=== PATIENT | female | born 1940 | race Caucasian/White ===

== ENCOUNTER 2017-10-25 13:00 | Emergency (ER) | payer MEDICARE, SELFPAY ==
[2017-10-25 13:02] VITALS: BP 160/80; PULSE 119; RESP 16; TEMP 36.8; O2SAT 97; BMI 20.8
[2017-10-25 13:26] VITALS: BP 140/66; PULSE 105; RESP 19; O2SAT 99
[2017-10-25 14:19] LABS: Mucous, Urine 0 SEEN /hpf (<or=2+); Red Blood Cells-Urine 0 SEEN /hpf (0-5)
[2017-10-25 14:21] LABS: Absolute Lymphocyte Count 0.72 X10^3/ul (0.83-4.51); Absolute Neutrophil Count 1.1 X10^3/uL (2.0-7.7); Basophil# 0.05 X10^3/uL; Basophil% 1.7 % (0-1); Eosinophil# 0.27 X10^3/uL; Eosinophils% 9.1 % (0-5); Hematocrit 39.9 % (37-47); Hemoglobin 12.8 g/dl (12.0-15.0); Lymphocyte # 0.72 X10^3/ul (4.0); Lymphocyte % 24.2 % (19-41); Mean Corp Hgb Conc 32.1 g/gl (32-36); Mean Corpuscular Hgb 30.8 pg (27.0-32.0); Mean Corpuscular Volume 96.1 fL (81-99); Mean Platelet Vol. 10.1 fl (6.2-12.0); Monocyte# 0.84 X10^3/uL; Monocyte% 28.3 % (0-10); Neutrophil # 1.06 X10^3/uL (2.7-7.7); Neutrophil % 35.7 % (47-70); Platelet Count 172 K/mm3 (150-450); RBC Distribution Width CV 12.9 % (11.6-14.6); Red Blood Count 4.15 M/mm3 (4.2-5.4)
[2017-10-25 14:22] LABS: Color, Urine Yellow (Yellow); Glucose, Dipstick Normal (Normal); Ketone-Dipstick Negative (Negative); Leukocyte Esterase-Dipstick 25 /ul (Negative); Nitrite-Dipstick Negative (Negative); Occult Blood-Urine Negative /ul (Negative); Protein-Dipstick 30 mg/dl (Negative); Specific Gravity, Urine 1.015 (1.002-1.030); Urine Bilirubin Dipstick Negative (Negative); Urine Clarity Sl. Cloudy (Clear); Urine Urobilinogen Normal (Normal)
[2017-10-25 14:22] LABS: POSITIVE COUNT NO; POSITIVE DIFFERENTIAL NO; POSITIVE MORPHOLOGY YES
[2017-10-25 14:23] LABS: Differential Indicated SCAN CRITERIA MET
--- NOTE | 2017-10-25 14:25 | RAD_ITS ---
STUDY: X-RAY CHEST REASON FOR EXAM: Female, 76 years old. Weakness TECHNIQUE: PA and lateral views of the chest. COMPARISON: 06/09/2017 FINDINGS: An implanted central catheter projects over the left chest with the tip in the SVC. The lungs are hyperinflated. There is no focal consolidation. Cardiac monitoring leads overlie the chest. There is no demonstrated pleural abnormality. Normal size heart. Normal mediastinum and odalys. Normal visualized pulmonary arteries. There is atherosclerotic calcification of the aortic arch with tortuosity. There are diffuse degenerative changes of the visualized thoracic spine. The bones are demineralized. There is no demonstrated abnormality of the visualized soft tissue structures of the upper abdomen. RAD/Chest PA and Lateral IMPRESSION: COPD. No focal consolidation. Electronically Signed: Jarred Rogel DO at 15:02 EST Tel , Service support ,
[2017-10-25 14:27] LABS: Bacteria 1+ /hpf (None Seen); Squamous Epithelial Cells - UA 0-5 SEEN /hpf (5-10); White Blood Cells 0-5 SEEN /hpf (0-5)
[2017-10-25 14:34] LABS: Anion Gap 6 (5-15); BUN 12 mg/dL (7-18); BUN/Creat Ratio 27.1 RATIO (10-20); Calcium,Total 9.2 mg/dL (8.5-10.1); Chloride 105 mmol/L (98-107); Creatinine, Serum 0.44 mg/dL (0.55-1.02); EST Glomerular Filtration Rate 147 mL/min (>60); Est Glom Filt Rate - Afr Amer 178 mL/min (>60); Glucose 87 mg/dL (74-106); Potassium 3.8 mmol/L (3.5-5.1); Sodium Level 140 mmol/L (136-145)
[2017-10-25 14:49] LABS: Toxic Granulation RARE
[2017-10-25 15:46] VITALS: PULSE 88; RESP 18; O2SAT 98
--- NOTE | 2017-10-25 16:30 | ED.VISSUMM ---
- ER Visit Summary Date of Service: 10/25/17 Chief Complaint: To ER by Dr. Herron because of chills and not feeling well History of Present Illness: The patient is a 76 F with history of Hodgkin's lymphoma who received chemotherapy Tuesday and of last week presents because of not feeling well, slight cough and frequency. She denies fever or sweats. She denies headache. She denies any ocular, visual or auditory symptoms. She denies rhinorrhea, congestion, earache or sore throat. She denies shortness of breath or chest pain of any type. She denies nausea, vomiting or diarrhea. She denies any rash or lesions. She does complain of frequency without dysuria or hematuria. Physical Examination: Signs are remarkable only blood pressure 146/66. Head is atraumatic normocephalic. Pupils are equal round reactive. Extraocular muscles are intact. TMs are pearly white with landmarks noted. Nares patent with no drainage. Posterior pharynx without erythema or exudate. Uvula is midline. There is no dysphonia or dysphasia. Trachea is midline. There is no stridor with auscultation of the neck. Heart is regular without murmur, gallop or rub. Lungs reveal rales and inspiration right base posteriorly. There is no egophony or increased vocal fremitus. Abdomen is soft nontender with no palpable subtle mass. There is no abdominal bruit. She has no CVA tenderness. Lower extremity exam is unremarkable. Neuro exam is nonfocal. Please read written note for complete detail Test Results: Count is 3000 with 36% segs and an absolute neutrophil count of approximately 1000. Electrode panel is normal. Urine reveals 0-5 WBCs and 1+ bacteria and is a good specimen. Culture was sent. Two-view chest x-ray reveals chronic changes with normal cardiac silhouette and mediastinum. Emergency Department Course and Treatment: Chest x-ray because of complaint of cough with rales right base. UA because of complaint of frequency. Blood work was obtained since she is immune suppressed to determine if she has absolute for count less than 500. Treatment Plan: Culture was sent and she received 2 g of Rocephin IV piggyback. Case was discussed with Dr. Akhtar who is on-call for Dr. Herron Disposition: Discharged home with prescription for ciprofloxacin and outpatient follow-up Impression: 1. UTI 2. Immune suppressed patient secondary to chemotherapy 3. History of non-Hodgkin's lymphoma 4. History of hypothyroidism This note was generated with Revuze dictation software. It may contain incorrect words, spelling, and punctuation that were not noted in review of the chart prior to signing ED Disposition - Plan for ED Patient: Disposition: Home or Assisted Living Chief Complaint: Weakness Instructions: ED UTI Cystitis Female Prescriptions: Ciprofloxacin [Cipro] 500 mg PO BID #14 tab Referrals: Yuridia Amanda MD [Primary Care Provider] - Pop Herron MD [STAFF PHYSICIAN] - 3-5 Days if not improving Additional Instructions: Your prescription was electronically sent to [facility] your preferred pharmacy
[2017-10-25 17:00] VITALS: PULSE 95; RESP 18; O2SAT 99
== END 2017-10-25 17:25 | disposition home or self-care (01) ==
PROVIDERS: Emergency Provider Emergency Medicine; Family Provider Family Medicine; PCP Family Medicine
DX: N39.0 Urinary tract infection, site not specified (principal); C85.90 Non-Hodgkin lymphoma, unspecified, unspecified site; E03.9 Hypothyroidism, unspecified; Z79.899 Other long term (current) drug therapy
CPT/HCPCS: 71046; 80048; 81001; 85025; 87086; 87088; 96365; 99283; J7030

== ENCOUNTER → 2019-01-15 | Outpatient (CLI) | payer MEDICARE, SELFPAY ==
[2018-12-13 14:43] VITALS: BMI 24.4
--- NOTE | 2019-01-15 10:30 | PET_ITS ---
EXAMINATION: FDG PET CT INDICATIONS: A 78-year-old female with history of lymphoma presenting for restaging examination. COMPARISON EXAMINATION: CT of the neck report dated 12/19/18. INDEX LESION SIZE LUGANO SCORE SUV INTERPRETATION Left supraclavicular region, left lateral neck, right anterior neck 8.2 mm x 12.0 mm largest (frame 222) 5 4.7 (max) Fulfills quantitative criteria for viable neoplasm Carinal level mediastinum (n = 1) 14.1 mm x 12.4 mm largest (frame 193) 5 4.6 (max) Fulfills quantitative criteria for viable neoplasm NON-INDEX LESION SIZE LUGANO SCORE SUV INTERPRETATION Right inguinal region 3 2.0 Quantitative criteria for viable neoplasm are not fulfilled TECHNIQUE: Following the intravenous administration of 15.8 mCi of F-18 deoxyglucose via the left wrist, multiplanar image acquisitions of the neck, chest, abdomen and pelvis to level of mid thigh, obtained at one hour post radiopharmaceutical administration contemporaneously interpreted with the current CT of the neck, chest, abdomen and pelvis to level of mid thigh, dated 01/15/[address] of the neck report dated 12/19/18 reveal: SERUM GLUCOSE LEVEL: 104 mg/dl. HEIGHT: 64 inches. WEIGHT: 136 lbs. FINDINGS: 1. Increased glucose metabolism is identified in the left supraclavicular region, right anterior neck involving level IV and left lateral neck involving level II A, V A. The calculated maximum standard uptake value is 4.7. The Lugano-Deauville score is 5. The maximal axial diameter of the largest individual metabolic, morphologic abnormality on review of CT of the neck-chest dated 01/15/19 is 8.2 mm (transverse) x 12.0 mm (AP). 2. Facilitated FDG concentration appears evident in the carinal level mediastinum to the left of the midline, paratracheal in location generating a calculated maximum standard uptake value of 4.6. The Lugano-Deauville score is 5. The maximal axial diameter of the corresponding hypermetabolic soft tissue density on review of CT of the chest dated 01/15/19 is 14.1 mm (transverse) x 12.4 mm (AP). 3. Normal physiologic distribution of the radiopharmaceutical is apparent in the hepatic (3.4) and splenic parenchyma, both renal units, bladder and visualized intestinal tract. There is uniform distribution of the radiopharmaceutical concentration defined in the visualized cerebellar hemispheres and cerebral cortical structures.? Diffuse intestinal tract activity is noted throughout all four quadrants of the abdominal-pelvic retroperitoneum, mesentery consistent with normal physiologic distribution of the radiopharmaceutical. Prominent tracer distribution is defined in the right hemipelvis, which appears contiguous to the proximal-distal ureter. A single focus of increased FDG concentration is apparent in the right inguinal region generating a calculated maximum standard uptake value of 2.0. The Lugano-Deauville score is 3. The corresponding soft tissue density demonstrates fatty hilus formation on review of CT of the pelvis dated 01/15/19. Both kidneys demonstrate apparent prominent collecting system activity involving the superior-inferior pole calices. Pertinent CT findings are as follows. CHEST: Tnyh-M-Frux-MediPort placement is noted. Atherosclerotic calcification is defined in the thoracic aorta without evidence of dilatation, aneurysm formation. Coronary arterial calcification is observed. Bilateral axillary soft tissue densities with fatty hilus formation are ametabolic. There are no parenchymal densities-nodules defined in the right and left hemithorax demonstrating discernible increased glucose metabolism. ABDOMEN AND PELVIS: Atherosclerotic calcification is defined in the abdominal aorta without evidence of dilatation, aneurysm formation. Pelvic arterial calcification is observed. Right-left inguinal soft tissue densities with expressed fatty hilus formation are non-glucose avid. Calcifications are defined in the bilateral lower hemipelvis without evidence of quantitatively significant increased glucose metabolism. SKELETAL: Degenerative changes defined in the cervical, thoracic and lumbar spine demonstrate no evidence for glucose hypermetabolism. PET/PET/CT Tumor Base -Thigh Init IMPRESSION: 1. ABNORMAL EXAMINATION INDICATIVE OF MALIGNANT-VIABLE NEOPLASM. 2. Increased FDG concentration noted in the left supraclavicular and left lateral neck lymph node distributions, the right anterior neck fulfills quantitative criteria for viable neoplasm. 3. The carinal level mediastinal hypermetabolic focus fulfills quantitative criteria for malignant transformation. (Jacquie et al, Journal of Clinical Oncology 32:3059, 2014). 4. Subtle increased FDG concentration visualized in the right inguinal region does not fulfill quantitative criteria for viable neoplasm. Electronic Signature Kris Loya D.O. Electronically Signed: Kris Loya DO at 23:45 EDT Tel , Service support ,
== END | disposition home or self-care (01) ==
PROVIDERS: Family Provider Family Medicine; PCP Family Medicine; Referring Provider Internal Medicine Hematology & Oncology; Visit Provider Internal Medicine Hematology & Oncology
DX: C83.31 Diffuse large B-cell lymphoma, lymph nodes of head, face, and neck (principal)
CPT/HCPCS: 78815; A9552

== ENCOUNTER → 2019-01-19 | Outpatient (CLI) | payer MEDICARE, SELFPAY ==
[2018-12-04 11:49] VITALS: BMI 20.8
--- NOTE | 2018-12-08 13:11 | PCM.HP.BLA ---
History and Physical DATE OF SURGERY: 12/27/2018 SCHEDULED PROCEDURE: Left total hip arthroplasty with femoral head bone biopsy HISTORY OF PRESENT ILLNESS: This is a 77-year-old female who has been having ongoing pain in her left hip since March 2018. Patient has been referred from her primary care physician. Patient did undergo x-rays of the left hip and her lumbar spine on August 28, 2018 which was ordered by her primary care physician. Patient states she has difficult time sleeping due to the hip pain. She is unable to fully extend her left hip. Patient states the pain has become worse over the past 1 month. Her pain can reach as high as a 7-8/10. Patient has also had chronic ongoing low back pain for years. She does get pain down her left leg primarily in the thigh to her knee. She does get some occasional buttock pain. She denies any loss of bowel or bladder control. She is using a cane for ambulatory assistance. She denies previous surgery on the left hip. Patient did undergo percutaneous pinning of the right hip by Dr. Tinsley in 1998. Patient states the left hip pain prevents her from doing activities throughout the day. She denies any recent trauma or injury. Patient has tried Osteo Bi-Flex with minimal relief. Patient has a medical history pertinent for lymphoma in which she underwent chemotherapy which ended in December 2017. She is currently being followed by oncologist Dr. Herron. Patient currently denies any chest pain, shortness of breath, fevers chills, or recent infections. After discussion with Dr. Ramirez Sierra, the patient does wish to proceed with a left total hip arthroplasty with femoral head bone biopsy. REVIEW OF SYSTEMS: ROS: Const: Denies anorexia, change in appetite, fever, difficulty sleeping, weight change. CV: Reports irregular heartbeat, but denies chest pain, heart murmur and peripheral vascular disease. Resp: Denies asthma, cough, pneumonia, sleep apnea, shortness of breath, tuberculosis and wheezing. GI: Denies constipation, diarrhea, heartburn, nausea, rectal itching, bloody stools and vomiting. : Denies incontinence. Musculo: Reports trouble walking, but denies leg swelling, pain and weakness. Skin: Denies Raynaud's, history of shingles and tattoo. Neuro: Denies ambulatory dysfunction, dizziness, numbness/tingling and tremor. Psych: Denies anxiety, depression, insomnia, mental illness and stress. Fracisco/Lymph: Reports bleeding/bruising tendency, but denies anemia and past transfusion. Reviewed and updated. PAST MEDICAL HISTORY: Advance Care Plan: PMH: Medical Problems: Cancer - B-CELL LYMPHOMA Gout, Hypercholesterolemia, Mitrovalve Prolapse Accidents: Fracture - RT HIP LT SHOULDER Surgical Hx: ORIF - RT HIP/DR. TINSLEY[facility] LT SHOULDER/DR. TINSLEY[facility] Tubal Ligation, Appendectomy, Tonsillectomy Bowel Tuck - (03/2009) DR. PALMER[facility] Anesthesia Complications: None Assistive Devices: Glasses, Dentures Reviewed and updated. 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 Personal Habits: Smoking: Patient has never smoked.Cigarette Use: Never.Smokeless Tobacco: Never Used Smokeless Tobacco.E-Cigarette Use: Never used.Alcohol: Denies use.Drug Use: Denies Use.Enjoy Exercising: Exercises 1-3 X/Week. Reviewed and updated. VITALS: Ht: 63.5 Wt: 142lb 2oz Wt k.468 BMI: 24.8 BP: 154/86 Pulse: 106 Resp: 18 T: 98.9 T: 37.2C ALLERGIES: Amoxicillin Dye In CT scan Prednisone Zithromax Levaquin - Muscle Aches Lipitor - Rash Metronidazole Ketorolac MEDICATIONS: Artificial Tears 0.2-0.2-1 % one drop in each eye every hour prn, Docusate Sodium 100 mg 1po bid prn, Famotidine 20 mg 1 by mouth BID, Levothyroxine Sodium 88 mcg 1po qday, Tylenol Extra Strength 500 mg 2 by mouth every 8 hours, Alive Energy 50+ 1po bid, Trubiotics 1po qday with meal PRE-OP EXAM: General appearance:NORMAL Other: Eyes: Conjunctivae and lids: NORMAL Pupils: ERR Ears, Nose, Mouth, and Throat: NORMAL Other: Inspection of lips, teeth and gums: NORMAL Other: Neck: Examination of neck: no masses noted. Respiratory: Assessment of respiratory effort: NORMAL Other: Auscultation of lungs: clear to auscultation no wheezes, rhonchi or rales. Cardiovascular: Auscultation of heart: regular rate and rhythm, no murmurs, gallops or rubs. Gastrointestinal: Exam of abdomen: soft, nontender, nondistended bowel sounds present. PHYSICAL EXAMINATION: Exam: Const: Alert and oriented x 3. Skin: Skin is warm, dry and intact. Neuro: Sensation grossly intact to light touch. Neurological and vascular function intact. On exam this is a pleasant 77-year-old female who is sitting in the chair in no apparent distress. Patient does have increased pain going from a seated to a standing position. Upon laying on the table she is unable to fully extend the left hip. Patient has tenderness to palpation over the lateral left hip. Minimal pain in the left buttock region. No significant pain in the lumbar paraspinal. Range of motion left hip: Internal rotation 5, external rotation 15, patient lacks approximately 20 full extension left hip. Left hip crepitus and pain upon range of motion. Right hip: Internal rotation 15, external rotation 25. Negative seated bilateral straight leg raise, negative supine bilateral straight leg raise. Sensation intact to saphenous, sural, superficial/deep peroneal, tibial distribution. IMAGING STUDIES: 1. X-rays of the lumbar spine were reviewed from August 28, 2018 from outside institution which did reveal degenerative changes of the lumbar spine including mild narrowing of L4-L5 and L5-S1 disc spaces. There does appear to be grade 1 anterior listhesis of L4 on L5. There does appear to be abdominal aortic calcifications. No acute finding for fracture or dislocation. No lytic or blastic lesions appreciated. 2. X-rays of the left hip were reviewed from outside institution on August 28, 2018 which does reveal severe osteoarthritis of the left hip with bone on bone osteoarthritis with subchondral sclerosis, subchondral cyst formation, and large osteophytes off of the acetabulum and femoral head. No acute findings or fracture was appreciated. There is also moderate to severe osteoarthritis of the right hip with previous percutaneous pinning from a femoral neck fracture. 3. X-rays were obtained at [facility] [place] at today's visit including 2 views AP pelvis, AP left hip reveals severe osteoarthritic changes with [id number] osteoarthritis, subchondral sclerosis, subchondral cyst formation, large osteophyte formation. No acute finding for fracture or dislocation. There is moderate to severe osteoarthritis of the right hip with previous percutaneous pinning with moderate to severe joint space narrowing, subchondral sclerosis, osteophyte formation. IMPRESSION: 1. Severe left hip osteoarthritis 2. Severe right hip osteoarthritis with previous percutaneous pinning 3. Lumbar degenerative disc disease 4. History of Hodgkin's lymphoma 2018 5. Gout 6. Hypercholesterolemia 7. Mitral valve prolapse 8. Hypothyroidism PLAN: Dr. Ramirez Sierra did discuss and review with the patient all treatment options including surgical versus nonsurgical options. Patient does wish to proceed with the above-stated procedure. Potential risks, benefits, and complications of the procedure were discussed in detail including but not limited to , infection, nerve and blood vessel damage, persistent pain, numbness, tingling, paresthesias, blood clot, pulmonary embolism, and requirement for possible further surgery. The patient expressed full understanding and has no further questions for the doctor. Patient does agree to proceed with the above-stated procedure and has signed the surgery consent form. This dictation was created using voice recognition software. Phonetic and/or grammatical errors may exist.. ___ I have re-examined the patient. There are no clinical changes since date of exam. ___ See progress notes for changes. ___ Dictated on admission Date: Time: Signature:
[2018-12-13 14:43] VITALS: BP 136/78; PULSE 97; RESP 16; TEMP 37.1; O2SAT 98; BMI 24.4
--- NOTE | 2018-12-13 14:51 | SDCEKG_ITS ---
Test Reason : Blood Pressure : / mmHG Vent. Rate : 089 BPM Atrial Rate : 089 BPM P-R Int : 106 ms QRS Dur : 084 ms QT Int : 364 ms P-R-T Axes : 076 -42 074 degrees QTc Int : 442 ms Sinus rhythm with short [place] Left atrial enlargement Left axis deviation Abnormal ECG Confirmed by ANA PAULA TIJERINA, IRIS ([id number]), index editor CHESTER MAO ([id number]) on 12/14/2018 1:18:02 PM Referred By: Ramirez Sierra Confirmed By:IRIS GOSS MD
--- NOTE | 2018-12-13 15:21 | NURSING ---
PORT ACCESSED FOR BLOOD DRAW- FLUSHED WITH NS- DISCARDED TUBE- TONY 2 TUBES OF BLOOD- PORT FLUSHED WITH NS AND 5 CC HEPARIN PT TOLERATED WELL
[2018-12-13 15:39] LABS: Absolute Lymphocyte Count 0.76 X10^3/ul (0.83-4.51); Absolute Neutrophil Count 3.7 X10^3/uL (2.0-7.7); Basophil# 0.05 X10^3/uL; Eosinophil# 0.07 X10^3/uL; Eosinophils% 1.4 % (0-5); Hematocrit 40.9 % (37-47); Hemoglobin 12.9 g/dl (12.0-15.0); Lymphocyte # 0.76 X10^3/ul (4.0); Lymphocyte % 14.8 % (19-41); Mean Corp Hgb Conc 31.5 g/gl (32-36); Mean Corpuscular Hgb 31.2 pg (27.0-32.0); Mean Platelet Vol. 10.5 fl (6.2-12.0); Monocyte# 0.57 X10^3/uL; Monocyte% 11.1 % (0-10); Neutrophil # 3.67 X10^3/uL (2.7-7.7); Neutrophil % 71.5 % (47-70); Platelet Count 224 K/mm3 (150-450); RBC Distribution Width CV 12.2 % (11.6-14.6); Red Blood Count 4.13 M/mm3 (4.2-5.4); White Blood Count 5.1 K/mm3 (4.4-11.0)
[2018-12-13 15:49] LABS: POSITIVE COUNT NO; POSITIVE DIFFERENTIAL NO; POSITIVE MORPHOLOGY NO
[2018-12-13 16:23] LABS: Anion Gap 4 (5-15); BUN 12 mg/dL (7-18); BUN/Creat Ratio 20.2 RATIO (10-20); Calcium,Total 8.6 mg/dL (8.5-10.1); Chloride 105 mmol/L (98-107); EST Glomerular Filtration Rate 104 mL/min (>60); Est Glom Filt Rate - Afr Amer 126 mL/min (>60); Estimated Creatinine Clearance 39.59 ml/min; Glucose 125 mg/dL (74-106); Potassium 3.7 mmol/L (3.5-5.1); Sodium Level 139 mmol/L (136-145); Thyroid Stim Hormone (TSH) 0.13 uIU/mL (0.358-3.74)
== END | disposition home or self-care (01) ==
PROVIDERS: Anesthesiology; Family Provider Family Medicine; PCP Family Medicine; Referring Provider Specialist; Visit Provider Specialist
DX: Z01.818 Encounter for other preprocedural examination (principal); M16.12 Unilateral primary osteoarthritis, left hip; M16.11 Unilateral primary osteoarthritis, right hip; M51.36 Other intervertebral disc degeneration, lumbar region; M10.9 Gout, unspecified; E78.00 Pure hypercholesterolemia, unspecified; E03.9 Hypothyroidism, unspecified; I34.1 Nonrheumatic mitral (valve) prolapse; Z85.71 Personal history of Hodgkin lymphoma; Z79.899 Other long term (current) drug therapy
CPT/HCPCS: 80048; 84443; 85025; 87081; 93005

== ENCOUNTER 2019-02-16 07:04 | Inpatient (IN) | payer MEDICARE, SELFPAY ==
[2018-12-13 14:43] VITALS: BMI 24.4
[2019-02-16] VITALS (7 sets, daily range): BP systolic 103–121; BP diastolic 45–94; PULSE 84–116; RESP 18–27; TEMP 37.4–39.4; O2SAT 98–100; BMI 24.2; BMI 22.6
[2019-02-16] MEDS: 0.9% Normal Saline 1,000 ML 1000 ML IV (07:19)
--- NOTE | 2019-02-16 07:19 | EKG12_ITS ---
Test Reason : WEAKNESS Blood Pressure : / mmHG Vent. Rate : 098 BPM Atrial Rate : 098 BPM P-R Int : 110 ms QRS Dur : 076 ms QT Int : 374 ms P-R-T Axes : 000 -37 066 degrees QTc Int : 477 ms Ectopic atrial rhythm with short HI with Premature atrial complexes with Aberrant conduction Left axis deviation Abnormal ECG Confirmed by MICHAEL TIJERINA, DONY ([id number]), assistant film editor JUDY JENNINGS ([id number]) on 02/19/2019 1:42:25 PM Referred By: SANDRA Confirmed By:DONY RODRIGUEZ MD
[2019-02-16 07:57] LABS: Mucous, Urine 0 SEEN /hpf (<or=2+); Squamous Epithelial Cells - UA 0 SEEN /hpf (5-10); White Blood Cells 0 SEEN /hpf (0-5)
--- NOTE | 2019-02-16 07:57 | ED.DCSUM_ITS ---
History of Present Illness Chief Complaint: Weakness Informant: Patient, Family Onset: Yesterday Context: Gradual Onset Timing: Continuous Current Severity: Severe Maximum Severity: Moderate Worsened by: diarrhea Relieved by: pepto Associated Symptoms: general weakness,diarrhea,fatigue Narrative: 78-year-old female with a history of malignancy, last chemotherapy 1 week ago, presents with generalized fatigue and diarrhea. She was constipated for the past week or so and has been taking stool softeners. She doubled her dose because it was not working and has now had diarrhea for the past 48 hours. She is concerned that she is becoming dehydrated. She feels quite weak and this morning she could even get out of bed due to weakness. She denies cough or shortness of breath. Denies pain anywhere. She has not urinated much over the past 12 hours. Capacity - Capacity Assessment Tool Can the patient make a choice & communicate that choice?: Yes Past Medical History - Allergies and Home Meds Allergies/Adverse Reactions: Allergies amoxicillin Allergy (Verified 02/16/19 07:07) Unknown atorvastatin Allergy (Verified 02/16/19 07:07) Unknown azithromycin Allergy (Verified 02/16/19 07:07) Unknown Iodinated Contrast- Oral and IV Dye [DYEE] Allergy (Verified 02/16/19 07:07) Unknown ketorolac Allergy (Verified 02/16/19 07:07) Unknown levofloxacin [From Levaquin] Allergy (Verified 02/16/19 07:07) Unknown metronidazole Allergy (Verified 02/16/19 07:07) Unknown prednisone Allergy (Verified 02/16/19 07:07) Unknown Primary Care Physician: Francisco J Garces III, MD [Primary Care Provider] - Prior records reviewed: Yes Past Medical History: - - Reviewed. Smoking Status: Never smoker - Family History Maternal Family History: Reports: - - Non-contributory. Physical Exam Vital Signs/Narrative: Vital Signs Temp Pulse Resp BP Pulse Ox 02/16/19 07:13 99.9 F H 116 H 02/16/19 07:08 99.9 F H 116 H 20 H 121/94 H 99 General: Well developed, No Acute Distress Head: Normocephalic, Atraumatic Eyes: Perrl, EOMI ENT: No rhinorrhea, Dry mucous membranes Neck: Supple, Nontender Cardiovascular: Regular rate, Regular rhythm, No murmurs Respiratory: No distress, CTA bilaterally, Chest nontender Abdomen: Soft, Nontender, Nondistended, Normal bowel sounds Back: Nontender, Normal Inspection Extremities: Nontender, No edema Skin: Normal color, No rash Neurological: Alert, Oriented x3, Cranial nerves II-XII grossly intact, Normal Strength, Normal Sensation Psychological: Normal affect, Normal Mood Diagnostic/Tx/Re-eval Chest X-Ray - ED: 2 View, Normal, Heart, Lungs, No Acute Disease - Rhythm Strip Rhythm Strip: Sinus Rhythm Rate: 98 Ectopy: None - Medical Decision Making Her white count is less than 0.1. Chemistries fairly unremarkable. She has a temperature of 99.9 here and feels quite fatigued. Chest x-ray is negative for infiltrate. Urine does not appear infected however she was unable to produce a specimen and when a straight cath was inserted, over 800 cc of urine was obtained. A Harrington was left in place and several 100 more cc of urine drained. She is very weak on reexamination despite IV fluids and is unable to ambulate. Her daughter is not comfortable taking her home because of her weakness. I discussed the case with her oncologist, Dr. Herron, who recommended hospitalization for IV fluids, leaving the Harrington catheter in place, treating with Levaquin, and consulting neurology. I have paged the hospitalist to arrange this. ED Disposition - Plan for ED Patient: Disposition: Acute Care [facility] Diagnosis: Neutropenic fever, Dehydration, Urinary retention Referrals: Francisco J Garces III, MD [Primary Care Provider] -
[2019-02-16 08:02] LABS: Color, Urine Yellow (Yellow); Glucose, Dipstick Normal (Normal); Ketone-Dipstick Negative (Negative); Leukocyte Esterase-Dipstick Negative /ul (Negative); Nitrite-Dipstick Negative (Negative); Occult Blood-Urine Negative /ul (Negative); Protein-Dipstick Negative (Negative); Specific Gravity, Urine 1.015 (1.002-1.030); Urine Bilirubin Dipstick Negative (Negative); Urine Clarity Clear (Clear); Urine Urobilinogen Normal (Normal)
[2019-02-16 08:09] LABS: Basophil# 0.01 X10^3/uL; Hematocrit 29.1 % (37-47); Hemoglobin 9.6 g/dl (12.0-15.0); International Normalized Ratio 1.1; Lymphocyte # 0.08 X10^3/ul (4.0); Mean Corpuscular Hgb 28.1 pg (27.0-32.0); Mean Corpuscular Volume 85.1 fL (81-99); Mean Platelet Vol. 12.3 fl (6.2-12.0); Monocyte# 0.03 X10^3/uL; Platelet Count 58 K/mm3 (150-450); RBC Distribution Width CV 14.1 % (11.6-14.6); Red Blood Count 3.42 M/mm3 (4.2-5.4)
--- NOTE | 2019-02-16 08:10 | RAD_ITS ---
STUDY: X-RAY CHEST REASON FOR EXAM: Female, 78 years old. Weakness. Cough. TECHNIQUE: AP and lateral views of the chest. COMPARISON: Comparison is made with prior study dated October 25, 2017. FINDINGS: EKG electrodes are seen. A left-sided portacatheter is visible with the tip at the junction of superior vena cava and right atrium. Hyperinflation. There is no demonstrated pleural abnormality. Normal size heart. Normal mediastinum and odalys. Normal visualized pulmonary arteries. There is atherosclerotic calcification of the aortic arch with tortuosity. There is demineralization of the osseous structures. There is degenerative osteoarthritis of the bilateral shoulders. Screw fixation in the left humeral head. There is no demonstrated abnormality of the visualized soft tissue structures of the upper abdomen. RAD/Chest PA and Lateral IMPRESSION: Hyperinflation. No acute adenopathy is seen. Electronically Signed: Dakotah Garcia, at 8:39 EDT , Service support ,
[2019-02-16 08:11] LABS: Red Blood Cells-Urine 0-5 SEEN /hpf (0-5)
[2019-02-16 08:13] LABS: Bacteria 1+ /hpf (None Seen); Differential Indicated SCAN CRITERIA MET; POSITIVE COUNT YES; POSITIVE DIFFERENTIAL YES; POSITIVE MORPHOLOGY YES; White Blood Count 0.1 K/mm3 (4.4-11.0)
[2019-02-16 08:17] LABS: ALB/GLOB Ratio 0.8 RATIO (0.9-2.4); AST(SGOT) 15 U/L (15-37); Alanine Aminotransfer ALT/SGPT 32 U/L (13-56); Albumin, Serum 2.5 g/dL (3.2-5.0); Alkaline Phosphatase 107 U/L (45-117); Anion Gap 8 (5-15); BUN 8 mg/dL (7-18); BUN/Creat Ratio 16.7 RATIO (10-20); Calcium,Total 7.9 mg/dL (8.5-10.1); Chloride 103 mmol/L (98-107); Creatinine, Serum 0.48 mg/dL (0.55-1.02); EST Glomerular Filtration Rate 134 mL/min (>60); Est Glom Filt Rate - Afr Amer 162 mL/min (>60); Estimated Creatinine Clearance 38.97 ml/min; Globulin 3.2 g/dL (2.2-4.2); Glucose 125 mg/dL (74-106); Potassium 3.4 mmol/L (3.5-5.1); Protein, Total 5.7 g/dL (6.4-8.2); Sodium Level 136 mmol/L (136-145)
[2019-02-16 08:28] LABS: Scan Smear per Review Criteria MANUAL DIFF
[2019-02-16 08:33] LABS: Lymphocyte 75 % (19-41); Monocyte 15 % (0-10); Neutrophil-Segmented 10 % (47-70); Total Cells Counted 20 (MANUAL DIFF)
[2019-02-16 08:34] LABS: Atypical Lymphocyte 1+ %; Hypochromasia 1+; Platelet Estimate MKD DEC (ADEQ)
[2019-02-16 08:49] LABS: Lactic Acid 1.8 mmol/L (0.4-2.0)
[2019-02-16] MEDS: Ceftriaxone 1 GM/50 ML BAG IV (10:41)
[2019-02-16] MEDS: 0.9% Normal Saline 1,000 ML 100 ML IV ×2 (12:17→22:34)
[2019-02-16] MEDS: Acetaminophen 325 MG Tablet 650 MG PO ×2 (12:22→22:30)
--- NOTE | 2019-02-16 12:48 | PCM.CONS.GEN ---
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 Stage I diffuse large B-cell lymphoma. Immunocompromised; status post R-CHOP History of Present Illness: The patient is a 78 year old F with history of follicular lymphoma and marginal zone lymphoma who presented with a swollen neck mass a month ago. Her subsequent evaluation biopsy was consistent with diffuse large B-cell lymphoma of follicular origin. (cmyc & [id number]). Patient had previous treatment with CHOP & Rituxan bendamustine for non-Hodgkin lymphoma. She had her first cycle of R-CHOP last followed by Neulasta on Tuesday. Patient has not been eating well with constipation starting with this week. She took milk of magnesia and starting having diarrhea yesterday. She has not been able to void or urinate for the last 24-hour. Presented to emergency room with generalized weakness and dehydration. She also had a distended bladder a Harrington catheter was placed. She has over a liter retention of urine. Shortly afterwards, she spiked a temperature 102. CBC remarkable for ANC of 0.1 and a platelet count 59,000. She was subsequently admitted for neutropenic fever and urinary retention. Patient is allergic to penicillin and Levaquin. She was given Rocephin in the emergency room after blood and urine culture. 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) Lymphoma (Chronic) Allergies amoxicillin Allergy (Verified 02/16/19 07:07) Unknown atorvastatin Allergy (Verified 02/16/19 07:07) Unknown azithromycin Allergy (Verified 02/16/19 07:07) Unknown Iodinated Contrast- Oral and IV Dye [DYEE] Allergy (Verified 02/16/19 07:07) Unknown ketorolac Allergy (Verified 02/16/19 07:07) Unknown levofloxacin [From Levaquin] Allergy (Verified 02/16/19 07:07) Unknown metronidazole Allergy (Verified 02/16/19 07:07) Unknown prednisone Allergy (Verified 02/16/19 07:07) Unknown Home Medications: Ambulatory Orders Medication Instructions Recorded Levothyroxine [Synthroid] 88 mcg PO DAILY 05/20/17 Docusate Sodium [Colace] 100 mg PO TID PRN 10/25/17 L.acidoph,Paracasei, B.lactis 1 each PO DAILY 10/25/17 [Probiotic] Acetaminophen [Tylenol Extra 500 - 1,000 mg PO Q8H 12/13/18 Strength] Famotidine 20 mg PO DAILY 12/13/18 Mv-Mn/Folic Acid/Vit [id number] 1 each PO DAILY 12/13/18 [Alive Once Daily Women 50 Plus] Dexamethasone [Decadron] 1 tab PO BID PRN 02/16/19 Glucosam/Saroj-Msm1/C/Kannan/Bosw 2 each PO DAILY 02/16/19 [Osteo Bi-Flex Caplet] Magnesium Oxide [Magnesium] 300 mg PO DAILY 02/16/19 Ondansetron HCl 8 mg PO Q8H PRN 02/16/19 Potassium Chloride PO DAILY 02/16/19 Psychiatric History: No pertinent psych hx 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 Review of Systems Constitutional: Reports: Anorexia, Malaise, Weakness Gastrointestinal: Reports: Nausea Genitourinary: Reports: Retention Patient Problems: Active and Suspected Problems Neutropenic fever (Acute) Dehydration (Acute) Urinary retention (Acute) - Physical Exam General: Alert, Oriented x3, No apparent distress HEENT: Atraumatic, PERRLA, EOMI, Normocephalic Oral: No Gingival or Mucosal Lesions/ Ulcerations, Dry Mucosa Neck: Supple, No JVD Lungs: Clear to auscultation, Normal air movement, No rhonchi, No wheeze, No rales Cardiovascular: Regular rate, Regular Rhythm, Normal S1, Normal S2, No murmurs Abdomen: Bowel Sounds Present, Soft, Non Tender, No Hepato-splenomegaly Extremities: No clubbing, No cyanosis, No edema Skin: No rashes Lymphatic: No Cervical, Supraclavicular, or Inguinal Adenopathy Neurological: Cranial nerves II-XII grossly intact, Neuro grossly intact Psych/Mental Status: Normal Affect Comment: CXR: Hyperinflation. No acute adenopathy is seen. Vital Signs Temp Pulse Resp BP Pulse Ox 102.9 F H 98 20 H 115/50 L 100 02/16/19 11:19 02/16/19 11:19 02/16/19 11:19 02/16/19 11:19 02/16/19 11:19 Oxygen Delivery Method Room Air Weight: 127 lb 9.6 oz Body Mass Index (BMI) 22.6 Laboratory Tests Past 24 Hrs 02/16/19 02/16/19 02/16/19 07:45 07:45 07:45 WBC 0.1 L* RBC 3.42 L Hgb 9.6 L Hct 29.1 L MCV 85.1 MCH 28.1 MCHC 33.0 RDW 14.1 RDW Differential 44.0 H Plt Count 58 L MPV 12.3 H Neut % (Auto) Not Reportable Lymph % (Auto) METAL MOULDER [place] % (Auto) METAL MOULDER Baso % (Auto) METAL MOULDER Absolute Neuts (auto) 0.0 L Absolute Lymphs (auto) 0.10 L Total Counted 20 Neutrophils % (Manual) 10 L Lymphocytes % (Manual) 75 H* Monocytes % (Manual) 15 H Diff Path Review May foll Atypical Lymphocytes 1+ Platelet Estimate MKD DEC Hypochromasia 1+ PT 14.0 INR 1.1 Sodium 136 Potassium 3.4 L Chloride 103 Carbon Dioxide 25.0 Anion Gap 8 BUN 8 Creatinine 0.48 L Estim Creat Clear Calc 38.97 Est GFR (MDRD) Af Amer 162 Est GFR (MDRD) Non-Af 134 BUN/Creatinine Ratio 16.7 Glucose 125 H Lactic Acid Calcium 7.9 L Total Bilirubin 2.20 H AST 15 ALT 32 Alkaline Phosphatase 107 Total Protein 5.7 L Albumin 2.5 L Globulin 3.2 Albumin/Globulin Ratio 0.8 L Urine Color Urine Clarity Urine pH Ur Specific [place] Urine Protein Urine Glucose (UA) Urine Ketones Urine Occult Blood Urine Nitrite Urine Bilirubin Urine Urobilinogen Ur Leukocyte Esterase Urine RBC Urine WBC Ur Squamous Epith Cells Urine Bacteria Urine Mucus 02/16/19 02/16/19 07:45 07:45 WBC RBC Hgb Hct MCV MCH MCHC RDW RDW Differential Plt Count MPV Neut % (Auto) Lymph % (Auto) [place] % (Auto) Baso % (Auto) Absolute Neuts (auto) Absolute Lymphs (auto) Total Counted Neutrophils % (Manual) Lymphocytes % (Manual) Monocytes % (Manual) Diff Path Review Atypical Lymphocytes Platelet Estimate Hypochromasia PT INR Sodium Potassium Chloride Carbon Dioxide Anion Gap BUN Creatinine Estim Creat Clear Calc Est GFR (MDRD) Af Amer Est GFR (MDRD) Non-Af BUN/Creatinine Ratio Glucose Lactic Acid 1.8 Calcium Total Bilirubin AST ALT Alkaline Phosphatase Total Protein Albumin Globulin Albumin/Globulin Ratio Urine Color Yellow Urine Clarity Clear Urine pH 8.0 Ur Specific [place] 1.015 Urine Protein Negative Urine Glucose (UA) Normal Urine Ketones Negative Urine Occult Blood Negative Urine Nitrite Negative Urine Bilirubin Negative Urine Urobilinogen Normal Ur Leukocyte Esterase Negative Urine RBC 0-5 SEEN Urine WBC 0 SEEN Ur Squamous Epith Cells 0 SEEN Urine Bacteria 1+ Urine Mucus 0 SEEN Assessment/Plan All Active Problems Neutropenic fever (Acute) Dehydration (Acute) Urinary retention (Acute) Hypotension (Acute) HCAP (healthcare-associated pneumonia) (Acute) Malignant pleural effusion (Acute) 78-year-old female with diffuse large B-cell lymphoma; status post R-CHOP /Neulasta day 8 She presents with Neutropenic fever; possible sepsis & urinary retention. Recommendations: -IV hydration resuscitation; mouth care for stomatitis. -Starts broad-spectrum antibiotic (cefepime 1gm IV) every 8 hours pending blood cultures; -Discontinue antibiotic if cultures remain negative after 48 hours as her neutrophil count recovers -Monitor CBC daily -Hold heparin/LMWH because of thrombocytopenia -Consult urology for urinary retention -Since she has already yesika & had G-CSF; her white blood count should recover over this weekend with supportive care. -Nutrition therapy and physical therapy consult. cc: Dr. Pop Herron; Dr. Gabriel Wells; Dr. Cale Mcnulty
--- NOTE | 2019-02-16 12:54 | CON.PCM_ITS ---
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 Stage I diffuse large B-cell lymphoma. Immunocompromised; status post R-CHOP History of Present Illness: The patient is a 78 year old F with history of follicular lymphoma and marginal zone lymphoma who presented with a swollen neck mass a month ago. Her subsequent evaluation biopsy was consistent with diffuse large B-cell lymphoma of follicular origin. (cmyc & [id number]). Patient had previous treatment with CHOP & Rituxan bendamustine for non-Hodgkin lymphoma. She had her first cycle of R-CHOP last followed by Neulasta on Tuesday. Patient has not been eating well with constipation starting with this week. She took milk of magnesia and starting having diarrhea yesterday. She has not been able to void or urinate for the last 24-hour. Presented to emergency room with generalized weakness and dehydration. She also had a distended bladder a Harrington catheter was placed. She has over a liter retention of urine. Shortly afterwards, she spiked a temperature 102. CBC remarkable for ANC of 0.1 and a platelet count 59,000. She was subsequently admitted for neutropenic fever and urinary retention. Patient is allergic to penicillin and Levaquin. She was given Rocephin in the emergency room after blood and urine culture. 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) Lymphoma (Chronic) Allergies amoxicillin Allergy (Verified 02/16/19 07:07) Unknown atorvastatin Allergy (Verified 02/16/19 07:07) Unknown azithromycin Allergy (Verified 02/16/19 07:07) Unknown Iodinated Contrast- Oral and IV Dye [DYEE] Allergy (Verified 02/16/19 07:07) Unknown ketorolac Allergy (Verified 02/16/19 07:07) Unknown levofloxacin [From Levaquin] Allergy (Verified 02/16/19 07:07) Unknown metronidazole Allergy (Verified 02/16/19 07:07) Unknown prednisone Allergy (Verified 02/16/19 07:07) Unknown Home Medications: Ambulatory Orders Medication Instructions Recorded Levothyroxine [Synthroid] 88 mcg PO DAILY 05/20/17 Docusate Sodium [Colace] 100 mg PO TID PRN 10/25/17 L.acidoph,Paracasei, B.lactis 1 each PO DAILY 10/25/17 [Probiotic] Acetaminophen [Tylenol Extra 500 - 1,000 mg PO Q8H 12/13/18 Strength] Famotidine 20 mg PO DAILY 12/13/18 Mv-Mn/Folic Acid/Vit [id number] 1 each PO DAILY 12/13/18 [Alive Once Daily Women 50 Plus] Dexamethasone [Decadron] 1 tab PO BID PRN 02/16/19 Glucosam/Saroj-Msm1/C/Kannan/Bosw 2 each PO DAILY 02/16/19 [Osteo Bi-Flex Caplet] Magnesium Oxide [Magnesium] 300 mg PO DAILY 02/16/19 Ondansetron HCl 8 mg PO Q8H PRN 02/16/19 Potassium Chloride PO DAILY 02/16/19 Psychiatric History: No pertinent psych hx 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 Review of Systems Constitutional: Reports: Anorexia, Malaise, Weakness Gastrointestinal: Reports: Nausea Genitourinary: Reports: Retention Patient Problems: Active and Suspected Problems Neutropenic fever (Acute) Dehydration (Acute) Urinary retention (Acute) - Physical Exam General: Alert, Oriented x3, No apparent distress HEENT: Atraumatic, PERRLA, EOMI, Normocephalic Oral: No Gingival or Mucosal Lesions/ Ulcerations, Dry Mucosa Neck: Supple, No JVD Lungs: Clear to auscultation, Normal air movement, No rhonchi, No wheeze, No rales Cardiovascular: Regular rate, Regular Rhythm, Normal S1, Normal S2, No murmurs Abdomen: Bowel Sounds Present, Soft, Non Tender, No Hepato-splenomegaly Extremities: No clubbing, No cyanosis, No edema Skin: No rashes Lymphatic: No Cervical, Supraclavicular, or Inguinal Adenopathy Neurological: Cranial nerves II-XII grossly intact, Neuro grossly intact Psych/Mental Status: Normal Affect Comment: CXR: Hyperinflation. No acute adenopathy is seen. Vital Signs Temp Pulse Resp BP Pulse Ox 102.9 F H 98 20 H 115/50 L 100 02/16/19 11:19 02/16/19 11:19 02/16/19 11:19 02/16/19 11:19 02/16/19 11:19 Oxygen Delivery Method Room Air Weight: 127 lb 9.6 oz Body Mass Index (BMI) 22.6 Laboratory Tests Past 24 Hrs 02/16/19 02/16/19 02/16/19 07:45 07:45 07:45 WBC 0.1 L* RBC 3.42 L Hgb 9.6 L Hct 29.1 L MCV 85.1 MCH 28.1 MCHC 33.0 RDW 14.1 RDW Differential 44.0 H Plt Count 58 L MPV 12.3 H Neut % (Auto) Not Reportable Lymph % (Auto) ROD DRAWER [place] % (Auto) ROD DRAWER Baso % (Auto) ROD DRAWER Absolute Neuts (auto) 0.0 L Absolute Lymphs (auto) 0.10 L Total Counted 20 Neutrophils % (Manual) 10 L Lymphocytes % (Manual) 75 H* Monocytes % (Manual) 15 H Diff Path Review May foll Atypical Lymphocytes 1+ Platelet Estimate MKD DEC Hypochromasia 1+ PT 14.0 INR 1.1 Sodium 136 Potassium 3.4 L Chloride 103 Carbon Dioxide 25.0 Anion Gap 8 BUN 8 Creatinine 0.48 L Estim Creat Clear Calc 38.97 Est GFR (MDRD) Af Amer 162 Est GFR (MDRD) Non-Af 134 BUN/Creatinine Ratio 16.7 Glucose 125 H Lactic Acid Calcium 7.9 L Total Bilirubin 2.20 H AST 15 ALT 32 Alkaline Phosphatase 107 Total Protein 5.7 L Albumin 2.5 L Globulin 3.2 Albumin/Globulin Ratio 0.8 L Urine Color Urine Clarity Urine pH Ur Specific [place] Urine Protein Urine Glucose (UA) Urine Ketones Urine Occult Blood Urine Nitrite Urine Bilirubin Urine Urobilinogen Ur Leukocyte Esterase Urine RBC Urine WBC Ur Squamous Epith Cells Urine Bacteria Urine Mucus 02/16/19 02/16/19 07:45 07:45 WBC RBC Hgb Hct MCV MCH MCHC RDW RDW Differential Plt Count MPV Neut % (Auto) Lymph % (Auto) [place] % (Auto) Baso % (Auto) Absolute Neuts (auto) Absolute Lymphs (auto) Total Counted Neutrophils % (Manual) Lymphocytes % (Manual) Monocytes % (Manual) Diff Path Review Atypical Lymphocytes Platelet Estimate Hypochromasia PT INR Sodium Potassium Chloride Carbon Dioxide Anion Gap BUN Creatinine Estim Creat Clear Calc Est GFR (MDRD) Af Amer Est GFR (MDRD) Non-Af BUN/Creatinine Ratio Glucose Lactic Acid 1.8 Calcium Total Bilirubin AST ALT Alkaline Phosphatase Total Protein Albumin Globulin Albumin/Globulin Ratio Urine Color Yellow Urine Clarity Clear Urine pH 8.0 Ur Specific [place] 1.015 Urine Protein Negative Urine Glucose (UA) Normal Urine Ketones Negative Urine Occult Blood Negative Urine Nitrite Negative Urine Bilirubin Negative Urine Urobilinogen Normal Ur Leukocyte Esterase Negative Urine RBC 0-5 SEEN Urine WBC 0 SEEN Ur Squamous Epith Cells 0 SEEN Urine Bacteria 1+ Urine Mucus 0 SEEN Assessment/Plan All Active Problems Neutropenic fever (Acute) Dehydration (Acute) Urinary retention (Acute) Hypotension (Acute) HCAP (healthcare-associated pneumonia) (Acute) Malignant pleural effusion (Acute) 78-year-old female with diffuse large B-cell lymphoma; status post R-CHOP /Neulasta day 8 She presents with Neutropenic fever; possible sepsis & urinary retention. Recommendations: -IV hydration resuscitation; mouth care for stomatitis. -Starts broad-spectrum antibiotic (cefepime 1gm IV) every 8 hours pending blood cultures; -Discontinue antibiotic if cultures remain negative after 48 hours as her neutrophil count recovers -Monitor CBC daily -Hold heparin/LMWH because of thrombocytopenia -Consult urology for urinary retention -Since she has already yesika & had G-CSF; her white blood count should recover over this weekend with supportive care. -Nutrition therapy and physical therapy consult. cc: Dr. Pop Herron; Dr. Gabriel Wells; Dr. Cale Mcnulty
--- NOTE | 2019-02-16 14:52 | CHAPLAIN ---
Type of Pastoral Visit _x__ Initial Visit ___ Follow-up Visit ___ On-call Visit ___ General Patient Visit ___ Spiritual Assessment ___ Family Conference ___ Bereavement ___ Rapid Response ___ Code Blue ___ Other (describe below) Pastoral Care Referral From _x__ Patient ___ Family ___ Nurse ___ Physician ___ Game Room Attendant ___ Methane Gas Collection System Operator ___ Other (describe below) Sacrament/Intervention _x__ Active listening ___ Anointing ___ Confucianism ___ Bereavement ___ Communion _x__ Tran exploration ___ _x__ Life review _x__ Prayer ___ Reconciliation ___ Sacrament of Sick _x__ Supportive presence ___ Wedding ___ Other (describe below) Pastoral Comments
--- NOTE | 2019-02-16 16:04 | PCM.CONS.U ---
Problem List (1) Urinary retention Status: Acute Reason for Consult Date of Consultation: 02/16/19 Reason for Consultation: retention of urine History of Present Illness: The patient is a 78 year old female admitted with weakness, constipation, and found to have high pvr 800cc in the urine. u/a clear. WBC now, does not look ill but states she is weak. 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) Lymphoma (Chronic) Allergies amoxicillin Allergy (Verified 02/16/19 07:07) Unknown atorvastatin Allergy (Verified 02/16/19 07:07) Unknown azithromycin Allergy (Verified 02/16/19 07:07) Unknown Iodinated Contrast- Oral and IV Dye [DYEE] Allergy (Verified 02/16/19 07:07) Unknown ketorolac Allergy (Verified 02/16/19 07:07) Unknown levofloxacin [From Levaquin] Allergy (Verified 02/16/19 07:07) Unknown metronidazole Allergy (Verified 02/16/19 07:07) Unknown prednisone Allergy (Verified 02/16/19 07:07) Unknown Home Medications: Ambulatory Orders Medication Instructions Recorded Levothyroxine [Synthroid] 88 mcg PO DAILY 05/20/17 Docusate Sodium [Colace] 100 mg PO TID PRN 10/25/17 L.acidoph,Paracasei, B.lactis 1 each PO DAILY 10/25/17 [Probiotic] Acetaminophen [Tylenol Extra 500 - 1,000 mg PO Q8H 12/13/18 Strength] Famotidine 20 mg PO DAILY 12/13/18 Mv-Mn/Folic Acid/Vit [id number] 1 each PO DAILY 12/13/18 [Alive Once Daily Women 50 Plus] Dexamethasone [Decadron] 1 tab PO BID PRN 02/16/19 Glucosam/Saroj-Msm1/C/Kannan/Bosw 2 each PO DAILY 02/16/19 [Osteo Bi-Flex Caplet] Magnesium Oxide [Magnesium] 300 mg PO DAILY 02/16/19 Ondansetron HCl 8 mg PO Q8H PRN 02/16/19 Potassium Chloride PO DAILY 02/16/19 Surgical History: no surgical history Psychiatric History: No pertinent psych hx 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 Review of Systems Constitutional: Denies: Chills, Fever, Weight Change HEENT: Denies: Head Aches, Sinus Congestion, Sinus Drainage Cardiovascular: Denies: Chest Pain, Palpitations Respiratory: Denies: Cough, Shortness of breath at rest, Sputum production Gastrointestinal: Denies: Abdominal Pain, Nausea, Vomiting Genitourinary: Reports: Retention. Denies: Dysuria Musculoskeletal: Denies: Joint Pain, Joint Tenderness Skin: Denies: Rash, Wounds Neurological: Denies: Numbness, Tingling, Focal weakness Psychiatric: Denies: Anxiety, Depression, Homicidal Ideations, Suicidal Ideations Hematologic/ Lymphatic: Denies: Easy Bruising, Easy Bleeding Physical Exam - Physical Exam Vital Signs Temp 99.3 F H 02/16/19 15:12 Pulse 84 02/16/19 15:12 Resp 18 02/16/19 15:12 BP 109/52 L 02/16/19 15:12 Pulse Ox 100 02/16/19 15:12 Intake & Output 02/14/19 02/15/19 02/16/19 23:59 23:59 23:59 Intake Total 381 / 381 Output Total 850 / 850 Balance -469 / -469 Weight: 57.878 kg Intake: IV fluid/meds 381 / 381 Output: Urine 850 / 850 General: Alert, Oriented x3 HEENT: Atraumatic Oral: Moist Mucosa Neck: Supple Lungs: Normal air movement Cardiovascular: Regular rate Abdomen: Soft Laboratory Tests Past 24 Hrs 02/16/19 02/16/19 02/16/19 07:45 07:45 07:45 WBC 0.1 L* RBC 3.42 L Hgb 9.6 L Hct 29.1 L MCV 85.1 MCH 28.1 MCHC 33.0 RDW 14.1 RDW Differential 44.0 H Plt Count 58 L MPV 12.3 H Neut % (Auto) Not Reportable Lymph % (Auto) BRICK OFFBEARER [place] % (Auto) BRICK OFFBEARER Baso % (Auto) BRICK OFFBEARER Absolute Neuts (auto) 0.0 L Absolute Lymphs (auto) 0.10 L Total Counted 20 Neutrophils % (Manual) 10 L Lymphocytes % (Manual) 75 H* Monocytes % (Manual) 15 H Diff Path Review May foll Atypical Lymphocytes 1+ Platelet Estimate MKD DEC Hypochromasia 1+ PT 14.0 INR 1.1 Sodium 136 Potassium 3.4 L Chloride 103 Carbon Dioxide 25.0 Anion Gap 8 BUN 8 Creatinine 0.48 L Estim Creat Clear Calc 38.97 Est GFR (MDRD) Af Amer 162 Est GFR (MDRD) Non-Af 134 BUN/Creatinine Ratio 16.7 Glucose 125 H Lactic Acid Calcium 7.9 L Total Bilirubin 2.20 H AST 15 ALT 32 Alkaline Phosphatase 107 Total Protein 5.7 L Albumin 2.5 L Globulin 3.2 Albumin/Globulin Ratio 0.8 L Urine Color Urine Clarity Urine pH Ur Specific [place] Urine Protein Urine Glucose (UA) Urine Ketones Urine Occult Blood Urine Nitrite Urine Bilirubin Urine Urobilinogen Ur Leukocyte Esterase Urine RBC Urine WBC Ur Squamous Epith Cells Urine Bacteria Urine Mucus 02/16/19 02/16/19 07:45 07:45 WBC RBC Hgb Hct MCV MCH MCHC RDW RDW Differential Plt Count MPV Neut % (Auto) Lymph % (Auto) [place] % (Auto) Baso % (Auto) Absolute Neuts (auto) Absolute Lymphs (auto) Total Counted Neutrophils % (Manual) Lymphocytes % (Manual) Monocytes % (Manual) Diff Path Review Atypical Lymphocytes Platelet Estimate Hypochromasia PT INR Sodium Potassium Chloride Carbon Dioxide Anion Gap BUN Creatinine Estim Creat Clear Calc Est GFR (MDRD) Af Amer Est GFR (MDRD) Non-Af BUN/Creatinine Ratio Glucose Lactic Acid 1.8 Calcium Total Bilirubin AST ALT Alkaline Phosphatase Total Protein Albumin Globulin Albumin/Globulin Ratio Urine Color Yellow Urine Clarity Clear Urine pH 8.0 Ur Specific [place] 1.015 Urine Protein Negative Urine Glucose (UA) Normal Urine Ketones Negative Urine Occult Blood Negative Urine Nitrite Negative Urine Bilirubin Negative Urine Urobilinogen Normal Ur Leukocyte Esterase Negative Urine RBC 0-5 SEEN Urine WBC 0 SEEN Ur Squamous Epith Cells 0 SEEN Urine Bacteria 1+ Urine Mucus 0 SEEN Assessment/Plan All Active Problems Neutropenic fever (Acute) Dehydration (Acute) Urinary retention (Acute) Hypotension (Acute) HCAP (healthcare-associated pneumonia) (Acute) Malignant pleural effusion (Acute) start on flomax 0.4mg qhs then d/c durbin tuesday am for voiding trial check pvr if higher then 500cc then place durbin
--- NOTE | 2019-02-16 16:07 | CON.PCM_ITS ---
Problem List (1) Urinary retention Status: Acute Reason for Consult Date of Consultation: 02/16/19 Reason for Consultation: retention of urine History of Present Illness: The patient is a 78 year old female admitted with weakness, constipation, and found to have high pvr 800cc in the urine. u/a clear. WBC now, does not look ill but states she is weak. 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) Lymphoma (Chronic) Allergies amoxicillin Allergy (Verified 02/16/19 07:07) Unknown atorvastatin Allergy (Verified 02/16/19 07:07) Unknown azithromycin Allergy (Verified 02/16/19 07:07) Unknown Iodinated Contrast- Oral and IV Dye [DYEE] Allergy (Verified 02/16/19 07:07) Unknown ketorolac Allergy (Verified 02/16/19 07:07) Unknown levofloxacin [From Levaquin] Allergy (Verified 02/16/19 07:07) Unknown metronidazole Allergy (Verified 02/16/19 07:07) Unknown prednisone Allergy (Verified 02/16/19 07:07) Unknown Home Medications: Ambulatory Orders Medication Instructions Recorded Levothyroxine [Synthroid] 88 mcg PO DAILY 05/20/17 Docusate Sodium [Colace] 100 mg PO TID PRN 10/25/17 L.acidoph,Paracasei, B.lactis 1 each PO DAILY 10/25/17 [Probiotic] Acetaminophen [Tylenol Extra 500 - 1,000 mg PO Q8H 12/13/18 Strength] Famotidine 20 mg PO DAILY 12/13/18 Mv-Mn/Folic Acid/Vit K/Trol756 1 each PO DAILY 12/13/18 [Alive Once Daily Women 50 Plus] Dexamethasone [Decadron] 1 tab PO BID PRN 02/16/19 Glucosam/Saroj-Msm1/C/Kannan/Bosw 2 each PO DAILY 02/16/19 [Osteo Bi-Flex Caplet] Magnesium Oxide [Magnesium] 300 mg PO DAILY 02/16/19 Ondansetron HCl 8 mg PO Q8H PRN 02/16/19 Potassium Chloride PO DAILY 02/16/19 Surgical History: no surgical history Psychiatric History: No pertinent psych hx 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 Review of Systems Constitutional: Denies: Chills, Fever, Weight Change HEENT: Denies: Head Aches, Sinus Congestion, Sinus Drainage Cardiovascular: Denies: Chest Pain, Palpitations Respiratory: Denies: Cough, Shortness of breath at rest, Sputum production Gastrointestinal: Denies: Abdominal Pain, Nausea, Vomiting Genitourinary: Reports: Retention. Denies: Dysuria Musculoskeletal: Denies: Joint Pain, Joint Tenderness Skin: Denies: Rash, Wounds Neurological: Denies: Numbness, Tingling, Focal weakness Psychiatric: Denies: Anxiety, Depression, Homicidal Ideations, Suicidal Ideations Hematologic/ Lymphatic: Denies: Easy Bruising, Easy Bleeding Physical Exam - Physical Exam Vital Signs Temp 99.3 F H 02/16/19 15:12 Pulse 84 02/16/19 15:12 Resp 18 02/16/19 15:12 BP 109/52 L 02/16/19 15:12 Pulse Ox 100 02/16/19 15:12 Intake & Output 02/14/19 02/15/19 02/16/19 23:59 23:59 23:59 Intake Total 381 / 381 Output Total 850 / 850 Balance -469 / -469 Weight: 57.878 kg Intake: IV fluid/meds 381 / 381 Output: Urine 850 / 850 General: Alert, Oriented x3 HEENT: Atraumatic Oral: Moist Mucosa Neck: Supple Lungs: Normal air movement Cardiovascular: Regular rate Abdomen: Soft Laboratory Tests Past 24 Hrs 02/16/19 02/16/19 02/16/19 07:45 07:45 07:45 WBC 0.1 L* RBC 3.42 L Hgb 9.6 L Hct 29.1 L MCV 85.1 MCH 28.1 MCHC 33.0 RDW 14.1 RDW Differential 44.0 H Plt Count 58 L MPV 12.3 H Neut % (Auto) Not Reportable Lymph % (Auto) MANAGER OF SALES [place] % (Auto) MANAGER OF SALES Baso % (Auto) MANAGER OF SALES Absolute Neuts (auto) 0.0 L Absolute Lymphs (auto) 0.10 L Total Counted 20 Neutrophils % (Manual) 10 L Lymphocytes % (Manual) 75 H* Monocytes % (Manual) 15 H Diff Path Review May foll Atypical Lymphocytes 1+ Platelet Estimate MKD DEC Hypochromasia 1+ PT 14.0 INR 1.1 Sodium 136 Potassium 3.4 L Chloride 103 Carbon Dioxide 25.0 Anion Gap 8 BUN 8 Creatinine 0.48 L Estim Creat Clear Calc 38.97 Est GFR (MDRD) Af Amer 162 Est GFR (MDRD) Non-Af 134 BUN/Creatinine Ratio 16.7 Glucose 125 H Lactic Acid Calcium 7.9 L Total Bilirubin 2.20 H AST 15 ALT 32 Alkaline Phosphatase 107 Total Protein 5.7 L Albumin 2.5 L Globulin 3.2 Albumin/Globulin Ratio 0.8 L Urine Color Urine Clarity Urine pH Ur Specific [place] Urine Protein Urine Glucose (UA) Urine Ketones Urine Occult Blood Urine Nitrite Urine Bilirubin Urine Urobilinogen Ur Leukocyte Esterase Urine RBC Urine WBC Ur Squamous Epith Cells Urine Bacteria Urine Mucus 02/16/19 02/16/19 07:45 07:45 WBC RBC Hgb Hct MCV MCH MCHC RDW RDW Differential Plt Count MPV Neut % (Auto) Lymph % (Auto) [place] % (Auto) Baso % (Auto) Absolute Neuts (auto) Absolute Lymphs (auto) Total Counted Neutrophils % (Manual) Lymphocytes % (Manual) Monocytes % (Manual) Diff Path Review Atypical Lymphocytes Platelet Estimate Hypochromasia PT INR Sodium Potassium Chloride Carbon Dioxide Anion Gap BUN Creatinine Estim Creat Clear Calc Est GFR (MDRD) Af Amer Est GFR (MDRD) Non-Af BUN/Creatinine Ratio Glucose Lactic Acid 1.8 Calcium Total Bilirubin AST ALT Alkaline Phosphatase Total Protein Albumin Globulin Albumin/Globulin Ratio Urine Color Yellow Urine Clarity Clear Urine pH 8.0 Ur Specific [place] 1.015 Urine Protein Negative Urine Glucose (UA) Normal Urine Ketones Negative Urine Occult Blood Negative Urine Nitrite Negative Urine Bilirubin Negative Urine Urobilinogen Normal Ur Leukocyte Esterase Negative Urine RBC 0-5 SEEN Urine WBC 0 SEEN Ur Squamous Epith Cells 0 SEEN Urine Bacteria 1+ Urine Mucus 0 SEEN Assessment/Plan All Active Problems Neutropenic fever (Acute) Dehydration (Acute) Urinary retention (Acute) Hypotension (Acute) HCAP (healthcare-associated pneumonia) (Acute) Malignant pleural effusion (Acute) start on flomax 0.4mg qhs then d/c durbin tuesday am for voiding trial check pvr if higher then 500cc then place durbin
--- NOTE | 2019-02-16 17:17 | PCM.HP.STD ---
Problem List (1) Neutropenic fever Status: Acute (2) Dehydration Status: Acute (3) Urinary retention Status: Acute (4) Diffuse large B-cell lymphoma of lymph nodes of head Status: Chronic History of Present Illness Date of Admission: 02/16/19 Chief Complaint: Weakness and diarrhea The patient is a 78 year old F with PMH as below who presents with weakness, dehydration, diarrhea. She states that she was diagnosed with B-cell lymphoma in December and had her first dose of R-CHOP on . On Tuesday she went back to the office to have a shot of Neulasta. She then developed constipation and took a dose of milk of mag however it did not resolve her constipation and therefore she doubled the dose and started taking it every day which resulted in her having significant diarrhea. She was trying to drink Gatorade and water but does not think she was able to keep up with it. And also prior to coming to the hospital she had not urinated for 12 hours and when she came to the ER she had 800 cc of urine out when they placed a Harrington. On admission in the ER she was found to have a white blood cell count of 0.1 with an absolute neutrophil count of 0 and a temperature of 99.9. She was given a dose of Rocephin in the ER and then on admission to the floor was changed to cefepime. Chest x-ray in the ER did not show pneumonia, blood cultures and urine cultures were obtained. She denies any abdominal pain currently. 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) Lymphoma (Chronic) Allergies amoxicillin Allergy (Verified 02/16/19 07:07) Unknown atorvastatin Allergy (Verified 02/16/19 07:07) Unknown azithromycin Allergy (Verified 02/16/19 07:07) Unknown Iodinated Contrast- Oral and IV Dye [DYEE] Allergy (Verified 02/16/19 07:07) Unknown ketorolac Allergy (Verified 02/16/19 07:07) Unknown levofloxacin [From Levaquin] Allergy (Verified 02/16/19 07:07) Unknown metronidazole Allergy (Verified 02/16/19 07:07) Unknown prednisone Allergy (Verified 02/16/19 07:07) Unknown Home Medications: Ambulatory Orders Medication Instructions Recorded Levothyroxine [Synthroid] 88 mcg PO DAILY 05/20/17 Docusate Sodium [Colace] 100 mg PO TID PRN 10/25/17 L.acidoph,Paracasei, B.lactis 1 each PO DAILY 10/25/17 [Probiotic] Acetaminophen [Tylenol Extra 500 - 1,000 mg PO Q8H 12/13/18 Strength] Famotidine 20 mg PO DAILY 12/13/18 Mv-Mn/Folic Acid/Vit K/Cfic331 1 each PO DAILY 12/13/18 [Alive Once Daily Women 50 Plus] Dexamethasone [Decadron] 1 tab PO BID PRN 02/16/19 Glucosam/Saroj-Msm1/C/Kannan/Bosw 2 each PO DAILY 02/16/19 [Osteo Bi-Flex Caplet] Magnesium Oxide [Magnesium] 300 mg PO DAILY 02/16/19 Ondansetron HCl 8 mg PO Q8H PRN 02/16/19 Potassium Chloride PO DAILY 02/16/19 Surgical History: appendectomy, - - Tubal ligation, lymph node biopsy Psychiatric History: No pertinent psych hx 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 Review of Systems Constitutional: Reports: Weakness. Denies: Chills, Fever, Weight Change HEENT: Denies: Head Aches, Sinus Congestion, Sinus Drainage Cardiovascular: Denies: Chest Pain, Palpitations Respiratory: Denies: Cough, Shortness of breath at rest, Sputum production Gastrointestinal: Reports: Diarrhea. Denies: Abdominal Pain, Nausea, Vomiting Genitourinary: Denies: Dysuria Musculoskeletal: Denies: Joint Pain, Joint Tenderness Skin: Denies: Rash, Wounds Neurological: Denies: Numbness, Tingling, Focal weakness Psychiatric: Denies: Anxiety, Depression Hematologic/ Lymphatic: Denies: Easy Bruising, Easy Bleeding VTE Information - Inpt Only VTE Present on Admission: No Patient Problems: Active and Suspected Problems Neutropenic fever (Acute) Dehydration (Acute) Urinary retention (Acute) - Physical Exam General: Alert, Oriented x3, Cooperative, No apparent distress, - - Diaphoretic HEENT: Atraumatic, PERRLA, EOMI, Normocephalic Oral: Dry Mucosa Neck: Supple, No JVD Lungs: Clear to auscultation, Normal air movement, No rhonchi, No wheeze, No rales Cardiovascular: Regular rate, Regular Rhythm, Normal S1, Normal S2, No murmurs Abdomen: Soft, Non Tender, Non-Distended, No Hepato-splenomegaly Extremities: No edema, Capillary Refill Less than 3 Seconds Skin: No rashes, No breakdown Neurological: Neuro grossly intact, Sensory exam intact to light touch and pain Psych/Mental Status: Normal Affect, Appropriate Vital Signs Temp Pulse Resp BP Pulse Ox 99.3 F H 84 18 109/52 L 100 02/16/19 15:12 02/16/19 15:12 02/16/19 15:12 02/16/19 15:12 02/16/19 15:12 Oxygen Delivery Method Room Air Weight: 127 lb 9.6 oz Body Mass Index (BMI) 22.6 Intake and Output for Last 24 Hours 02/14/19 02/15/19 02/16/19 23:59 23:59 23:59 Intake Total 381 / 381 Output Total 850 / 850 Balance -469 / -469 Laboratory Tests Past 24 Hrs 02/16/19 02/16/19 02/16/19 07:45 07:45 07:45 WBC 0.1 L* RBC 3.42 L Hgb 9.6 L Hct 29.1 L MCV 85.1 MCH 28.1 MCHC 33.0 RDW 14.1 RDW Differential 44.0 H Plt Count 58 L MPV 12.3 H Neut % (Auto) Not Reportable Lymph % (Auto) BOOK SEWING MACHINE OPERATOR [place] % (Auto) BOOK SEWING MACHINE OPERATOR Baso % (Auto) BOOK SEWING MACHINE OPERATOR Absolute Neuts (auto) 0.0 L Absolute Lymphs (auto) 0.10 L Total Counted 20 Neutrophils % (Manual) 10 L Lymphocytes % (Manual) 75 H* Monocytes % (Manual) 15 H Diff Path Review May foll Atypical Lymphocytes 1+ Platelet Estimate MKD DEC Hypochromasia 1+ PT 14.0 INR 1.1 Sodium 136 Potassium 3.4 L Chloride 103 Carbon Dioxide 25.0 Anion Gap 8 BUN 8 Creatinine 0.48 L Estim Creat Clear Calc 38.97 Est GFR (MDRD) Af Amer 162 Est GFR (MDRD) Non-Af 134 BUN/Creatinine Ratio 16.7 Glucose 125 H Lactic Acid Calcium 7.9 L Total Bilirubin 2.20 H AST 15 ALT 32 Alkaline Phosphatase 107 Total Protein 5.7 L Albumin 2.5 L Globulin 3.2 Albumin/Globulin Ratio 0.8 L Urine Color Urine Clarity Urine pH Ur Specific [place] Urine Protein Urine Glucose (UA) Urine Ketones Urine Occult Blood Urine Nitrite Urine Bilirubin Urine Urobilinogen Ur Leukocyte Esterase Urine RBC Urine WBC Ur Squamous Epith Cells Urine Bacteria Urine Mucus 02/16/19 02/16/19 07:45 07:45 WBC RBC Hgb Hct MCV MCH MCHC RDW RDW Differential Plt Count MPV Neut % (Auto) Lymph % (Auto) [place] % (Auto) Baso % (Auto) Absolute Neuts (auto) Absolute Lymphs (auto) Total Counted Neutrophils % (Manual) Lymphocytes % (Manual) Monocytes % (Manual) Diff Path Review Atypical Lymphocytes Platelet Estimate Hypochromasia PT INR Sodium Potassium Chloride Carbon Dioxide Anion Gap BUN Creatinine Estim Creat Clear Calc Est GFR (MDRD) Af Amer Est GFR (MDRD) Non-Af BUN/Creatinine Ratio Glucose Lactic Acid 1.8 Calcium Total Bilirubin AST ALT Alkaline Phosphatase Total Protein Albumin Globulin Albumin/Globulin Ratio Urine Color Yellow Urine Clarity Clear Urine pH 8.0 Ur Specific [place] 1.015 Urine Protein Negative Urine Glucose (UA) Normal Urine Ketones Negative Urine Occult Blood Negative Urine Nitrite Negative Urine Bilirubin Negative Urine Urobilinogen Normal Ur Leukocyte Esterase Negative Urine RBC 0-5 SEEN Urine WBC 0 SEEN Ur Squamous Epith Cells 0 SEEN Urine Bacteria 1+ Urine Mucus 0 SEEN Assessment/Plan All Active Problems Neutropenic fever (Acute) Dehydration (Acute) Urinary retention (Acute) Hypotension (Acute) HCAP (healthcare-associated pneumonia) (Acute) Malignant pleural effusion (Acute) 1. Neutropenic fever in the setting of B-cell lymphoma status post 1 dose of R-CHOP/diarrhea/dehydration/weakness/urinary retention/thrombocytopenia -We will consult oncology for assistance -He had been given Neulasta a week ago, and will monitor the thrombocytopenia no chemical DVT prophylaxis -Continue with cefepime and await final cultures, chest x-ray is negative -Appreciate urology input, will plan to remove Harrington on Tuesday and continue with Flomax -We will hold all antidiarrheals -Continue with her home Decadron, and she can have a regular diet -Continue with IV fluids at 100 cc/h -PT/OT 2. Hypothyroidism -Stable last TSH was 0.13 in November -Continue with home Synthroid DVT: SCDs Code Visit Inpatient E&M: 07850 Init Hosp L3
--- NOTE | 2019-02-16 17:24 | HP.PCM_ITS ---
Problem List (1) Neutropenic fever Status: Acute (2) Dehydration Status: Acute (3) Urinary retention Status: Acute (4) Diffuse large B-cell lymphoma of lymph nodes of head Status: Chronic History of Present Illness Date of Admission: 02/16/19 Chief Complaint: Weakness and diarrhea The patient is a 78 year old F with PMH as below who presents with weakness, dehydration, diarrhea. She states that she was diagnosed with B-cell lymphoma in December and had her first dose of R-CHOP on . On Tuesday she went back to the office to have a shot of Neulasta. She then developed constipation and took a dose of milk of mag however it did not resolve her constipation and therefore she doubled the dose and started taking it every day which resulted in her having significant diarrhea. She was trying to drink Gatorade and water but does not think she was able to keep up with it. And also prior to coming to the hospital she had not urinated for 12 hours and when she came to the ER she had 800 cc of urine out when they placed a [place]. On admission in the ER she was found to have a white blood cell count of 0.1 with an absolute neutrophil count of 0 and a temperature of 99.9. She was given a dose of Rocephin in the ER and then on admission to the floor was changed to cefepime. Chest x-ray in the ER did not show pneumonia, blood cultures and urine cultures were obtained. She denies any abdominal pain currently. 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) Lymphoma (Chronic) Allergies amoxicillin Allergy (Verified 02/16/19 07:07) Unknown atorvastatin Allergy (Verified 02/16/19 07:07) Unknown azithromycin Allergy (Verified 02/16/19 07:07) Unknown Iodinated Contrast- Oral and IV Dye [DYEE] Allergy (Verified 02/16/19 07:07) Unknown ketorolac Allergy (Verified 02/16/19 07:07) Unknown levofloxacin [From Levaquin] Allergy (Verified 02/16/19 07:07) Unknown metronidazole Allergy (Verified 02/16/19 07:07) Unknown prednisone Allergy (Verified 02/16/19 07:07) Unknown Home Medications: Ambulatory Orders Medication Instructions Recorded Levothyroxine [Synthroid] 88 mcg PO DAILY 05/20/17 Docusate Sodium [Colace] 100 mg PO TID PRN 10/25/17 L.acidoph,Paracasei, B.lactis 1 each PO DAILY 10/25/17 [Probiotic] Acetaminophen [Tylenol Extra 500 - 1,000 mg PO Q8H 12/13/18 Strength] Famotidine 20 mg PO DAILY 12/13/18 Mv-Mn/Folic Acid/Vit K/Rsqo264 1 each PO DAILY 12/13/18 [Alive Once Daily Women 50 Plus] Dexamethasone [Decadron] 1 tab PO BID PRN 02/16/19 Glucosam/Saroj-Msm1/C/Kannan/Bosw 2 each PO DAILY 02/16/19 [Osteo Bi-Flex Caplet] Magnesium Oxide [Magnesium] 300 mg PO DAILY 02/16/19 Ondansetron HCl 8 mg PO Q8H PRN 02/16/19 Potassium Chloride PO DAILY 02/16/19 Surgical History: appendectomy, - - Tubal ligation, lymph node biopsy Psychiatric History: No pertinent psych hx 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 Review of Systems Constitutional: Reports: Weakness. Denies: Chills, Fever, Weight Change HEENT: Denies: Head Aches, Sinus Congestion, Sinus Drainage Cardiovascular: Denies: Chest Pain, Palpitations Respiratory: Denies: Cough, Shortness of breath at rest, Sputum production Gastrointestinal: Reports: Diarrhea. Denies: Abdominal Pain, Nausea, Vomiting Genitourinary: Denies: Dysuria Musculoskeletal: Denies: Joint Pain, Joint Tenderness Skin: Denies: Rash, Wounds Neurological: Denies: Numbness, Tingling, Focal weakness Psychiatric: Denies: Anxiety, Depression Hematologic/ Lymphatic: Denies: Easy Bruising, Easy Bleeding VTE Information - Inpt Only VTE Present on Admission: No Patient Problems: Active and Suspected Problems Neutropenic fever (Acute) Dehydration (Acute) Urinary retention (Acute) - Physical Exam General: Alert, Oriented x3, Cooperative, No apparent distress, - - Diaphoretic HEENT: Atraumatic, PERRLA, EOMI, Normocephalic Oral: Dry Mucosa Neck: Supple, No JVD Lungs: Clear to auscultation, Normal air movement, No rhonchi, No wheeze, No rales Cardiovascular: Regular rate, Regular Rhythm, Normal S1, Normal S2, No murmurs Abdomen: Soft, Non Tender, Non-Distended, No Hepato-splenomegaly Extremities: No edema, Capillary Refill Less than 3 Seconds Skin: No rashes, No breakdown Neurological: Neuro grossly intact, Sensory exam intact to light touch and pain Psych/Mental Status: Normal Affect, Appropriate Vital Signs Temp Pulse Resp BP Pulse Ox 99.3 F H 84 18 109/52 L 100 02/16/19 15:12 02/16/19 15:12 02/16/19 15:12 02/16/19 15:12 02/16/19 15:12 Oxygen Delivery Method Room Air Weight: 127 lb 9.6 oz Body Mass Index (BMI) 22.6 Intake and Output for Last 24 Hours 02/14/19 02/15/19 02/16/19 23:59 23:59 23:59 Intake Total 381 / 381 Output Total 850 / 850 Balance -469 / -469 Laboratory Tests Past 24 Hrs 02/16/19 02/16/19 02/16/19 07:45 07:45 07:45 WBC 0.1 L* RBC 3.42 L Hgb 9.6 L Hct 29.1 L MCV 85.1 MCH 28.1 MCHC 33.0 RDW 14.1 RDW Differential 44.0 H Plt Count 58 L MPV 12.3 H Neut % (Auto) Not Reportable Lymph % (Auto) SCREEN PRINTING INSPECTOR [place] % (Auto) SCREEN PRINTING INSPECTOR Baso % (Auto) SCREEN PRINTING INSPECTOR Absolute Neuts (auto) 0.0 L Absolute Lymphs (auto) 0.10 L Total Counted 20 Neutrophils % (Manual) 10 L Lymphocytes % (Manual) 75 H* Monocytes % (Manual) 15 H Diff Path Review May foll Atypical Lymphocytes 1+ Platelet Estimate MKD DEC Hypochromasia 1+ PT 14.0 INR 1.1 Sodium 136 Potassium 3.4 L Chloride 103 Carbon Dioxide 25.0 Anion Gap 8 BUN 8 Creatinine 0.48 L Estim Creat Clear Calc 38.97 Est GFR (MDRD) Af Amer 162 Est GFR (MDRD) Non-Af 134 BUN/Creatinine Ratio 16.7 Glucose 125 H Lactic Acid Calcium 7.9 L Total Bilirubin 2.20 H AST 15 ALT 32 Alkaline Phosphatase 107 Total Protein 5.7 L Albumin 2.5 L Globulin 3.2 Albumin/Globulin Ratio 0.8 L Urine Color Urine Clarity Urine pH Ur Specific [place] Urine Protein Urine Glucose (UA) Urine Ketones Urine Occult Blood Urine Nitrite Urine Bilirubin Urine Urobilinogen Ur Leukocyte Esterase Urine RBC Urine WBC Ur Squamous Epith Cells Urine Bacteria Urine Mucus 02/16/19 02/16/19 07:45 07:45 WBC RBC Hgb Hct MCV MCH MCHC RDW RDW Differential Plt Count MPV Neut % (Auto) Lymph % (Auto) [place] % (Auto) Baso % (Auto) Absolute Neuts (auto) Absolute Lymphs (auto) Total Counted Neutrophils % (Manual) Lymphocytes % (Manual) Monocytes % (Manual) Diff Path Review Atypical Lymphocytes Platelet Estimate Hypochromasia PT INR Sodium Potassium Chloride Carbon Dioxide Anion Gap BUN Creatinine Estim Creat Clear Calc Est GFR (MDRD) Af Amer Est GFR (MDRD) Non-Af BUN/Creatinine Ratio Glucose Lactic Acid 1.8 Calcium Total Bilirubin AST ALT Alkaline Phosphatase Total Protein Albumin Globulin Albumin/Globulin Ratio Urine Color Yellow Urine Clarity Clear Urine pH 8.0 Ur Specific [place] 1.015 Urine Protein Negative Urine Glucose (UA) Normal Urine Ketones Negative Urine Occult Blood Negative Urine Nitrite Negative Urine Bilirubin Negative Urine Urobilinogen Normal Ur Leukocyte Esterase Negative Urine RBC 0-5 SEEN Urine WBC 0 SEEN Ur Squamous Epith Cells 0 SEEN Urine Bacteria 1+ Urine Mucus 0 SEEN Assessment/Plan All Active Problems Neutropenic fever (Acute) Dehydration (Acute) Urinary retention (Acute) Hypotension (Acute) HCAP (healthcare-associated pneumonia) (Acute) Malignant pleural effusion (Acute) 1. Neutropenic fever in the setting of B-cell lymphoma status post 1 dose of R- CHOP/diarrhea/dehydration/weakness/urinary retention/thrombocytopenia -We will consult oncology for assistance -He had been given Neulasta a week ago, and will monitor the thrombocytopenia no chemical DVT prophylaxis -Continue with cefepime and await final cultures, chest x-ray is negative -Appreciate urology input, will plan to remove Har[place] on Tuesday and continue with Flomax -We will hold all antidiarrheals -Continue with her home Decadron, and she can have a regular diet -Continue with IV fluids at 100 cc/h -PT/OT 2. Hypothyroidism -Stable last TSH was 0.13 in November -Continue with home Synthroid DVT: SCDs Code Visit Inpatient E&M: 91784 Init Hosp L3
[2019-02-16] MEDS: Tamsulosin HCl 0.4 MG Capsule PO (17:47)
[2019-02-17 05:00] VITALS: BP 100/50; PULSE 91; RESP 18; TEMP 36.9; O2SAT 100
[2019-02-17] MEDS: Levothyroxine 88 MCG Tablet PO (06:05)
[2019-02-17 07:17] LABS: Absolute Lymphocyte Count 0.15 X10^3/ul (0.83-4.51); Absolute Neutrophil Count 0.1 X10^3/uL (2.0-7.7); Basophil# 0.01 X10^3/uL; Eosinophil# 0.01 X10^3/uL; Hematocrit 26.4 % (37-47); Hemoglobin 8.7 g/dl (12.0-15.0); Lymphocyte # 0.15 X10^3/ul (4.0); Lymphocyte % 29.4 % (19-41); Mean Corpuscular Hgb 28.2 pg (27.0-32.0); Mean Corpuscular Volume 85.4 fL (81-99); Monocyte# 0.16 X10^3/uL; Monocyte% 31.4 % (0-10); Neutrophil # 0.14 X10^3/uL (2.7-7.7); Neutrophil % 27.4 % (47-70); RBC Distribution Width CV 14.1 % (11.6-14.6); RBC Distribution Width SD 44.4 fl (35.1-43.9); Red Blood Count 3.09 M/mm3 (4.2-5.4)
[2019-02-17 07:20] LABS: White Blood Count 0.5 K/mm3 (4.4-11.0)
[2019-02-17 07:21] LABS: Differential Indicated SCAN CRITERIA MET; POSITIVE COUNT YES; POSITIVE DIFFERENTIAL YES; POSITIVE MORPHOLOGY YES; Platelet Count 33 K/mm3 (150-450)
[2019-02-17] MEDS: Acetaminophen 325 MG Tablet 650 MG PO ×2 (07:24→17:47)
[2019-02-17 07:44] LABS: Atypical Lymphocyte RARE %; Hypochromasia 2+; Ovalocyte RARE; Platelet Estimate MKD DEC (ADEQ)
[2019-02-17 07:57] LABS: Anion Gap 6 (5-15); BUN 6 mg/dL (7-18); BUN/Creat Ratio 14.7 RATIO (10-20); Calcium,Total 7.7 mg/dL (8.5-10.1); Chloride 107 mmol/L (98-107); Creatinine, Serum 0.41 mg/dL (0.55-1.02); EST Glomerular Filtration Rate 160 mL/min (>60); Est Glom Filt Rate - Afr Amer 194 mL/min (>60); Estimated Creatinine Clearance 38.97 ml/min; Glucose 104 mg/dL (74-106); Potassium 2.8 mmol/L (3.5-5.1); Sodium Level 139 mmol/L (136-145)
--- NOTE | 2019-02-17 08:25 | PN_ITS ---
Patient Problems: Active and Suspected Problems Neutropenic fever (Acute) Dehydration (Acute) Urinary retention (Acute) Subjective: Patient complained of abdominal distention and bloating. No nausea or diarrhea. She was seen by urology yesterday. Hopefully to remove Harrington catheter tomorrow and check for residual. No clinical bleeding, cough or shortness of breath. Stomatitis improving. - Physical Exam General: Alert, Oriented x3, Cooperative, No apparent distress Oral: Moist Mucosa, No Gingival or Mucosal Lesions/ Ulcerations Neck: Supple, No JVD Lungs: Clear to auscultation, Normal air movement, No rhonchi, No wheeze, No rales Cardiovascular: Regular rate, Regular Rhythm, Normal S1, Normal S2, No murmurs Abdomen: Non Tender, No Hepato-splenomegaly, Hypoactive Bowel Sounds, Distended Extremities: No clubbing, No cyanosis, No edema Skin: No rashes, No breakdown Musculoskeletal: No Tenderness to Palpation of Joints or Extremities, No Muscle Wasting, Cachexia Lymphatic: No Cervical, Supraclavicular, or Inguinal Adenopathy Neurological: Cranial nerves II-XII grossly intact, Neuro grossly intact Psych/Mental Status: Normal Affect Vital Signs Temp Pulse Resp BP Pulse Ox 98.4 F 91 18 100/50 L 100 02/17/19 05:00 02/17/19 05:00 02/17/19 05:00 02/17/19 05:00 02/17/19 05:00 Oxygen Delivery Method Room Air Weight: 127 lb 9.6 oz Body Mass Index (BMI) 22.6 Intake and Output for Last 24 Hours 02/15/19 02/16/19 02/17/19 23:59 23:59 23:59 Intake Total 381 / 381 1493 / 1493 Output Total 850 / 850 1400 / 1400 Balance -469 / -469 93 / 93 Laboratory Tests Past 24 Hrs 02/16/19 02/16/19 02/17/19 07:45 07:45 06:20 WBC 0.1 L* 0.5 L* RBC 3.09 L Hgb 8.7 L Hct 26.4 L MCV 85.4 MCH 28.2 MCHC 33.0 RDW 14.1 RDW Differential 44.4 H Plt Count 33 L* MPV 11.0 Immature Gran % (Auto) 7.800 H Neut % (Auto) 27.4 L Lymph % (Auto) REGISTERED NURSE CARDIAC 29.4 Gem % (Auto) REGISTERED NURSE CARDIAC 31.4 H Eos % (Auto) 2.0 Baso % (Auto) REGISTERED NURSE CARDIAC 2.0 H Absolute Neuts (auto) 0.0 L 0.1 L Absolute Lymphs (auto) 0.10 L 0.15 L Total Counted 20 Not Reportable Neutrophils % (Manual) 10 L Lymphocytes % (Manual) 75 H* Monocytes % (Manual) 15 H Diff Path Review May foll May foll Atypical Lymphocytes 1+ RARE Platelet Estimate MKD DEC MKD DEC Hypochromasia 1+ 2+ Ovalocytes RARE Sodium Potassium Chloride Carbon Dioxide Anion Gap BUN Creatinine Estim Creat Clear Calc Est GFR (MDRD) Af Amer Est GFR (MDRD) Non-Af BUN/Creatinine Ratio Glucose Lactic Acid 1.8 Calcium 02/17/19 06:20 WBC RBC Hgb Hct MCV MCH MCHC RDW RDW Differential Plt Count MPV Immature Gran % (Auto) Neut % (Auto) Lymph % (Auto) Gem % (Auto) Eos % (Auto) Baso % (Auto) Absolute Neuts (auto) Absolute Lymphs (auto) Total Counted Neutrophils % (Manual) Lymphocytes % (Manual) Monocytes % (Manual) Diff Path Review Atypical Lymphocytes Platelet Estimate Hypochromasia Ovalocytes Sodium 139 Potassium 2.8 L Chloride 107 Carbon Dioxide 26.0 Anion Gap 6 BUN 6 L Creatinine 0.41 L Estim Creat Clear Calc 38.97 Est GFR (MDRD) Af Amer 194 Est GFR (MDRD) Non-Af 160 BUN/Creatinine Ratio 14.7 Glucose 104 Lactic Acid Calcium 7.7 L Medical Necessity - Tobacco Use Smoking Status: Never smoker Assessment/Plan All Active Problems Neutropenic fever (Acute) Dehydration (Acute) Urinary retention (Acute) Hypotension (Acute) HCAP (healthcare-associated pneumonia) (Acute) Malignant pleural effusion (Acute) 78-year-old female with diffuse large B-cell lymphoma; status post R-CHOP /Neulasta day 8 She presents with Neutropenic fever; possible sepsis & urinary retention. -Her counts improving, afebrile, cultures pending. -Pancytopenia secondary to chemotherapy -Ileus; -Hypokalemia Recommendations: -IV hydration -Check magnesium and phosphorus & replace potassium -Continue mouth care for stomatitis. -Continue broad-spectrum antibiotic (cefepime 1gm IV) every 8 hours pending blood cultures; -Discontinue antibiotic if cultures remain negative after 48 hours as her neutrophil count recovers ( ANC > 500 ) -Monitor CBC daily -Hold heparin/LMWH because of thrombocytopenia -Urology input appreciated. Hopefully, she be able to remove Harrington catheter tomorrow. -Consider adding Reglan 5mg IV every 6 hour. -Nutrition therapy and physical therapy consult & ambulate today. cc: Dr. Pop Herron; Dr. Gabriel Wells; Dr. Cale Mcnulty
--- NOTE | 2019-02-17 08:46 | PCM.PN.HOSP ---
Patient Problems: Active and Suspected Problems Neutropenic fever (Acute) Dehydration (Acute) Urinary retention (Acute) Subjective: Feel little bit better today. She does have some abdominal distention but has not had any diarrhea after taking the excessive doses of milk of mag Vitals/I&O's: Vital Signs Temp Pulse Resp BP Pulse Ox 98.4 F 91 18 100/50 L 100 02/17/19 05:00 02/17/19 05:00 02/17/19 05:00 02/17/19 05:00 02/17/19 05:00 Oxygen Delivery Method Room Air Weight: 127 lb 9.6 oz Body Mass Index (BMI) 22.6 Intake and Output for Last 24 Hours 02/15/19 02/16/19 02/17/19 23:59 23:59 23:59 Intake Total 381 / 381 1493 / 1493 Output Total 850 / 850 1400 / 1400 Balance -469 / -469 93 / 93 General: Alert, Oriented x3, Cooperative, No apparent distress, - - Diaphoretic HEENT: Atraumatic, PERRLA, EOMI, Normocephalic Oral: Dry Mucosa Neck: Supple, No JVD Lungs: Clear to auscultation, Normal air movement, No rhonchi, No wheeze, No rales Cardiovascular: Regular rate, Regular Rhythm, Normal S1, Normal S2, No murmurs Abdomen: Soft, slightly tender to RLQ, Non-Distended, No Hepato-splenomegaly Extremities: No edema, Capillary Refill Less than 3 Seconds Skin: No rashes, No breakdown Neurological: Neuro grossly intact, Sensory exam intact to light touch and pain Psych/Mental Status: Normal Affect, Appropriate Laboratory Results 02/16/19 07:45: Lactic Acid 1.8 02/17/19 06:20: WBC 0.5 L*, RBC 3.09 L, Hgb 8.7 L, Hct 26.4 L, MCV 85.4, MCH 28.2, MCHC 33.0, RDW 14.1, RDW Differential 44.4 H, Plt Count 33 L*, MPV 11.0, Immature Gran % (Auto) 7.800 H, Neut % (Auto) 27.4 L, Lymph % (Auto) 29.4, [place] % (Auto) 31.4 H, Eos % (Auto) 2.0, Baso % (Auto) 2.0 H, Absolute Neuts (auto) 0.1 L, Absolute Lymphs (auto) 0.15 L, Total Counted Not Reportable, Diff Path Review May foll, Atypical Lymphocytes RARE, Platelet Estimate MKD DEC, Hypochromasia 2+, Ovalocytes RARE 02/17/19 06:20: Sodium 139, Potassium 2.8 L, Chloride 107, Carbon Dioxide 26.0, Anion Gap 6, BUN 6 L, Creatinine 0.41 L, Estim Creat Clear Calc 38.97, Est GFR (MDRD) Af Amer 194, Est GFR (MDRD) Non-Af 160, BUN/Creatinine Ratio 14.7, Glucose 104, Calcium 7.7 L 02/17/19 06:20: Phosphorus Pending, Magnesium Pending Current Medications Acetaminophen (Tylenol) 650 mg PO Q6H PRN PRN PRN Reason: Mild Pain (1-3)/Temp > 100.7 F Last Admin: 02/17/19 07:24 Dose: 650 mg Famotidine (Pepcid) 20 mg PO DAILY [facility] Heparin Sodium (Beef Lung) () 50 units IV UD PRN PRN Reason: HEPARIN FLUSH Sodium Chloride () 1,000 mls @ 100 mls/hr IV .Q10H [facility] Last Admin: 02/16/19 22:34 Dose: 100 mls/hr Cefepime HCl 1 gm/ Sodium (Chloride) 50 mls @ 100 mls/hr IV Q8 [facility] Last Admin: 02/17/19 06:40 Dose: 100 mls/hr Levothyroxine Sodium (Synthroid) 88 mcg PO DAILY@0600 [facility] Last Admin: 02/17/19 06:05 Dose: 88 mcg Ondansetron HCl (Zofran) 4 mg IV Q8H PRN PRN PRN Reason: NAUSEA/VOMITING Sodium Chloride () 10 ml IV UD PRN PRN Reason: VAD FLUSH Tamsulosin HCl (Flomax) 0.4 mg PO DAILY@1730 [facility] Last Admin: 02/16/19 17:47 Dose: 0.4 mg Medical Necessity - Tobacco Use Smoking Status: Never smoker Assessment/Plan All Active Problems Neutropenic fever (Acute) Dehydration (Acute) Urinary retention (Acute) Hypotension (Acute) HCAP (healthcare-associated pneumonia) (Acute) Malignant pleural effusion (Acute) 1. Neutropenic fever in the setting of B-cell lymphoma status post 1 dose of R-CHOP/diarrhea/dehydration/weakness/urinary retention/thrombocytopenia -We will consult oncology for assistance -He had been given Neulasta a week ago, and will monitor the thrombocytopenia no chemical DVT prophylaxis -Continue with cefepime and await final cultures, chest x-ray is negative -Appreciate urology input, will plan to remove Harrington on Tuesday and continue with Flomax -We will hold all antidiarrheals -Continue with her home Decadron, and she can have a regular diet -Continue with IV fluids at 100 cc/h -Once magnesium and phosphorus results will replace potassium appropriately. -PT/OT 2. Hypothyroidism -Stable last TSH was 0.13 in November -Continue with home Synthroid DVT: SCDs Code Visit Inpatient E&M: 74787 Subs Hosp L2
[2019-02-17 08:48] LABS: Magnesium 1.8 mg/dL (1.6-2.6)
--- NOTE | 2019-02-17 08:50 | PN_ITS ---
Patient Problems: Active and Suspected Problems Neutropenic fever (Acute) Dehydration (Acute) Urinary retention (Acute) Subjective: Feel little bit better today. She does have some abdominal distention but has not had any diarrhea after taking the excessive doses of milk of mag Vitals/I&O's: Vital Signs Temp Pulse Resp BP Pulse Ox 98.4 F 91 18 100/50 L 100 02/17/19 05:00 02/17/19 05:00 02/17/19 05:00 02/17/19 05:00 02/17/19 05:00 Oxygen Delivery Method Room Air Weight: 127 lb 9.6 oz Body Mass Index (BMI) 22.6 Intake and Output for Last 24 Hours 02/15/19 02/16/19 02/17/19 23:59 23:59 23:59 Intake Total 381 / 381 1493 / 1493 Output Total 850 / 850 1400 / 1400 Balance -469 / -469 93 / 93 General: Alert, Oriented x3, Cooperative, No apparent distress, - - Diaphoretic HEENT: Atraumatic, PERRLA, EOMI, Normocephalic Oral: Dry Mucosa Neck: Supple, No JVD Lungs: Clear to auscultation, Normal air movement, No rhonchi, No wheeze, No rales Cardiovascular: Regular rate, Regular Rhythm, Normal S1, Normal S2, No murmurs Abdomen: Soft, slightly tender to RLQ, Non-Distended, No Hepato-splenomegaly Extremities: No edema, Capillary Refill Less than 3 Seconds Skin: No rashes, No breakdown Neurological: Neuro grossly intact, Sensory exam intact to light touch and pain Psych/Mental Status: Normal Affect, Appropriate Laboratory Results 02/16/19 07:45: Lactic Acid 1.8 02/17/19 06:20: WBC 0.5 L*, RBC 3.09 L, Hgb 8.7 L, Hct 26.4 L, MCV 85.4, MCH 28.2, MCHC 33.0, RDW 14.1, RDW Differential 44.4 H, Plt Count 33 L*, MPV 11.0, Immature Gran % (Auto) 7.800 H, Neut % (Auto) 27.4 L, Lymph % (Auto) 29.4, [place] % (Auto) 31.4 H, Eos % (Auto) 2.0, Baso % (Auto) 2.0 H, Absolute Neuts (auto) 0.1 L, Absolute Lymphs (auto) 0.15 L, Total Counted Not Reportable, Diff Path Review May foll, Atypical Lymphocytes RARE, Platelet Estimate MKD DEC, Hypochromasia 2+, Ovalocytes RARE 02/17/19 06:20: Sodium 139, Potassium 2.8 L, Chloride 107, Carbon Dioxide 26.0, Anion Gap 6, BUN 6 L, Creatinine 0.41 L, Estim Creat Clear Calc 38.97, Est GFR (MDRD) Af Amer 194, Est GFR (MDRD) Non-Af 160, BUN/Creatinine Ratio 14.7, Glucose 104, Calcium 7.7 L 02/17/19 06:20: Phosphorus Pending, Magnesium Pending Current Medications Acetaminophen (Tylenol) 650 mg PO Q6H PRN PRN PRN Reason: Mild Pain (1-3)/Temp > 100.7 F Last Admin: 02/17/19 07:24 Dose: 650 mg Famotidine (Pepcid) 20 mg PO DAILY [facility] Heparin Sodium (Beef Lung) () 50 units IV UD PRN PRN Reason: HEPARIN FLUSH Sodium Chloride () 1,000 mls @ 100 mls/hr IV .Q10H [facility] Last Admin: 02/16/19 22:34 Dose: 100 mls/hr Cefepime HCl 1 gm/ Sodium (Chloride) 50 mls @ 100 mls/hr IV Q8 [facility] Last Admin: 02/17/19 06:40 Dose: 100 mls/hr Levothyroxine Sodium (Synthroid) 88 mcg PO DAILY@0600 [facility] Last Admin: 02/17/19 06:05 Dose: 88 mcg Ondansetron HCl (Zofran) 4 mg IV Q8H PRN PRN PRN Reason: NAUSEA/VOMITING Sodium Chloride () 10 ml IV UD PRN PRN Reason: VAD FLUSH Tamsulosin HCl (Flomax) 0.4 mg PO DAILY@1730 [facility] Last Admin: 02/16/19 17:47 Dose: 0.4 mg Medical Necessity - Tobacco Use Smoking Status: Never smoker Assessment/Plan All Active Problems Neutropenic fever (Acute) Dehydration (Acute) Urinary retention (Acute) Hypotension (Acute) HCAP (healthcare-associated pneumonia) (Acute) Malignant pleural effusion (Acute) 1. Neutropenic fever in the setting of B-cell lymphoma status post 1 dose of R- CHOP/diarrhea/dehydration/weakness/urinary retention/thrombocytopenia -We will consult oncology for assistance -He had been given Neulasta a week ago, and will monitor the thrombocytopenia no chemical DVT prophylaxis -Continue with cefepime and await final cultures, chest x-ray is negative -Appreciate urology input, will plan to remove Harrington on Tuesday and continue with Flomax -We will hold all antidiarrheals -Continue with her home Decadron, and she can have a regular diet -Continue with IV fluids at 100 cc/h -Once magnesium and phosphorus results will replace potassium appropriately. -PT/OT 2. Hypothyroidism -Stable last TSH was 0.13 in November -Continue with home Synthroid DVT: SCDs Code Visit Inpatient E&M: [id number] Subs Hosp L2
[2019-02-17 09:21] VITALS: BP 115/63; PULSE 105; RESP 16; TEMP 36.6; O2SAT 99
[2019-02-17] MEDS: 0.9% Normal Saline 1,000 ML 100 ML IV ×2 (09:25→21:25)
[2019-02-17] MEDS: Famotidine 20 MG Tablet PO (09:27)
[2019-02-17] MEDS: Loratadine 10 MG Tablet PO (11:07)
[2019-02-17 11:10] VITALS: PULSE 92
[2019-02-17 14:37] VITALS: BP 105/52; PULSE 82; RESP 16; TEMP 36.9; O2SAT 100
[2019-02-17] MEDS: Tamsulosin HCl 0.4 MG Capsule PO (17:47)
[2019-02-17 20:15] VITALS: BP 114/52; PULSE 95; RESP 16; TEMP 37.1; O2SAT 97
[2019-02-18] MEDS: Acetaminophen 325 MG Tablet 650 MG PO ×2 (00:16→13:21)
[2019-02-18 02:09] VITALS: BP 110/53; PULSE 92; RESP 16; TEMP 36.8; O2SAT 97
[2019-02-18 05:09] LABS: Anion Gap 7 (5-15); BUN 4 mg/dL (7-18); BUN/Creat Ratio 9.5 RATIO (10-20); Chloride 109 mmol/L (98-107); Creatinine, Serum 0.42 mg/dL (0.55-1.02); EST Glomerular Filtration Rate 155 mL/min (>60); Est Glom Filt Rate - Afr Amer 187 mL/min (>60); Estimated Creatinine Clearance 38.97 ml/min; Glucose 108 mg/dL (74-106); Phosphorus 1.8 mg/dL (2.5-4.9); Potassium 3.5 mmol/L (3.5-5.1); Sodium Level 140 mmol/L (136-145)
[2019-02-18 05:22] LABS: Absolute Lymphocyte Count 0.44 X10^3/ul (0.83-4.51); Absolute Neutrophil Count 1.1 X10^3/uL (2.0-7.7); Basophil# 0.01 X10^3/uL; Basophil% 0.6 % (0-1); Eosinophil# 0.04 X10^3/uL; Eosinophils% 2.4 % (0-5); Hematocrit 26.7 % (37-47); Hemoglobin 8.8 g/dl (12.0-15.0); Lymphocyte # 0.44 X10^3/ul (4.0); Mean Corpuscular Hgb 28.1 pg (27.0-32.0); Mean Corpuscular Volume 85.3 fL (81-99); Monocyte# 0.12 X10^3/uL; Monocyte% 7.1 % (0-10); Neutrophil # 1.08 X10^3/uL (2.7-7.7); Neutrophil % 63.9 % (47-70); RBC Distribution Width CV 14.2 % (11.6-14.6); RBC Distribution Width SD 44.7 fl (35.1-43.9); Red Blood Count 3.13 M/mm3 (4.2-5.4); White Blood Count 1.7 K/mm3 (4.4-11.0)
[2019-02-18 05:25] LABS: Differential Indicated SCAN CRITERIA MET; POSITIVE COUNT YES; POSITIVE DIFFERENTIAL YES; POSITIVE MORPHOLOGY YES; Platelet Count 43 K/mm3 (150-450)
[2019-02-18 05:43] LABS: Anisocytosis 1+; Differential Comment SCAN; Hypochromasia 1+; Microcytosis 1+; Platelet Estimate MKD DEC (ADEQ); Platelet Morphology LARGE; Polychromasia RARE
[2019-02-18] MEDS: Levothyroxine 88 MCG Tablet PO (05:43)
[2019-02-18 08:00] VITALS: BP 117/52; PULSE 99; RESP 18; TEMP 36.9; O2SAT 100
[2019-02-18] MEDS: 0.9% Normal Saline 1,000 ML 100 ML IV (08:00)
[2019-02-18] MEDS: Loratadine 10 MG Tablet PO (08:02)
[2019-02-18] MEDS: Famotidine 20 MG Tablet PO (08:02)
--- NOTE | 2019-02-18 08:30 | PN_ITS ---
Patient Problems: Active and Suspected Problems Neutropenic fever (Acute) Dehydration (Acute) Urinary retention (Acute) Subjective: Feeling better overall. No fever, Harrington catheter removed this morning. Eating breakfast, mild stomatitis no diarrhea. - Physical Exam General: Alert, Oriented x3, Cooperative, No apparent distress HEENT: Atraumatic, PERRLA, EOMI, Normocephalic Oral: Moist Mucosa, No Gingival or Mucosal Lesions/ Ulcerations Neck: Supple, No JVD Lungs: Clear to auscultation, Normal air movement, No rhonchi, No wheeze, No rales Cardiovascular: Regular rate, Regular Rhythm, Normal S1, Normal S2, No murmurs Abdomen: Bowel Sounds Present, Soft, Non Tender Extremities: No clubbing, No cyanosis, No edema Skin: No rashes, No breakdown Musculoskeletal: No Tenderness to Palpation of Joints or Extremities Lymphatic: No Cervical, Supraclavicular, or Inguinal Adenopathy Neurological: Cranial nerves II-XII grossly intact, Neuro grossly intact Psych/Mental Status: Normal Affect Vital Signs Temp Pulse Resp BP Pulse Ox 98.5 F 99 18 117/52 L 100 02/18/19 08:00 02/18/19 08:00 02/18/19 08:00 02/18/19 08:00 02/18/19 08:00 Oxygen Delivery Method Room Air Weight: 127 lb 9.6 oz Body Mass Index (BMI) 22.6 Intake and Output for Last 24 Hours 02/16/19 02/17/19 02/18/19 23:59 23:59 23:59 Intake Total 381 / 381 3780 / 3780 614 / 614 Output Total 850 / 850 2650 / 2650 700 / 700 Balance -469 / -469 1130 / 1130 -86 / -86 Microbiology Past 72 Hours 02/16/19 07:45 Urine Culture - Final Urine, Catheterized Culture exhibits no growth. 02/16/19 09:00 Blood Culture - Preliminary Blood Culture (Wb) #2 - Anticubital Left No growth in 48 hours. 02/16/19 07:45 Blood Culture - Preliminary Blood Culture (Wb) #2 - Other No growth in 48 hours. Laboratory Tests Past 24 Hrs 02/17/19 02/18/19 02/18/19 06:20 04:20 04:20 WBC 1.7 L RBC 3.13 L Hgb 8.8 L Hct 26.7 L MCV 85.3 MCH 28.1 MCHC 33.0 RDW 14.2 RDW Differential 44.7 H Plt Count 43 L* Immature Gran % (Auto) 0.000 Neut % (Auto) 63.9 Lymph % (Auto) 26.0 [place] % (Auto) 7.1 Eos % (Auto) 2.4 Baso % (Auto) 0.6 Absolute Neuts (auto) 1.1 L Absolute Lymphs (auto) 0.44 L Total Counted Not Reportable Differential Comment SCAN Diff Path Review May foll Platelet Estimate MKD DEC Plt Morphology Comment LARGE Polychromasia RARE Hypochromasia 1+ Anisocytosis 1+ Microcytosis 1+ Sodium 140 Potassium 3.5 Chloride 109 H Carbon Dioxide 24.0 Anion Gap 7 BUN 4 L Creatinine 0.42 L Estim Creat Clear Calc 38.97 Est GFR (MDRD) Af Amer 187 Est GFR (MDRD) Non-Af 155 BUN/Creatinine Ratio 9.5 L Glucose 108 H Calcium 8.0 L Phosphorus 2.0 L 1.8 L Magnesium 1.8 Medical Necessity - Tobacco Use Smoking Status: Never smoker Assessment/Plan All Active Problems Neutropenic fever (Acute) Dehydration (Acute) Urinary retention (Acute) Hypotension (Acute) HCAP (healthcare-associated pneumonia) (Acute) Malignant pleural effusion (Acute) 78-year-old female with diffuse large B-cell lymphoma; status post R-CHOP /Neulasta day 10 She presents with Neutropenic fever & urinary retention. -Her complete blood count is improving, afebrile, cultures were all negative. -Hypokalemia Recommendations: -Continue mouth care for stomatitis. -Discontinue cefepime; -Hold heparin/LMWH because of thrombocytopenia -Urology input appreciated. Hopefully, she be able to urinate this morning after removal of Harrington catheter. -Nutrition therapy and physical therapy consult & ambulate today. -Possible discharge home today and follow-up with me next week in my office. cc: Dr. Pop Herron; Dr. Gabriel Wells; Dr. Cale Mcnulty
--- NOTE | 2019-02-18 13:21 | DCINST_ITS ---
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) You will use the following diet at home:: Regular Your food should be the consistency of: Regular Your liquids should be the consistency of: Regular/Thin Discharge Activity: Return to Normal Activity, No Restrictions Call your doctor if you observe: Fever of 101 or Higher, Shortness of breath, Dizziness, Fainting spells, Swelling in the ankles, Chest pain, Increased palpitations (irregular heartbeat) Allergies/Adverse Reactions: Allergies amoxicillin Allergy (Verified 02/16/19 07:07) Unknown atorvastatin Allergy (Verified 02/16/19 07:07) Unknown azithromycin Allergy (Verified 02/16/19 07:07) Unknown Iodinated Contrast- Oral and IV Dye [DYEE] Allergy (Verified 02/16/19 07:07) Unknown ketorolac Allergy (Verified 02/16/19 07:07) Unknown levofloxacin [From Levaquin] Allergy (Verified 02/16/19 07:07) Unknown metronidazole Allergy (Verified 02/16/19 07:07) Unknown prednisone Allergy (Verified 02/16/19 07:07) Unknown Medications to take at Discharge Levothyroxine [Synthroid] 88 mcg PO DAILY 05/20/17 Docusate Sodium [Colace] 100 mg PO TID PRN 10/25/17 L.acidoph,Paracasei, B.lactis [Probiotic] 1 each PO DAILY 10/25/17 Acetaminophen [Tylenol Extra Strength] 500 - 1,000 mg PO Q8H 12/13/18 Famotidine 20 mg PO DAILY 12/13/18 Mv-Mn/Folic Acid/Vit [id number] [Alive Once Daily Women 50 Plus] 1 each PO DAILY 12/13/18 Dexamethasone [Decadron] 1 tab PO BID PRN 02/16/19 Glucosam/Saroj-Msm1/C/Kannan/Bosw [Osteo Bi-Flex Caplet] 2 each PO DAILY 02/16/19 Magnesium Oxide [Magnesium] 300 mg PO DAILY 02/16/19 Ondansetron HCl 8 mg PO Q8H PRN 02/16/19 Potassium Chloride PO DAILY 02/16/19 Loratadine [Claritin] 10 mg PO DAILY 02/17/19 Tamsulosin HCl [Flomax] 0.4 mg PO DAILY@1730 #10 capsule 02/18/19 The following prescriptions were given: Tamsulosin HCl [Flomax] 0.4 mg PO DAILY@1730 #10 capsule Primary Care Physician: Francisco J Garces III, MD [Primary Care Provider] - Please follow up with your Primary Care Physician in: 3-5 days Test Results: Test results from this visit will be discussed in further detail at your follow- up appointment, if applicable. Please Follow Up With: Pop Herron MD When: this week
--- NOTE | 2019-02-18 13:33 | DS.PCM_ITS ---
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 No acute adenopathy is seen. Consults: Oncology Urology Operations: None Procedures: None Summary of Care Provided: Per HPI:The patient is a 78 year old F with PMH as below who presents with weakness, dehydration, diarrhea. She states that she was diagnosed with B-cell lymphoma in December and had her first dose of R-CHOP on . On Tuesday she went back to the office to have a shot of Neulasta. She then developed constipation and took a dose of milk of mag however it did not resolve her constipation and therefore she doubled the dose and started taking it every day which resulted in her having significant diarrhea. She was trying to drink Gatorade and water but does not think she was able to keep up with it. And also prior to coming to the hospital she had not urinated for 12 hours and when she came to the ER she had 800 cc of urine out when they placed a Harrington. On admission in the ER she was found to have a white blood cell count of 0.1 with an absolute neutrophil count of 0 and a temperature of 99.9. She was given a dose of Rocephin in the ER and then on admission to the floor was changed to cefepime. Chest x-ray in the ER did not show pneumonia, blood cultures and urine cultures were obtained. She denies any abdominal pain currently. Hospital Course: 1. Neutropenic fever in the setting of B-cell lymphoma status post 1 dose of R-CHOP/diarrhea/dehydration/weakness/urinary retention/thrombocytopenia- 78-year-old female with a history of B-cell lymphoma, she started getting R-CHOP last and then on Tuesday she had a dose of Neulasta. She had some weakness, and dehydration and then she was constipated so she took extra milk of mag and had diarrhea. She presented with a fever and 0 neutrophil count which has since increased to over 1100. She was admitted on cefepime and had blood and urine cultures obtained which have both come back negative. She was on IV fluids and is been able to eat and her diarrhea has resolved and she is feeling much better. She had a Harrington placed in the ER for urinary retention and that was removed this morning. She had a bladder scan of over 500 and therefore had her Harrington replaced and she was discharged home with follow-up with Dr. Wells as an outpatient. 2. Her other medical diagnoses were evaluated in her home medications were continued were appropriate Objective: General: Alert, Oriented x3, Cooperative, No apparent distress, HEENT: Atraumatic, PERRLA, EOMI, Normocephalic Oral: Dry Mucosa Neck: Supple, No JVD Lungs: Clear to auscultation, Normal air movement, No rhonchi, No wheeze, No rales Cardiovascular: Regular rate, Regular Rhythm, Normal S1, Normal S2, No murmurs Abdomen: Soft, slightly tender to RLQ, Non-Distended, No Hepato-splenomegaly Extremities: No edema, Capillary Refill Less than 3 Seconds Skin: No rashes, No breakdown Neurological: Neuro grossly intact, Sensory exam intact to light touch and pain Psych/Mental Status: Normal Affect, Appropriate - Physical Exam Vital Signs Temp Pulse Resp BP Pulse Ox 98.5 F 99 18 117/52 L 100 02/18/19 08:00 02/18/19 08:00 02/18/19 08:00 02/18/19 08:00 02/18/19 08:00 Oxygen Delivery Method Room Air Weight: 127 lb 9.6 oz Body Mass Index (BMI) 22.6 Intake and Output for Last 24 Hours 02/16/19 02/17/19 02/18/19 23:59 23:59 23:59 Intake Total 381 / 381 3780 / 3780 864 / 864 Output Total 850 / 850 2650 / 2650 900 / 900 Balance -469 / -469 1130 / 1130 -36 / -36 Microbiology Past 72 Hours 02/16/19 07:45 Urine Culture - Final Urine, Catheterized Culture exhibits no growth. 02/16/19 09:00 Blood Culture - Preliminary Blood Culture (Wb) #2 - Anticubital Left No growth in 48 hours. 02/16/19 07:45 Blood Culture - Preliminary Blood Culture (Wb) #2 - Other No growth in 48 hours. Laboratory Tests Past 24 Hrs 02/18/19 02/18/19 04:20 04:20 WBC 1.7 L RBC 3.13 L Hgb 8.8 L Hct 26.7 L MCV 85.3 MCH 28.1 MCHC 33.0 RDW 14.2 RDW Differential 44.7 H Plt Count 43 L* Immature Gran % (Auto) 0.000 Neut % (Auto) 63.9 Lymph % (Auto) 26.0 [place] % (Auto) 7.1 Eos % (Auto) 2.4 Baso % (Auto) 0.6 Absolute Neuts (auto) 1.1 L Absolute Lymphs (auto) 0.44 L Total Counted Not Reportable Differential Comment SCAN Diff Path Review May foll Platelet Estimate MKD DEC Plt Morphology Comment LARGE Polychromasia RARE Hypochromasia 1+ Anisocytosis 1+ Microcytosis 1+ Sodium 140 Potassium 3.5 Chloride 109 H Carbon Dioxide 24.0 Anion Gap 7 BUN 4 L Creatinine 0.42 L Estim Creat Clear Calc 38.97 Est GFR (MDRD) Af Amer 187 Est GFR (MDRD) Non-Af 155 BUN/Creatinine Ratio 9.5 L Glucose 108 H Calcium 8.0 L Phosphorus 1.8 L Discharge Activity: Return to Normal Activity, No Restrictions Call your doctor if you observe: Fever of 101 or Higher, Shortness of breath, Dizziness, Fainting spells, Swelling in the ankles, Chest pain, Increased palpitations (irregular heartbeat) Home Medications: Medications to take at Discharge RX: Levothyroxine [Synthroid] 88 mcg PO DAILY 05/20/17 RX: Docusate Sodium [Colace] 100 mg PO TID PRN 10/25/17 RX: L.acidoph,Paracasei, B.lactis [Probiotic] 1 each PO DAILY 10/25/17 RX: Acetaminophen [Tylenol Extra Strength] 500 - 1,000 mg PO Q8H 12/13/18 RX: Famotidine 20 mg PO DAILY 12/13/18 RX: Mv-Mn/Folic Acid/Vit K/Rvex952 [Alive Once Daily Women 50 Plus] 1 each PO DAILY 12/13/18 RX: Dexamethasone [Decadron] 1 tab PO BID PRN 02/16/19 RX: Glucosam/Saroj-Msm1/C/Kannan/Bosw [Osteo Bi-Flex Caplet] 2 each PO DAILY 02/16/19 RX: Magnesium Oxide [Magnesium] 300 mg PO DAILY 02/16/19 RX: Ondansetron HCl 8 mg PO Q8H PRN 02/16/19 RX: Potassium Chloride PO DAILY 02/16/19 RX: Loratadine [Claritin] 10 mg PO DAILY 02/17/19 RX: Tamsulosin HCl [Flomax] 0.4 mg PO DAILY@1730 #10 capsule 02/18/19 Following Prescrptions Were Given to Patient: RX: Tamsulosin HCl [Flomax] 0.4 mg PO DAILY@1730 #10 capsule Primary Care Physician: Francisco J Garces III, MD [Primary Care Provider] - Please follow up with your Primary Care Physician in: 3-5 days Please Follow Up With: Pop Herron MD When: this week Disposition: Home Minutes spent on discharge:: 35 Patient Condition:: Stable Medical Necessity - Tobacco Use Smoking Status: Never smoker Meaningful Use Info Meaningful Use Diagnoses (Choose all that apply): None applicable Code Visit Inpatient E&M: 89464 Disch Hosp
[2019-02-18 14:00] VITALS: BP 107/57; PULSE 94; RESP 18; TEMP 36.8; O2SAT 100
[2019-02-18] MEDS: Tamsulosin HCl 0.4 MG Capsule PO (17:04)
[2019-02-18] MEDS: 0.9% NaCl VAD Flush 10 ML IV (17:16)
[2019-02-19 15:08] LABS: Pathologist Review Reviewed
[2019-02-19 15:14] LABS: Pathologist Review Reviewed
[2019-02-19 15:21] LABS: Pathologist Review Reviewed
--- NOTE | 2019-02-20 16:45 | CASEMGMT ---
Case Management DC F/U call: Discharge Date and Diagnosis Date of Admission: 02/16/19 Date of Discharge: 02/18/19 Discharge Home LACE/STRATA: 06/21 - Primary Discharge Diagnosis Active and Suspected Problems Neutropenic fever (Acute) Dehydration (Acute) Urinary retention (Acute) Attempt to call patient on listed Home and Cell Phone on Demographics. No answer on either, Unable to authenticate VM is to patient and therefore no VM left. Bonny Huffman RNCM
== END 2019-02-18 18:15 | disposition home or self-care (01) | DRG 809 ==
LOC: ED 10:03 → MS3 10:40
PROVIDERS: Internal Medicine Hematology & Oncology; Admitting Provider Family Medicine; Emergency Provider Emergency Medicine; Family Provider Family Medicine; PCP Family Medicine; Visit Provider Family Medicine
DX: D70.9 Neutropenia, unspecified (principal); C83.31 Diffuse large B-cell lymphoma, lymph nodes of head, face, and neck; K56.7 Ileus, unspecified; R50.81 Fever presenting with conditions classified elsewhere; E86.0 Dehydration; R33.9 Retention of urine, unspecified; Z79.899 Other long term (current) drug therapy; E03.9 Hypothyroidism, unspecified; D61.810 Antineoplastic chemotherapy induced pancytopenia; E87.6 Hypokalemia; T45.1X5A Adverse effect of antineoplastic and immunosuppressive drugs, initial encounter; K12.1 Other forms of stomatitis
CPT/HCPCS: 36415; 36591; 51702; 71046; 80048; 80053; 81001; 83605; 83735; 84100; 85025; 85610; 87040; 87086; 92526; 92610; 93005; 97110; 97116; 97163; 97165; 97530; 97802; 99285; J7030; J7050; P9612; A4216

== ENCOUNTER 2019-03-07 10:37 | Observation (INO) | payer MEDICARE, SELFPAY ==
[2019-02-16 11:19] VITALS: BMI 22.6
[2019-03-07] VITALS (8 sets, daily range): BP systolic 109–141; BP diastolic 60–98; PULSE 75–92; RESP 16–28; TEMP 36.6–36.9; O2SAT 98–100; BMI 22.8; BMI 21.4
--- NOTE | 2019-03-07 10:57 | EKG12_ITS ---
Test Reason : DYSRHYTMIA Blood Pressure : / mmHG Vent. Rate : 084 BPM Atrial Rate : 084 BPM P-R Int : 096 ms QRS Dur : 076 ms QT Int : 384 ms P-R-T Axes : 072 -27 061 degrees QTc Int : 453 ms Sinus rhythm with short NM Minimal voltage criteria for LVH, may be normal variant Borderline ECG Confirmed by SENG RAMOS ([id number]), deputy editor in chief TONY MENG ([id number]) on 03/12/2019 10:04:07 AM Referred By: Mihaela Napier Confirmed By:SENG RAMOS
--- NOTE | 2019-03-07 11:01 | ED.VISSUMM ---
- ER Visit Summary Date of Service: 03/07/19 Chief Complaint: Shortness of breath and dysuria History of Present Illness: The patient is a 78 F who has a history of B-cell lymphoma. She is currently on chemotherapy. She received her second round of chemo on March 01. Over the last 3 days, she has had increasing shortness of breath. Denies cough or sputum. Denies hemoptysis. Denies chest pain or fevers. She also reports dysuria for 3 to 4 days. Denies any other urinary symptoms. She has a history of pneumonia and UTIs. She had similar symptoms in the past after her first round of chemotherapy. Denies any history of PE or heart disease. Physical Examination: Afebrile and vital signs are unremarkable except for her initial respiratory rate in triage of 28. On my exam, her respiratory rate is 15. She is alert and oriented. No acute distress. Sitting, breathing, moving comfortably. HEENT exam unremarkable. Heart regular. Lungs clear. Abdomen soft and nontender. Skin appears normal. Test Results: EKG, chest x-ray, labs, urine testing pending. Emergency Department Course and Treatment: IV placed. Patient monitored. Work-up as above. Will reassess. White count 0.6 and ANC 0.2. Metabolic panel and coags unremarkable. Urinalysis, troponin unremarkable. Lactate 2.0. Cultures pending. EKG and chest x-ray showed nothing acute. Given the patient's neutropenia, elevated respiratory rate, and elevated lactate, she may have an underlying sepsis. Cultures are pending. I did not identify the source of any infection. Patient was treated with Azactam and vancomycin empirically. We will contact the hospitalist for further care. Treatment Plan: As above Disposition: Admission Impression: 1. Neutropenia 2. Lactic acidosis This note was generated with [employer] dictation software. It may contain incorrect words, spelling, and punctuation that were not noted in review of the chart prior to signing ED Disposition - Plan for ED Patient: Referrals: Francisco J Garces III, MD [Primary Care Provider] -
--- NOTE | 2019-03-07 11:16 | RAD_ITS ---
STUDY: X-RAY CHEST REASON FOR EXAM: Female, 78 years old. Shortness of breath. UTI. TECHNIQUE: Single AP portable view of the chest. COMPARISON: Comparison is made with prior study dated February 16, 2019. FINDINGS: A left-sided portacatheter is seen with the tip at the junction of the superior vena cava and right atrium. EKG electrodes are seen. Hyperinflation. The lungs are clear. There is no demonstrated pleural abnormality. Normal size heart. Normal mediastinum and odalys. Normal visualized pulmonary arteries. There is atherosclerotic calcification of the aortic arch with tortuosity. Normal visualized thoracic spine. There is degenerative osteoarthritis of the bilateral shoulders. Screw fixation in the proximal left humerus. There is no demonstrated abnormality of the visualized soft tissue structures of the upper abdomen. RAD/Chest 1 View (Portable) IMPRESSION: Hyperinflation. Electronically Signed: Dakotah Garcia, at 11:39 EDT , Service support ,
[2019-03-07 11:47] LABS: Absolute Lymphocyte Count 0.18 X10^3/ul (0.83-4.51); Absolute Neutrophil Count 0.2 X10^3/uL (2.0-7.7); Basophil# 0.08 X10^3/uL; Eosinophil# 0.02 X10^3/uL; Eosinophils% 3.5 % (0-5); Hemoglobin 9.5 g/dl (12.0-15.0); Lymphocyte # 0.18 X10^3/ul (4.0); Lymphocyte % 31.6 % (19-41); Mean Corp Hgb Conc 31.7 g/gl (32-36); Mean Corpuscular Hgb 27.9 pg (27.0-32.0); Mean Platelet Vol. 10.2 fl (6.2-12.0); Monocyte# 0.01 X10^3/uL; Monocyte% 1.8 % (0-10); Neutrophil # 0.24 X10^3/uL (2.7-7.7); Neutrophil % 42.1 % (47-70); Platelet Count 243 K/mm3 (150-450); RBC Distribution Width CV 17.6 % (11.6-14.6); RBC Distribution Width SD 55.9 fl (35.1-43.9); Red Blood Count 3.41 M/mm3 (4.2-5.4)
[2019-03-07 11:50] LABS: Differential Indicated SCAN CRITERIA MET; POSITIVE COUNT YES; POSITIVE DIFFERENTIAL YES; POSITIVE MORPHOLOGY YES
[2019-03-07 11:52] LABS: White Blood Count 0.6 K/mm3 (4.4-11.0)
[2019-03-07 11:53] LABS: Prothrombin Time (Protime)PT. 12.8 SECONDS (11.7-14.9)
--- NOTE | 2019-03-07 11:53 | ED.RN ---
LAB CALLS WITH CRITICAL RESULT, WBC 0.6, DR. MARTIN MADE AWARE.
[2019-03-07 11:54] LABS: Partial Thromboplast Time 26.2 Seconds (24.1-36.2)
[2019-03-07 12:11] LABS: Anisocytosis 1+; Differential Comment SCANNED; Hypochromasia 2+; Ovalocyte 1+; Platelet Estimate ADEQUATE (ADEQ)
[2019-03-07 12:12] LABS: Bacteria 0 SEEN /hpf (None Seen); Mucous, Urine 0 SEEN /hpf (<or=2+); Red Blood Cells-Urine 0 SEEN /hpf (0-5); Squamous Epithelial Cells - UA 0 SEEN /hpf (5-10); White Blood Cells 0 SEEN /hpf (0-5)
[2019-03-07 12:20] LABS: AST(SGOT) 18 U/L (15-37); Alanine Aminotransfer ALT/SGPT 21 U/L (13-56); Albumin, Serum 3.2 g/dL (3.2-5.0); Alkaline Phosphatase 104 U/L (45-117); Anion Gap 8 (5-15); BUN 15 mg/dL (7-18); BUN/Creat Ratio 31.6 RATIO (10-20); Calcium,Total 9.1 mg/dL (8.5-10.1); Chloride 103 mmol/L (98-107); Creatinine, Serum 0.47 mg/dL (0.55-1.02); EST Glomerular Filtration Rate 135 mL/min (>60); Est Glom Filt Rate - Afr Amer 164 mL/min (>60); Estimated Creatinine Clearance 40.68 ml/min; Globulin 3.1 g/dL (2.2-4.2); Glucose 104 mg/dL (74-106); Potassium 3.8 mmol/L (3.5-5.1); Protein, Total 6.3 g/dL (6.4-8.2); Sodium Level 140 mmol/L (136-145)
[2019-03-07 12:22] LABS: Glucose, Dipstick Normal (Normal); Ketone-Dipstick Negative (Negative); Leukocyte Esterase-Dipstick Negative /ul (Negative); Nitrite-Dipstick Negative (Negative); Occult Blood-Urine Negative /ul (Negative); Protein-Dipstick Negative (Negative); Urine Bilirubin Dipstick Negative (Negative); Urine Urobilinogen Normal (Normal)
[2019-03-07 12:24] LABS: Color, Urine Yellow (Yellow); Urine Clarity Clear (Clear)
--- NOTE | 2019-03-07 13:12 | PCM.HP.STD ---
Problem List (1) Hypothyroidism Status: Chronic Qualifiers: Hypothyroidism type: unspecified Qualified Code(s): E03.9 - Hypothyroidism, unspecified (2) Chronic anemia Status: Chronic (3) Chronic leukopenia Status: Chronic (4) Urinary retention Status: Chronic (5) Diffuse large B-cell lymphoma of lymph nodes of head Status: Chronic (6) Lymphoma Status: Chronic Qualifiers: Lymphoma type: unspecified type Lymphoma site: intrathoracic nodes Qualified Code(s): C85.92 - Non-Hodgkin lymphoma, unspecified, intrathoracic lymph nodes History of Present Illness Date of Admission: 03/07/19 Chief Complaint: Dyspnea, dysuria, malaise, fatigue following 2nd round chemotherapy. 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 Work-up in the ED included T 98.3, heart rate 90, BP 126/88, respiratory rate 16, 100% on room air, CBC with WBC 0.6, hemoglobin 9.5, platelet 243 with increased immature granulocytes as well as basophils, unremarkable coags, CMP only notable for creatinine 0.47 which is been baseline as well as total bilirubin 1.20, troponin less than 0.015, urinalysis not marked appearing with normal specific gravity, chest x-ray with chronic changes, LA 2.0, Bld culture x2 and urine culture pending per ED. In the ED patient administered vancomycin, aztreonam as well as normal saline. ED spoke with Dr. Akhtar who requested BSA coverage pending observation overnight. 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) Hypothyroidism (Chronic) Chronic anemia (Chronic) Chronic leukopenia (Chronic) Lymphoma (Chronic) Allergies amoxicillin Allergy (Verified 02/16/19 07:07) Unknown atorvastatin Allergy (Verified 02/16/19 07:07) Unknown azithromycin Allergy (Verified 02/16/19 07:07) Unknown Iodinated Contrast- Oral and IV Dye [DYEE] Allergy (Verified 02/16/19 07:07) Unknown ketorolac Allergy (Verified 02/16/19 07:07) Unknown levofloxacin [From Levaquin] Allergy (Verified 02/16/19 07:07) Unknown metronidazole Allergy (Verified 02/16/19 07:07) Unknown prednisone Allergy (Verified 02/16/19 07:07) Unknown Home Medications: Ambulatory Orders Medication Instructions Recorded Levothyroxine [Synthroid] 88 mcg PO DAILY 05/20/17 Docusate Sodium [Colace] 100 mg PO BID 10/25/17 Acetaminophen [Tylenol Extra 500 - 1,000 mg PO Q8H 12/13/18 Strength] Famotidine 20 mg PO DAILY 12/13/18 Carvedilol 3.125 mg PO BID 03/07/19 Dextran 70/Hypromellose/Pf 1 ea OP 03/07/19 [Artificial Tears Drops] Magnesium Oxide/Magnesium 300 mg PO DAILY 03/07/19 [Magnesium 300 mg Capsule] Potassium 297 mg PO DAILY 03/07/19 Surgical History: appendectomy, - - Tubal ligation, lymph node biopsy, excisional biopsy of right orbital mass, port placement, nasal basal cell removal. Psychiatric History: No pertinent psych hx TRANSITION OF CARE SPECIALIST History: No pertinent TRANSITION OF CARE SPECIALIST history Lives: Spouse/ Significant Other Smoking Status: Never smoker Tobacco Use: Non-smoker Alcohol: None Drugs: None - *Family History Maternal History Items: - - She denies that her mother was very healthy in the past and her old age, no history of heart disease, diabetes or cancer. Paternal History Items: COPD - Father with history of emphysema, COPD with tobacco use concurrent history. Review of Systems Constitutional: Reports: Malaise, Weakness, Fatigue. Denies: Chills, Fever, Weight Change HEENT: Denies: Head Aches, Sinus Congestion, Sinus Drainage Cardiovascular: Denies: Chest Pain, Palpitations Respiratory: Reports: Shortness of Breath, Shortness of breath at rest, Shortness of breath upon exertion. Denies: Cough, Sputum production, Wheezing Gastrointestinal: Reports: - - Painful hemorrhoids intermittently.. Denies: Abdominal Pain, Nausea, Vomiting Genitourinary: Reports: Dysuria Musculoskeletal: Reports: Joint Pain. Denies: Joint Tenderness Skin: Denies: Rash, Wounds Neurological: Denies: Numbness, Tingling, Focal weakness Psychiatric: Denies: Anxiety, Depression, Homicidal Ideations, Suicidal Ideations Hematologic/ Lymphatic: Denies: Easy Bruising, Easy Bleeding VTE Information - Inpt Only VTE Present on Admission: No VTE Mechan Device Prophylaxis: SCD's VTE Pharm Prophylaxis ordered?: Yes Subjective: Seated upright in ED bed, mildly fatigued appearance otherwise no acute distress. Objective: Physical Examination: General: awake, alert, oriented x 3 and cooperative, seated upright in the ED bed, fatigued appearing, no acute distress. Skin: normal color, turgor, no icterus, cyanosis. HEENT: AT/NC, EOMI, PERRLA, mildly dry MM, no carotid bruits or JVD noted. Lungs: CTA bilaterally, moderate effort, moderate decrease BL bases, no rales, ronchi or wheezing. Heart: Regular rate and rhythm; no gallop, rub audible, port in place. Abdomen: soft, thin habitus, evidence of muscle and fat loss, NTTP, ND, normal BS, no HSM. Extremities: no cyanosis, clubbing, or edema. Neurological: patient awake, alert, oriented x 3; cognitive function intact; pupils equally reactive to light and accomodation; cranial nerves II-XII grossly normal, moving all 4 extremities, no focal deficits, strength moderately to severely global decrease. Psychiatric: affect appears mildly fatigued, no acute evidence of depressive or anxiety feelings. - Physical Exam Vital Signs Temp Pulse Resp BP Pulse Ox 98.3 F 83 21 H 124/74 H 100 03/07/19 11:44 03/07/19 11:38 03/07/19 11:38 03/07/19 11:38 03/07/19 11:38 Oxygen Flow Rate (L/min) 2 Oxygen Delivery Method Nasal Cannula Weight: 133 lb 6.075 oz Body Mass Index (BMI) 22.8 Laboratory Tests Past 24 Hrs 03/07/19 03/07/19 03/07/19 11:35 11:35 11:35 WBC 0.6 L* RBC 3.41 L Hgb 9.5 L Hct 30.0 L MCV 88.0 MCH 27.9 MCHC 31.7 L RDW 17.6 H RDW Differential 55.9 H Plt Count 243 MPV 10.2 Immature Gran % (Auto) 7.000 H Neut % (Auto) 42.1 L Lymph % (Auto) 31.6 [place] % (Auto) 1.8 Eos % (Auto) 3.5 Baso % (Auto) 14.0 H Absolute Neuts (auto) 0.2 L Absolute Lymphs (auto) 0.18 L Total Counted Not Reportable Differential Comment SCANNED Diff Path Review May foll Platelet Estimate ADEQUATE Hypochromasia 2+ Anisocytosis 1+ Ovalocytes 1+ PT 12.8 INR 1.0 APTT 26.2 Sodium 140 Potassium 3.8 Chloride 103 Carbon Dioxide 29.0 Anion Gap 8 BUN 15 Creatinine 0.47 L Estim Creat Clear Calc 40.68 Est GFR (MDRD) Af Amer 164 Est GFR (MDRD) Non-Af 135 BUN/Creatinine Ratio 31.6 H Glucose 104 Lactic Acid Calcium 9.1 Total Bilirubin 1.20 H AST 18 ALT 21 Alkaline Phosphatase 104 Troponin I < 0.015 Total Protein 6.3 L Albumin 3.2 Globulin 3.1 Albumin/Globulin Ratio 1.0 Urine Color Urine Clarity Urine pH Ur Specific [place] Urine Protein Urine Glucose (UA) Urine Ketones Urine Occult Blood Urine Nitrite Urine Bilirubin Urine Urobilinogen Ur Leukocyte Esterase Urine RBC Urine WBC Ur Squamous Epith Cells Urine Bacteria Urine Mucus 03/07/19 03/07/19 11:35 12:00 WBC RBC Hgb Hct MCV MCH MCHC RDW RDW Differential Plt Count MPV Immature Gran % (Auto) Neut % (Auto) Lymph % (Auto) [place] % (Auto) Eos % (Auto) Baso % (Auto) Absolute Neuts (auto) Absolute Lymphs (auto) Total Counted Differential Comment Diff Path Review Platelet Estimate Hypochromasia Anisocytosis Ovalocytes PT INR APTT Sodium Potassium Chloride Carbon Dioxide Anion Gap BUN Creatinine Estim Creat Clear Calc Est GFR (MDRD) Af Amer Est GFR (MDRD) Non-Af BUN/Creatinine Ratio Glucose Lactic Acid 2.0 Calcium Total Bilirubin AST ALT Alkaline Phosphatase Troponin I Total Protein Albumin Globulin Albumin/Globulin Ratio Urine Color Yellow Urine Clarity Clear Urine pH 8.0 Ur Specific [place] 1.010 Urine Protein Negative Urine Glucose (UA) Normal Urine Ketones Negative Urine Occult Blood Negative Urine Nitrite Negative Urine Bilirubin Negative Urine Urobilinogen Normal Ur Leukocyte Esterase Negative Urine RBC 0 SEEN Urine WBC 0 SEEN Ur Squamous Epith Cells 0 SEEN Urine Bacteria 0 SEEN Urine Mucus 0 SEEN Assessment/Plan All Active Problems Neutropenic fever (Acute) Dehydration (Acute) Hypotension (Acute) HCAP (healthcare-associated pneumonia) (Acute) Malignant pleural effusion (Acute) The patient is a 78 y/o F w/ PMHx: OA, GERD, Hx Urinary Retention, Hx Stage IV Follicular Lymphoma previously treated with CHOP x6 in 1997, 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 (1) Stage II Diffuse B-cell Lymphoma w/ Subjective Dyspnea, Dysuria: Patient w/ lymphoma of the neck and upper mediastinum with prior clinical remission after 1 cycle of chemotherapy from prior report, now completed 2nd round and following onset of noted symptoms. Work-up in the ED included T 98.3, heart rate 90, BP 126/88, respiratory rate 16, 100% on room air, CBC with WBC 0.6, hemoglobin 9.5, platelet 243 with increased immature granulocytes as well as basophils, unremarkable coags, CMP only notable for creatinine 0.47 which is been baseline as well as total bilirubin 1.20, troponin less than 0.015, urinalysis not marked appearing with normal specific gravity, chest x-ray with chronic changes, LA 2.0, Bld culture x2 and urine culture pending per ED. Suspect reaction from chemotherapy, do not suspect acute infectious process but to be cautious and per Oncology request, will admit to [facility], maintain on IVFs, fall and aspiration precautions, continue IV meropenem pending Bld and UCx results, pending bladder scans to assure no retention recurrence, obtain mag and phos levels and replete as needed, PT, OT, CM for discharge planning. (2) Chronic Leukopenia: Admission WBC 0.6, has been on neulasta, unclear last dose, pending Oncology evaluation, trend. (3) Chronic Anemia, Normocytic: Secondary to chemotherapy, admission Hgb 9.5, baseline appears 8-9, stable, trend. (4) Chronic Thrombocytopenia: Secondary to chemotherapy, noted prior admits, current admit plts 243, normalized, trend. (5) Hx Stage IV Follicular Lymphoma: Patient previously treated with CHOP x 6 in 1997. (6) History urinary retention: No longer on Flomax, urinalysis not marked appearing, no evidence of notable dehydration, will obtain bladder scans to assure not having any recurrence and would add back flomax and perform straight catherization as needed. (7) Hypothyroidism: Continue home synthroid regimen, TSH pending. (8) Malnutrition, Protein Calorie, Severe: Despite BMI 22, notable evidence of muscle and fat loss, likely associated with #1 and #5, nutrition consulted. Mag and false pending. (9) Painful Hemorrhoids, Intermittently: Patient notes she has been using Preparation H with some relief, will have Anusol as needed here. (10) GERD: Famotidine. (11) DVT Prophylaxis: SCDs, lovenox. (12) CODE status: Daughter present HCPOA with living will in place. Discussed CODE status at length including difference between FULL code, DNR-CCA and DNR-CC status. Following discussions about the differences in these status, requested Full Code status. Advanced Care Planning Face to Face Time: 16 minutes. Code Visit OBSV E&M: 80336 Initial observation care L3 Procedures: 18646 Advncd Care Plan 30 Min
--- NOTE | 2019-03-07 13:24 | NURSING ---
DR SEGOVIA FOR DR MARTIN
--- NOTE | 2019-03-07 13:33 | NURSING ---
318 DYSPNEA, DYSURIA WHITE
[2019-03-07] MEDS: 0.9% Normal Saline 1,000 ML 999 ML IV (13:34)
[2019-03-07] MEDS: Ceftriaxone 2 GM in 0.9% NS 50 ML Minibag x1 IV (13:44)
--- NOTE | 2019-03-07 14:17 | NURSING ---
difficulty with swallowing big pills.. cancer is on left side of throat. no fresh veggies/fruit.
[2019-03-07 14:55] LABS: Phosphorus 4.3 mg/dL (2.5-4.9)
[2019-03-07] MEDS: Vancomycin IV 1,000 MG/200 ML BAG 200 MG IV (15:00)
[2019-03-07] MEDS: 0.9% Normal Saline 1,000 ML 100 ML IV (15:02)
[2019-03-07 15:38] LABS: Reflex Lactate? Y
[2019-03-07 16:27] LABS: Lactic Acid 1.8 mmol/L (0.4-2.0)
[2019-03-07] MEDS: Docusate Sodium 100 MG Capsule PO (21:49)
[2019-03-08 01:39] VITALS: BP 133/76; PULSE 95; RESP 20; TEMP 36.6; O2SAT 98
[2019-03-08] MEDS: Acetaminophen 325 MG Tablet 650 MG PO (01:55)
[2019-03-08] MEDS: 0.9% Normal Saline 1,000 ML 100 ML IV (01:58)
[2019-03-08] MEDS: 0.9% NaCl Peripheral Flush Adult/Peds IV ×4 (06:30→13:51)
[2019-03-08] MEDS: Levothyroxine 88 MCG Tablet PO (06:32)
[2019-03-08] MEDS: Enoxaparin 40 MG/0.4 ML Syringe SC (06:32)
[2019-03-08 07:10] LABS: Absolute Lymphocyte Count 0.06 X10^3/ul (0.83-4.51); Basophil# 0.06 X10^3/uL; Basophil% 28.6 % (0-1); Eosinophil# 0.08 X10^3/uL; Eosinophils% 38.1 % (0-5); Hematocrit 27.6 % (37-47); Hemoglobin 8.7 g/dl (12.0-15.0); Lymphocyte # 0.06 X10^3/ul (4.0); Lymphocyte % 28.5 % (19-41); Mean Corp Hgb Conc 31.5 g/gl (32-36); Mean Corpuscular Hgb 27.7 pg (27.0-32.0); Mean Corpuscular Volume 87.9 fL (81-99); Mean Platelet Vol. 10.5 fl (6.2-12.0); Monocyte# 0.01 X10^3/uL; Monocyte% 4.8 % (0-10); Platelet Count 151 K/mm3 (150-450); RBC Distribution Width CV 17.2 % (11.6-14.6); RBC Distribution Width SD 53.3 fl (35.1-43.9); Red Blood Count 3.14 M/mm3 (4.2-5.4)
[2019-03-08 07:12] LABS: Differential Indicated SCAN CRITERIA MET; POSITIVE COUNT YES; POSITIVE DIFFERENTIAL YES; POSITIVE MORPHOLOGY YES; White Blood Count 0.2 K/mm3 (4.4-11.0)
--- NOTE | 2019-03-08 07:15 | NURSING ---
reported critical wbc 0.2 to daniela rn
[2019-03-08 07:27] VITALS: BP 129/63; PULSE 94; RESP 20; TEMP 36.6; O2SAT 100
--- NOTE | 2019-03-08 07:40 | PCM.CONS.B ---
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 Napier regarding patient with neutropenia and hypotension after chemotherapy for diffuse large B-cell lymphoma. My recommendations will be communicated by electronic medical record and to the nursing staff. - Reason for Consult History of Present Illness Date of Admission: 03/07/19 Chief Complaint: Dyspnea, dysuria, malaise, fatigue following 2nd round chemotherapy. 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 She was recently discharged on 02/25/19 for neutropenic fever, urinary retention, anemia. She had her second cycle of R-CHOP (dose reduced) 7 days ago with Neulasta and presented to the [facility] on 03/07/19 with new onset dysuria as well as dyspnea, worse with exertion without cough, fever or chills associated x 3 days with increased generalized malaise, weakness, fatigue. Evaluation in the ED included T 98.3, heart rate 90, BP 126/88, respiratory rate 16, 100% on room air, CBC with WBC 0.6, hemoglobin 9.5, platelet 243 with increased immature granulocytes as well as basophils, unremarkable coags, CMP only notable for creatinine 0.47 which is been baseline as well as total bilirubin 1.20, troponin less than 0.015, urinalysis not marked appearing with normal specific gravity, chest x-ray with chronic changes, LA 2.0, Bld culture x2 and urine culture pending per ED. In the ED patient administered vancomycin, aztreonam as well as normal saline. ED spoke with Dr. Akhtar who requested BSA coverage with meropenem pending blood and urine culture with observation overnight. She is feeling much better this morning. She has no problem with urination denies dysuria or frequency. She still have generalized weakness, but no shortness of breath. No fever since this admission. 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) Hypothyroidism (Chronic) Chronic anemia (Chronic) Chronic leukopenia (Chronic) Lymphoma (Chronic) Allergies amoxicillin Allergy (Verified 02/16/19 07:07) Unknown atorvastatin Allergy (Verified 02/16/19 07:07) Unknown azithromycin Allergy (Verified 02/16/19 07:07) Unknown Iodinated Contrast- Oral and IV Dye [DYEE] Allergy (Verified 02/16/19 07:07) Unknown ketorolac Allergy (Verified 02/16/19 07:07) Unknown levofloxacin [From Levaquin] Allergy (Verified 02/16/19 07:07) Unknown metronidazole Allergy (Verified 02/16/19 07:07) Unknown prednisone Allergy (Verified 02/16/19 07:07) Unknown Home Medications: Ambulatory Orders Medication Instructions Recorded Levothyroxine [Synthroid] 88 mcg PO DAILY 05/20/17 Docusate Sodium [Colace] 100 mg PO BID 10/25/17 Acetaminophen [Tylenol Extra 500 - 1,000 mg PO Q8H 12/13/18 Strength] Famotidine 20 mg PO DAILY 12/13/18 Carvedilol 3.125 mg PO BID 03/07/19 Dextran 70/Hypromellose/Pf 1 ea OP 03/07/19 [Artificial Tears Drops] Magnesium Oxide/Magnesium 300 mg PO DAILY 03/07/19 [Magnesium 300 mg Capsule] Potassium 297 mg PO DAILY 03/07/19 Surgical History: appendectomy, - - Tubal ligation, lymph node biopsy, excisional biopsy of right orbital mass, port placement, nasal basal cell removal. 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 Paternal History Items: COPD - Father with history of emphysema, COPD with tobacco use concurrent history. Review of Systems Constitutional: Reports: Malaise, Weakness, Fatigue. Denies: Chills, Fever, Weight Change HEENT: Denies: Head Aches, Sinus Congestion, Sinus Drainage Cardiovascular: Denies: Chest Pain, Palpitations Respiratory: Reports: Shortness of Breath, Shortness of breath at rest, Shortness of breath upon exertion. Denies: Cough, Sputum production, Wheezing Gastrointestinal: Reports: - - Painful hemorrhoids intermittently.. Denies: Abdominal Pain, Nausea, Vomiting Genitourinary: Reports: Dysuria Musculoskeletal: Reports: Joint Pain. Denies: Joint Tenderness Skin: Denies: Rash, Wounds Neurological: Denies: Numbness, Tingling, Focal weakness Psychiatric: Denies: Anxiety, Depression, Homicidal Ideations, Suicidal Ideations Hematologic/ Lymphatic: Denies: Easy Bruising, Easy Bleeding VTE Information - Inpt Only VTE Present on Admission: No VTE Mechan Device Prophylaxis: SCD's VTE Pharm Prophylaxis ordered?: Yes Subjective: Seated upright in ED bed, mildly fatigued appearance otherwise no acute distress. Objective: Physical Examination: General: awake, alert, oriented x 3 and cooperative, seated upright in the ED bed, fatigued appearing, no acute distress. Skin: normal color, turgor, no icterus, cyanosis. HEENT: AT/NC, EOMI, PERRLA, mildly dry MM, no carotid bruits or JVD noted. Lungs: CTA bilaterally, moderate effort, moderate decrease BL bases, no rales, ronchi or wheezing. Heart: Regular rate and rhythm; no gallop, rub audible, port in place. Abdomen: soft, thin habitus, evidence of muscle and fat loss, NTTP, ND, normal BS, no HSM. Extremities: no cyanosis, clubbing, or edema. Neurological: patient awake, alert, oriented x 3; cognitive function intact; pupils equally reactive to light and accomodation; cranial nerves II-XII grossly normal, moving all 4 extremities, no focal deficits, strength moderately to severely global decrease. Psychiatric: affect appears mildly fatigued, no acute evidence of depressive or anxiety feelings. - Physical Exam Intake & Output 03/05/19 03/06/19 03/07/19 03/08/19 23:59 23:59 23:59 23:59 Intake Total 734 / 1669 1482 / 1482 Output Total 420 / 1120 1000 / 1000 Balance 314 / 549 482 / 482 Weight: 124 lb 8.979 oz Vital Signs - 24 hr Temp Pulse Resp BP Pulse Ox 03/08/19 07:27 97.8 F 94 20 H 129/63 H 100 03/08/19 01:39 97.8 F 95 20 H 133/76 H 98 03/07/19 21:45 97.8 F 92 18 109/60 100 03/07/19 14:33 98.5 F 79 16 133/76 H 99 03/07/19 14:30 100 03/07/19 13:22 75 16 119/64 98 03/07/19 11:44 98.3 F 03/07/19 11:38 83 21 H 124/74 H 100 03/07/19 10:49 90 16 126/88 H 100 03/07/19 10:39 98.4 F 89 28 H 141/98 H 100 Laboratory Tests Past 24 Hrs 03/07/19 03/07/19 03/07/19 11:35 11:35 11:35 WBC 0.6 L* RBC 3.41 L Hgb 9.5 L Hct 30.0 L MCV 88.0 MCH 27.9 MCHC 31.7 L RDW 17.6 H RDW Differential 55.9 H Plt Count 243 MPV 10.2 Immature Gran % (Auto) 7.000 H Neut % (Auto) 42.1 L Lymph % (Auto) 31.6 [place] % (Auto) 1.8 Eos % (Auto) 3.5 Baso % (Auto) 14.0 H Absolute Neuts (auto) 0.2 L Absolute Lymphs (auto) 0.18 L Total Counted Not Reportable Differential Comment SCANNED Diff Path Review May foll Platelet Estimate ADEQUATE Hypochromasia 2+ Anisocytosis 1+ Ovalocytes 1+ PT 12.8 INR 1.0 APTT 26.2 Sodium 140 Potassium 3.8 Chloride 103 Carbon Dioxide 29.0 Anion Gap 8 BUN 15 Creatinine 0.47 L Estim Creat Clear Calc 40.68 Est GFR (MDRD) Af Amer 164 Est GFR (MDRD) Non-Af 135 BUN/Creatinine Ratio 31.6 H Glucose 104 Lactic Acid Calcium 9.1 Phosphorus Magnesium Total Bilirubin 1.20 H AST 18 ALT 21 Alkaline Phosphatase 104 Troponin I < 0.015 Total Protein 6.3 L Albumin 3.2 Globulin 3.1 Albumin/Globulin Ratio 1.0 Urine Color Urine Clarity Urine pH Ur Specific [place] Urine Protein Urine Glucose (UA) Urine Ketones Urine Occult Blood Urine Nitrite Urine Bilirubin Urine Urobilinogen Ur Leukocyte Esterase Urine RBC Urine WBC Ur Squamous Epith Cells Urine Bacteria Urine Mucus 03/07/19 03/07/19 03/07/19 11:35 11:35 12:00 WBC RBC Hgb Hct MCV MCH MCHC RDW RDW Differential Plt Count MPV Immature Gran % (Auto) Neut % (Auto) Lymph % (Auto) [place] % (Auto) Eos % (Auto) Baso % (Auto) Absolute Neuts (auto) Absolute Lymphs (auto) Total Counted Differential Comment Diff Path Review Platelet Estimate Hypochromasia Anisocytosis Ovalocytes PT INR APTT Sodium Potassium Chloride Carbon Dioxide Anion Gap BUN Creatinine Estim Creat Clear Calc Est GFR (MDRD) Af Amer Est GFR (MDRD) Non-Af BUN/Creatinine Ratio Glucose Lactic Acid 2.0 Calcium Phosphorus 4.3 Magnesium 2.0 Total Bilirubin AST ALT Alkaline Phosphatase Troponin I Total Protein Albumin Globulin Albumin/Globulin Ratio Urine Color Yellow Urine Clarity Clear Urine pH 8.0 Ur Specific [place] 1.010 Urine Protein Negative Urine Glucose (UA) Normal Urine Ketones Negative Urine Occult Blood Negative Urine Nitrite Negative Urine Bilirubin Negative Urine Urobilinogen Normal Ur Leukocyte Esterase Negative Urine RBC 0 SEEN Urine WBC 0 SEEN Ur Squamous Epith Cells 0 SEEN Urine Bacteria 0 SEEN Urine Mucus 0 SEEN 03/07/19 03/08/19 15:56 06:46 WBC 0.2 L* RBC 3.14 L Hgb 8.7 L Hct 27.6 L MCV 87.9 MCH 27.7 MCHC 31.5 L RDW 17.2 H RDW Differential 53.3 H Plt Count 151 MPV 10.5 Immature Gran % (Auto) 0.000 Neut % (Auto) 0.0 L Lymph % (Auto) 28.5 [place] % (Auto) 4.8 Eos % (Auto) 38.1 H Baso % (Auto) 28.6 H Absolute Neuts (auto) 0.0 L Absolute Lymphs (auto) 0.06 L Total Counted Not Reportable Differential Comment Diff Path Review May foll Platelet Estimate Hypochromasia Anisocytosis RARE Ovalocytes PT INR APTT Sodium Potassium Chloride Carbon Dioxide Anion Gap BUN Creatinine Estim Creat Clear Calc Est GFR (MDRD) Af Amer Est GFR (MDRD) Non-Af BUN/Creatinine Ratio Glucose Lactic Acid 1.8 Calcium Phosphorus Magnesium Total Bilirubin AST ALT Alkaline Phosphatase Troponin I Total Protein Albumin Globulin Albumin/Globulin Ratio Urine Color Urine Clarity Urine pH Ur Specific [place] Urine Protein Urine Glucose (UA) Urine Ketones Urine Occult Blood Urine Nitrite Urine Bilirubin Urine Urobilinogen Ur Leukocyte Esterase Urine RBC Urine WBC Ur Squamous Epith Cells Urine Bacteria Urine Mucus CXR: No active disease, hyperinflation. Assessment/Plan All Active Problems Neutropenic secondary to chemotherapy (Acute) Dehydration (Acute) Hypotension (Acute) Dysuria (Acute) Dyspnea (Acute) (1) Stage II Diffuse B-cell Lymphoma w/ Subjective Dyspnea: Secondary to chemotherapy, overexertion, dehydration, and anemia -No evidence of congestive heart failure -Clinically in complete remission Plan: -Repeat 2D echocardiogram as an outpatient before next cycle to chemotherapy. -Significant dose of Adriamycin already administered with increased risk of cardiac toxicity. (2) neutropenia/leukopenia: Secondary to chemotherapy, admission WBC 0.6 > 0.2 has been on neulasta -Normal yesika, will expect improvement within the next 2 days. Plan: -Continue meropenem until results of preliminary blood and urine culture from today. -Stop antibiotic later today or tomorrow if negative. (3) Chronic Anemia, Normocytic: Secondary to chemotherapy -admission Hgb 9.5, baseline appears 8-9, stable, trend. Plan: -Continue observation and monitor CBC -Transfuse only if symptomatic or Hgb < 8.0 (4) History urinary retention: No longer on Flomax, urinalysis not marked appearing Plan; -resume Flomax -Possibly starting Pyridium as needed for dysuria. (5) Hypothyroidism: TSH pending. Plan: -Continue Synthroid (6) Malnutrition, Protein Calorie, Severe: Despite BMI 22, notable evidence of muscle and fat loss, likely associated with above Plan: -nutrition consulted. (7) DVT Prophylaxis: Plan: -Continue SCDs, lovenox. -Monitor platelets; Hold if < 50,000 cc; Dr. Francisco J Garces, III, Dr. Mihaela Napier, Dr. Pop Herron
[2019-03-08 07:47] LABS: Anisocytosis RARE
--- NOTE | 2019-03-08 07:48 | RAD_ITS ---
STUDY: X-RAY CHEST REASON FOR EXAM: Female, 78 years old. Shortness of breath. Chest discomfort. TECHNIQUE: PA and lateral views of the chest. COMPARISON: Comparison is made with prior study dated March 07, 2019. FINDINGS: A left-sided portacatheter is seen. The tip is at the junction of the superior vena cava and right atrium. Hyperinflation. Mild scarring at the left lung base. There is no demonstrated pleural abnormality. Normal size heart. Normal mediastinum and odalys. Normal visualized pulmonary arteries. There is atherosclerotic calcification of the aortic arch with tortuosity. There is demineralization of the osseous structures. Normal visualized ribs, clavicles, and shoulders. There is no demonstrated abnormality of the visualized soft tissue structures of the upper abdomen. RAD/Chest PA and Lateral IMPRESSION: Hyperinflation. Mild linear scarring at the left lung base. Electronically Signed: Dakotah Garcia, at 9:27 EDT , Service support ,
[2019-03-08 08:52] VITALS: PULSE 120
[2019-03-08] MEDS: Famotidine 20 MG Tablet PO (08:59)
--- NOTE | 2019-03-08 09:02 | PCM.PROGNOTE ---
Patient Problems: Active and Suspected Problems Chemotherapy induced neutropenia (Acute) Subjective: Chief complaint: Follow-up after admission for dyspnea/overexertion/dehydration attributed to chemotherapy, found to have neutropenia and leukopenia as well as anemia. Patient seen and examined. No acute events overnight. This morning, she feels better, breathing improved and resolved. She ambulated this morning and she felt tired and weak afterwards. She denies any specific complaints. Denies chest pain or shortness of breath. Denied fever or chills. Denied cough or sputum production. She complains of frequency but no dysuria and she has been on IV fluids. Her vital signs are stable. - Physical Exam General: Alert, Oriented x3, Cooperative, No apparent distress HEENT: Atraumatic, PERRLA, EOMI, Normocephalic Oral: Moist Mucosa, No Gingival or Mucosal Lesions/ Ulcerations Neck: Supple, No JVD, Negative Carotid Bruits, Trachea Midline, Thyroid Normal Size and Texture Lungs: Clear to auscultation, Normal air movement, No rhonchi, No wheeze, No rales, Diminished Cardiovascular: Regular rate, Regular Rhythm, Normal S1, Normal S2, PMI Normal Abdomen: Bowel Sounds Present, Soft, Non Tender, Non-Distended, No Hepato-splenomegaly Extremities: No clubbing, No cyanosis, No edema Skin: No rashes, No breakdown Lymphatic: No Cervical, Supraclavicular, or Inguinal Adenopathy Neurological: Cranial nerves II-XII grossly intact, Motor Exam 5/5 strength throughout Psych/Mental Status: Normal Affect, Appropriate, Alert and oriented to time, place, person, mood and affect Vital Signs Temp Pulse Resp BP Pulse Ox 97.8 F 120 H 20 H 129/63 H 100 03/08/19 07:27 03/08/19 08:52 03/08/19 07:27 03/08/19 07:27 03/08/19 07:27 Oxygen Flow Rate (L/min) 2 Oxygen Delivery Method Room Air Weight: 124 lb 8.979 oz Body Mass Index (BMI) 21.4 Intake and Output for Last 24 Hours 03/06/19 03/07/19 03/08/19 23:59 23:59 23:59 Intake Total 734 / 1669 1482 / 1482 Output Total 420 / 1120 1000 / 1000 Balance 314 / 549 482 / 482 Laboratory Tests Past 24 Hrs 03/07/19 03/07/19 03/07/19 11:35 11:35 11:35 WBC 0.6 L* RBC 3.41 L Hgb 9.5 L Hct 30.0 L MCV 88.0 MCH 27.9 MCHC 31.7 L RDW 17.6 H RDW Differential 55.9 H Plt Count 243 MPV 10.2 Immature Gran % (Auto) 7.000 H Neut % (Auto) 42.1 L Lymph % (Auto) 31.6 [place] % (Auto) 1.8 Eos % (Auto) 3.5 Baso % (Auto) 14.0 H Absolute Neuts (auto) 0.2 L Absolute Lymphs (auto) 0.18 L Total Counted Not Reportable Differential Comment SCANNED Diff Path Review May foll Platelet Estimate ADEQUATE Hypochromasia 2+ Anisocytosis 1+ Ovalocytes 1+ PT 12.8 INR 1.0 APTT 26.2 Sodium 140 Potassium 3.8 Chloride 103 Carbon Dioxide 29.0 Anion Gap 8 BUN 15 Creatinine 0.47 L Estim Creat Clear Calc 40.68 Est GFR (MDRD) Af Amer 164 Est GFR (MDRD) Non-Af 135 BUN/Creatinine Ratio 31.6 H Glucose 104 Lactic Acid Calcium 9.1 Phosphorus Magnesium Total Bilirubin 1.20 H AST 18 ALT 21 Alkaline Phosphatase 104 Troponin I < 0.015 Total Protein 6.3 L Albumin 3.2 Globulin 3.1 Albumin/Globulin Ratio 1.0 Urine Color Urine Clarity Urine pH Ur Specific [place] Urine Protein Urine Glucose (UA) Urine Ketones Urine Occult Blood Urine Nitrite Urine Bilirubin Urine Urobilinogen Ur Leukocyte Esterase Urine RBC Urine WBC Ur Squamous Epith Cells Urine Bacteria Urine Mucus 03/07/19 03/07/19 03/07/19 11:35 11:35 12:00 WBC RBC Hgb Hct MCV MCH MCHC RDW RDW Differential Plt Count MPV Immature Gran % (Auto) Neut % (Auto) Lymph % (Auto) [place] % (Auto) Eos % (Auto) Baso % (Auto) Absolute Neuts (auto) Absolute Lymphs (auto) Total Counted Differential Comment Diff Path Review Platelet Estimate Hypochromasia Anisocytosis Ovalocytes PT INR APTT Sodium Potassium Chloride Carbon Dioxide Anion Gap BUN Creatinine Estim Creat Clear Calc Est GFR (MDRD) Af Amer Est GFR (MDRD) Non-Af BUN/Creatinine Ratio Glucose Lactic Acid 2.0 Calcium Phosphorus 4.3 Magnesium 2.0 Total Bilirubin AST ALT Alkaline Phosphatase Troponin I Total Protein Albumin Globulin Albumin/Globulin Ratio Urine Color Yellow Urine Clarity Clear Urine pH 8.0 Ur Specific [place] 1.010 Urine Protein Negative Urine Glucose (UA) Normal Urine Ketones Negative Urine Occult Blood Negative Urine Nitrite Negative Urine Bilirubin Negative Urine Urobilinogen Normal Ur Leukocyte Esterase Negative Urine RBC 0 SEEN Urine WBC 0 SEEN Ur Squamous Epith Cells 0 SEEN Urine Bacteria 0 SEEN Urine Mucus 0 SEEN 03/07/19 03/08/19 15:56 06:46 WBC 0.2 L* RBC 3.14 L Hgb 8.7 L Hct 27.6 L MCV 87.9 MCH 27.7 MCHC 31.5 L RDW 17.2 H RDW Differential 53.3 H Plt Count 151 MPV 10.5 Immature Gran % (Auto) 0.000 Neut % (Auto) 0.0 L Lymph % (Auto) 28.5 [place] % (Auto) 4.8 Eos % (Auto) 38.1 H Baso % (Auto) 28.6 H Absolute Neuts (auto) 0.0 L Absolute Lymphs (auto) 0.06 L Total Counted Not Reportable Differential Comment Diff Path Review May foll Platelet Estimate Hypochromasia Anisocytosis RARE Ovalocytes PT INR APTT Sodium Potassium Chloride Carbon Dioxide Anion Gap BUN Creatinine Estim Creat Clear Calc Est GFR (MDRD) Af Amer Est GFR (MDRD) Non-Af BUN/Creatinine Ratio Glucose Lactic Acid 1.8 Calcium Phosphorus Magnesium Total Bilirubin AST ALT Alkaline Phosphatase Troponin I Total Protein Albumin Globulin Albumin/Globulin Ratio Urine Color Urine Clarity Urine pH Ur Specific [place] Urine Protein Urine Glucose (UA) Urine Ketones Urine Occult Blood Urine Nitrite Urine Bilirubin Urine Urobilinogen Ur Leukocyte Esterase Urine RBC Urine WBC Ur Squamous Epith Cells Urine Bacteria Urine Mucus Clinical Impression(s) from Imaging Studies Chest X-Ray 03/07/19 11:16 IMPRESSION: Hyperinflation. Electronically Signed: Dakotah Garcia, at 11:39 EDT , Service support , Medical Necessity - Tobacco Use Smoking Status: Never smoker Tobacco Use: Non-smoker Assessment/Plan All Active Problems Chemotherapy induced neutropenia (Acute) This is a 78 years old female patient presented to the emergency room because of weakness, shortness of breath and frequency as well as dysuria, found to have neutropenia and leukopenia, dehydration as well as anemia. #1 subjective shortness of breath/weakness/dysuria/frequency: Without evidence of infection. Urinalysis revealed clear urine, negative for nitrite and leukocyte esterase, there was no WBCs or bacteria seen. Chest x-ray showed no acute findings. Repeat chest x-ray again today revealed no acute infiltrate or consolidation. Her symptoms attributed to overexertion and side effects of chemotherapy. Today, patient feels better. She is afebrile, pulse ox is 100% on room air, blood pressure stable. Plan for PT OT, DC home tomorrow. #2 leukopenia/neutropenia: Without fever. Today's absolute neutrophil count is 0, WBC is 200. Patient has been afebrile. Patient received Neulasta injection couple of days ago after her chemotherapy. She is on IV meropenem empirically. Blood and urine cultures are pending. Oncology consulted, recommended to continue same treatment. Plan to continue empiric IV meropenem, repeat CBC tomorrow morning. #3 anemia: Likely because of chemotherapy. Baseline hemoglobin has been around 8 to 10 g/dL. Admission hemoglobin was 9.5, came down to 8.7 today. No evidence of active bleeding. Plan to monitor, transfuse if hemoglobin less than 8 g/dL. #4 stage II diffuse B-cell lymphoma: Currently on chemotherapy, last session was 12 days ago and she received Neulasta injection afterwards. Plan as above. #5 history of urinary retention: Urinalysis reviewed as above. Oncology recommended to resume Flomax. #6: Hypothyroidism: Continue levothyroxine. #7 severe protein calorie malnutrition: Secondary to cancer and chemotherapy. Nutrition consulted. #8 GERD: Continue Pepcid. #9 DVT prophylaxis: Subcu Lovenox. This note was generated with [employer] dictation software. It may contain incorrect words, spelling, and punctuation that were not noted in checking the note before signing. Code Visit OBSV E&M: 05179 Subsequent observation care L2
--- NOTE | 2019-03-08 11:31 | CASEMGMT ---
LW/POMonie in echart, SW printed and placed in chart. TRIPP Chanel
--- NOTE | 2019-03-08 13:00 | CASEMGMT ---
ARAMIS DELEON Face to Face with patient for initial transition planning/care coordination assessment. RN CM introduced self and role at [facility]. Patient lying in bed, alert and oriented. Patient willing to participate in assessment and is able to answer all questions appropriately. Care providers, pharmacy, and demographics verified. Patient wishes to discharge home, denies need for home health at this time. Patient states she has no further needs or concerns at this time. CM to follow for discharge planning needs that may arise. PCP: Dez Specialists: Gopal, oncologist Preferred Pharmacy: [facility] Insurance: [facility] Prescription Benefit: yes Living Will/HPOA: yes, daughter Ramya Denton LNOK: , daughter Living Arrangements: Patient lives with in split level home. Patient is independent in the home and able to navigate stairs Transportation: self//friend/daughter DME/HHC: Patient states she has shower chair, raised toilet, cane, walker, and grab bars. Patient denies further DME needs. Patient has had [facility] HHC in the past. Disposition Plan: Patient to discharge home with family support and follow-up plans in place. Karine BEARDEN, RN, CM
[2019-03-08 13:54] VITALS: BP 113/61; PULSE 99; RESP 18; TEMP 37.2; O2SAT 99
[2019-03-08 15:23] VITALS: PULSE 100
[2019-03-08] MEDS: Tamsulosin HCl 0.4 MG Capsule PO (17:57)
[2019-03-08 22:00] VITALS: BP 114/61; PULSE 99; RESP 18; TEMP 37.1; O2SAT 100
[2019-03-08] MEDS: Carvedilol 3.125 MG TABLET PO (22:34)
[2019-03-08] MEDS: Docusate Sodium 100 MG Capsule PO (22:35)
[2019-03-09] VITALS (8 sets, daily range): BP systolic 98–119; BP diastolic 49–69; PULSE 81–98; RESP 16–18; TEMP 36.4–37.2; O2SAT 98–100
[2019-03-09 06:20] LABS: Absolute Lymphocyte Count 0.14 X10^3/ul (0.83-4.51); Basophil# 0.05 X10^3/uL; Basophil% 12.8 % (0-1); Eosinophils% 25.6 % (0-5); Hematocrit 24.8 % (37-47); Hemoglobin 7.8 g/dl (12.0-15.0); Lymphocyte # 0.14 X10^3/ul (4.0); Lymphocyte % 35.9 % (19-41); Mean Corp Hgb Conc 31.5 g/gl (32-36); Mean Corpuscular Hgb 27.6 pg (27.0-32.0); Mean Corpuscular Volume 87.6 fL (81-99); Mean Platelet Vol. 11.3 fl (6.2-12.0); Monocyte# 0.08 X10^3/uL; Monocyte% 20.5 % (0-10); Neutrophil # 0.02 X10^3/uL (2.7-7.7); Neutrophil % 5.2 % (47-70); Platelet Count 108 K/mm3 (150-450); RBC Distribution Width CV 16.8 % (11.6-14.6); RBC Distribution Width SD 51.9 fl (35.1-43.9); Red Blood Count 2.83 M/mm3 (4.2-5.4)
[2019-03-09] MEDS: Levothyroxine 88 MCG Tablet PO (06:20)
[2019-03-09] MEDS: Enoxaparin 40 MG/0.4 ML Syringe SC (06:21)
[2019-03-09 06:34] LABS: Differential Indicated SCAN CRITERIA MET; POSITIVE COUNT YES; POSITIVE DIFFERENTIAL YES; POSITIVE MORPHOLOGY YES; White Blood Count 0.4 K/mm3 (4.4-11.0)
--- NOTE | 2019-03-09 07:38 | PCM.PN.BLA ---
Progress Note Oncology consult progress note: Patient is doing well today. Still has generalized fatigue and mild shortness of breath with activity. She has no fever, chills, stomatitis or diarrhea. Chest x-ray show no acute changes Blood and urine cultures are negative so far. Vital Signs - 24 hr Temp Pulse Resp BP Pulse Ox 03/09/19 03:12 97.6 F L 91 18 119/61 100 03/09/19 02:22 18 03/08/19 22:00 98.7 F 99 18 114/61 100 03/08/19 15:23 100 03/08/19 13:54 98.9 F 99 18 113/61 99 03/08/19 08:52 120 H Microbiology Past 72 Hours 03/07/19 12:00 Urine Culture - Preliminary Urine, Catheterized Culture exhibits no growth. Laboratory Tests Past 24 Hrs 03/08/19 03/09/19 06:46 05:22 WBC 0.4 L* RBC 2.83 L Hgb 7.8 L Hct 24.8 L MCV 87.6 MCH 27.6 MCHC 31.5 L RDW 16.8 H RDW Differential 51.9 H Plt Count 108 L MPV 11.3 Immature Gran % (Auto) 0.000 Neut % (Auto) 5.2 L Lymph % (Auto) 35.9 [place] % (Auto) 20.5 H Eos % (Auto) 25.6 H Baso % (Auto) 12.8 H Absolute Neuts (auto) 0.0 L Absolute Lymphs (auto) 0.14 L Total Counted Not Reportable Not Reportable Differential Comment Diff Path Review May foll May foll Anisocytosis RARE Assessment/Plan All Active Problems Neutropenic secondary to chemotherapy (Acute) Anemia (Acute/chronic) Dysuria (Acute) Dyspnea (Acute) Diffuse large B-cell lymphoma (Chronic) (1) Stage II Diffuse B-cell Lymphoma w/ Subjective Dyspnea: Secondary to chemotherapy, overexertion, dehydration, and anemia -No evidence of congestive heart failure -Clinically in complete remission Plan: -Repeat 2D echocardiogram as an outpatient before next cycle to chemotherapy. -Significant dose of Adriamycin already administered with increased risk of cardiac toxicity. (2) neutropenia/leukopenia: Secondary to chemotherapy, admission WBC 0.6 > 0.2 has been on neulasta -Normal yesika, WBC improving; anemia and thrombocytopenia Plan: -Stop meropenem today blood cultures remain negative -Possible discharge home tonight or tomorrow morning and follow-up with me next week. (3) Chronic/Acute Anemia, Normocytic: Secondary to chemotherapy -admission Hgb 9.5, baseline appears 8-9, trending downward with moderate symptoms -Since she has 1 more cycle of chemotherapy, proceed with transfusion today Plan: -Transfuse 1 unit of LD-RBC (4) History urinary retention: No longer on Flomax, urinalysis not marked appearing Plan; -Continue Flomax -Possibly starting Pyridium as needed for dysuria.
[2019-03-09] MEDS: Famotidine 20 MG Tablet PO (08:36)
[2019-03-09] MEDS: Carvedilol 3.125 MG TABLET PO (08:39)
--- NOTE | 2019-03-09 09:39 | PCM.DC ---
- Discharge Diagnoses Current Active Problems: Current Active and Chronic Problems Hypothyroidism (Chronic) Chronic anemia (Chronic) Chronic leukopenia (Chronic) Chemotherapy induced neutropenia (Acute) You will use the following diet at home:: Regular Your food should be the consistency of: Regular Discharge Activity: Return to Normal Activity Weight Bearing Status: Weight bearing as tolerated Call your doctor if you observe: Fever of 101 or Higher, Shortness of breath, Dizziness, Fainting spells, Chest pain, Increased palpitations (irregular heartbeat), Uncontrolled pain Instructions: Neutropenia Allergies/Adverse Reactions: Allergies amoxicillin Allergy (Verified 02/16/19 07:07) Unknown atorvastatin Allergy (Verified 02/16/19 07:07) Unknown azithromycin Allergy (Verified 03/07/19 14:23) Diarrhea Iodinated Contrast- Oral and IV Dye [DYEE] Allergy (Verified 03/07/19 14:23) Anaphylaxis ketorolac Allergy (Verified 03/07/19 14:23) buring of eyes levofloxacin [From Levaquin] Allergy (Verified 03/07/19 14:23) muscle aches metronidazole Allergy (Verified 03/07/19 14:23) GI upset prednisone Allergy (Verified 03/07/19 14:23) cardiac arrest. Medications to take at Discharge Levothyroxine [Synthroid] 88 mcg PO DAILY 05/20/17 Docusate Sodium [Colace] 100 mg PO DAILY PRN PRN 10/25/17 Acetaminophen [Tylenol Extra Strength] 500 - 1,000 mg PO Q8H 12/13/18 Famotidine 20 mg PO BID 12/13/18 Carvedilol 3.125 mg PO BID 03/07/19 Dextran 70/Hypromellose/Pf [Artificial Tears Drops] 1 ea OP Q4H PRN PRN 03/07/19 Magnesium Oxide/Magnesium [Magnesium 300 mg Capsule] 300 mg PO DAILY 03/07/19 Potassium 297 mg PO DAILY 03/07/19 Primary Care Physician: Francisco J Garces III, MD [Primary Care Provider] - Please follow up with your Primary Care Physician in: 2 weeks. Test Results: Test results from this visit will be discussed in further detail at your follow-up appointment, if applicable. Please Follow Up With: Pop Herron MD When: this coming week. Please call [facility] office.
[2019-03-09 09:44] LABS: Pathologist Review Reviewed
[2019-03-09 09:48] LABS: Pathologist Review Reviewed
[2019-03-09] MEDS: Furosemide 20 MG/2 ML VIAL IV (10:28)
[2019-03-09] MEDS: 0.9% NaCl Peripheral Flush Adult/Peds IV ×2 (10:28→14:46)
--- NOTE | 2019-03-09 11:55 | CASEMGMT ---
SOSA form completed with patient at this time. Patient voiced understanding and had no questions or concerns. Patient signed form and placed in chart. Copy provided to patient.
--- NOTE | 2019-03-09 12:54 | PCM.DC.SUM ---
Discharge Date and Diagnosis - Problem List Patient Problems: Active and Suspected Problems Chemotherapy induced neutropenia (Acute) Date of Admission: 03/07/19 Date of Discharge: 03/09/19 - Primary Discharge Diagnosis Active and Suspected Problems #1 leukopenia/neutropenia. #2 acute on chronic anemia requiring blood transfusion. #3 transient Shortness of breath/weakness/dysuria. UTI ruled out, attributed to chemotherapy. 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 Electronically Signed: Dakotah Garcia, at 11:39 EDT , Service support , Chest X-Ray 03/08/19 07:48 IMPRESSION: Hyperinflation. Mild linear scarring at the left lung base. Electronically Signed: Dakotah Garcia, at 9:27 EDT , Service support , Dr. Herron, oncology. Operations: None Procedures: Blood transfusion Summary of Care Provided: Patient seen and examined on the day of discharge and appeared to be stable to be discharged home. She is feeling better, complains of minimal shortness of breath upon ambulation but improved. Denies fever chills. Denied cough or sputum production. Her vital signs are stable. The patient is a 78 year old F admitted because of weakness, shortness of breath, frequency and dysuria. Patient has been getting chemotherapy for stage II diffuse B-cell lymphoma. A chest x-ray showed no acute findings. Chest x-ray repeated and again showed no evidence of acute infiltrate or consolidation. She was found to have leukopenia and neutropenia with absolute neutrophil count of 0. Reportedly, patient received Neulasta injection after her last chemotherapy which was few days ago. Urinalysis showed no evidence of acute cystitis. Patient was treated with IV meropenem empirically. Urine culture showed no growth. Blood culture showed no growth up to the time of discharge which was almost 48 hours after admission. Patient remained afebrile throughout admission. Her symptoms improved and her pulse ox remained normal on room air. Her hemoglobin came down to 7.8 g/dL and she received 1 unit of packed RBCs. Patient discharged home in a stable medical condition, continued on her previous home medications without any changes, no antibiotic given upon discharge, plan to follow-up with oncology this coming week, I recommended follow-up with PCP in 2 weeks. Patient Problems: Active and Suspected Problems Chemotherapy induced neutropenia (Acute) - Physical Exam General: Alert, Oriented x3, Cooperative, No apparent distress HEENT: Atraumatic, PERRLA, EOMI, Normocephalic Oral: Moist Mucosa, No Gingival or Mucosal Lesions/ Ulcerations Neck: Supple, No JVD, Negative Carotid Bruits, Trachea Midline, Thyroid Normal Size and Texture Lungs: Clear to auscultation, Normal air movement, No rhonchi, No wheeze, No rales Cardiovascular: Regular rate, Regular Rhythm, Normal S1, Normal S2, PMI Normal Abdomen: Bowel Sounds Present, Soft, Non Tender, Non-Distended, No Hepato-splenomegaly Extremities: No clubbing, No cyanosis, No edema Skin: No rashes, No breakdown Lymphatic: No Cervical, Supraclavicular, or Inguinal Adenopathy Neurological: Cranial nerves II-XII grossly intact, Neuro grossly intact Psych/Mental Status: Normal Affect, Appropriate Vital Signs Temp Pulse Resp BP Pulse Ox 98.4 F 91 16 98/49 L 100 03/09/19 11:51 03/09/19 11:51 03/09/19 11:51 03/09/19 11:51 03/09/19 11:51 Oxygen Flow Rate (L/min) 2 Oxygen Delivery Method Room Air Weight: 124 lb 8.979 oz Body Mass Index (BMI) 21.4 Intake and Output for Last 24 Hours 03/07/19 03/08/19 03/09/19 23:59 23:59 23:59 Intake Total 734 / 1669 3003.7 / 3003.7 997 / 997 Output Total 420 / 1120 2400 / 2400 1100 / 1100 Balance 314 / 549 603.7 / 603.7 -103 / -103 Microbiology Past 72 Hours 03/07/19 12:00 Urine Culture - Preliminary Urine, Catheterized Culture exhibits no growth. Laboratory Tests Past 24 Hrs 03/07/19 03/08/19 03/09/19 11:35 06:46 05:22 WBC 0.4 L* RBC 2.83 L Hgb 7.8 L Hct 24.8 L MCV 87.6 MCH 27.6 MCHC 31.5 L RDW 16.8 H RDW Differential 51.9 H Plt Count 108 L MPV 11.3 Immature Gran % (Auto) 0.000 Neut % (Auto) 5.2 L Lymph % (Auto) 35.9 [place] % (Auto) 20.5 H Eos % (Auto) 25.6 H Baso % (Auto) 12.8 H Absolute Neuts (auto) 0.0 L Absolute Lymphs (auto) 0.14 L Total Counted Not Reportable Diff Path Review Reviewed Reviewed January Blood Type Antibody Screen Crossmatch 03/09/19 08:10 WBC RBC Hgb Hct MCV MCH MCHC RDW RDW Differential Plt Count MPV Immature Gran % (Auto) Neut % (Auto) Lymph % (Auto) [place] % (Auto) Eos % (Auto) Baso % (Auto) Absolute Neuts (auto) Absolute Lymphs (auto) Total Counted Diff Path Review Blood Type O POSITIVE Antibody Screen NEGATIVE Crossmatch See Detail Discharge Activity: Return to Normal Activity Weight Bearing Status: Weight bearing as tolerated Call your doctor if you observe: Fever of 101 or Higher, Shortness of breath, Dizziness, Fainting spells, Chest pain, Increased palpitations (irregular heartbeat), Uncontrolled pain Home Medications: Medications to take at Discharge Levothyroxine [Synthroid] 88 mcg PO DAILY 05/20/17 Docusate Sodium [Colace] 100 mg PO DAILY PRN PRN 10/25/17 Acetaminophen [Tylenol Extra Strength] 500 - 1,000 mg PO Q8H 12/13/18 Famotidine 20 mg PO BID 12/13/18 Carvedilol 3.125 mg PO BID 03/07/19 Dextran 70/Hypromellose/Pf [Artificial Tears Drops] 1 ea OP Q4H PRN PRN 03/07/19 Magnesium Oxide/Magnesium [Magnesium 300 mg Capsule] 300 mg PO DAILY 03/07/19 Potassium 297 mg PO DAILY 03/07/19 Primary Care Physician: Francisco J Garces III, MD [Primary Care Provider] - Please follow up with your Primary Care Physician in: 2 weeks. Please Follow Up With: Pop Herron MD When: this coming week. Please call [facility] office. Patient Instructions: Neutropenia Disposition: Home Minutes spent on discharge:: 25 Patient Condition:: Stable Medical Necessity - Tobacco Use Smoking Status: Never smoker Tobacco Use: Non-smoker Meaningful Use Info Meaningful Use Diagnoses (Choose all that apply): None applicable Code Visit OBSV E&M: 00144 Observation care discharge
[2019-03-12 14:19] LABS: Pathologist Review Reviewed
== END 2019-03-09 15:08 | disposition home or self-care (01) ==
LOC: ED 10:59 → MS3 13:48
PROVIDERS: Admitting Provider Family Medicine; Emergency Provider Emergency Medicine; Family Provider Family Medicine; PCP Family Medicine; Referring Provider Family Medicine; Visit Provider Hospitalist
DX: D61.810 Antineoplastic chemotherapy induced pancytopenia (principal); T45.1X5A Adverse effect of antineoplastic and immunosuppressive drugs, initial encounter; R06.02 Shortness of breath; R30.0 Dysuria; E87.2 Acidosis; E03.9 Hypothyroidism, unspecified; C83.31 Diffuse large B-cell lymphoma, lymph nodes of head, face, and neck; Z79.899 Other long term (current) drug therapy; M19.90 Unspecified osteoarthritis, unspecified site; K21.9 Gastro-esophageal reflux disease without esophagitis; E43 Unspecified severe protein-calorie malnutrition; Z68.21 Body mass index [BMI] 21.0-21.9, adult; K64.9 Unspecified hemorrhoids; R33.9 Retention of urine, unspecified
CPT/HCPCS: 36415; 36430; 71045; 71046; 80053; 81001; 83605; 83735; 84100; 84484; 85025; 85610; 85730; 86850; 86900; 86920; 86922; 87040; 87086; 93005; 96361; 96365; 96366; 96367; 96372; 96375; 97162; 97166; 97530; 97802; 99218; 99285; J2185; J7030; P9016; P9612; A4216; G0378; J0696; J1940

== ENCOUNTER → 2019-04-19 | Outpatient (CLI) | payer MEDICARE, SELFPAY ==
[2019-03-07 14:10] VITALS: BMI 21.4
--- NOTE | 2019-04-19 16:00 | PET_ITS ---
EXAMINATION: FDG PET CT INDICATIONS: A 78-year-old female with reported history of lymphoma presenting for restaging examination. COMPARISON EXAMINATION: Prior FDG PET study dated 01/15/19. TECHNIQUE: Following the intravenous administration of 14.52 mCi of F-18 deoxyglucose via the left hand, multiplanar image acquisitions of the neck, chest, abdomen and pelvis to level of mid thigh, obtained at one hour post radiopharmaceutical administration contemporaneously interpreted with the current CT of the neck, chest, abdomen and pelvis to level of mid thigh, dated 04/19/19 via coregistration and prior FDG PET study dated 01/15/19 reveal: SERUM GLUCOSE LEVEL: 94 mg/dl. HEIGHT: 64 inches. WEIGHT: 133 lbs. FINDINGS: 1. There is no quantitative scintigraphic evidence of abnormal increased glucose metabolism on meticulous inspection of whole body acquisitions to include all three axis reconstructions. 2. Normal physiologic distribution of the radiopharmaceutical is apparent in the hepatic and splenic parenchyma, both renal units, bladder and visualized intestinal tract. There is uniform distribution of the radiopharmaceutical concentration defined in the visualized cerebellar hemispheres and cerebral cortical structures.? The previously defined hypermetabolic foci noted in the left supraclavicular region, left anterior and lateral neck, the carinal level mediastinum are not apparent on the current examination. There is persistent prominent radiopharmaceutical concentration noted in the distribution of the orbicularis musculature. Myrq-J-Neoc-MediPort placement is noted. A persistent linear density is noted in the left upper anterior lung field remaining morphologically stable and ametabolic on the present examination. Otherwise, the prior defined morphologic-anatomic changes noted on CT of the neck, chest, abdomen and pelvis manifest on the FDG PET CT study dated 01/15/19 are essentially unchanged on the present examination. IMPRESSION: 1. NEGATIVE EXAMINATION. There is no definitive quantitative scintigraphic evidence of recurrent-viable neoplasm. 2. There is interim metabolic resolution of the prior defined left supraclavicular, left lateral and anterior neck, carinal level mediastinal hypermetabolic foci. 3. Overall, compared to the previous FDG PET study dated 01/15/19, there is current absence of defined viable neoplastic disease with an interim quantitative complete metabolic response relating all prior defined hypermetabolic abnormalities. Electronic Signature Krsi Loya D.O. Electronically Signed: Kris Loya DO at 23:27 EDT Tel , Service support , EXAMINATION: FDG PET CT INDICATIONS: A 78-year-old female with reported history of lymphoma presenting for restaging examination. COMPARISON EXAMINATION: Prior FDG PET study dated 01/15/19. TECHNIQUE: Following the intravenous administration of 14.52 mCi of F-18 deoxyglucose via the left hand, multiplanar image acquisitions of the neck, chest, abdomen and pelvis to level of mid thigh, obtained at one hour post radiopharmaceutical administration contemporaneously interpreted with the current CT of the neck, chest, abdomen and pelvis to level of mid thigh, dated 04/19/19 via coregistration and prior FDG PET study dated 01/15/19 reveal: SERUM GLUCOSE LEVEL: 94 mg/dl. HEIGHT: 64 inches. WEIGHT: 133 lbs. FINDINGS: 1. There is no quantitative scintigraphic evidence of abnormal increased glucose metabolism on meticulous inspection of whole body acquisitions to include all three axis reconstructions. 2. Normal physiologic distribution of the radiopharmaceutical is apparent in the hepatic and splenic parenchyma, both renal units, bladder and visualized intestinal tract. There is uniform distribution of the radiopharmaceutical concentration defined in the visualized cerebellar hemispheres and cerebral cortical structures.? The previously defined hypermetabolic foci noted in the left supraclavicular region, left anterior and lateral neck, the carinal level mediastinum are not apparent on the current examination. There is persistent prominent radiopharmaceutical concentration noted in the distribution of the orbicularis musculature. Muzj-E-Vbbb-MediPort placement is noted. A persistent linear density is noted in the left upper anterior lung field remaining morphologically stable and ametabolic on the present examination. Otherwise, the prior defined morphologic-anatomic changes noted on CT of the neck, chest, abdomen and pelvis manifest on the FDG PET CT study dated 01/15/19 are essentially unchanged on the present examination. PET/PET/CT Tumor Base -Thigh Subs IMPRESSION: 1. NEGATIVE EXAMINATION. There is no definitive quantitative scintigraphic evidence of recurrent-viable neoplasm. 2. There is interim metabolic resolution of the prior defined left supraclavicular, left lateral and anterior neck, carinal level mediastinal hypermetabolic foci. 3. Overall, compared to the previous FDG PET study dated 01/15/19, there is current absence of defined viable neoplastic disease with an interim quantitative complete metabolic response relating all prior defined hypermetabolic abnormalities. Electronic Signature Kris Loya D.O. Electronically Signed: Kris Loya DO at 23:28 EDT Tel , Service support ,
== END | disposition home or self-care (01) ==
LOC: ONC 15:39
PROVIDERS: Family Provider Family Medicine; PCP Family Medicine; Referring Provider Internal Medicine Hematology & Oncology; Visit Provider Internal Medicine Hematology & Oncology
DX: C83.31 Diffuse large B-cell lymphoma, lymph nodes of head, face, and neck (principal)
CPT/HCPCS: 78815

== ENCOUNTER → 2019-07-20 | Outpatient (CLI) | payer MEDICARE, SELFPAY ==
[2019-03-07 14:10] VITALS: BMI 21.4
[2019-07-20 11:45] LABS: Absolute Lymphocyte Count 0.22 X10^3/uL (0.83-4.51); Absolute Neutrophil Count 2.8 X10^3/uL (2.0-7.7); Basophil# 0.06 X10^3/uL; Basophil% 1.6 % (0-1); Eosinophil# 0.12 X10^3/uL; Eosinophils% 3.3 % (0-5); Hematocrit 39.4 % (37-47); Hemoglobin 12.3 g/dL (12.0-15.0); Lymphocyte # 0.22 X10^3/ul (4.0); Mean Corp Hgb Conc 31.2 g/dL (32-36); Mean Corpuscular Hgb 30.8 pg (27.0-32.0); Mean Corpuscular Volume 98.7 fL (81-99); Mean Platelet Vol. 10.3 fl (6.2-12.0); Monocyte# 0.53 X10^3/uL; Monocyte% 14.4 % (0-10); NRBC Flagged by Analyzer 0 % (0-5); Neutrophil # 2.75 X10^3/uL (2.7-7.7); Neutrophil % 74.4 % (47-70); POSITIVE DIFFERENTIAL YES; Platelet Count 189 K/mm3 (150-450); RBC Distribution Width CV 13.1 % (11.6-14.6); RBC Distribution Width SD 47.4 fl (35.1-43.9); Red Blood Count 3.99 M/mm3 (4.2-5.4); White Blood Count 3.7 K/mm3 (4.4-11.0)
[2019-07-20 11:54] LABS: Differential Indicated SCAN CRITERIA MET
[2019-07-23 12:01] LABS: Pathologist Review Reviewed
== END | disposition home or self-care (01) ==
PROVIDERS: Family Provider Family Medicine; PCP Family Medicine; Referring Provider Specialist; Visit Provider Specialist
DX: Z01.812 Encounter for preprocedural laboratory examination (principal); M16.12 Unilateral primary osteoarthritis, left hip
CPT/HCPCS: 36415; 85025

== ENCOUNTER → 2019-08-14 15:00 | Outpatient (CLI) | payer MEDICARE, SELFPAY ==
[2019-03-07 14:10] VITALS: BMI 21.4
[2019-07-26 13:24] LABS: Albumin, Serum 3.4 g/dL (3.2-5.0)
== END ==
PROVIDERS: Family Provider Family Medicine; PCP Family Medicine; Referring Provider Specialist; Visit Provider Specialist
DX: Z01.812 Encounter for preprocedural laboratory examination (principal)
CPT/HCPCS: 36415; 82040

== ENCOUNTER → 2020-01-28 | Outpatient (CLI) | payer MEDICARE, SELFPAY ==
[2019-03-07 14:10] VITALS: BMI 21.4
--- NOTE | 2020-01-28 06:34 | PET_ITS ---
EXAMINATION: FDG PET CT INDICATIONS: A 79-year-old female with history of lymphoma presenting for restaging examination. COMPARISON EXAMINATION: Previous FDG PET study report dated 04/19/19, CT of the chest report dated 01/18/20, CT of the abdomen and pelvis report dated 01/18/20. INDEX LESION SIZE LUGANO SCORE SUV INTERPRETATION NEW: Bilateral axillary, right anterior neck soft tissue lymph nodes 15.1 mm x 24.6 mm (frame 188) 5 8.9 Fulfills quantitative criteria for viable neoplasm NEW: Mediastinal structures, right thoracic perihilum 12.6 mm x 19.0 mm largest (frame 180) 5 8.5 (max) Fulfills quantitative criteria for viable neoplasm NEW: Abdominal retroperitoneum and pelvis, right inguinal region 31.6 mm x14.9 mm largest (frame 101) 5 10.5 (max) Fulfills quantitative criteria for viable neoplasm NEW: Single focus splenic parenchyma 9.9 mm (frame 134) 2.6 (corrected) > hepatic reference Fulfills quantitative criteria for viable neoplasm TECHNIQUE: Following the intravenous administration of 16 mCi of F-18 deoxyglucose via the left forearm, multiplanar image acquisitions of the neck, chest, abdomen and pelvis to level of mid thigh, obtained at one hour post radiopharmaceutical administration contemporaneously interpreted with the current CT of the neck, chest, abdomen and pelvis to level of mid thigh, dated 01/28/20 via coregistration and previous FDG PET study report dated 04/19/19, CT of the chest report dated 01/18/20, CT of the abdomen and pelvis report dated 01/18/20 reveal: SERUM GLUCOSE LEVEL: 125 mg/dl. HEIGHT: 63 inches. WEIGHT: 120 lbs. FINDINGS: 1. Multifocal increased glucose metabolism is demonstrated in the right and left axillary regions, as well as focally apparent in the right anterior neck involving level , peritracheal in location. The calculated maximum standard uptake value is 8.9. The Lugano-Deauville score is 5, if applicable. The maximal axial diameter of the largest individual hypermetabolic soft tissue density on review of CT of the chest dated 01/28/20 is 15.1 mm (transverse) x 24.6 mm (AP). 2. Enhanced tracer concentration is currently identified in the pre-subcarinal mediastinum and right thoracic perihilum rendering a calculated maximum standard uptake value of 8.5. The Lugano-Deauville score is 5, if applicable. The maximal axial diameter of the largest individual hypermetabolic soft tissue density on review of CT of the chest dated 01/28/20 is 12.6 mm (transverse) x 19.0 mm (AP). 3. Multiple foci of increased fluorine-labeled glucose uptake are noted in the upper to lower abdominal retroperitoneum and mesentery, bilateral hemipelvis and right inguinal lymph node distributions. The calculated maximum standard uptake value is 10.5. The Lugano-Deauville score is 5. The maximal axial diameter of the largest individual hypermetabolic soft tissue density on review of CT of the abdomen and pelvis dated 01/28/20 is 31.6 mm (transverse) x 14.9 mm (AP). 4. Focal increased uptake is noted in the left upper abdomen contiguous to the spleen generating a calculated maximum standard uptake value of 3.7 (uncorrected) greater than the hepatic reference, 2.6 (corrected). The maximal axial diameter of the corresponding metabolic abnormality is 9.9 mm. 5. Normal physiologic distribution of the radiopharmaceutical is apparent in the hepatic (2.8) parenchyma, both renal units, bladder and visualized intestinal tract. There is uniform distribution of the radiopharmaceutical concentration defined in the visualized cerebellar hemispheres and cerebral cortical structures. Diffuse intestinal tract activity is noted throughout all four quadrants of the abdominal-pelvic retroperitoneum and mesentery consistent with normal physiologic distribution of the radiopharmaceutical. Pertinent CT findings are as follows. CHEST: Zqpu-W-Kuqi-Mediport placement is noted. Atherosclerotic calcification is defined in the thoracic aorta without evidence of dilatation, aneurysm formation. Coronary arterial calcification is observed. There are no parenchymal densities-nodules defined in the right and left hemithorax demonstrating discernible increased FDG uptake. A linear density noted in the left upper anterior lung field reveals no evidence of quantitatively significant increased FDG uptake. ABDOMEN AND PELVIS: Atherosclerotic calcification is defined in the abdominal aorta without evidence of dilatation, aneurysm formation. Pelvic arterial calcification is observed. Bilateral subcentimeter inguinal soft tissue densities are ametabolic. SKELETAL: Orthopedic hardware placement is defined in the right proximal femur. Degenerative changes defined in the cervical, thoracic and lumbar spine demonstrate no evidence of glucose hypermetabolism. PET/PET/CT Tumor Base -Thigh Subs IMPRESSION: 1. ABNORMAL EXAMINATION INDICATIVE OF MALIGNANT-VIABLE NEOPLASM. 2. Increased radiopharmaceutical concentration noted in the bilateral axillary and right anterior neck lymph node distributions, mediastinal structures, abdominal retroperitoneum and mesentery, bilateral hemipelvis and right inguinal regions fulfills quantitative criteria for viable neoplasm. (Jacquie et al, Journal of Clinical Oncology 25:579, 2007). 3. The single focus of increased tracer uptake noted in the splenic parenchyma fulfills quantitative criteria for malignant transformation. (Suzanne et al, J Nucl Med 44:1072, 2001). 4. Overall, compared to the prior FDG PET study dated 04/19/19, there is interim development of multifocal viable neoplastic disease. Electronic Signature Kris Loya D.O. Electronically Signed: Kris Loya DO at 22:29 EDT Tel , Service support ,
--- OUTSIDE RECORDS SUMMARY | 2020-07-01 08:25 | XMS RPT_ITS | CCD ---
:1940 External Reference #:[id number] Author Organization [facility] Care Team Providers Name Role Phone Monie Garces Primary Care Provider Jeff (Rn) Unavailable Unavailable Frank Unavailable Janneth Angel Unavailable Rosalinda DURBIN Unavailable Unavailable ADILIA AKatharine Unavailable Unavailable ADILIA Unavailable Unavailable ADILIA Unavailable Unavailable Katja (Rn) Unavailable Mark Hightower) Unavailable Janneth JULES Admitting Unavailable Janneth JULES Attending Unavailable Allergies Reported Allergen Reaction(s) Severity Date of Onset Location Amoxicillin Unknown 09-03-2013 [facility] Translations: [ (19056) AMOXICILLIN] atorvastatin Unknown 09-03-2013 [facility] Translations: [ (16833) ATORVASTATIN CALCIUM] Azithromycin Unknown, Diarrhea 09-03-2013 [facility] Translations: [ (63588) AZITHROMYCIN] Contrast media Rash, Shortness of High, High, 09-03-2013 [facility] Translations: [ Breath Unknown (89045) CONTRAST DYE] Ketorolac Other: See Comments High, Unknown 10-19-2017 [facility] Translations: [ (61509) KETOROLAC] levoFLOXacin Unknown 09-03-2013 [facility] Translations: [ (15938) LEVOFLOXACIN] metroNIDAZOLE GI Upset 11-17-2016 [facility] Translations: [ (76566) METRONIDAZOLE] predniSONE Unknown 09-03-2013 [facility] Translations: [ (83628) PREDNISONE] Medications Medication Name Sig Date Prescriber Location Acetaminophen acetaminophen (TYLENOL EXTRA Ccf Provide r [facility] STRENGTH) 500 mg tablet Take (58358) 500 mg by mouth every 8 hours as needed. 0 Active Comment: Take 500 mg by mouth every 8 hours as needed. Allopurinol allopurinol (ZYLOPRIM) 03-13-2020 - [facility] 300 mg tablet Take 1 06-27-2020 (42668) tablet by mouth once daily. X 7 days before starting chemotherapy treament. 10 tablet 2 03/13/2020 06/27/2020 Discontinued Comment: Take 1 tablet by mouth once daily. X 7 days before starting chemotherapy treament. Blood Pressure Blood Pressure Monitor 06-06-2020 Dayna Michelle [facility] Monitor Indications: (52061) Hypotension, unspecified hypotension type 1 Each once daily. Home blood pressure kit to monitor blood pressure daily 1 Kit 0 06/06/2020 Active Blood Pressure Monitor Indications: 06-06-2020 [place] [facility] (11213) Hypotension, unspecified hypotension type 1 Each once daily. Home blood pressure kit to monitor blood pressure daily 1 Kit 0 06/06/2020 Active Blood Pressure Monitor Indications: 06-06-2020 [facility] (78960) Hypotension, unspecified hypotension type 1 Each once daily. Home blood pressure kit to monitor blood pressure daily 1 Kit 0 06/06/2020 Active Blood Pressure Monitor Indications: 06-06-2020 [facility] (66818) Hypotension, unspecified hypotension type 1 Each once daily. Home blood pressure kit to monitor blood pressure daily 1 Kit 0 06/06/2020 Active Blood Pressure Monitor Indications: 06-06-2020 [place] Luis [facility] (67996) Hypotension, unspecified hypotension type 1 Each once daily. Home blood pressure kit to monitor blood pressure daily 1 Kit 0 06/06/2020 Active Blood Pressure Monitor Indications: 06-06-2020 [place] Luis [facility] (16467) Hypotension, unspecified hypotension type 1 Each once daily. Home blood pressure kit to monitor blood pressure daily 1 Kit 0 06/06/2020 Active Blood Pressure Monitor Indications: 06-06-2020 [place] [facility] (13484) Hypotension, unspecified hypotension type 1 Each once daily. Home blood pressure kit to monitor blood pressure daily 1 Kit 0 06/06/2020 Active Blood Pressure Monitor Indications: 06-06-2020 [facility] (28570) Hypotension, unspecified hypotension type 1 Each once daily. Home blood pressure kit to monitor blood pressure daily 1 Kit 0 06/06/2020 Active Comment: 1 Each once daily. Home bloo d pressure kit to monitor blood pressure daily Docusate docusate sodium (COLACE) 05-05-2017 Chris Gregory) Maura [facility] 100 mg capsule Take 1 (15669 ) capsule by mouth twice daily as needed. 60 capsule 1 05/05/2017 Active Comment: Take 1 capsule by mouth twic e daily as needed. Famotidine famotidine (PEPCID) 20 mg 06-27-2020 [facility] Provider [facility] tablet Take 20 mg by mouth ( 62207) once daily. 0 06/27/2020 Discontinued Comment: Take 20 mg by mouth once phyllis ly. heparin heparin 100 unit/mL 01-09-2019 [facility] injection Access implanted ( 89298) vascular access device (IVAD) as needed for flush, blood draw or treatment. Before de-accessing port, flush with 10-20ml normal saline and follow with 5 mL heparin (100 units/mL) (if no heparin allergy). De-access port on treatment completion. 5 mL 0 01/09/2019 Active Comment: Access implanted vascular ac cess device (IVAD) as needed for flush, blood draw or treatment. Before de -accessing port, flush with 10-20ml normal saline and follow with 5 mL heparin (100 units/mL) (if no heparin allergy). De-access port on treatment completion. Lactobacillus Lactobacillus 06-27-2020 [facility] Provider [facility] jeniffer acidophilus acidophilus (PROBIOTIC (4419 5) ORAL) Take 1 capsule by mouth once daily. 0 06/27/2020 Discontinued Lactobacillus acidophilus (PROBIOTIC ORAL) C[facility] (57905) Take 1 capsule by mouth once daily. 0 Active Lactobacillus acidophilus (PROBIOTIC ORAL) C[facility] (39474) Take 1 capsule by mouth once daily. 0 Active Lactobacillus acidophilus (PROBIOTIC ORAL) C[facility] (61914) Take 1 capsule by mouth once daily. 0 Active Lactobacillus acidophilus (PROBIOTIC ORAL) C[facility] (87155) Take 1 capsule by mouth once daily. 0 Active Lactobacillus acidophilus (PROBIOTIC ORAL) C[facility] (54192) Take 1 capsule by mouth once daily. 0 Active Lactobacillus acidophilus (PROBIOTIC ORAL) C[facility] (12793) Take 1 capsule by mouth once daily. 0 Active Lactobacillus acidophilus (PROBIOTIC ORAL) C[facility] (08834) Take 1 capsule by mouth once daily. 0 Active Lactobacillus acidophilus (PROBIOTIC ORAL) C[facility] (66169) Take 1 capsule by mouth once daily. 0 Active Lactobacillus acidophilus (PROBIOTIC ORAL) C[facility] (40241) Take 1 capsule by mouth once daily. 0 Active Lactobacillus acidophilus (PROBIOTIC ORAL) C[facility] (68401) Take 1 capsule by mouth once daily. 0 Active Lactobacillus acidophilus (PROBIOTIC ORAL) C[facility] (17024) Take 1 capsule by mouth once daily. 0 Active Comment: Take 1 capsule by mouth once daily. levothyroxine levothyroxine (SYNTHROID) 05-15-2020 Francisco J Carmonalalit [facility] 50 mcg tablet Indications: ( 51018) Hypothyroidism due to acquired atrophy of thyroid Take 1 tablet by mouth once daily. Take on empty stomach. For Thyroid. 30 tablet 11 05/15/2020 Active levothyroxine (SYNTHROID) 12-21-2019 - 05-15-2020 Dayna Michelle [facility] 88 mcg tablet Indications: (4419 5) Acquired hypothyroidism Take 1 tablet by mouth once daily. 90 tablet 1 12/21/2019 05/15/2020 Discontinued (Dosage adjustment) Comment: Take 1 tablet by mouth once daily. Take on empty stomach. For Thyroid. Take 1 tablet by mouth once daily. Loratadine loratadine (CLARITIN) 06-27-2020 - Angelo Cantu [facility] 10 mg tablet Take 1 06-27-2020 (22451) tablet by mouth once daily as needed. 30 tablet 0 06/27/2020 Active Comment: Take 10 mg by mouth once phyllis ly. Take 1 tablet by mouth once daily as needed. mv-min/folic/vit mv-min/folic/vit [facility] Provider [facility] K/lut/lxmd042 (ALIVE K/lut/whwj035 (ALIVE (95184) WOMEN'S 50 PLUS, BLEND, WOMEN'S 50 PLUS, BLEND, ORAL) ORAL) Take 1 tablet by mouth once daily. 0 Active mv-min/folic/vit K/lut/onte355 ([facility] (54193) 50 PLUS, BLEND, ORAL) Take 1 tablet by mouth once daily. 0 Active mv-min/folic/vit K/lut/ugai389 ([facility] (03446) 50 PLUS, BLEND, ORAL) Take 1 tablet by mouth once daily. 0 Active mv-min/folic/vit K/lut/icyw947 ([facility] (89713) 50 PLUS, BLEND, ORAL) Take 1 tablet by mouth once daily. 0 Active mv-min/folic/vit K/lut/psql971 ([facility] ([facility]) 50 PLUS, BLEND, ORAL) Take 1 tablet by mouth once daily. 0 Active mv-min/folic/vit K/lut/vfym503 ([facility] ([facility]) 50 PLUS, BLEND, ORAL) Take 1 tablet by mouth once daily. 0 Active mv-min/folic/vit K/lut/clmx038 ([facility] (06036) 50 PLUS, BLEND, ORAL) Take 1 tablet by mouth once daily. 0 Active mv-min/folic/vit K/lut/ymdv820 ([facility] (84768) 50 PLUS, BLEND, ORAL) Take 1 tablet by mouth once daily. 0 Active mv-min/folic/vit K/lut/vnvl392 ([facility] (34682) 50 PLUS, BLEND, ORAL) Take 1 tablet by mouth once daily. 0 Active mv-min/folic/vit K/lut/fjej989 ([facility] (81082) 50 PLUS, BLEND, ORAL) Take 1 tablet by mouth once daily. 0 Active mv-min/folic/vit K/lut/jsuh551 ([facility] (48679) 50 PLUS, BLEND, ORAL) Take 1 tablet by mouth once daily. 0 Active mv-min/folic/vit K/lut/xgsb582 ([facility] (41949) 50 PLUS, BLEND, ORAL) Take 1 tablet by mouth once daily. 0 Active mv-min/folic/vit K/lut/ohrm525 ([facility] ([facility]) 50 PLUS, BLEND, ORAL) Take 1 tablet by mouth once daily. 0 Active mv-min/folic/vit K/lut/wulc698 ([facility] (20807) 50 PLUS, BLEND, ORAL) Take 1 tablet by mouth once daily. 0 Active mv-min/folic/vit K/lut/psah587 ([facility] (50546) 50 PLUS, BLEND, ORAL) Take 1 tablet by mouth once daily. 0 Active mv-min/folic/vit K/lut/vgri102 ([facility] ([facility]) 50 PLUS, BLEND, ORAL) Take 1 tablet by mouth once daily. 0 Active mv-min/folic/vit K/lut/ookp921 ([facility] ([facility]) 50 PLUS, BLEND, ORAL) Take 1 tablet by mouth once daily. 0 Active Comment: Take 1 tablet by mouth once daily. 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 60 capsule 1 06/27/2020 Active Comment: Take 1 capsule by mouth twic e daily. Take 20 mg by mouth twice da reilly. Polyvinyl Alcohol / POLYVINYL ALCOHOL/POVIDONE Ccf Pro vider [facility] Povidone (ARTIFICIAL TEARS (89261) OPHTHALMIC) Use 1 Drop in eyes every hour as needed. 0 Active POLYVINYL ALCOHOL/POVIDONE ([facility] (50349) OPHTHALMIC) Use 1 Drop in eyes every hour as needed. 0 Active POLYVINYL ALCOHOL/POVIDONE ([employer]IFIC[employer] TEARS [facility] (84126) OPHTHALMIC) Use 1 Drop in eyes every hour as needed. 0 Active POLYVINYL ALCOHOL/POVIDONE ([employer] TEARS [facility] (33716) OPHTHALMIC) Use 1 Drop in eyes every hour as needed. 0 Active POLYVINYL ALCOHOL/POVIDONE ([employer] TEARS [facility] (81129) OPHTHALMIC) Use 1 Drop in eyes every hour as needed. 0 Active POLYVINYL ALCOHOL/POVIDONE (ARTIFICIAL TEARS Ccf [facility] (69591) OPHTHALMIC) Use 1 Drop in eyes every hour as needed. 0 Active POLYVINYL ALCOHOL/POVIDONE (ARTIFICIAL TEARS Ccf [facility] (01959) OPHTHALMIC) Use 1 Drop in eyes every hour as needed. 0 Active POLYVINYL ALCOHOL/POVIDONE (ARTIFICIAL TEARS C[facility] (83256) OPHTHALMIC) Use 1 Drop in eyes every hour as needed. 0 Active POLYVINYL ALCOHOL/POVIDONE ([facility] (25838) OPHTHALMIC) Use 1 Drop in eyes every hour as needed. 0 Active POLYVINYL ALCOHOL/POVIDONE ([facility] (93541) OPHTHALMIC) Use 1 Drop in eyes every hour as needed. 0 Active POLYVINYL ALCOHOL/POVIDONE ([facility] (90447) OPHTHALMIC) Use 1 Drop in eyes every hour as needed. 0 Active POLYVINYL ALCOHOL/POVIDONE (ARTIFICIAL TEARS C[facility] (77245) OPHTHALMIC) Use 1 Drop in eyes every hour as needed. 0 Active POLYVINYL ALCOHOL/POVIDONE ([facility]ARS [facility] (33321) OPHTHALMIC) Use 1 Drop in eyes every hour as needed. 0 Active POLYVINYL ALCOHOL/POVIDONE ([facility] (19071) OPHTHALMIC) Use 1 Drop in eyes every hour as needed. 0 Active POLYVINYL ALCOHOL/POVIDONE ([facility] (35448) OPHTHALMIC) Use 1 Drop in eyes every hour as needed. 0 Active POLYVINYL ALCOHOL/POVIDONE ([facility] (13433) OPHTHALMIC) Use 1 Drop in eyes every hour as needed. 0 Active POLYVINYL ALCOHOL/POVIDONE ([facility] ([facility]) OPHTHALMIC) Use 1 Drop in eyes every hour as needed. 0 Active Comment: Use 1 Drop in eyes every nancy r as needed. Potassium Chloride potassium chloride 06-27-2020 - Angelo [facility] (K-DUR, 06-27-2020 (99329) KLOR-CON) 10 mEq tablet Take 1 tablet by mouth four times daily. 100 tablet 1 06/27/2020 Active Comment: Take 1 tablet by mouth four times daily. 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 30 tablet 2 03/13/2020 Active Comment: Take 1 tablet by mouth every 6 hours as needed. tamsulosin tamsulosin ER (FLOMAX) 06-21-2019 - Jarrell Akhtar [facility] 0.4 mg cap Take 1 06-27-2020 (20946) capsule by mouth once daily. 90 capsule 3 06/21/2019 06/27/2020 Discontinued Comment: Take 1 capsule by mouth once daily. 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 - [facility] (54312) Nutritional Deficiency of Active [facility] deficiencies macronutrients (99860) Osteoarthritis Osteoarthritis of hip Active 08-10-2019 - [facility] (45940) Osteoporosis Senile osteoporosis Active 07-24-2018 - [facility] (39065) Other aftercare Post-discharge Active [facility] follow-up (53968) Other circulatory Low blood pressure Active [facility] disease (79302) Other non-traumatic Arthritis of left hip Active 08-30-2018 - [facility] joint disorders (38117) Other nutritional; Abnormal weight loss Active [facility] endocrine; and (53591) metabolic disorders Residual codes; Requires vaccination Active [facility] unclassified (73114) Thyroid disorders Hypothyroidism Active 04-29-2017 - [facility] ([place]) (79420) Unclassified Preprocedural Active 08-10-2019 - [facility] ic examination done (08824) Unclassified DISPOSITION AND Active 04-29-2017 - [facility] inic FOLLOW-UP (74794) Past or Other Problems Category Problem Name Status Date Location Abdominal pain Right lower quadrant Completed 11-15-2017 - [facility] pain (07352) Chronic obstructive Bronchitis Completed 08-10-2019 - [facility] pulmonary disease and (59767 ) bronchiectasis Fluid and electrolyte Electrolyte Completed 04-29-2017 - [facility] disorders imbalance (08554) Other connective tissue Dupuytren's disease Completed 02-09-2016 - [facility] disease of palm (79659) Other lower respiratory Dyspnea, unspecified Completed [address] [place] [address] disease [facility] ([place]) (59854) Other lower respiratory Solitary nodule of Completed 02-05-2014 - [facility] disease lung (78975) Spondylosis; Low back pain Completed 08-28-2018 - [facility] ic intervertebral disc (10290) disorders; other back problems Results Result Name Value Range Unit Interpretation Flag Date Location No panel information on 2020-05-29 Bilirubin Ql (U) Negative Negative 05-29-2020 [facility] (44 195) Casts LM.LPF SEE COMMENT 0 /LPF Abnormal 05-29-2020 [facility] (Urine sed) [facility] ( 75206) [#/Area] Clarity (Unsp Clear Clear 05-29-2020 [facility] land spec) Clinic (44 195) Color (U) Light Yellow Yellow Abnormal 05-29-2020 [facility] (44 195) Comment SEE COMMENT 05-29-2020 [facility] (44 195) Glucose Test strip Negative Negative mg/dL 2019 [place] (U) [Mass/Vol] Clini c (77900) Hemoglobin Ql (U) Negative Negative 05-29-2020 [facility] (44 195) Ketones Ql (U) Trace Negative Abnormal 05-29-2020 [facility] (44 195) Leukocyte esterase Negative Negative 05-29-2020 [place] Test strip Ql (U) Cl inic (58861) Nitrite Ql (U) Negative Negative 05-29-2020 [facility] (44 195) pH (U) 7.0 5.0 - 8.0 [pH] 05-29-2020 [facility] (44 195) Protein (U) Negative Negative mg/dL 05-29-2020 [facility]Mass/Vol[facility] (4 0785) RBC LM.HPF (Urine 0-3 0 - 3 /HPF 05-29-2020 [place] sed) [#/Area] Clinic (00827) Specific gravity 1.010 1.005 - 1.030 0 [place] (U) [Rel density] Cl inic (55951) Urine Ubaldo Comment SEE COMMENT 05-29-2020 [facility] (44 195) Urobilinogen Test Negative Negative 05-29-2020 [facility] strip Ql (U) E.U./dL Clinic (98618) WBC LM.HPF (Urine 0-5 0 - 5 /HPF 05-29-2020 [place] sed) [#/Area] Clinic (95712) Magnesium 1.5 1.7 - 2.3 mg/dL Low 05-29-2020 [place] [Mass/Vol] mg/dL [facility] (4 0485) surgical pathology on 2018-12-27 SURGICAL Normal 12-27-2018 [place] [facility] ADDITIONAL PROCEDURES [facility] (73371) Specimen originated from [facility] Specimen #: [id number] Submitting Physician: TONO JULES MD FINAL DIAGNOSIS Left neck lymph nodes #1 and #2, biopsy (A-B): - B-cell non-Hodgkin lymphoma with increased large cells, 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 - See comment. ADELA/elio/12/29/18 COMMENT Histologic sections show multiple fragments of lymphoid tiss ue with a diffuse polymorphous infiltrate of intermediate to large jael ls with open chromatin and visible nucleoli. Some cells have moderate josette unts of cytoplasm. In areas, the large cells form clusters and small sheets and mitotic figures are seen. The chromatin pattern is open and the cells have round to slightly irregular nuclear borders. Immunostains were performed in block B1 for CD3, CD5, CD10, CD20, Cyclin D1, BCL-2, BCL-6, CD21, Ki-67, MUM-1, CD43, MYC, kappa and l ambda. These show the atypical cells are B cells expressing CD20, BCL2 (4 0%) and MUM-1 with a subset co-expressing CD43 (weak). The Ki-67 labeling index is approximately 60%. MYC is expressed in 40% of cells. The jael ls are largely negative for the remaining markers. ANDREI in situ hybridizati on was performed and is negative for EBV. 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 The current findings are consistent with involvement by a B-cell lymphoma with marginal zone lymphoma features, containing increased large cells in clusters/sheets and a high proliferative fraction. Given the se features, this is best considered as a diffuse aggressive large B cell lymphoma with a non-germinal center B cell phenotype. FISH studies are p ending to exclude the possibility of a double hit lymphoma. These results wi ll be reported separately. Case reviewed in consultation with Dr. Huang who concurs. Laboratory Developed Test (LDT) Disclaimer: Positive and negative controls stain appropriately. Performa nce characteristics of immunohistochemical, immunofluorescent an d chromogenic in-situ hybridization tests have been determined by [facility]'s Mahad Gamble [facility] ([facility]) in a manner consistent with CLIA requirements. One or more of these tests have not been cleared or approved by the FDA. -[facility] is regula kushal under CLIA as qualified to perform high-complexity testing. These tests ar e used for clinical purposes. They should not be regarded as investigat ional or for research. Young Ding M.D. (Electronic Signature) SPECIMEN SUBMITTED A: NECK LYMPH NODE #1 LEFT B: NECK LYMPH NODE #2 LEFT ADDITIONAL PROCEDURE(S) B-CELL CLONALITY BIOMED2 PCR Date Ordered: 12/29/2018 Date Reported: 01/02/2019 Procedure Results and Interpretation B-cell Clonality PCR (BIOMED-2 Primers) Specimen Type: FFPET-neck lymph node #2 left [id number] DNA Quality: Good Results: IGH FR1: Clonal (335 bp) IGH FR2: Clonal (273 bp) IGH FR3: Nonclonal IGH DH1-6-J: Nonclonal IGK V-J: Clonal (200 bp) IGK V-Kde: Nonclonal Interpretation: POSITIVE for a clonal rearrangement (See com ment) Comment: A clonal rearrangement is detected by PCR in one or more primer sets targeting the immunoglobulin heavy chain (IGH) and immu noglobulin light chain kappa (IGK) loci. This result is consistent with the presence of a monoclonal B-cell population. The pattern is similar to that seen in the prior orbital lymphoma biopsy ([id number]), suggesting tr ansformation from the prior lymphoma. Method: DNA was isolated from the specimen and subjected to PCR amplification using a fluorescently labeled primers targetin g the immunoglobulin heavy chain (IGH) and immunoglobulin light chain kappa (IGK) loci ([employer], [place], [place]). Fluorescently labeled PC R products were analyzed by capillary gel electrophoresis. An additiona l PCR reaction directed at housekeeping genes was performed as a control fo r each sample to ensure adequate DNA quality. Limitations of the assay: 1. PCR may not detect all clonal rearrangements detectable b y Southern blot analysis. 2. The sensitivity of the assay is affected by the intensity of the polyclonal background. The assay detects a clonal population of approximately 5% in a background of tonsil DNA. 3. Monoclonality is not equivalent to malignancy. Results of this test should be interpreted in the context of the clinical, histol ogical, flow cytometric, and/or immunophenotypic information. 4. Detection of monoclonality with this assay usually indica micaela a monoclonal B-cell population; however, lineage assignment is not entirely reliable since some T-cell lymphomas and acute myeloid leuke mias may have rearranged immunoglobulin genes. As Reviewed By: Karine Crocker DO EDH/ck 01/02/2019 Analyte Specific Reagent (ASR) Disclaimer This test was developed and its performance characteristics determined by [facility] Pathology and Laborator y Medicine [place] ([facility]). It has not been cleared or approved by the FDA. [facility] is regulated under CLIA as qualified to perform high -complexity testing. This test is used for clinical purposes. It shoul d not be regarded as investigational or for research. Procedure Pathologist: Young Ding M.D. Electronic Signature FISH FOR AGGRESSIVE B-CELL LYMPHOMA Date Ordered: 12/29/2018 Date Reported: 01/05/2019 Procedure Results and Interpretation FISH for Aggressive B-cell Lymphoma Sample Type: Paraffin Tissue; Neck Lymph Node #2 Left (B1) Number of nuclei scored: 200 per test RESULT: Anomaly Result Reference Range BCL6 Rearrangement 2% (0-9%) MYC Rearrangement 6% (0-11%) MYC/IGH 4% (0-9%) BCL2 Rearrangement 3% (0-5%) INTERPRETATION: MYC, BCL2 and/or BCL6 rearrangements are not identified. Thi s assay is not intended for detection of minimal residual disease. Metaphas e cytogenetic analysis may be helpful in further evaluation, if clinically indicated. Clinical and pathologic correlation is recommended METHODOLOGY: Interphase fluorescence in situ hybridization a nalysis was performed using the following probes ([employer], [place], [place]): LSI MYC dual color, break-apart rearrangement probes, LSI IG H/MYC/CEP8 tricolor, dual fusion probes, LSI BCL2 dual color, break-apa rt rearrangement probes, and LSI BCL6 dual color, break-apart r earrangement probes. Pathologist Interpretation: Osman Franklin M.D. AGGRESSIVE B-CELL NEOPLASM BIOMARKER TEMPLATE 2016 WHO Diagnosis: Diffuse large B-cell lymphoma, NOS Biomarker Results: Cell of origin (Rizwan cannon crewmember): non-Germinal center MYC expression (Positive when >=40% tumor cells by IHC): 40% BCL2 expression (Positive when >=50% tumor cells by IHC):40% Ki67 expression (% tumor cells by IHC): 60% BCL2 translocation (FISH): Negative BCL6 translocation (FISH): Negative MYC translocation (FISH): Negative IGH/MYC translocation (FISH): Negative ANALYTE SPECIFIC REAGENT (ASR) DISCLAIMER This test was developed and its performance characteristics determined by [facility]ology [facility] [place] ([facility]). It has not been cleared or approved by the FDA. [facility] is regulated under CLIA as qualified to perform high -complexity testing. This test is used for clinical purposes. It shoul d not be regarded as investigational or for research. EDH/kg 01/04/2019 Procedure Pathologist: Young Ding M.D. Electronic Signature CLINICAL DATA LYMPHOMA (HCC) [C85.90], LMP: XXXX GROSS DESCRIPTION A. Received in formalin is a rodriguez, rubbery nodule resembling lymph node measuring 0.6 x 0.5 x 0.4 cm. The nodule is sectioned and totally submitted in cassette A1. B. Received in formalin is a rodriguez-pink nodule resembling lymp h node measuring 1.2 x 0.7 x 0.5 cm. The nodule is section and tota lly submitted in cassette B1. JMB/dcr 12/27/2018 Gross examination performed at [facility], [address] [place] [address] Date of Report: 01/02/2019 Date of Procedure: 12/27/2018 Date of Receipt: 12/27/2018 Submitted by: TONO JULES MD Location: [facility] Diagnostic interpretation performed at [place] [address]. [place] Number: [id number] pt ed on 2018-12-27 PT ED HNO ID: [id number] Normal 12-27-2018 [facility] Author: Leena (Rn) ARAMIS Hilario ([id number]) Service: Nursing Author Type: Registered Nurse Type: Patient Education Filed: 12/27/2018 1:50 PM Note Text: POST OP LEARNING RESPONSE INSTRUCTION PROVIDED TO: Patient and family member METHOD OF INSTRUCTION: Written instruction - handouts Verbal instruction PATIENT / FAMILY RESPONSE: Verbalizes understanding of: INFE CTION MANAGEMENT-Signs and symptoms of an infection and importance of contacting the physician MEDICATION PRESCRIBED-Accurate knowledge of prescribed medic ation prior to discharge PAIN MANAGEMENT-Effective strategies to manage pain in addit ion to pain medication PHYSICAL RESTRICTIONS-Physical restrictions and recommendati ons after discharge from the hospital POST-OPERATIVE INSTRUCTIONS-Correct actions to take to reduc e postoperative complications PATIENT SAFETY PRINCIPLES SYMPTOM MANAGEMENT-Correct actions to take to manage symptom s associated with his/her disease/illness WORSENING CONDITION-Signs and symptoms of a worsening condit ion that warrant a call to the physician WOUND CARE-Correct procedure to perform wound care FOLLOW-UP PLAN: Patient instructed to call with any further issues Contact information given. SUPPLEMENTAL MATERIAL: None REFERRAL (RECOMMENDATION): None Electronically Signed By: Leena Hilario RN In Department: [facility] SURGERY PT ED HNO ID: [id number] Normal 12-27-2018 [facility] Author: Leena (Rn) ARAMIS Hilario ([id number]) Service: Nursing Author Type: Registered Nurse Type: Patient Education Filed: 12/27/2018 8:34 AM Note Text: PRE OP LEARNING ASSESSMENT PROCEDURE/SURGERY: SURGERY: Excision or Biopsy Cervical Node READINESS TO LEARN COGNITIVE ABILITY: Alert and oriented MOTIVATION TO LEARN: Interested FAMILY SUPPORT: High - Very involved in pt care PATIENT LEARNS BEST BY: Written Instruction - Hand-outs Verbal Instruction FACTORS AFFECTING LEARNING: None PHYSICAL LIMITATIONS AFFECTING LEARNING: None Electronically Signed By: Leena Hilario RN In Department: [facility] SURGERY operative no on 201 05-23-10 OPERATIVE NO HNO ID: [id number] Normal 12-28-19 [facility] Author: Tono Jules ([id number]) Service: General Surgery Author Type: Physician Type: Operative Report Filed: 12/28/2018 6:10 AM Note Text: [facility] - Operative Report SHERI ROBIN : 1940 AGE: 78. SEX: F PATIENT TYPE: [place] [facility] [place] [facility] LOCATION: [facility] ATTENDING PHYSICIAN: TONO JULES CSN NUMBER: [id number] DATE OF SURGERY/PROCEDURE: 12/27/2018 INCISION/PROCEDURE START TIME: 1047 hours. INCISION CLOSE/PROCEDURE END TIME: 1121 hours. PREOPERATIVE DIAGNOSIS: Left cervical adenopathy. POSTOPERATIVE DIAGNOSIS: Left cervical adenopathy. SURGEON: Tono Jules M.D. CIGAR BINDER: Tammy Murrieta PA-C. SURGERY/PROCEDURE: Left cervical lymph node biopsy x2. ANESTHESIA: Local MAC. LOG ID NUMBER: [id number]. ANESTHESIOLOGIST: Chuy Meadows. ASA: 3. IV FLUIDS: 1000 mL. EBL: 5 mL. URINE OUTPUT: No catheter. SPECIMENS: 2 lymph nodes. DRAINS: None. COMPLICATIONS: None. DISPOSITION: Patient to PACU in stable condition. DESCRIPTION OF PROCEDURE: The patient's left neck lymph node s were marked in the holding area. There were 2 smaller and then 2 slightl y larger lymph nodes. These were marked. She agreed to this planned o perative site. Sign-in was performed verifying the patient, site, pro cedure, position, critical nursing information, VTE, and antibiotic prophylaxis. The patient received 2 g of Ancef, which was local sedation and did not require SCDs. Following positioning and IV sedation, the lef t neck was prepped and draped in usual fashion. Time-out was performed verifying patient, site, procedure, position. A 50:50 mixture of lidoc imelda and Marcaine was injected in the skin and a transverse incision made. Dissection was carried down through platysma. The lymph node was identified, dissected, and the hilar lymphatic vessels were ligated with a 3-0 Vicryl suture. The platysma was approximated with a 4- 0 Vicryl suture. Skin was closed with interrupted 4-0 Monocryl subcu sutures. Same procedure was performed for a slightly posterior larger lymph node. Following this, Dermabond was applied after the lidocaine an d Marcaine mixture was again injected. The patient tolerated the proced ure well and was brought to the recovery room in stable condition. Tono Jules M.D. RG:[id number] /[id number] nursing prog on 201 05-23-10 Protein HNO ID: [id number] Normal 12-27-2018 Weeks mass Author: Leena (Rn) Yanelis, [facility] Service: Nursing ([phone]) Author Type: Registered Nurse Type: Nursing Progress Note Filed: 12/27/2018 10:09 AM Note Text: Nursing Progress Note Patient Name: Sheri Robin Patient Location: NE Surgery/NE Surgery anesthesia at bedside to talk with pt, aware of ST HR 126, o rders given to access med port and start LR 250 cc bolus at this time. C all light in reach, daughter called to bedside This note was completed by: Leena Hilario, RN [id number] Med port is a power port but is not accessed with power port harrison needle and tubing. 0900 IV 250 bolus started. Daughter called to bedside. 0942 bolus completed HR 103 , anesthesia aware and orders fo r 2nd bolus to be given. 0945 IV bolus started, HR 103. 1005 Carloz MANAGER ACQUISITION at bedside talking with pt, aware of bolus orders. history physical on 2018-12-27 HISTORY HNO ID: [id number] Normal 12-27-2018 Weeks PHYSICAL Author: [facility] Service: General Surgery ([id number]) Author Type: Physician Type: HANDP Filed: 12/27/2018 9:52 AM Note Text: HISTORY AND PHYSICAL ? Sheri Robin 1940 ? ? REFERRING PHYSICIAN: Angelo Cantu MD ? CHIEF COMPLAINT: Consult (Consult nodule to be biopsy) ? HPI: The patient is a 78 year old female with a complaint of increasing adenopathy in her left neck. The patient was seen by Dr. 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 HPI: Mrs. 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 P atient had 6 cycles of chemotherapy with CHOP - . Patient was i n complete remission after?completing?4 cycles of chemotherapy. ?? Patient complained of weight loss and abdominal pain last fa ll after she lost her sister to cancer. Patient had a CT scan of the abdo men and pelvis which show no evidence of lymphadenopathy. No evidence of di verticulitis. No obstructive uropathy. Patient has no cough or shortness o f breath. She presented with a nodule on her right lower eyelid for co uple months. It is not painful and there has no changes in her vision. manpreet saw Dr. Nunez andjazmine was referred to Dr. Cordova for evaluation. A C T scan of the orbit showed a soft tissue mass on her right anterior orbita l mass consistent with lymphoma. ?? Excisional biopsy of the right orbital mass on 01/08/14 was c onsistent with low-grade B-cell lymphoma. ?? Patient completed radiation therapy for a low-grade marginal zone lymphoma of the right orbit in 2013 She has no blurred vision or double vision. No ocular pain. She still has occasional dry eyes, she was never diagnosed with Sjogren. She was seen by ophtha lmology and there is no evidence of cataracts or recurrent lymphoma. ?? She presented last year with pneumonia and a left pleural ef fusion. Pneumonia resolves and left pleural effusion appear to be im proving when she saw Dr. Howard in April 2016. She had no further follo w-up with pulmonary medicine after that visit. ?? The?patient was in the emergency room last month?because of cough and pleuritic chest pain. Patient also has shortness of breath a nd went to the emergency room for evaluation of pulmonary embolism. ?CT sca n showed?a recurrent left pleural effusion with adenopathies?in his med iastinum, hilar, axilla regions. ?? She has increasing cough and shortness of breath and was adm [facility] to [facility] for further evaluation. Patient had resting tachycardia and 2-D echocardiogram showed?a small pericardial effusion . There is no evidence of cardiac tempanoid. She has seen the ophthalmolog ist recently and has?no problem with her eyes. Her thoracentesis fluid sh owed polymorphic lymphocyte but no obvious evidence of malignancy . There was no sign of infection. Transbronchial ultrasound guided biopsy o f the mediastinal lymph node and left pleural fluid were positive for marginal cell lymphoma by flow cytometry studies. Patient was started on Lopressor 25mg twice daily for tachycardia and dyspnea. Patient has oc casional chest pressure but no pain, shortness of breath or orthopnea. ?? Current treatment: Rituximab AND?bendamustine?( 06/06- 01/04 ) in CR ?? Interim history:??. Overall,?she has done quite well. She no ticed swelling in the neck recently consistent with adenopathy. She has min or pain but no hoarseness or dysphagia. ? She had a history of pathological fracture after fall of the right hip and?she is scheduled for surgery later this month?(in 1-2 we eks) ?She had a CT scan of abdomen and pelvis last month show no evidence of recurrent lymphoma or metastatic disease. ? I had placed both a left-sided Port-A-Cath and a Pleurx cath eter for effusions in 2017 and then remove the Pleurx catheter in the office. ? The patient is CT scan of the neck yesterday which demonstra kushal multiple smaller lymph nodes largest being approximately 1.[address] s can report demonstrated: ? Interval development of left level 2A enlarged lymph node me asuring 1.4 cm short axis. ?Nonspecific lymph nodes scattered throughout the remainder of the left aspect of the neck with adjacent infla mmatory change could reflect superimposed infection or extranodal sp read of disease. ?New left tunneled central venous catheter. Nasal and oral cavities are unremarkable. ? Pharyngeal mucos al space is normal. Parotid and submandibular glands are unremarkable. ? ? Thyro id gland enhances symmetrically. ? ? Remainder of the fascial spaces of the neck and their contents are normal. Chronic changes and mild volume loss intracranially, partial ly imaged. ? Imaged portions of the lungs are grossly clear. ? ? ?Infragl ottic airway is patent. ? ? Osseous structures are unremarkable. ? ? Smal l air-fluid level within left sphenoid sinus. Skull base and orbits unremarkable. ? The patient and her recent abdominal CT scan which demonstra kushal no gross abnormalities and showed no significant right or left-sided pleural effusion at the bases. ? The patient is being seen by me today at the request of Dr. Cantu for my opinion and advice regarding lymph node biopsy for increasin g left neck adenopathy. ? PAST?MEDICAL?HISTORY PAST MEDICAL HISTORY Diagnosis Date - Age-related osteoporosis without current pathological frac ture 07/24/2018 - Arthritis of left hip 08/30/2018 - B-cell lymphoma (HCC) 01/2014 ? Right eyelid biopsy. Bone marrow negative. - GERD (gastroesophageal reflux disease) ? - Glaucoma ? - Hyperlipidemia ? - Hypothyroidism ? - IBS (irritable bowel syndrome) ? - Kidney stone ? - Lymphoma (HCC) 1998 ? Lymph nodes. Bone marrow positive. - Mitral valve prolapse ? - Osteopenia ? ? ? PAST?SURGICAL?HISTORY PAST SURGICAL HISTORY Procedure Laterality Date - APPENDECTOMY ? ? - BONE MARROW ? ? - COLONOSCOP W/ OR W/O BRSH SPEC ? 09/27/13 ? Colonoscopy - EGD W/O OR W/BRUSH/WASH ? 09/27/13 ? EGD - EYE SURGERY PROCEDURE ? 01/08/14 ? Right orbitotomy /exc lesion - LUNG BIOPSY ? ? - PAST SURGICAL HISTORY OF ? ? ? Right hip pin - ROTATOR CUFF REPAIR ? ? ? Left - SHOULDER ARTHROSCOPY/SURGERY ? ? ? left - TUNNEL VAD W SUB Q PORT >=5 Left 05/20/2017 ? subclavian ? ? ? CURRENT?MEDICATIONS ? Current Outpatient Medications: terbinafine HCl (LAMISIL) 1 % cream Apply 1 application to a ffected area twice daily. xtlxjyup-sejj-tfo0-C-rad-bosw (OSTEO BI-FLEX TRIPLE STRENGT H) 750 mg-644 mg- 30 mg-1 mg tab Take 2 tablets by mouth once daily. levothyroxine (SYNTHROID) 88 mcg tablet Take 1 tablet by rad th once daily. famotidine (PEPCID) 20 mg tablet Take 1 tablet by mouth twic e daily. (Patient taking differently: Take 20 mg by mouth once daily. ) POLYVINYL ALCOHOL/POVIDONE (ARTIFICIAL TEARS OPHTHALMIC) Use 1 Drop in eyes every hour as needed. acetaminophen (TYLENOL EXTRA STRENGTH) 500 mg tablet Take 50 0 mg by mouth every 4 hours as needed. docusate sodium (COLACE) 100 mg capsule Take 1 capsule by mo uth twice daily as needed. alendronate (FOSAMAX) 70 mg tablet Take 1 tablet by mouth on ce each week. Take with a full glass of water, on an empty stomach; do NOT lie down for 30minutes. ? No current facility-administered medications for this visit. ? ALLERGIES: Contrast Dye; Ketorolac; Amoxicillin; Levaquin [L evofloxacin]; Lipitor [Atorvastatin Calcium]; Metronidazole; Prednisone; Z ithromax [Azithromycin] ? 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 Substance and Sexual Activity Alcohol use: No Drug use: No Sexual activity: Never Other Topics Concerns: Not on file Social History Narrative Not on file ? FAMILY HISTORY: FAMILY?HISTORY FAMILY HISTORY Problem Relation Age of Onset - Cataract Mother ? - Cancer Sister ? - Cancer Sister ? ? 2nd sister, unknown type - other (Stomach) Father ? ? ? REVIEW OF SYMPTOMS: The review of systems data was entered by the nurse and revi ewed by me ? Nursing Notes: Aristeo Cheli PICKERING 12/20/2018 2:54 PM Signed REVIEW OF SYSTEMS: General: The patient denies fatigue, denies weight loss, den ies weight gain, denies feeling hot, and denies feelings of cold . Eyes: The patient denies glaucoma, NOTES eye injury/surgery, wears glasses or contacts. Ear/Nose/Throat: The patient denies allergies, denies hayfev er, denies ear infections, and denies bloody noses. Cardiovascular: The patient denies chest pain, denies heart disease, denies high blood pressure,denies cardiac stent, denies prio r heart attack, denies irregular heart beat, NOTES high cholesterol, denies poor circulation, denies heart failure, NOTES other cardiac issue s, denies claudication, denies cold feet, denies peripheral arterial s tent. Respiratory: The patient denies tuberculosis, denies pneumon ia, denies frequent cough, denies pulmonary embolism, denies haylie rtness of breath, and denies coughing up blood. Gastrointestinal: The patient denies difficulty swallowing, NOTES acid reflux, denies ulcers, denies vomiting, denies jaundice /hepatitis, denies gallbladder problems, denies black or tarry stools, d enies hemorrhoids, denies bleeding from rectum, denies diverticuli tis, denies constipation, denies diarrhea, denies loss of stool control, and denies hernias. Kidney/Bladder: The patient NOTES kidney stones, denies urin e infections, and denies bloody urine. Skin: The patient NOTES a history of skin cancer, denies bleeding/changing moles, and denies a history of skin rash. Neurologic: The patient denies a history of epilepsy/convuls ions, denies headaches, denies head/spinal injuries, and denies st roke/TIA. Psychiatric: The patient denies psychiatric medications, den ies depression, and denies voices, denies substance abuse. Endocrine: The patient NOTES thyroid disorders, denies diabe micaela, and denies hormonal problems. Hematologic: The patient denies a history of bruising, denie s bleeding, and denies anemia, denies blood clots. Infections: The patient denies a history of measles and mump s, denies rheumatic fever, and denies sexually transmitted dise ases. Musculoskeletal: The patient denies back pain/injury, denies back problems, denies sciatica, denies knee/foot trouble, NOTES a rthritis, or denies gout. ? ? When was patient's last Mammogram screening? Unknown ? ? Last Colonoscopy: 2013 ? Aristeo Bower LPN PHYSICAL EXAMINATION: ? General: The patient is 78 year old female, well nourished, well hydrated in no acute distress. The patient is oriented to time, place , and person. ? VITALS: Blood pressure 132/76, pulse 96. ? HEENT: Normal cephalic, ataumatic, pupils are equally round, sclera are anicteric, mucous membranes are moist, oropharynx is clear. Neck has no masses or significant lymphadenopathy on the right side. The re are multiple smaller lymph nodes along the left and the cleidoma stoid chain and slightly larger lymph nodes palpated behind the clavicle . Thyroid is unremarkable. ? Respiratory: Clear to auscultation and percussion. Normal re spiratory excursion and pattern. ? Cardiac: Examination is regular rate and rhythm. No rubs, mu rmurs, or additional cardiac tones ? Abdominal exam: Soft, nontender, with no palpable masses. No hepatosplenomegaly. No palpable hernias. ? Rectal exam: exam deferred ? Extremities: no clubbing, cyanosis or edema. No adenopathy. ? Other: ? ? LABORATORY VALUES: As Noted ? RADIOLOGIC STUDIES: As Noted ? Intraoffice ultrasound demonstrated multiple smaller lymph n odes along the easily accessible chain but these were felt to be too small to be adequately biopsied by core needle biopsy. The larger lymph nodes down low the clavicle were proximate to vascular structures and f elt not to be safely biopsied in the office ? ? Assessment IMPRESSION: Recurring left cervical adenopathy ? PLAN: I plan to perform an excisional lymph node biopsy of t he left cervical area. The planned surgical procedure was discussed extensively with the patient. The risks, benefits and anticipated outcom es of the procedure, the risks and benefits of the alternatives to the procedure, and the roles and tasks of the personnel to be involved, yumiko case discussed with the patient. My staff has also explained the procedure in understandable terms and the patient was given the option to take printed material concerning the planned procedure. The patient had t he opportunity to ask questions concerning the planned procedur e. The patient freely consents to the planned procedure. ? Anticipated Surgical Procedure/ CPT Code: 31479-126 - Deep C ervical Lymph Node Biopsy - Left ? Anticipated Anesthetic: MAC with local ? Patient weight: Blood pressure 132/76, pulse 96. BMI: There is no height or weight on file to calculate BMI. ? Planned antibiotic: clindamycin 900mg IVPB vision teacher to OR ? SCDs needed - Yes ? Windows Desktop Engineer Needed - Yes ? Diagnoses: (C85.88) Lymphoma, marginal zone, lymph nodes of multiple sites (HCC) (primary encounter diagnosis) ? My findings have been communicated to Dr. Cantu via shared [facility]. This note will be forwarded to Dr. Francisco J Garces III MD. Return to Clinic: The patient is instructed to follow-up wit h me after the testing has been completed. ? This note was partially generated using L[employer]ike recogni tion system, and there may be some incorrect words, spellings, and punctu ation that were not noted in checking the note before saving. ? Tono Jules MD brief op not on 201 05-23-10 BRIEF OP NOT HNO ID: [id number] Normal 12-28-19 [facility] Author: Tono Jules ([id number]) Service: General Surgery Author Type: Physician Type: Brief Op Note Filed: 12/27/2018 11:25 AM Note Text: BRIEF OPERATIVE NOTATION FOR SURGICAL PROCEDURE. Sheri Robin 1940 [id number] female LOG ID: [id number] Surgery/Procedure Date: 12/27/2018 Incision/Procedure Start Time: 10:47 AM Incision Close/Procedure End Time: 11:21 AM Surgeon(s)/Proceduralist(s) and Windows Desktop Engineer(s): Surgeon(s) and Role: * Tono Jules - Primary Physician Windows Desktop Engineer: Tammy Murrieta (Pa) REFERRING PHYSICIAN: Gopal Outpatient DEPT: [facility] PROVIDER: Nirav POS: [id number] ANESTHESIA: Monitored Anesthesia Care ASA CLASS: 3 - Severe DIAGNOSIS: left cervical lymphadenopathy PROCEDURE: [id number] - Deep Cervical Lymph Node Biopsy - Lef t IVF: 1000 EBL: 5 Specimens: lymph nodes x 2 ADDITIONAL DIAGNOSES: FINDINGS: COMPLICATIONS: None PMHx - PAST MEDICAL HISTORY Diagnosis Date - Age-related osteoporosis without current pathological frac ture 07/24/2018 - Arthritis of left hip 08/30/2018 - B-cell lymphoma (HCC) 01/2014 Right eyelid biopsy. Bone marrow negative. - GERD (gastroesophageal reflux disease) - Glaucoma - Hyperlipidemia - Hypothyroidism - IBS (irritable bowel syndrome) - Kidney stone - Lymphoma (HCC) 1999 Lymph nodes. Bone marrow positive. - Mitral valve prolapse - Osteopenia COMORBIDITIES - None Post Op Occurrences - None Wound Classification - Clean Operative note dictated in the dictation system.- [id number] anes preop on 12-27 ANES PREOP HNO ID: [id number] Normal 12-27-2018 [facility] Author: Chuy Meadows ([id number]) Service: Anesthesiology Author Type: Anesthesiologist Type: Anesthesia PreOp Filed: 12/27/2018 8:49 AM Note Text: ANESTHESIOLOGY DAY OF SURGERY NOTE SERVICE DATE: 12/27/2018 SERVICE TIME: 8:48 AM : 1940 Procedure(s) (LRB): BIOPSY OR EXCISION LYMPH NODE(S) OPEN, DEEP CERVICAL (N/A) Surgeon(s): Tono Jules Estimated body mass index is 24.24 kg/m? as calculated from the following: Height as of 10/16/18: 161.3 cm (5' 3.5). Weight as of 12/19/18: 63 kg (139 lb). Most recent hematocrit and potassium results: Hematocrit 41.8 07/25/2018 Potassium 4.0 11/21/2018 ANES DOS/PREOP NOTE: Vitals: There were no vitals filed for this visit. ACTIVE PROBLEM LIST Lung Nodule, Solitary Orbital Lymphoma (Hcc) History of Lymphoma Dupuytren's Disease of Palm Disposition and Follow-Up Electrolyte Imbalance Hypothyroidism Ocular Lymphoma (Hcc) Lymphoma, Marginal Zone, Lymph Nodes of Multiple Sites (Hcc) Right Lower Quadrant Abdominal Pain Age-Related Osteoporosis Without Current Pathological Fractu re Recurrent Low Back Pain Arthritis of Left Hip PAST MEDICAL HISTORY Diagnosis Date - Age-related osteoporosis without current pathological frac ture 07/24/2018 - Arthritis of left hip 08/30/2018 - B-cell lymphoma (HCC) 01/2014 Right eyelid biopsy. Bone marrow negative. - GERD (gastroesophageal reflux disease) - Glaucoma - Hyperlipidemia - Hypothyroidism - IBS (irritable bowel syndrome) - Kidney stone - Lymphoma (HCC) 1998 Lymph nodes. Bone marrow positive. - Mitral valve prolapse - Osteopenia PAST SURGICAL HISTORY Procedure Laterality Date - APPENDECTOMY - BONE MARROW - COLONOSCOP W/ OR W/O BRSH SPEC 09/27/13 Colonoscopy - EGD W/O OR W/BRUSH/WASH 09/27/13 EGD - EYE SURGERY PROCEDURE 01/08/14 Right orbitotomy /exc lesion - LUNG BIOPSY - PAST SURGICAL HISTORY OF Right hip pin - ROTATOR CUFF REPAIR Left - SHOULDER ARTHROSCOPY/SURGERY left - TUNNEL VAD W SUB Q PORT >=5 Left 05/20/2017 subclavian FAMILY HISTORY Problem Relation Age of Onset - Cataract Mother - Cancer Sister - Cancer Sister 2nd sister, unknown type - other (Stomach) Father Social History: Social History Tobacco Use - Smoking status: Never Smoker - Smokeless tobacco: Never Used - Tobacco comment: Father smoked in childhood home, quit haylie rtly after patient . Substance Use Topics - Alcohol use: No - Drug use: No No current facility-administered medications on file prior t o encounter. Current Outpatient Medications on File Prior to Encounter: wnlfjyfi-whep-miy3-C-rad-bosw (OSTEO BI-FLEX TRIPLE STRENGT H) 750 mg-644 mg- 30 mg-1 mg tab Take 2 tablets by mouth once daily. levothyroxine (SYNTHROID) 88 mcg tablet Take 1 tablet by once daily. famotidine (PEPCID) 20 mg tablet Take 1 tablet by mouth tw daily. (Patient taking differently: Take 20 mg by mouth once daily. ) POLYVINYL ALCOHOL/POVIDONE (ARTIFICIAL TEARS OPHTHALMIC) Use 1 Drop in eyes every hour as needed. docusate sodium (COLACE) 100 mg capsule Take 1 capsule by mo uth twice daily as needed. terbinafine HCl (LAMISIL) 1 % cream Apply 1 application to a ffected area twice daily. alendronate (FOSAMAX) 70 mg tablet Take 1 tablet by mouth on ce each week. Take with a full glass of water, on an empty stomach; do NOT lie down for 30minutes. acetaminophen (TYLENOL EXTRA STRENGTH) 500 mg tablet Take 50 0 mg by mouth every 4 hours as needed. Current Facility-Administered Medications: lactated ringers infusion 30 mL/hr INTRAVENOUS CONTINUOUS Ri elsi Jules clindamycin iv piggyback 900 mg in D5W 50 mL (CLEOCIN) 900 m g INTRAVENOUS Pre-Op Once Tono Jules Allergies: ALLERGIES Allergen Reactions - Contrast Dye Rash, Shortness of Breath - Ketorolac Other: See Comments Excessive burning of eyes - Amoxicillin Unknown - Levaquin [Levofloxa* Unknown Muscle aches - Lipitor [Atorvastat* Unknown - Metronidazole GI Upset - Prednisone Unknown - Zithromax [Azithrom* Unknown, Diarrhea DOS EXAM: Adequate NPO status: Yes Anesthetic risks, benefits, alternatives, personnel and cons ent discussed: Yes Patient agrees to proceed: Yes Previous Anesthesia: No history of adverse event. Airway Assessment: MP 2; Neck ROM: Full ROM without neurolog ic symptoms; Airway Evaluation: No significant abnormalities Symptoms of Sleep Apnea: None Dentition: Teeth intact Additional Physical Exam: Lungs: Patient health status unchanged since recent history and physical. See history and physical for exam findings. Cardiac: Patient health status unchanged since recent histor y and physical. See history and physical for exam findings. Additional Pertinent Findings: N/A Blood Products: Not anticipated for this procedure. Anesthetic Plan: MAC with Sedation Pain Management Plan: Parenteral or Oral ASA Class: 3 Other Medical Problems: mvp I have interviewed and examined the patient. I have reviewed the medical record and/or the pre-anesthesia evaluation, pertinent labs, and test results. Significant changes in the patient's condition since the His tory and Physical, not otherwise documented in primary service progre ss notes: No This contains updated information obtained within 48 hours o f Surgery/Procedure. SIGNATURE: Chuy Meadows MD PATIENT NAME: Sheri Robin DATE: December 27, 2018 TIME: 8:48 AM CSN: [id number] anes post on 2019-0 4-10 ANES POST HNO ID: [id number] Normal 12-27-2018 [facility] Author: Chuy Meadows ([id number]) Service: Anesthesiology Author Type: Anesthesiologist Type: Anesthesia PostOp Filed: 12/27/2018 4:43 PM Note Text: POST ANESTHESIA EVALUATION NOTE SERVICE DATE: 12/27/2018 SERVICE TIME: 4:43 PM : 1940 Vitals: 12/27/18 0846 12/27/18 1128 12/27/18 1200 Temp: 37.3 ?C (99.1 ?F) 36.3 ?C (97.3 ?F) 36.4 ?C (97.5 ?F) 12/27/18 0846 12/27/18 1128 12/27/18 1145 12/27/18 1200 BP: 130/70 96/54 99/56 106/57 12/27/18 1006 12/27/18 1128 12/27/18 1145 12/27/18 1200 Pulse: 105 80 78 76 12/27/18 1006 12/27/18 1128 12/27/18 1145 12/27/18 1200 Resp: 18 16 17 16 12/27/18 1006 12/27/18 1128 12/27/18 1145 12/27/18 1200 SpO2: 97% 98% 98% 98% Validated Vital Signs: Yes POST ANES STATUS: No apparent anesthetic complications. The patient is appropriately hydrated with stable respiratory and cardiovas cular status. Patient has safe and adequate airway control. The patient hendricks s appropriate pain relief and no significant post operative nausea or vomi ting. The patient has achieved baseline mental status. Further assessment by Anesthesia Service: None Other Remarks: SIGNATURE: Chuy Meadows MD PATIENT NAME: Sheri Robin DATE: December 27, 2018 TIME: 4:43 PM PAGER/CONTACT #: [phone] hosp on 2018-12-20 HOSP Patient:Sheri Robin 12[birth year]21[birth year]19 [facility] ) Height:5' 3(1.6 m) Weight:135 lb (61.236 kg) Outpatient Medications as of 12/27/18: terbinafine HCl (LAMISIL) 1 % cream xbtgpokv-xaip-aiw2-C-rad-bosw (OSTEO BI-FLEX TR IPLE STRENGTH) 750 mg-644 mg- 30 mg-1 mg tab levothyroxine (SYNTHROID) 88 mcg tablet alendronate (FOSAMAX) 70 mg tablet famotidine (PEPCID) 20 mg tablet POLYVINYL ALCOHOL/POVIDONE (ARTIFICIAL TEARS OPHTHALMIC) acetaminophen (TYLENOL EXTRA STRENGTH) 500 mg tablet docusate sodium (COLACE) 100 mg capsule Admission/Clinic Administered Medications as of 12/27/18: lactated ringers infusion clindamycin iv piggyback 900 mg in D5W 50 mL (CLEOCIN) Problem List: Lung nodule, solitary [R91.1] 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] History of lymphoma [Z85.79] 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] DISPOSITION AND FOLLOW-UP [] Electrolyte imbalance [E87.8] Hypothyroidism [E03.9] 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, marginal zone, 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] Right lower quadrant abdominal pain [R10.31] Age-related osteoporosis without current pathological fractu re [M81.0] Recurrent low back pain [M54.5] Arthritis of left hip [M16.12] Allergies: Contrast Dye Ketorolac Amoxicillin Levaquin [Levofloxacin] Lipitor [Atorvastatin Calcium] Metronidazole Prednisone Zithromax [Azithromycin] Date Verified: 12/27/18 Lab Values No results within the last 30 days for the following basenam es: K,HCT Progress Notes ([facility]): Coni Allen Pss 12/21/2018 1:06 PM Signed Patient would like to know if she should keep ap pointment on Tuesday with Dr. Cantu or wait until after biop sy on Tuesday with Dr. Jules. Please advise and call patient. Giselle Daley, RN, RN 12/21/2018 1:[address] Cantu - -please advise. Giselle Daley, RN, RN 12/21/2018 1:42 PM Signed PSS - per Dr. Cantu, he will not need to see Sheri until aft er biopsy is resulted - approximately 2 weeks - please reschedule accor dingly and notify patient. Thank you. Nubia Toure Pss 12/21/2018 2:27 PM Signed Scheduled. Patient notified. Progress Notes ([facility]): iJmmy Newberry 12/20/2018 3:47 PM Signed 12-27-2018 Cervical deep lymphnode bx Jimmy Newberry tsh on 2017-09-06 Thyroid stimulating 2.62 0.27-4.20 mcIU/mL Normal 09-06-2017 [facility] hormone (TSH) Found[facility] tion ([place]) ([id number]) Comment: Performed By: #### CBC, ADIF F, ANEU, TROP, DIMER, PBNP, CMP, GFR ####[facility] [address] [place], [place] [address] cbc on 2017-09-06 Erythrocyte distribution 14.8 11.5-14.5 % High 09-06 [facility] width Auto Ratio (RBC) ([place]) (177[address]) Comment: Performed By: #### CBC, ADIF F, ANEU, TROP, DIMER, PBNP, CMP, GFR ####[facility] [address] [place], [place] [address] Erythrocytes (RBC) 4.42 4.20-5.40 10 6/mcL Normal 09-06-2017 [facility] ([place]) ([id number]) Comment: Performed By: #### CBC, ADIF F, ANEU, TROP, DIMER, PBNP, CMP, GFR ####[address] [place], [place] [address] Hematocrit (HCT) 41.3 37.0-47.0 % Normal 09-06-2017 [facility] ([place]) ([id number]) Comment: Performed By: #### CBC, ADIF F, ANEU, TROP, DIMER, PBNP, CMP, GFR ####[facility] [address] [place], [place] [address] Hemoglobin mass conc 13.4 12.0-16.0 G/dL Normal 7 [facility] ([facility]) [facility] [place] ([place]) ([id number]) Comment: Performed By: #### CBC, ADIF F, ANEU, TROP, DIMER, PBNP, CMP, GFR ####[facility] [address] [place], [place] [address] MCH 30.3 27.0-31.2 pg Normal 09-06-2017 [facility] ([place]) ([id number]) Comment: Performed By: #### CBC, ADIF F, ANEU, TROP, DIMER, PBNP, CMP, GFR ####[address] [place], [place] [address] MCHC mass conc (RBC) 32.4 33.0-37.0 G/dL Low 7 [facility] ([place]) (0000 0) Comment: Performed By: #### CBC, ADIF F, ANEU, TROP, DIMER, PBNP, CMP, GFR ####[address] [place], [place] [address] MCV 93.3 80.0-94.0 fL Normal 09-06-2017 [facility] ([place]) ([id number]) Comment: Performed By: #### CBC, ADIF F, ANEU, TROP, DIMER, PBNP, CMP, GFR ####[address] [place], [place] [address] Platelet mean volume 10.4 7.4-10.4 fL Normal 7 [facility] ([facility]) ([place]) ([address] 0) Comment: Performed By: #### CBC, ADIF F, ANEU, TROP, DIMER, PBNP, CMP, GFR ####[address] [place], [place] [address] Platelets 162 130-400 10 3/mcL Normal 09-06-2017 [facility] ([place]) ([id number]) Comment: Performed By: #### CBC, ADIF F, ANEU, TROP, DIMER, PBNP, CMP, GFR ####[address] [place], [place] [address] WBC (Leukocytes) 6.80 4.60-10.80 10 3/mcL Normal 09-06-2017 [facility] ([place]) (0000 0) Comment: Performed By: #### CBC, ADIF F, ANEU, TROP, DIMER, PBNP, CMP, GFR ####[address] [place], [place] [address] .neuabs on Neutrophils 5.00 2.85-6.16 10 3/mcL Normal 09-06-2017 [facility] ([place]) ([id number]) Comment: Performed By: #### CBC, ADIF F, ANEU, TROP, DIMER, PBNP, CMP, GFR ####[address] [place], [place] [address] .auto diff on 09-06 Basophils Auto #/vol 0.00 0.00-0.19 10 3/mcL Normal 7 [facility] ([facility]) [facility] ([place]) ([id number]) Comment: Performed By: #### CBC, ADIF F, ANEU, TROP, DIMER, PBNP, CMP, GFR ####[address] [place], [place] [address] Basophils/100 WBC Auto ([facility]) 0.5 0.0-2.5 % Normal 1 11-07-2016 [facility] ([place]) (0000 0) Comment: Performed By: #### CBC, ADIF F, ANEU, TROP, DIMER, PBNP, CMP, GFR ####[address] [place], [place] [address] Eosinophils 0.50 0.00-0.40 10 3/mcL High 09-06-2017 [facility] ([place]) ([id number]) Comment: Performed By: #### CBC, ADIF F, ANEU, TROP, DIMER, PBNP, CMP, GFR ####[address] [place], [place] [address] Eosinophils/100 leukocytes 7.4 0.0-7.0 % High [facility] ([place]) (0000 0) Comment: Performed By: #### CBC, ADIF F, ANEU, TROP, DIMER, PBNP, CMP, GFR ####[address] [place], [place] [address] Lymphocytes 0.20 0.77-3.85 10 3/mcL Low 09-06-2017 [facility] ([place]) ([id number]) Comment: Performed By: #### CBC, ADIF F, ANEU, TROP, DIMER, PBNP, CMP, GFR ####[address] [place], [place] [address] Lymphocytes/100 leukocytes 2.3 10.0-50.0 % Low [facility]) (0000 0) Comment: Performed By: #### CBC, ADIF F, ANEU, TROP, DIMER, PBNP, CMP, GFR ####[facility] [address] [place], [place] [address] Monocytes 1.10 0.15-1.00 10 3/mcL High 09-06-2017 [facility]) ([id number]) Comment: Performed By: #### CBC, ADIF F, ANEU, TROP, DIMER, PBNP, CMP, GFR ####[address] [place], [place] [address] Monocytes/100 leukocytes 16.1 1.7-13.0 % High 09-06 [facility]) (0000 0) Comment: Performed By: #### CBC, ADIF F, ANEU, TROP, DIMER, PBNP, CMP, GFR ####[address] [place], [place] [address] Neutrophils/100 WBC Auto 73.7 37.0-80.0 % Normal 09-06 [facility]) ([id number]) Comment: Performed By: #### CBC, ADIF F, ANEU, TROP, DIMER, PBNP, CMP, GFR ####[facility] [address] [place], [place] [address] [facility] note on 2017-04-12 [facility] Note Normal 0 04-12-2017 [facility]) ([id number]) xr chest 1 view on 2017-04-10 XR CHEST 1 VIEW ORIGINALXR CHEST 1 VIEW Normal 04-10-2017 [facility] UPRIGHT AP TIME: [facility]) 4:46 PM Clinical Statement: ([id number]) chest pain, cough Comparison: Chest radiograph March 29, 2016 Findings: The cardiomediastinal silhouette is stable. The aorta is atherosclerotic. There is hazy opacity at the left lung base, which likely represents a mild left pleural effusion with adjacent atelectasis and/or airspace disease. There is also hazy opacity at the right lung border adjacent to the heart. There is prominence of the interstitial markings bilaterally, likely related to chronic fibrotic changes. No pneumothorax. Degenerative and postoperative changes of left humeral head are noted. No acute osseous abnormality. IMPRESSION:1. Bibasilar atelectasis and/or airspace disease.2. Mild left pleural effusion. I have personally reviewed the images of this examination and agree with the resident's findings and interpretation. Interpreted By: Krunal Lind MDPreliminary Report By: Naty Lin DOElectronically Signed By: Krunal Lind MD Dictated Date: 04/10/2017 5:17:07 PM Prelim Date: 04/10/2017 5:20:07 PM Sign Date: 04/10/2017 8:26:28 PM trop on 2017-04-10 Troponin I.cardiac <0.30 0.00-0.30 ng/mL Normal 04-10-2017 [facility] ([place]) ([id number]) Comment: Result Comment: Below measur ing range>=0.30 Consistent with cardiac damage, increased clinical risk and possibility of myocardial infarction. Serial measurements, clinical histo ry, appropriate symptoms and/or ECG changes may help assess possibility of M I.*Other non-acute coronary syndrome conditions such as CHF, myocarditis, pu lmonary emboli, sepsis and cardiac surgery could result in myocardial damage and increased troponin levels. Performed By: #### CBC, ADIF F, ANEU, TROP, DIMER, PBNP, CMP, GFR ####[address] [place], [place] [address] pbnp on 2017-04-10 BNP 330.8 5.0-300.0 pg/mL High 04-10-2017 [facility] ([place]) ([id number]) Comment: Result Comment: In the prese nce of acute dyspnea, CHF likely if:Age <50 years: >450 pg/mLAge 50-75 y ears: >900 pg/mLAge >75 years: >1800 pg/mL Performed By: #### CBC, ADIF F, ANEU, TROP, DIMER, PBNP, CMP, GFR ####[address] [place], [place] [address] patient summary documents on 2017-04-10 Patient Summary Documents Normal 07-2 [facility] ([place]) ([id number]) [facility] note on 2017-04-10 [facility] Note Normal 0 04-10-2017 [facility] ([place]) ([id number]) gfr on 2017-04-10 eGFR (non-black) >60 mL/min/{1.73_m2} Normal 2016 [facility] ([place]) (0000 0) Comment: Result Comment: GFR Populati on mean for , Non- Americans Ages 20-29 = 116 m L/min/1.73 sq.m. Ages 30-39 = 107 mL/min/1.73 sq.m. Ages 40-49 = 99 mL/min /1.73 sq.m. Ages 50-59 = 93 mL/min/1.73 sq.m. Ages 60-69 = 85 mL/min/1.73 sq.m. Ages 70+ = 75 mL/min/1.73 sq.m.Chronic Kidney Disease: Less than 60 mL/min/1.73 square metersEnd Stage Renal Disease: Less than 15 mL/min /1.73 square meters Performed By: #### CBC, ADIF F, ANEU, TROP, DIMER, PBNP, CMP, GFR ####[address] [place], [place] [address] eGFR (non-black) 133 ml/min/1.73sqm Normal 04-10-20 17 [facility] ([place]) (0000 0) Comment: Result Comment: GFR Populati on mean for , Non- Americans Ages 20-29 = 116 m L/min/1.73 sq.m. Ages 30-39 = 107 mL/min/1.73 sq.m. Ages 40-49 = 99 mL/min /1.73 sq.m. Ages 50-59 = 93 mL/min/1.73 sq.m. Ages 60-69 = 85 mL/min/1.73 sq.m. Ages 70+ = 75 mL/min/1.73 sq.m.Chronic Kidney Disease: Less than 60 mL/min/1.73 square metersEnd Stage Renal Disease: Less than 15 mL/min /1.73 square meters Performed By: #### CBC, ADIF F, ANEU, TROP, DIMER, PBNP, CMP, GFR ####[address] [place], [place] [address] dimer on 2017-04-10 Fibrin D-dimer FEU 1.29 <=0.49 mcg/mL FEU High 04-10-2017 [facility] ([place]) ([address] 0) Comment: Result Comment: The result o f the D-Dimer test should be evaluated in the context of all the clinical and laboratory data available.In those instances where the laboratory result does not agree with the clinical evaluation, additional tests shouldbe pe rformed accordingly. Performed By: #### CBC, ADIF F, ANEU, TROP, DIMER, PBNP, CMP, GFR ####[address] [place], [place] [address] ct angiography chest w/contrast on 2017-04-10 CT ANGIOGRAPHY ORIGINALCT ANGIOGRAPHY Normal [facility] CHEST W/CONTRAST CHEST W/CONTRAST [facility] ([place]) Statement: difficulty (26028) breathing; suspect PE, shortness of breath, mid chest pain, cough, history of lymphoma COMPARISON: CT abdomen/pelvis October 28, 2016, March 07, 2006 This exam was performed according to our departmental dose optimization program, including but not limited to: automated exposure control, adjustment of the mAs and/or kVp according to patient size and/or exam, and use of an iterative reconstruction algorithm where applicable. FINDINGS:The pulmonary arteries are appropriately opacified. No pulmonary embolus is identified. The heart is normal in size. No pericardial effusion. There are prominent lymph nodes seen within the bilateral axilla and right lateral infraclavicular regions, measuring up to 9 mm on the right (image 50, series 3) and 10 mm on the left (image 51). There are also enlarged mediastinal and hilar adenopathy, measuring up to 2 cm at the subcarina (image 103); 11 mm at the right odalys (image 95); and 11 mm at the left hilar (image 103). There are multiple retrocrural lymph nodes, measuring up to 7 mm adjacent to the esophagus (image 192). There is scarring at the bilateral lung apices. There is a tiny 2 mm subpleural nodule at the right upper lobe (image 105) and a 4 mm subpleural nodule (image 113). At the right lower lobe, there is a 6 mm nodule (image 134) and 6 mm nodule (image 170). There is a small right pleural effusion with adjacent atelectasis and consolidative-like changes at the right lower lobe. There is thickening at the right minor fissure which likely represents a small amount of fluid between the fissures. There is a moderate left pleural effusion with irregular masslike scarring at the left apex. There is consolidative-like opacity at the lingula and at the left lung base. A calcified granuloma is noted at the left lung base. Degenerative changes of the spine are noted. No suspicious osseous lesions. Images of the upper abdomen demonstrate thickening of left adrenal gland, unchanged in appearance since the prior exam on March 07, 2006. IMPRESSION:1. No pulmonary embolus.2. Prominent or enlarged adenopathy within the bilateral axilla, mediastinum, bilateral odalys, and retrocrural regions. Findings are highly suggestive of malignancy or metastatic disease.3. Irregular scarring at the lung apices, more nodular appearing on the left. Multiple bilateral pulmonary nodules. Irregular scarring and/or consolidation at the right lung base. Comparison with prior studies for stability is recommended.4. Small right and moderate left pleural effusions with adjacent consolidation or atelectasis. I have personally reviewed the images of this examination and agree with the resident's findings and interpretation. Interpreted By: Krunal Lind MDPreliminary Report By: Naty Lin DOElectronically Signed By: Krunal Lind MD Dictated Date: 04/10/2017 7:12:49 PM Prelim Date: 04/10/2017 8:37:12 PM Sign Date: 04/10/2017 9:33:25 PM cmp on 2017-04-10 Alanine aminotransferase (ALT) 7 10-35 ZZ Low 04-10-2017 [facility] ([place]) (0000 0) Comment: Result Comment: 7 Performed By: #### CBC, ADIF F, ANEU, TROP, DIMER, PBNP, CMP, GFR ####[address] [place], [place] [address] Albumin 3.9 3.4-4.8 G/dL Normal 04-10-2017 [facility] ([place]) ([id number]) Comment: Performed By: #### CBC, ADIF F, ANEU, TROP, DIMER, PBNP, CMP, GFR ####[address] [place], [place] [address] Albumin/Globulin Ratio 1.3 1.1-2.5 ratio Normal 017 [facility]) (0000 0) Comment: Performed By: #### CBC, ADIF F, ANEU, TROP, DIMER, PBNP, CMP, GFR ####[address] [place], [place] [address] Alk Phos 118 40-135 ZZ Normal 04-10-2017 [facility]) ([id number]) Comment: Performed By: #### CBC, ADIF F, ANEU, TROP, DIMER, PBNP, CMP, GFR ####[address] [place], [place] [address] Aspartate aminotransferase 18 10-40 ZZ Normal [facility] ([facility]) ([id number]) Comment: Performed By: #### CBC, ADIF F, ANEU, TROP, DIMER, PBNP, CMP, GFR ####[address] [place], [place] [address] Bili Total 0.9 0.2-1.0 mg/dL Normal 04-10-2017 [facility]) ([id number]) Comment: Performed By: #### CBC, ADIF F, ANEU, TROP, DIMER, PBNP, CMP, GFR ####[address] [place], [place] [address] BUN/Creatinine Ratio 13 7-27 ratio Normal 7 [facility] ([place]) ([id number]) Comment: Performed By: #### CBC, ADIF F, ANEU, TROP, DIMER, PBNP, CMP, GFR ####[address] [place], [place] [address] Calcium 9.3 8.4-10.2 mg/dL Normal 04-10-2017 [facility]) (06427) Comment: Performed By: #### CBC, ADIF F, ANEU, TROP, DIMER, PBNP, CMP, GFR ####[address] [place] [id number] Chloride 100 98-107 mEq/L Normal 04-10-2017 [facility] ([place]) ([id number]) Comment: Performed By: #### CBC, ADIF F, ANEU, TROP, DIMER, PBNP, CMP, GFR ####[address] [place] [id number] CO2 28 23-31 mEq/L Normal 04-10-2017 [facility] ([place]) ([id number]) Comment: Performed By: #### CBC, ADIF F, ANEU, TROP, DIMER, PBNP, CMP, GFR ####[address] [place] [id number] Creatinine 0.5 0.6-1.2 mg/dL Low 04-10-2017 [facility] ([place]) ([address]) Comment: Performed By: #### CBC, ADIF F, ANEU, TROP, DIMER, PBNP, CMP, GFR ####[address] [place] [id number] Electrolyte Balance 11.0 mEq/L Normal 04-10-2017 [facility] ([place]) ([address]46) Comment: Performed By: #### CBC, ADIF F, ANEU, TROP, DIMER, PBNP, CMP, GFR ####[address] [place] [id number] Globulin 2.9 G/dL Normal 04-10-2017 [facility] ([place]) ([address]) Comment: Performed By: #### CBC, ADIF F, ANEU, TROP, DIMER, PBNP, CMP, GFR ####[address] [place] [id number] Glucose mass conc 107 83-110 mg/dL Normal 04-10-2017 [facility] ([place]) ([id number]) Comment: Performed By: #### CBC, ADIF F, ANEU, TROP, DIMER, PBNP, CMP, GFR ####[address] [place] [id number] Potassium molar conc 3.7 3.5-5.1 mEq/L Normal 7 [facility] ([place]) (0000 0) Comment: Performed By: #### CBC, ADIF F, ANEU, TROP, DIMER, PBNP, CMP, GFR ####[address] [place], [place] [address] Protein 6.8 6.0-8.3 G/dL Normal 04-10-2017 [facility] ([place] ([id number]) Comment: Performed By: #### CBC, ADIF F, ANEU, TROP, DIMER, PBNP, CMP, GFR ####Kush [address] [place], [place] [address] Sodium 139 136-146 mEq/L Normal 04-10-2017 [facility] ([place] ([id number]) Comment: Performed By: #### CBC, ADIF F, ANEU, TROP, DIMER, PBNP, CMP, GFR ####Kushrichard [address] [place], [place] [address] Urea nitrogen 6.3 7.0-18.0 mg/dL Low 04-10-2017 [facility] ([place] ([id number]) Comment: Performed By: #### CBC, ADIF F, ANEU, TROP, DIMER, PBNP, CMP, GFR ####Kush [address] [place], [place] [address] cbc on 2017-04-10 Erythrocyte distribution 13.5 11.5-14.5 % Normal 04-10 [facility] Auto Ratio (RBC) [facility] ([place] ([id number]) Comment: Performed By: #### CBC, ADIF F, ANEU, TROP, DIMER, PBNP, CMP, GFR ####Kush [address] [place], [place] [address] Erythrocytes (RBC) 4.71 4.20-5.40 10 6/mcL Normal 04-10-2017 [facility] ([place] ([id number]) Comment: Performed By: #### CBC, ADIF F, ANEU, TROP, DIMER, PBNP, CMP, GFR ####[facility] [place] [address] Hematocrit (HCT) 40.9 37.0-47.0 % Normal 04-10-2017 [facility] ([place] ([id number]) Comment: Performed By: #### CBC, ADIF F, ANEU, TROP, DIMER, PBNP, CMP, GFR ####[place] [address] [place], [place] [address] Hemoglobin mass conc 13.3 12.0-16.0 G/dL Normal [address] [place] [address] (d) [facility] ([place] ([address]) Comment: Performed By: #### CBC, ADIF F, ANEU, TROP, DIMER, PBNP, CMP, GFR ####[place] [address] [place] [id number] MCH 28.2 27.0-31.2 pg Normal 04-10-2017 [facility] ([place] (06138) Comment: Performed By: #### CBC, ADIF F, ANEU, TROP, DIMER, PBNP, CMP, GFR ####[place] [address] [place], [place] [address] MCHC mass conc (RBC) 32.5 33.0-37.0 G/dL Low 7 [facility] ([place] (0000 0) Comment: Performed By: #### CBC, ADIF F, ANEU, TROP, DIMER, PBNP, CMP, GFR ####Kush [address] [place] [id number] MCV 86.7 80.0-94.0 fL Normal 04-10-2017 [facility] ([place] ([id number]) Comment: Performed By: #### CBC, ADIF F, ANEU, TROP, DIMER, PBNP, CMP, GFR ####[place] [address] [place] [phone] Platelet mean volume 8.6 7.4-10.4 fL Normal [address] [place] [address] ([facility]) ([place]) (0000 0) Comment: Performed By: #### CBC, ADIF F, ANEU, TROP, DIMER, PBNP, CMP, GFR ####[place] [address] [place], [place] [address] Platelets 280 130-400 10 3/mcL Normal 04-10-2017 [facility] ([place] ([id number]) Comment: Performed By: #### CBC, ADIF F, ANEU, TROP, DIMER, PBNP, CMP, GFR ####[address] [place], [place] [address] WBC (Leukocytes) 9.80 4.60-10.80 10 3/mcL Normal 04-10-2017 [facility] ([place]) (0000 0) Comment: Performed By: #### CBC, ADIF F, ANEU, TROP, DIMER, PBNP, CMP, GFR ####Kush [address] [place], [place] [address] .neuabs on Neutrophils 7.90 2.85-6.16 10 3/mcL High 04-10-2017 [facility] ([place] ([id number]) Comment: Performed By: #### CBC, ADIF F, ANEU, TROP, DIMER, PBNP, CMP, GFR ####[address] [place], [place] [address] .auto diff on 04-10 Basophils Auto #/vol 0.00 0.00-0.19 10 3/[facility] Normal 7 [facility]) [facility] ([place] ([id number]) Comment: Performed By: #### CBC, ADIF F, ANEU, TROP, DIMER, PBNP, CMP, GFR ####[address] [place], [place] [address] Basophils/100 WBC Auto (Bld) 0.3 0.0-2.5 % Normal 0 04-10-2017 [facility] ([place]) (0000 0) Comment: Performed By: #### CBC, ADIF F, ANEU, TROP, DIMER, PBNP, CMP, GFR ####Kush [address] [place], [place] [address] Eosinophils 0.10 0.00-0.40 10 3/mcL Normal 04-10-2017 [facility] ([place] (42102) Comment: Performed By: #### CBC, ADIF F, ANEU, TROP, DIMER, PBNP, CMP, GFR ####Kush [address] [place], [place] [address] Eosinophils/100 leukocytes 1.3 0.0-7.0 % Normal [facility] ([place]) (0000 0) Comment: Performed By: #### CBC, ADIF F, ANEU, TROP, DIMER, PBNP, CMP, GFR ####[address]ush [address] [place], [place] [address] Lymphocytes 0.50 0.77-3.85 10 3/mcL Low 04-10-2017 [facility] ([place]) ([id number]) Comment: Performed By: #### CBC, ADIF F, ANEU, TROP, DIMER, PBNP, CMP, GFR ####Kush [address] [place], [place] [address] Lymphocytes/100 leukocytes 5.4 10.0-50.0 % Low [facility] ([place]) (0000 0) Comment: Performed By: #### CBC, ADIF F, ANEU, TROP, DIMER, PBNP, CMP, GFR ####[address]ush [address] [place], [place] [address] Monocytes 1.20 0.15-1.00 10 3/mcL High 04-10-2017 [facility] ([place]) (10348) Comment: Performed By: #### CBC, ADIF F, ANEU, TROP, DIMER, PBNP, CMP, GFR ####[address] [place], [place] [address] Monocytes/100 leukocytes 12.1 1.7-13.0 % Normal 04-10 [facility] ([place]) (0000 0) Comment: Performed By: #### CBC, ADIF F, ANEU, TROP, DIMER, PBNP, CMP, GFR ####Kush [address] [place], [place] [address] Neutrophils/100 WBC Auto 80.9 37.0-80.0 % High 04-10 [facility] ([place]) ([id number]) Comment: Performed By: #### CBC, ADIF F, ANEU, TROP, DIMER, PBNP, CMP, GFR ####[address] [place], [place] [address] Vital Signs Vital Sign Description Value / Unit Date Location The following section is limited to 5 en tries per type and includes entries from the following time range: 20200605 - 9. Body Temperature 98.01 [degF] 06-27-2020 [facility] ([id number]) Body Temperature 98.29 [degF] 05-29-2020 [facility] (48519) Body weight 45.59 kg 06-27-2020 [facility] (91968) Body weight 47.17 kg 05-29-2020 [facility] (78156) BP Diastolic 66 mm[Hg] 06-27-2020 [facility] (71006) BP Diastolic 67 mm[Hg] 06-05-2020 [facility] (44396) BP Diastolic 58 mm[Hg] 05-29-2020 [facility] ([id number]) BP Systolic 97 mm[Hg] 06-27-2020 [facility] ([id number]) BP Systolic 97 mm[Hg] 06-05-2020 [facility] ([id number]) BP Systolic 103 mm[Hg] 05-29-2020 [facility] ([id number]) Pulse (Heart Rate) 113 /min 06-27-2020 [facility] (79827) Pulse (Heart Rate) 112 /min 06-05-2020 [facility] ([id number]) Pulse (Heart Rate) 68 /min [facility]22344[facility] Pulse Oximetry 95 % 06-27-2020 [facility] ([id number]) Respiratory Rate 16 /min 06-05-2020 [facility] ([id number]) Encounters Date Type Reason Provider Location 09-06-2017 - Ambulatory Dyspnea, unspecified GLADYS ADILIA Faci lity:KUSH 09-11-2017 GLADYS PACHECO 04-10-2017 - Emergency CARLITO DURBIN Facility:B 04-10-2017 department patient GLADYS Atkinson visit [facility] 06-30-2020 - Hemonc Orders Only Diffuse Lapman Gopal Hematolog y/Oncol 06-30-2020 non-Hodgkin's Lab/Port [place] [facility] lymphoma, large cell Wstr Lab/Port (clinical) [place] [facility] Comment: 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) History of lymphoma (Primary Dx) 06-05-2020 - Patient encounter Requires Francisco J Monie Yuan Me dicine 06-05-2020 procedure vaccination [place] Comment: Hospital discharge follow-up (Primary Dx); Need for vaccination; Hypothyroidism due to acquir ed atrophy of thyroid; History of lymphoma; 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) 05-29-2020 - Patient Diffuse Lab/Port [place] Hematology/Onc ology 05-29-2020 [facility] lymphoma, large Iselaman Gopal cell (clinical) Angelo Cantu Comment: 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); Malaise and fatigue; Abnormal weight loss; Urgency of urination 12-27-2018 - [facility] 12-27-2018 procedure JACQUELINE POWER ([id number]) Janneth JULES 06-06-2020 - Refill Low blood [facility] 06-06-2020 pressure Krishna Comment: Refill Request 06-27-2020 - Social Work Diffuse non-Hodgkin's [place] ([place]) Hemato logy/Oncology 06-27-2020 lymphoma, large cell Adrián Lord (clinical) Gopal Cantu Comment: Critical Results 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); Peptic ulcer; Weakness; Severe protein-calorie malnu trition (HCC); Hypokalemia Recheck 06-26-2020 - 06-26-2020 Telephone encounter Angelo Cantu Hematology/Oncology Comment: Patient Update 06-04-2020 - 06-04-2020 Telephone encounter Angelo Cantu Hematology/Oncology Comment: APPOINTMENT QUESTION 05-20-2020 - 05-20-2020 Telephone encounter Angelo Cantu Hematology/Oncology Comment: Question 05-15-2020 - 05-15-2020 Telephone encounter Addie Flores) Jeff Hematology/Oncology Comment: Care Coordination (Discharge Follow up ) 05-14-2020 - Telephone Atrophy of [facility] 05-14-2020 encounter thyroid - [place] acquired Comment: Medication Problem 05-12-2020 - 05-12-2020 Telephone encounter Addie (Rn) Doup Hematology/Oncology Comment: Care Coordination (Pain) 04-25-2020 - Telephone encounter Tachycardia Angelo Cantu Hematolo gy/Oncology 04-25-2020 Comment: Referral Request Procedures Procedure Name Date Provider Location Colonoscopy 06-16-2020 - [facility] ([id number]) 06-16-2020 INFLUENZA SEASONAL 06-05-2020 Francisco J Monie Dez [facility] jeniffer ([id number]) QUADRIVALENT HIGH DOSE AGE 65+ URINALYSIS, WITH MICROSCOPIC 05-29-2020 Angelo Cantu [facility] ([id number]) Colonoscopy 09-27-2013 - [facility] ([id number]) 09-27-2013 Plan of Treatment Plan Description Date Location COLONOSCOPY COLONOSCOPY 06-16-2030 - [facility] 06-16-2030 ([id number]) DTAP,TDAP,TD (2 - Td) DTAP,TDAP,TD (2 - Td) 04-12-2028 - [facility] 04-12-2028 ([id number]) ADVANCE DIRECTIVE ADVANCE DIRECTIVE 02-29-2024 - [facility] DISCUSSION DISCUSSION 02-29-2024 ([id number]) COLONOSCOPY COLONOSCOPY 09-27-2023 - [facility] 09-27-2023 ([id number]) COLORECTAL CANCER COLORECTAL CANCER 09-27-2023 [facility] SCREENING,SEE MODIFIER SCREENING,SEE MODIFIER (1 [id number]) DIABETES SCREEN DIABETES SCREEN 06-30-2023 [facility] ([id number]) DIABETES SCREEN DIABETES SCREEN 06-27-2023 - [facility] 06-27-2023 ([id number]) DIABETES SCREEN DIABETES SCREEN 05-29-2023 - [facility] 05-29-2023 ([id number]) DIABETES SCREEN DIABETES SCREEN 04-24-2023 - [facility] 04-24-2023 ([id number]) LIPID SCREEN LIPID SCREEN 03-04-2023 - [facility] 03-04-2023 ([id number]) ANNUAL PCP TEAM CHRONIC ANNUAL PCP TEAM CHRONIC 06-05-2021 - [facility] DISEASE VISIT DISEASE VISIT 06-05-2021 ([id number]) SHINGRIX VACCINE (1 of SHINGRIX VACCINE (1 of 06-05-2021 - [facility] 2) 2) 06-05-2021 ([id number]) Comment: Postponed from 12/20/1991 (D eclined at this time) ANNUAL PCP TEAM ANNUAL [facility]CP TEAM [facility]RON[facility] DISEASE VISIT 09-24-2020 ([id number]) VISIT T4 FREE/FREE THYROX T4 FREE/FREE THYROX Lab 07-15-2020 - [facility] Routine Hypothyroidism 05-15-2021 ([id number]) due to acquired atrophy of thyroid Expected: 07/15/2020, Expires: 05/15/2021 Comment: Expected: 07/15/2020, s: 05/15/2021 TSH BLD TSH BLD Lab Routine 07-15-2020 - 05-15-2021 [facility] ([id number]) Hypothyroidism due to acquired atrophy of thyroid Expected: 07/15/2020, Expires: 05/15/2021 Comment: Expected: 07/15/2020, s: 05/15/2021 INFLUENZA (#1) INFLUENZA (#1) 2020 - [facility] 05-20-2020 ([id number]) PNEUMOVAX AGE 65 AND PNEUMOVAX AGE 65 AND 2006 - [facility] OVER WITH 5YR OVER WITH 5YR LOOKBACK 2006 ([id number]) LOOKBACK (#1) (#1) SHINGRIX VACCINE (1 SHINGRIX VACCINE (1 of 12-20-1991 - [facility] of 2) 2) 12-20-1991 ([id number]) BASIC METABOLIC PNL BASIC METABOLIC PNL Lab 06-30-2021 [facility] STAT Diffuse large ([id number]) B-cell lymphoma of lymph nodes of neck (HCC) 1 Occurrences starting 06/30/2020 until 06/30/2021 Comment: 1 Occurrences starting 06/30 until 06/30/2021 no information [facility] ([id number]) Immunizations Vaccine Notes Status Date Location Influenza Seasonal - influenza, high dose (completed) 08-17-2019 - [facility] High Dose - Age 65+ seasonal, 08-17-2019 ([id number]) preservative-free Influenza Seasonal - influenza, high dose (completed) 07-14-2018 - [facility] High Dose - Age 65+ seasonal, 07-14-2018 ([id number]) preservative-free influenza, high-dose, influenza, high-dose, (completed) 06-05-2020 - [facility] quadrivalent vaccine quadrivalent vaccine 06-05-2020 ([id number]) (FLUZONE HIGH DOSE (FLUZONE HIGH DOSE QUADRIVALENT) QUADRIVALENT) Pneumococcal-13 Vac pneumococcal conjugate (completed) 08-28-2018 - [facility] Conjugate vaccine, 13 valent 08-28-2018 ([id number]) Pneumovax pneumococcal (completed) 06-05-2020 - [facility] polysaccharide vaccine, 06-05-2020 (441 95) 23 valent Payers Payer Name Policy Number Location [facility] [employer] BLUE [employer]IELD [id number] [facility] ([id number]) [facility] [id number] [facility] ([place] ([id number]) The following information is from the original human readable contentNo Payer Records Found Social History Type Social History Date Location Description Tobacco smoking status Never smoker 05-29-2020 - [facility] NHIS 06-27-2020 ([id number]) Tobacco use and Never used 05-29-2020 - [facility] exposure 06-27-2020 ([id number]) Alcohol intake Current non-drinker of 05-29-2020 [facility] alcohol (finding) 06-27-2020 (93322) Tobacco Comment Father smoked in 02-21-2014 - [facility] childhood home, quit 02-21-2014 (66784) shortly after patient . Sex Assigned At Not on file [facility] ([id number]) Exposure to SARS-CoV-2 Not sure [facility] (event) (56676) Exposure to SARS-CoV-2 Unable to assess [facility] [place] [facility] (event) ([id number]) The following information is from the original human readable contentNo Social History Records FoundNo Social History Records FoundNo Social History Records Found History of Past Illness Problem Noted Date Resolved Date Pleural effusion 05/10/2017 03/03/2018 Sinus tachycardia 04/29/2017 03/03/2018 Last Assessment & Plan: Assessment: Tachycardia, on tele. 04/28/17 ordered showed: smal ant. Pericardial effusion with left pleural effusion noted. 04/30 c/o chest pressure. EKG on 04/27 read as A flutter. Appears to be sinus tachycardia. Repeat EKG shows sinus tach. - originally started on Lovenox for pres umed A flutter - NT ProBNP 411 - Echo (04/28): EF 55%, diastolic functio n not evaluated due to tachycardia, E/e' increased Unclear etiology. Possible diastolic dys function worsened by effusion. PLAN: - d/c Lovenox for now -cont telemetry - Lopressor 50mg bid Recent weight loss 04/29/2017 03/03/2018 Last Assessment & Plan: Assessment: Pt attributes this to not eating well and being on soups for past couple of weeks as advised by outside docs when she went to ED with cough - eats small frequent meals, although no t eating as much due to early satiety - h/o GERD PLAN: - Will consult nutrition - Suspect related to possible recurrent lymphoma - can restart PPI as well - supplements per RD Severe protein-calorie malnutrition 04/29/201702/17 Last Assessment & Plan: Weight loss: >10% in 6 months Energy intake: less than 75% energy inta ke compared to estimated needs for greater than or equal to 1 month - Nutrition consulted - Diet: Regular or as per primary - Supplements: Energy dense/high protein commercial supplement shake as per patient preference. SOB (shortness of breath) 04/28/2017 03/03/2018 Last Assessment & Plan: Assessment: C/o SOB with cough. Noted worsening of the pleural effusion and has known mediastinal lymphadenopathy. These sxs are concerning for recurrence of lymphoma. Other possibility is primary lung malignancy. Noted that pt never smoked. Patient had mild leukocytosis in ED. No fever which makes underlying pneumonia less likely. Recently treated for presumed pneumonia, she did not have significant improvement with Doxycycline. - SOB has improved but Pt continues to c /o of chest and epigastric pressure. Troponin -ve x 2, no signs of ischemia on EKG. - NT ProBNP 411 - Echo (04/28): EF 55%, diastolic functio n not evaluated due to tachycardia, E/e' increased - CXR 05/02: L pleural effusion slightly increased or redistributed. PLAN: - no s/s infection. remains afebrile and no leukocytosis -Pulmonary consulted and confirmed recom mendation for scheduled outpatient procedure: needle guided thoracentesis with bronch/LN biopsy for 05/04/2017 - confirmed with bronchoscopy suite that this is naina eduled for this afternoon. -incentive spirometry at bedside -BPH eval by RT ordered - outpatient follow up with heme/onc (Dr Katharine Cantu) and pulm (Dr. 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 04/28/17 ordered showed: smal ant. Pericardial effusion with left pleural effusion noted. 04/30 c/o chest pressure. EKG on 04/27 read as A flutter. Appears to be sinus tachycardia. Repeat EKG shows sinus tach. - originally started on Lovenox for pres umed A flutter - NT ProBNP 411 - Echo (04/28): EF 55%, diastolic functio n not evaluated due to tachycardia, E/e' increased Unclear etiology. Possible diastolic dys function worsened by effusion. PLAN: - d/c Lovenox for now -cont telemetry - Lopressor 50mg bid Recent weight loss 04/29/2017 03/03/2018 Last Assessment & Plan: Assessment: Pt attributes this to not eating well and being on soups for past couple of weeks as advised by outside docs when she went to ED with cough - eats small frequent meals, although no t eating as much due to early satiety - h/o GERD PLAN: - Will consult nutrition - Suspect related to possible recurrent lymphoma - can restart PPI as well - supplements per RD Severe protein-calorie malnutrition 04/29/201702/17 Last Assessment & Plan: Weight loss: >10% in 6 months Energy intake: less than 75% energy inta ke compared to estimated needs for greater than or equal to 1 month - Nutrition consulted - Diet: Regular or as per primary - Supplements: Energy dense/high protein commercial supplement shake as per patient preference. SOB (shortness of breath) 04/28/2017 03/03/2018 Last Assessment & Plan: Assessment: C/o SOB with cough. Noted worsening of the pleural effusion and has known mediastinal lymphadenopathy. These sxs are concerning for recurrence of lymphoma. Other possibility is primary lung malignancy. Noted that pt never smoked. Patient had mild leukocytosis in ED. No fever which makes underlying pneumonia less likely. Recently treated for presumed pneumonia, she did not have significant improvement with Doxycycline. - SOB has improved but Pt continues to c /o of chest and epigastric pressure. Troponin -ve x 2, no signs of ischemia on EKG. - NT ProBNP 411 - Echo (04/28): EF 55%, diastolic functio n not evaluated due to tachycardia, E/e' increased - CXR 05/02: L pleural effusion slightly increased or redistributed. PLAN: - no s/s infection. remains afebrile and no leukocytosis -Pulmonary consulted and confirmed recom mendation for scheduled outpatient procedure: needle guided thoracentesis with bronch/LN biopsy for 05/04/2017 - confirmed with bronchoscopy suite that this is naina eduled for this afternoon. -incentive spirometry at bedside -BPH eval by RT ordered - outpatient follow up with heme/onc (Dr Katharine Cantu) and pulm (Dr. 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 04/28/17 ordered showed: smal ant. Pericardial effusion with left pleural effusion noted. 04/30 c/o chest pressure. EKG on 04/27 read as A flutter. Appears to be sinus tachycardia. Repeat EKG shows sinus tach. - originally started on Lovenox for pres umed A flutter - NT ProBNP 411 - Echo (04/28): EF 55%, diastolic functio n not evaluated due to tachycardia, E/e' increased Unclear etiology. Possible diastolic dys function worsened by effusion. PLAN: - d/c Lovenox for now -cont telemetry - Lopressor 50mg bid Recent weight loss 04/29/2017 03/03/2018 Last Assessment & Plan: Assessment: Pt attributes this to not eating well and being on soups for past couple of weeks as advised by outside docs when she went to ED with cough - eats small frequent meals, although no t eating as much due to early satiety - h/o GERD PLAN: - Will consult nutrition - Suspect related to possible recurrent lymphoma - can restart PPI as well - supplements per RD Severe protein-calorie malnutrition 04/29/201702/17 Last Assessment & Plan: Weight loss: >10% in 6 months Energy intake: less than 75% energy inta ke compared to estimated needs for greater than or equal to 1 month - Nutrition consulted - Diet: Regular or as per primary - Supplements: Energy dense/high protein commercial supplement shake as per patient preference. SOB (shortness of breath) 04/28/2017 03/03/2018 Last Assessment & Plan: Assessment: C/o SOB with cough. Noted worsening of the pleural effusion and has known mediastinal lymphadenopathy. These sxs are concerning for recurrence of lymphoma. Other possibility is primary lung malignancy. Noted that pt never smoked. Patient had mild leukocytosis in ED. No fever which makes underlying pneumonia less likely. Recently treated for presumed pneumonia, she did not have significant improvement with Doxycycline. - SOB has improved but Pt continues to c /o of chest and epigastric pressure. Troponin -ve x 2, no signs of ischemia on EKG. - NT ProBNP 411 - Echo (04/28): EF 55%, diastolic functio n not evaluated due to tachycardia, E/e' increased - CXR 05/02: L pleural effusion slightly increased or redistributed. PLAN: - no s/s infection. remains afebrile and no leukocytosis -Pulmonary consulted and confirmed recom mendation for scheduled outpatient procedure: needle guided thoracentesis with bronch/LN biopsy for 05/04/2017 - confirmed with bronchoscopy suite that this is naina eduled for this afternoon. -incentive spirometry at bedside -BPH eval by RT ordered - outpatient follow up with heme/onc (Dr Katharine Cantu) and pulm (Dr. 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 04/28/17 ordered showed: smal ant. Pericardial effusion with left pleural effusion noted. 04/30 c/o chest pressure. EKG on 04/27 read as A flutter. Appears to be sinus tachycardia. Repeat EKG shows sinus tach. - originally started on Lovenox for pres umed A flutter - NT ProBNP 411 - Echo (04/28): EF 55%, diastolic functio n not evaluated due to tachycardia, E/e' increased Unclear etiology. Possible diastolic dys function worsened by effusion. PLAN: - d/c Lovenox for now -cont telemetry - Lopressor 50mg bid Recent weight loss 04/29/2017 03/03/2018 Last Assessment & Plan: Assessment: Pt attributes this to not eating well and being on soups for past couple of weeks as advised by outside docs when she went to ED with cough - eats small frequent meals, although no t eating as much due to early satiety - h/o GERD PLAN: - Will consult nutrition - Suspect related to possible recurrent lymphoma - can restart PPI as well - supplements per RD Severe protein-calorie malnutrition 04/29/201702/17 Last Assessment & Plan: Weight loss: >10% in 6 months Energy intake: less than 75% energy inta ke compared to estimated needs for greater than or equal to 1 month - Nutrition consulted - Diet: Regular or as per primary - Supplements: Energy dense/high protein commercial supplement shake as per patient preference. SOB (shortness of breath) 04/28/2017 03/03/2018 Last Assessment & Plan: Assessment: C/o SOB with cough. Noted worsening of the pleural effusion and has known mediastinal lymphadenopathy. These sxs are concerning for recurrence of lymphoma. Other possibility is primary lung malignancy. Noted that pt never smoked. Patient had mild leukocytosis in ED. No fever which makes underlying pneumonia less likely. Recently treated for presumed pneumonia, she did not have significant improvement with Doxycycline. - SOB has improved but Pt continues to c /o of chest and epigastric pressure. Troponin -ve x 2, no signs of ischemia on EKG. - NT ProBNP 411 - Echo (04/28): EF 55%, diastolic functio n not evaluated due to tachycardia, E/e' increased - CXR 05/02: L pleural effusion slightly increased or redistributed. PLAN: - no s/s infection. remains afebrile and no leukocytosis -Pulmonary consulted and confirmed recom mendation for scheduled outpatient procedure: needle guided thoracentesis with bronch/LN biopsy for 05/04/2017 - confirmed with bronchoscopy suite that this is naina eduled for this afternoon. -incentive spirometry at bedside -BPH eval by RT ordered - outpatient follow up with heme/onc (Dr Katharine Cantu) and pulm (Dr. 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 04/28/17 ordered showed: smal ant. Pericardial effusion with left pleural effusion noted. 04/30 c/o chest pressure. EKG on 04/27 read as A flutter. Appears to be sinus tachycardia. Repeat EKG shows sinus tach. - originally started on Lovenox for pres umed A flutter - NT ProBNP 411 - Echo (04/28): EF 55%, diastolic functio n not evaluated due to tachycardia, E/e' increased Unclear etiology. Possible diastolic dys function worsened by effusion. PLAN: - d/c Lovenox for now -cont telemetry - Lopressor 50mg bid Recent weight loss 04/29/2017 03/03/2018 Last Assessment & Plan: Assessment: Pt attributes this to not eating well and being on soups for past couple of weeks as advised by outside docs when she went to ED with cough - eats small frequent meals, although no t eating as much due to early satiety - h/o GERD PLAN: - Will consult nutrition - Suspect related to possible recurrent lymphoma - can restart PPI as well - supplements per RD Severe protein-calorie malnutrition 04/29/201702/17 Last Assessment & Plan: Weight loss: >10% in 6 months Energy intake: less than 75% energy inta ke compared to estimated needs for greater than or equal to 1 month - Nutrition consulted - Diet: Regular or as per primary - Supplements: Energy dense/high protein commercial supplement shake as per patient preference. SOB (shortness of breath) 04/28/2017 03/03/2018 Last Assessment & Plan: Assessment: C/o SOB with cough. Noted worsening of the pleural effusion and has known mediastinal lymphadenopathy. These sxs are concerning for recurrence of lymphoma. Other possibility is primary lung malignancy. Noted that pt never smoked. Patient had mild leukocytosis in ED. No fever which makes underlying pneumonia less likely. Recently treated for presumed pneumonia, she did not have significant improvement with Doxycycline. - SOB has improved but Pt continues to c /o of chest and epigastric pressure. Troponin -ve x 2, no signs of ischemia on EKG. - NT ProBNP 411 - Echo (04/28): EF 55%, diastolic functio n not evaluated due to tachycardia, E/e' increased - CXR 05/02: L pleural effusion slightly increased or redistributed. PLAN: - no s/s infection. remains afebrile and no leukocytosis -Pulmonary consulted and confirmed recom mendation for scheduled outpatient procedure: needle guided thoracentesis with bronch/LN biopsy for 05/04/2017 - confirmed with bronchoscopy suite that this is naina eduled for this afternoon. -incentive spirometry at bedside -BPH eval by RT ordered - outpatient follow up with heme/onc (Dr Katharine Cantu) and pulm (Dr. 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 04/28/17 ordered showed: smal ant. Pericardial effusion with left pleural effusion noted. 04/30 c/o chest pressure. EKG on 04/27 read as A flutter. Appears to be sinus tachycardia. Repeat EKG shows sinus tach. - originally started on Lovenox for pres umed A flutter - NT ProBNP 411 - Echo (04/28): EF 55%, diastolic functio n not evaluated due to tachycardia, E/e' increased Unclear etiology. Possible diastolic dys function worsened by effusion. PLAN: - d/c Lovenox for now -cont telemetry - Lopressor 50mg bid Recent weight loss 04/29/2017 03/03/2018 Last Assessment & Plan: Assessment: Pt attributes this to not eating well and being on soups for past couple of weeks as advised by outside docs when she went to ED with cough - eats small frequent meals, although no t eating as much due to early satiety - h/o GERD PLAN: - Will consult nutrition - Suspect related to possible recurrent lymphoma - can restart PPI as well - supplements per RD Severe protein-calorie malnutrition 04/29/201702/17 Last Assessment & Plan: Weight loss: >10% in 6 months Energy intake: less than 75% energy inta ke compared to estimated needs for greater than or equal to 1 month - Nutrition consulted - Diet: Regular or as per primary - Supplements: Energy dense/high protein commercial supplement shake as per patient preference. SOB (shortness of breath) 04/28/2017 03/03/2018 Last Assessment & Plan: Assessment: C/o SOB with cough. Noted worsening of the pleural effusion and has known mediastinal lymphadenopathy. These sxs are concerning for recurrence of lymphoma. Other possibility is primary lung malignancy. Noted that pt never smoked. Patient had mild leukocytosis in ED. No fever which makes underlying pneumonia less likely. Recently treated for presumed pneumonia, she did not have significant improvement with Doxycycline. - SOB has improved but Pt continues to c /o of chest and epigastric pressure. Troponin -ve x 2, no signs of ischemia on EKG. - NT ProBNP 411 - Echo (04/28): EF 55%, diastolic functio n not evaluated due to tachycardia, E/e' increased - CXR 05/02: L pleural effusion slightly increased or redistributed. PLAN: - no s/s infection. remains afebrile and no leukocytosis -Pulmonary consulted and confirmed recom mendation for scheduled outpatient procedure: needle guided thoracentesis with bronch/LN biopsy for 05/04/2017 - confirmed with bronchoscopy suite that this is naina eduled for this afternoon. -incentive spirometry at bedside -BPH eval by RT ordered - outpatient follow up with heme/onc (Dr Katharine Cantu) and pulm (Dr. 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 04/28/17 ordered showed: smal ant. Pericardial effusion with left pleural effusion noted. 04/30 c/o chest pressure. EKG on 04/27 read as A flutter. Appears to be sinus tachycardia. Repeat EKG shows sinus tach. - originally started on Lovenox for pres umed A flutter - NT ProBNP 411 - Echo (04/28): EF 55%, diastolic functio n not evaluated due to tachycardia, E/e' increased Unclear etiology. Possible diastolic dys function worsened by effusion. PLAN: - d/c Lovenox for now -cont telemetry - Lopressor 50mg bid Recent weight loss 04/29/2017 03/03/2018 Last Assessment & Plan: Assessment: Pt attributes this to not eating well and being on soups for past couple of weeks as advised by outside docs when she went to ED with cough - eats small frequent meals, although no t eating as much due to early satiety - h/o GERD PLAN: - Will consult nutrition - Suspect related to possible recurrent lymphoma - can restart PPI as well - supplements per RD Severe protein-calorie malnutrition 04/29/201702/17 Last Assessment & Plan: Weight loss: >10% in 6 months Energy intake: less than 75% energy inta ke compared to estimated needs for greater than or equal to 1 month - Nutrition consulted - Diet: Regular or as per primary - Supplements: Energy dense/high protein commercial supplement shake as per patient preference. SOB (shortness of breath) 04/28/2017 03/03/2018 Last Assessment & Plan: Assessment: C/o SOB with cough. Noted worsening of the pleural effusion and has known mediastinal lymphadenopathy. These sxs are concerning for recurrence of lymphoma. Other possibility is primary lung malignancy. Noted that pt never smoked. Patient had mild leukocytosis in ED. No fever which makes underlying pneumonia less likely. Recently treated for presumed pneumonia, she did not have significant improvement with Doxycycline. - SOB has improved but Pt continues to c /o of chest and epigastric pressure. Troponin -ve x 2, no signs of ischemia on EKG. - NT ProBNP 411 - Echo (04/28): EF 55%, diastolic functio n not evaluated due to tachycardia, E/e' increased - CXR 05/02: L pleural effusion slightly increased or redistributed. PLAN: - no s/s infection. remains afebrile and no leukocytosis -Pulmonary consulted and confirmed recom mendation for scheduled outpatient procedure: needle guided thoracentesis with bronch/LN biopsy for 05/04/2017 - confirmed with bronchoscopy suite that this is naina eduled for this afternoon. -incentive spirometry at bedside -BPH eval by RT ordered - outpatient follow up with heme/onc (Dr Katharine Cantu) and pulm (Dr. 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 04/28/17 ordered showed: smal ant. Pericardial effusion with left pleural effusion noted. 04/30 c/o chest pressure. EKG on 04/27 read as A flutter. Appears to be sinus tachycardia. Repeat EKG shows sinus tach. - originally started on Lovenox for pres umed A flutter - NT ProBNP 411 - Echo (04/28): EF 55%, diastolic functio n not evaluated due to tachycardia, E/e' increased Unclear etiology. Possible diastolic dys function worsened by effusion. PLAN: - d/c Lovenox for now -cont telemetry - Lopressor 50mg bid Recent weight loss 04/29/2017 03/03/2018 Last Assessment & Plan: Assessment: Pt attributes this to not eating well and being on soups for past couple of weeks as advised by outside docs when she went to ED with cough - eats small frequent meals, although no t eating as much due to early satiety - h/o GERD PLAN: - Will consult nutrition - Suspect related to possible recurrent lymphoma - can restart PPI as well - supplements per RD Severe protein-calorie malnutrition 04/29/201702/17 Last Assessment & Plan: Weight loss: >10% in 6 months Energy intake: less than 75% energy inta ke compared to estimated needs for greater than or equal to 1 month - Nutrition consulted - Diet: Regular or as per primary - Supplements: Energy dense/high protein commercial supplement shake as per patient preference. SOB (shortness of breath) 04/28/2017 03/03/2018 Last Assessment & Plan: Assessment: C/o SOB with cough. Noted worsening of the pleural effusion and has known mediastinal lymphadenopathy. These sxs are concerning for recurrence of lymphoma. Other possibility is primary lung malignancy. Noted that pt never smoked. Patient had mild leukocytosis in ED. No fever which makes underlying pneumonia less likely. Recently treated for presumed pneumonia, she did not have significant improvement with Doxycycline. - SOB has improved but Pt continues to c /o of chest and epigastric pressure. Troponin -ve x 2, no signs of ischemia on EKG. - NT ProBNP 411 - Echo (04/28): EF 55%, diastolic functio n not evaluated due to tachycardia, E/e' increased - CXR 05/02: L pleural effusion slightly increased or redistributed. PLAN: - no s/s infection. remains afebrile and no leukocytosis -Pulmonary consulted and confirmed recom mendation for scheduled outpatient procedure: needle guided thoracentesis with bronch/LN biopsy for 05/04/2017 - confirmed with bronchoscopy suite that this is naina eduled for this afternoon. -incentive spirometry at bedside -BPH eval by RT ordered - outpatient follow up with heme/onc (Dr Katharine Cantu) and pulm (Dr. 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 04/28/17 ordered showed: smal ant. Pericardial effusion with left pleural effusion noted. 04/30 c/o chest pressure. EKG on 04/27 read as A flutter. Appears to be sinus tachycardia. Repeat EKG shows sinus tach. - originally started on Lovenox for pres umed A flutter - NT ProBNP 411 - Echo (04/28): EF 55%, diastolic functio n not evaluated due to tachycardia, E/e' increased Unclear etiology. Possible diastolic dys function worsened by effusion. PLAN: - d/c Lovenox for now -cont telemetry - Lopressor 50mg bid Recent weight loss 04/29/2017 03/03/2018 Last Assessment & Plan: Assessment: Pt attributes this to not eating well and being on soups for past couple of weeks as advised by outside docs when she went to ED with cough - eats small frequent meals, although no t eating as much due to early satiety - h/o GERD PLAN: - Will consult nutrition - Suspect related to possible recurrent lymphoma - can restart PPI as well - supplements per RD Severe protein-calorie malnutrition 04/29/201702/17 Last Assessment & Plan: Weight loss: >10% in 6 months Energy intake: less than 75% energy inta ke compared to estimated needs for greater than or equal to 1 month - Nutrition consulted - Diet: Regular or as per primary - Supplements: Energy dense/high protein commercial supplement shake as per patient preference. SOB (shortness of breath) 04/28/2017 03/03/2018 Last Assessment & Plan: Assessment: C/o SOB with cough. Noted worsening of the pleural effusion and has known mediastinal lymphadenopathy. These sxs are concerning for recurrence of lymphoma. Other possibility is primary lung malignancy. Noted that pt never smoked. Patient had mild leukocytosis in ED. No fever which makes underlying pneumonia less likely. Recently treated for presumed pneumonia, she did not have significant improvement with Doxycycline. - SOB has improved but Pt continues to c /o of chest and epigastric pressure. Troponin -ve x 2, no signs of ischemia on EKG. - NT ProBNP 411 - Echo (04/28): EF 55%, diastolic functio n not evaluated due to tachycardia, E/e' increased - CXR 05/02: L pleural effusion slightly increased or redistributed. PLAN: - no s/s infection. remains afebrile and no leukocytosis -Pulmonary consulted and confirmed recom mendation for scheduled outpatient procedure: needle guided thoracentesis with bronch/LN biopsy for 05/04/2017 - confirmed with bronchoscopy suite that this is naina eduled for this afternoon. -incentive spirometry at bedside -BPH eval by RT ordered - outpatient follow up with heme/onc (Dr Katharine Cantu) and pulm (Dr. 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 on Advance Directive(s) 04/27/2017 9:05 PM Advance Directive(s) 05/18/2017 11:31 AM Advance Directive(s) 12/27/2018 8:24 AM Advance Directive(s) 01/11/2019 1:15 PM Advance Directive(s) 01/17/2019 10:24 AM Advance Directive(s) 02/28/2019 2:43 PM Summary Purpose Family History No Family History Records FoundNo Family History Records Found Reason for Referral Status Reason Specialty Diagnoses / Referred By Referred To Procedures Contact Contact Pending PCP Requested Endocrinology Diagnoses Tachycardia Hyperthyroidism Angelo Cantu Review Referral Procedures CONSULT TO ENDOCRINOLOGY NEW PATIENT VISIT LEVEL [address] [place] [id number] Assessments Diagnosis Tachycardia - Primary Tachycardia, unspecified Hyperthyroidism Thyrotoxicosis without mention of goiter or other cause, without mention of thyrotoxic crisis or storm Diagnosis 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 - Primary Diagnosis Diffuse large B-cell lymphoma of lymph n odes of neck (HCC) - Primary Diagnosis Diffuse large B-cell lymphoma of lymph n odes of neck (HCC) - Primary Malaise and fatigue Other malaise and fatigue Abnormal weight loss Loss of weight Urgency of urination Diagnosis Hospital discharge follow-up - Primary Other follow-up examination Need for vaccination Need for prophylactic vaccination and in oculation against unspecified single disease 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 History of lymphoma Personal history of other lymphatic and hematopoietic neoplasm Diffuse large B-cell lymphoma of lymph n odes of neck (HCC) Diagnosis Hypotension, unspecified hypotension typ e - Primary Diagnosis Diffuse large B-cell lymphoma of lymph n odes of neck (HCC) - Primary Peptic ulcer Peptic ulcer, unspecified site, unspecif ied as acute or chronic, without mention of hemorrhage, perforation, or obstruction Weakness Other malaise and fatigue Severe protein-calorie malnutrition (HCC ) Other severe protein-calorie malnutritio n Hypokalemia Hypopotassemia Diagnosis Diffuse large B-cell lymphoma of lymph n odes of neck (HCC) - Primary Diagnosis History of lymphoma - Primary Personal history of other lymphatic and hematopoietic neoplasm History of Present Illness Zainab Miranda, RN, RN - 05/29/2020 10:10 AM EDTPatient is here for IVAD port flush/blood draw per [facility] protocol. IVAD is located in left upper chest. Site cleansed with Chloraprep IVAD accessed with a #20 gauge 3/4 non-coring Gripper needle Flush with 5cc's Normal Saline. Blood Return: Good. 10 cc's blood aspirated and discarded. Blood drawn for CBC, CMP, LDH and uric acid. Flushed with: 20 ml Normal Saline and 5 ml Heparin Lock Flush. Non-coring needle removed. Paper tape/ gauze applied to puncture site. Site negative for redness, edema or tenderness. Patient tolerated procedure well. documented in this encounterLunAngelo - 05/29/2020 10:39 AM EDT PATIENT NAME: Sheri Robin. CLINIC NO: [id number]. ATTENDING PHYSICIAN: Angelo Cantu MD. ?? DATE OF SERVICE: 05/29/2020 ?? DIAGNOSIS: Stage II,?diffuse large B-cell?(non-germinal center)?lymphoma of the neck and upper mediastinum.?Previous history of marginal cell lymphoma. ? CHIEF COMPLAINT: Abdominal pain and constipation. Anorexia and weight loss. HPI: Sheri Robin is a 79?year old female who presents here today for?SCP/lymphoma.? ? 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 ? CHIEF COMPLAINT:??Fatigue, generalized weakness,?right shoulder pain. ? 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 HPI: Mrs. 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 Patient had 6 cycles of chemotherapy with CHOP - . Patientwas in complete remission by CT criteria?after?completing?4 cycles of chemotherapy. ?? She presented with a nodule on her right lower eyelid for couple months. It is not painful and therehas no changes in her vision. She saw Dr. Mayra nieto was referred to Dr. Cordova for evaluation. ACT scan of the orbit showed a soft tissue mass on her right anterior orbital mass consistent with lymphoma. ?? Excisional biopsy of the right orbital mass on 01/08/14 was consistent with low- grade B-cell lymphoma. ?? Patient completed radiation therapy for a low-grade marginal zone lymphoma of the right orbit in 2013. She was never diagnosed with Sjogren. She was seen by ophthalmology and there is no evidence of cataracts or recurrent lymphoma. ?? She presented with pneumonia and a left pleural effusion. Pneumonia resolves and left pleural effusion appear to be improving when she saw Dr. Howard in April 2016. She had no further follow-up with pulmonary medicine after that visit. ?? The?patient was in the emergency room last month?because of cough and pleuritic chest pain?in 2017. Patient also has shortness of breath and went to the emergency room for evaluation of pulmonary embolism. ?CT scan showed?a recurrent left pleural effusion with adenopathies?in his mediastinum, hilar, axilla regions. Transbronchial ultrasound guided biopsy of the mediastinal lymph node and left pleuralfluid were positive for marginal cell lymphoma by flow cytometry studies. ?? Previous?chemotherapy?treatment: Follicular B-cell lymphoma- CHOP x 6 (1997 ) in CR Marginal zone B-cell lymphoma?-?Rituximab &?bendamustine?( 06/05- 01/04 ) in CR Rituximab?-CHOP?&?Neulasta x?4?cycles in CR by PET scan? Consolidation radiation to the involved field of disease?(completed on?06/26/2019) ? Current treatment:??rituximab and?polatuzumab vedotin? ? Interim history:??was submitted to the hospital 2 weeks ago for acute cholecystitis. She had a laparoscopic cholecystectomy and was discharged home last week. Since she went home, she has beenon a liquid diet which was advanced this weekend. After she started regular diet, patient has abdominal pain and constipation. She finally had a bowel movement yesterday. She denies fever, chills, cough or shortness of breath. No urinary symptoms. She has generalized weakness, fatigue and she appeareddehydrated today. All medications & allergies updated and reviewed by me. ?? REVIEW OF SYSTEMS: CONSTITUTIONAL: No fevers, chills, or nightsweats, unintended weight loss?+?fatigue HEENT: Denies frequent or severe heaches, nasal congestion/sinus symptoms, problematic allergy problems. EYES: No diplopia or blurry vision. CARDIOVASCULAR: No chest pain, dyspnea, palpitations, orthopnea, PND, ankle edema. PULM: No dyspnea, unexplained cough. GI: No dysphagia/odynophagia, problematic reflux, constipation, diarrhea, changes in stool habits, hematochezia, melena. : No new urinary complaints, including dysuria, gross hematuria or pyuria. NEURO: No new balance problems, peripheral weakness/paresthesias or numbness of concern. MUSC-SKEL: No new joint pain, swelling, or erythema. PSY: No concerns regarding depression, anxiety or panic. INTEGUMENTARY: No new skin changes (rash, new or changing mole, new growth) ?? PHYSICAL EXAMINATION: 79-year-old somewhat cachectic female in mild distress Performance status?60% BP 103/58 Pulse 68 Temp (Src) 98.3 (Temporal) Wt 104 lb (47.2kg) HEENT: Head is normocephalic, atraumatic. Sclerae white, conjunctivae pink. PEERL. EOMs are intact..Oropharynx is benign.? LYMPHATICS: There is??no palpable cervical, axillary or inguinal adenopathy.? LUNGS:?Clear to auscultation;?no wheezing HEART: Sinus rhythm,?without murmurs, gallops, or rubs. ABDOMEN: Soft and nontender without splenomegaly. Normal bowel sounds. No masses can be palpated. EXTREMITIES: Are?no?edema NEUROLOGIC: Exam is physiologic;??decreased sensation of lower extremity, DTR intact ?? LABS:? Component Latest Ref Rng & Units 05/29/2020 WBC 3.70 - 11.00 k/uL 9.16 RBC 3.90 - 5.20 m/uL 4.18 Hemoglobin 11.5 - 15.5 g/dL 12.9 Hematocrit 36.0 - 46.0 % 39.6 MCV 80.0 - 100.0 fL 94.7 MCH 26.0 - 34.0 pG 30.9 MCHC 30.5 - 36.0 g/dL 32.6 RDW-CV 11.5 - 15.0 % 13.8 Platelet Count 150 - 400 k/uL 362 MPV 9.0 - 12.7 fL 10.2 Neut% % 82.5 Abs Neut (ANC) 1.45 - 7.50 k/uL 7.56 (H) Lymph% % 6.0 Abs Lymph 1.00 - 4.00 k/uL 0.55 (L) [place]% % 9.[address] [place] <0.87 k/uL 0.86 Eosin% % 1.3 Abs Eosin <0.46 k/uL 0.12 Baso% % 0.8 Abs Baso <0.11 k/uL 0.07 Nucleated Reds 0 /100 WBC 0.0 Absolute nRBC <0.01 k/uL <0.01 Diff Type Auto Diff Component Latest Ref Rng & Units 05/29/2020 Protein, Total 6.3 - 8.0 g/dL 6.2 (L) Albumin 3.9 - 4.9 g/dL 3.8 (L) Calcium 8.5 - 10.2 mg/dL 9.6 Bilirubin, Total 0.2 - 1.3 mg/dL 0.7 Alkaline Phosphatase 34 - 123 U/L 92 AST 13 - 35 U/L 16 Glucose 74 - 99 mg/dL 186 (H) BUN 7 - 21 mg/dL 6 (L) Creatinine 0.58 - 0.96 mg/dL 0.45 (L) Sodium 136 - 144 mmol/L 139 Potassium 3.7 - 5.1 mmol/L 3.2 (L) Chloride 97 - 105 mmol/L 100 CO2 22 - 30 mmol/L 31 (H) Anion Gap 9 - 18 mmol/L 8 (L) ALT 7 - 38 U/L 8 eGFR- >60 eGFR-All Other Races . >60 LD 135 - 214 U/L 186 Uric Acid 2.5 - 6.6 mg/dL 2.5 Magnesium 1.7 - 2.3 mg/dL 1.5 (L) Component Latest Ref Rng & Units 05/29/2020 Color Yellow Light Yellow (A) Clarity Clear Clear Glucose, Urine Negative mg/dL Negative Bilirubin, Urine Negative Negative Ketones, Urine Negative Trace (A) Specific Douglas, Ur 1.005 - 1.030 1.010 Hemoglobin/Blood,Ur Negative Negative pH, Urine 5.0 - 8.0 7.0 Protein, Urine Negative Negative Urobilinogen Negative E.U./dL Negative Nitrites Negative Negative Leukest Negative Negative Comment SEE COMMENT Urine Ubaldo Comment SEE COMMENT WBC, Urine 0 - 5 /HPF 0-5 RBC, Urine 0 - 3 /HPF 0-3 Cast 0 /LPF SEE COMMENT (A) ? ? Assessment/Plan: 1)?diffuse large B-cell lymphoma -?Recurrent?diffuse large B-cell?(non-germinal center)?lymphoma - Clinically in complete remission with treatment. Plan: -?Hold?rituximab and polatuzumab vedotin??tomorrow - Resume?Acyclovir 400?mg?twice daily for herpetic prophylaxis next week -?Repeat CT scan of chest, abdomen, pelvis after her fourth cycle of chemotherapy ? 2)???chronic dyspnea possible secondary to emphysema and deconditioning? -?Stable Plan: -?Monitor her symptoms on Synthroid. - Repeat TSH & free T4 ? 3)?abdominal pain from recent cholecystectomy -Non-acute abdomen today. -Constipation improved with stool softener or laxative. Plan: -?IV hydration and electrolyte replacement today. - Check UA for possible urinary tract infection. - Continue stool softener and laxative as needed for constipation - Resume full liquid diet and advance slowly per Dr. White. - Follow up with surgery next week. I spent 25 minutes in the visit, with more than 50% of the total [id number] time of the visit in counseling / coordination of care. ? Angelo Cantu MD Cc: Dr. Yoav Garces, III documented in this encounterFrancisco J Garces III - 06/05/2020 11:11 AM EDT SUBJECTIVE: This is a 79 year old female that is here today for 1. hospital follow up. Cholecystectomy 05/13/20. Hospital and Dr White records reviewed 2. B cell lymphoma--too weak to start chemo at this time 3. weak with 40 lb wt loss. Eats 2-3 times/day, drinks little. Post prandial L abd cramping that limits eating. Daily colace with BM every 1-2 days. 4. kitchen is in basement--much difficulty doing stairs due to weakness, but no fall. Current Outpatient Medications on File Prior to Visit Medication Sig ? levothyroxine (SYNTHROID) 50 mcg tablet Take 1 tablet by mouth once daily. Take on empty stomach. For Thyroid. ? mv-min/folic/vit [id number] (ALIVE WOMEN'S 50 PLUS, BLEND, ORAL) Take 1 tablet by mouth once daily. ? prochlorperazine (COMPAZINE) 10 mg tablet Take 1 tablet by mouth every 6 hours as needed. ? allopurinol (ZYLOPRIM) 300 mg tablet Take 1 tablet by mouth once daily. X 7 days before starting chemotherapy treament. ? famotidine (PEPCID) 20 mg tablet Take 20 mg by mouth once daily. ? acetaminophen (TYLENOL EXTRA STRENGTH) 500 mg tablet Take 500 mg by mouth every 8 hours as needed. ? Lactobacillus acidophilus (PROBIOTIC ORAL) Take 1 capsule by mouth once daily. ? tamsulosin ER (FLOMAX) 0.4 mg cap Take 1 capsule by mouth once daily. ? loratadine (CLARITIN) 10 mg tablet Take 10 mg by mouth once daily. ? heparin 100 unit/mL injection Access implanted vascular access device (IVAD) as needed for flush, blood draw or treatment. Before de-accessing port, flush with 10-20ml normal saline and follow with 5mL heparin (100 units/mL) (if no heparin allergy). De-access port on treatment completion. ? POLYVINYL ALCOHOL/POVIDONE (ARTIFICIAL TEARS OPHTHALMIC) Use 1 Drop in eyes every hour as needed. ? docusate sodium (COLACE) 100 mg capsule Take 1 capsule by mouth twice daily as needed. Current Facility-Administered Medications on File Prior to Visit Medication ? PHARMACY COMMUNICATION PATIENT ASSISTANCE/WHITE BAG SUPPLIED DRUG ? heparin 100 unit/mL 200-500 Units injection PAST MEDICAL HISTORY Diagnosis Date ? Age-related osteoporosis without current pathological fracture 07/24/2018 ? Arthritis of left hip 08/30/2018 ? B-cell lymphoma (HCC) 01/2014 Right eyelid biopsy. Bone marrow negative. ? GERD (gastroesophageal reflux disease) ? Glaucoma ? Hyperlipidemia ? Hypothyroidism ? IBS (irritable bowel syndrome) ? Kidney stone ? Lymphoma (HCC) 1999 Lymph nodes. Bone marrow positive. ? Mitral valve prolapse ? Osteopenia FAMILY HISTORY Problem Relation Age of Onset ? Cataract Mother ? Cancer Sister ? Cancer Sister 2nd sister, unknown type ? Emphysema Father ? other (Stomach) Father ? Cancer Maternal Aunt ? Allergies No Family History ? Asthma No Family History Social History Tobacco Use ? Smoking status: Never Smoker ? Smokeless tobacco: Never Used ? Tobacco comment: Father smoked in childhood home, quit shortly after patient . Substance Use Topics ? Alcohol use: No ? Drug use: No BP 97/67 Pulse 112 Resp 16 OBJECTIVE: APPEARANCE Well appearing, alert, in no acute distress, well-hydrated, well nourished., Thin, Wheelchair and weak. Needs 2 assist to stand up from wheelchair and to walk to get weight NECK Supple, no adenopathy; thyroid symmetric, normal size, no bruits HEART RRR with normal S1 and S2, no murmurs, no gallops, no JVD appreciated LUNG clear to auscultation ABDOMEN surgical wounds healing well. soft, non-distended, without organomegaly or palpable masses, tenderness to palpation L abd. NEURO Awake, alert and oriented x 3 and No involuntary motions. ASSESSMENT: calorie and protein malnutrition post op abd pain B cell lymphoma hypothyroidism-well controlled PLAN: increase food and liquid intake--snacks every 2-3 hrs try to increase protein in diet use colace w/o stimulant use colace with 6-8 oz water daily observe bladder symptoms and BP off of tamsulosin/flomax return to office 1 mo. 30 min visit-->50% discussing diet and strategies to increase food/calorie and water intake Francisco J Garces III MD documented in this encounterJulissa Sampson (Tari) - 06/27/2020 9:52 AM EDTSocial Work Problem Referral Note INFORMATION/REFERRAL : Sheri Robin 79 year old female was [facility] by physician - Dr[facility] for the following reason(s): homecare services PERSONS INTERVIEWED: patient INTERVENTION: Team Meeting and Information & Referral Service Co-ordination Affect/Mood: The patient is noted as fatigued IDENTIFIED PROBLEMS/NEEDS: Continue to assess/collaborate Home health/DME Intervention/Referral to be provided:Information for community resources/agencies IMPRESSION/PLAN: TARI met with patient on this day to discuss home care needs. Patient reports she is very weak and continues losing weight. She has peptic ulcers, which make it difficult for her to eat.She is being treated for this, but states she is still symptomatic at this time. Patient reports hertreatment is on hold until her stomach issues improve. Dr. Cantu put in orders for home PT, OT and nutrition consult. TARI faxed this, along with demographic and insurance information, to [facility]. Patient informed that [facility] should be reaching out to her. Patient denies other needs at this time. F/U APPOINTMENT: ALESIA Mckay documented in this encounterAngelo Cantu - 06/27/2020 9:11 AM EDT PATIENT NAME: Sheri Robin. CLINIC NO: [id number]. ATTENDING PHYSICIAN: Angelo Cantu MD. ?? DATE OF SERVICE: 06/26/2020 ?? 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 history of marginal cell lymphoma. ? CHIEF COMPLAINT: Abdominal pain. Anorexia and weight loss. ? HPI: Sheri Robin is a 79?year old female who presents here today for?SCP/lymphoma.? ? 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 ? CHIEF COMPLAINT:??Fatigue, generalized weakness,?right shoulder pain. ? 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 HPI: Mrs. 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 Patient had 6 cycles of chemotherapy with CHOP - . Patientwas in complete remission by CT criteria?after?completing?4 cycles of chemotherapy. ?? She presented with a nodule on her right lower eyelid for couple months. It is not painful and therehas no changes in her vision. She saw Dr. Nunez andjazmine was referred to Dr. Cordova for evaluation. ACT scan of the orbit showed a soft tissue mass on her right anterior orbital mass consistent with lymphoma. ?? Excisional biopsy of the right orbital mass on 01/08/14 was consistent with low- grade B-cell lymphoma. ?? Patient completed radiation therapy for a low-grade marginal zone lymphoma of the right orbit in 2013. She was never diagnosed with Sjogren. She was seen by ophthalmology and there is no evidence of cataracts or recurrent lymphoma. ?? She presented with pneumonia and a left pleural effusion. Pneumonia resolves and left pleural effusion appear to be improving when she saw Dr. Howard in April 2016. She had no further follow-up with pulmonary medicine after that visit. ?? The?patient was in the emergency room last month?because of cough and pleuritic chest pain?in 2017. Patient also has shortness of breath and went to the emergency room for evaluation of pulmonary embolism. ?CT scan showed?a recurrent left pleural effusion with adenopathies?in his mediastinum, hilar, axilla regions. Transbronchial ultrasound guided biopsy of the mediastinal lymph node and left pleuralfluid were positive for marginal cell lymphoma by flow cytometry studies. ?? Previous?chemotherapy?treatment: Follicular B-cell lymphoma- CHOP x 6 (1997 ) in CR Marginal zone B-cell lymphoma?-?Rituximab &?bendamustine?( 06/05- 01/04 ) in CR Rituximab?-CHOP?&?Neulasta x?4?cycles in CR by PET scan? Consolidation radiation to the involved field of disease?(completed on?06/26/2019) ? Current treatment:??rituximab and?polatuzumab vedotin?x 3 cycles ( 03/14/20 - 05/28/20 ) [place] ? Interim history:??She had a laparoscopic cholecystectomy and was discharged home last months for foracute cholecystitis. Continue have progressive weight loss, anorexia and postprandial pain. She had upper endoscopy and colonoscopy this week and she has peptic ulcer disease. She was on Carafate and now she is on Prilosec 20mg twice daily, She denies fever, chills, cough or shortness of breath. No urinary symptoms. She has generalized weakness and fatigue. No diarrhea or constipation. ? All medications & allergies updated and reviewed by me. ?? REVIEW OF SYSTEMS: CONSTITUTIONAL: No fevers, chills, or nightsweats, unintended weight loss?+?fatigue HEENT: Denies frequent or severe heaches, nasal congestion/sinus symptoms, problematic allergy problems. EYES: No diplopia or blurry vision. CARDIOVASCULAR: No chest pain, dyspnea, palpitations, orthopnea, PND, ankle edema. PULM: No dyspnea, unexplained cough. GI: No dysphagia/odynophagia, problematic reflux, constipation, diarrhea, changes in stool habits, hematochezia, melena. : No new urinary complaints, including dysuria, gross hematuria or pyuria. NEURO: No new balance problems, peripheral weakness/paresthesias or numbness of concern. MUSC-SKEL: No new joint pain, swelling, or erythema. PSY: No concerns regarding depression, anxiety or panic. INTEGUMENTARY: No new skin changes (rash, new or changing mole, new growth) ?? PHYSICAL EXAMINATION: 79-year-old somewhat cachectic female in no acute distress Performance status?70% BP 97/66 Pulse 113 Temp (Src) 98 (Temporal) Wt 100 lb 8 oz (45.6kg) SpO2 95% HEENT: Head is normocephalic, atraumatic. Sclerae white, conjunctivae pink. PEERL. EOMs are intact..Oropharynx is benign.? LYMPHATICS: There is??no palpable cervical,?axillary or inguinal?adenopathy.? LUNGS:?Clear to auscultation;?no wheezing HEART: Sinus rhythm,?without murmurs, gallops, or rubs. ABDOMEN: Soft and nontender without splenomegaly. Normal bowel sounds. No masses can be palpated. EXTREMITIES: Are?no?edema NEUROLOGIC: Exam is physiologic;??decreased sensation of lower extremity, DTR?intact ?? LABS:? Component Latest Ref Rng & Units 06/27/2020 WBC 3.70 - 11.00 k/uL 5.08 RBC 3.90 - 5.20 m/uL 3.94 Hemoglobin 11.5 - 15.5 g/dL 11.9 Hematocrit 36.0 - 46.0 % 36.1 MCV 80.0 - 100.0 fL 91.6 MCH 26.0 - 34.0 pG 30.2 MCHC 30.5 - 36.0 g/dL 33.0 RDW-CV 11.5 - 15.0 % 14.0 Platelet Count 150 - 400 k/uL 299 MPV 9.0 - 12.7 fL 9.9 Neut% % 77.9 Abs Neut (ANC) 1.45 - 7.50 k/uL 3.94 Lymph% % 6.7 Abs Lymph 1.00 - 4.00 k/uL 0.34 (L) [place]% % 13.[address] [place] <0.87 k/uL 0.66 Eosin% % 1.6 Abs Eosin <0.46 k/uL 0.08 Baso% % 0.8 Abs Baso <0.11 k/uL 0.04 Nucleated Reds 0 /100 WBC 0.0 Absolute nRBC <0.01 k/uL <0.01 Diff Type Auto Diff Component Latest Ref Rng & Units 06/27/2020 Protein, Total 6.3 - 8.0 g/dL 5.4 (L) Albumin 3.9 - 4.9 g/dL 3.1 (L) Calcium 8.5 - 10.2 mg/dL 9.0 Bilirubin, Total 0.2 - 1.3 mg/dL 1.2 Alkaline Phosphatase 34 - 123 U/L 86 AST 13 - 35 U/L 20 Glucose 74 - 99 mg/dL 187 (H) BUN 7 - 21 mg/dL 6 (L) Creatinine 0.58 - 0.96 mg/dL 0.48 (L) Sodium 136 - 144 mmol/L 137 Potassium 3.7 - 5.1 mmol/L 2.1 (LL) Chloride 97 - 105 mmol/L 95 (L) CO2 22 - 30 mmol/L 38 (H) Anion Gap 9 - 18 mmol/L 4 (L) ALT 7 - 38 U/L 8 eGFR- >60 eGFR-All Other Races . >60 LD 135 - 214 U/L 275 (H) Uric Acid 2.5 - 6.6 mg/dL 2.7 ? Assessment/Plan: 1)?diffuse large B-cell lymphoma -?Recurrent?diffuse large B-cell?(non-germinal center)?lymphoma - Clinically in complete remission with treatment. Plan: -?Repeat PET/CT scan for restaging of Lymphoma - CBC, CMP & LDH OV in 1 month - Possible resume Rituxan 375mg/m2 maintanance IV every 2 months if in CR. ? 2)???chronic dyspnea possible secondary to emphysema and deconditioning? -?Stable Plan: -?Monitor?her symptoms on Synthroid 50 mcg daily -?Repeat TSH & free T4 ?next tmonth ? 3)?abdominal pain from PUD - biopsy showed no lymphoma - recent cholecystectomy Plan: -?Continue Prilosec 20mg twice daily - Colace as needed 4) debility -generalized weakness Plan - Refer to home health and home PT/OT - Nutrition consult Addendum: 5) hypokalemia - Potassium wasting and malnutrition Plan: - Instruct the patient to go to the hospital for IV potassium replacement today and start oral potassium supplement, - Repeat BMP next week I spent 25 minutes in the visit, with more than 50% of the total [id number] time of the visit in counseling / coordination of care. ? Angelo Cantu MD ? Cc: Dr. Yoav Garces III documented in this encounter Instructions Patient InstructionsHomarlalit Francisco J Lomax III - 06/05/2020 11:53 AM EDTPLAN: increase food and liquid intake--snacks every 2-3 hrs try to increase protein in diet use colace w/o stimulant use colace with 6-8 oz water daily observe bladder symptoms and BP off of tamsulosin/flomax return to office 1 mo. Francisco J Garces III MD documented in this encounter Additional Source Comments FOR RECORDS PERTAINING TO PATIENTS WHO ARE OR HAVE BEEN ENROLLED IN A CHEMICAL DEPENDENCY/SUBSTANCE ABUSE PROGRAM, SOME INFORMATION MAY BE OMITTED. This clinical summary was aggregated from multiple sources. Caution should be exercised in using it in the provision of clinical care. This summary normalizes information from multiple sources, and as a consequence, information in this document may materially changethe coding, format and clinical context of patient data. In addition, data may be omittedin some cases. CLINICAL DECISIONS SHOULD BE BASED ON THE PRIMARY CLINICAL RECORDS. [facility] provides no warranty or guarantee of the accuracy or completeness of information in this document. UNRECOGNIZED CONTENT PROVIDED BELOW FOR UNRECOGNIZED SECTION Source Comments In the event this information is protected by the Federal Confidentiality of Alcohol and Drug Abuse Patient Records regulations: The Federal rules restrict any use of the information to criminally investigate or prosecute any alcohol or drug abuse patient.[facility] the event this information is protected by the Federal Confidentiality of Alcohol and Drug Abuse Patient Records regulations: The Federal rules restrict any use of the information to criminally investigate or prosecute any alcohol or drug abuse patient.[facility]In the event this information is protected by the Federal Confidentiality of Alcohol and Drug Abuse Patient Records regulations: The Federal rules restrict any use of the information to criminally investigate or prosecute any alcohol or drug abuse patient.[facility]In the event this information is protected by the Federal Confidentiality of Alcohol and Drug Abuse Patient Records regulations: The Federal rules restrict any use of the information to criminally investigate or prosecute any alcohol or drug abuse patient.[facility]In the event this information is protected by the Federal Confidentiality of Alcohol and Drug Abuse Patient Records regulations: The Federal rules restrict any use of the information to criminally investigate or prosecute any alcohol or drug abuse patient.[facility]In the event this information is protected by the Federal Confidentiality of Alcohol and Drug Abuse Patient Records regulations: The Federal rules restrict any use of the information to criminally investigate or prosecute any alcohol or drug abuse patient.[facility]In the event this information is protected by the Federal Confidentiality of Alcohol and Drug Abuse Patient Records regulations: The Federal rules restrict any use of the information to criminally investigate or prosecute any alcohol or drug abuse patient.[facility]In the event this information is protected by the Federal Confidentiality of Alcohol and Drug Abuse Patient Records regulations: The Federal rules restrict any use of the information to criminally investigate or prosecute any alcohol or drug abuse patient.[facility]In the event this information is protected by the Federal Confidentiality of Alcohol and Drug Abuse Patient Records regulations: The Federal rules restrict any use of the information to criminally investigate or prosecute any alcohol or drug abuse patient.[facility]In the event this information is protected by the Federal Confidentiality of Alcohol and Drug Abuse Patient Records regulations: The Federal rules restrict any use of the information to criminally investigate or prosecute any alcohol or drug abuse patient.[facility]In the event this information is protected by the Federal Confidentiality of Alcohol and Drug Abuse Patient Records regulations: The Federal rules restrict any use of the information to criminally investigate or prosecute any alcohol or drug abuse patient.[facility]In the event this information is protected by the Federal Confidentiality of Alcohol and Drug Abuse Patient Records regulations: The Federal rules restrict any use of the information to criminally investigate or prosecute any alcohol or drug abuse patient.[facility]In the event this information is protected by the Federal Confidentiality of Alcohol and Drug Abuse Patient Records regulations: The Federal rules restrict any use of the information to criminally investigate or prosecute any alcohol or drug abuse patient.[facility]In the event this information is protected by the Federal Confidentiality of Alcohol and Drug Abuse Patient Records regulations: The Federal rules restrict any use of the information to criminally investigate or prosecute any alcohol or drug abuse patient.[facility]In the event this information is protected by the Federal Confidentiality of Alcohol and Drug Abuse Patient Records regulations: The Federal rules restrict any use of the information to criminally investigate or prosecute any alcohol or drug abuse patient.[facility]In the event this information is protected by the Federal Confidentiality of Alcohol and Drug Abuse Patient Records regulations: The Federal rules restrict any use of the information to criminally investigate or prosecute any alcohol or drug abuse patient.[facility] HospitalIn the event this information is protected by the Federal Confidentiality of Alcohol and Drug Abuse Patient Records regulations: The Federal rules restrict any use of the information to criminally investigate or prosecute any alcohol or drug abuse patient.[facility] UNRECOGNIZED CONTENT PROVIDED BELOW FOR UNRECOGNIZED SECTION Reason for Visit Reason Onset Date Comments APPOINTMENT QUESTION 06/04/2020 Reason Onset Date Comments Referral Request 04/25/2020 Reason Onset Date Comments Care Coordination 05/12/2020 Pain Reason Onset Date Comments Medication Problem 05/14/2020 Reason Onset Date Comments Care Coordination 05/15/2020 Discharge Follow up Reason Onset Date Comments Question 05/20/2020 Reason Comments Blood Draw (CVAD) Reason Comments Established Patient Reason Comments Hospital Follow Up Reason Onset Date Comments Refill Request 06/06/2020 Reason Comments Patient Update Reason Comments Critical Results Reason Comments Recheck UNRECOGNIZED CONTENT PROVIDED BELOW FOR UNRECOGNIZED SECTION Miscellaneous Notes Telephone Encounter - Angelo Cantu - 06/04/2020 12:29 PM EDTYES. Keep her on schedule for June visit and possible treatment Angelo Cantu MD elephone Encounter - Clarisse Hagen LPN - 06/04/2020 11:59 AM EDTAppointments for 06/05 and 06/06 have been cancelled. Patient will have colonoscopy and EGD 06/16/2020. Patient is already scheduled for labs/OV 06/26/2020 and treatment 06/27/2020. Clarisse Hagen LPN elephone Encounter - Angelo Cantu - 06/04/2020 11:36 AM EDTOK. I will see her after her colonoscopy and endoscopy procedure with Dr. White. Cancel appointment this week and reschedule Angelo Cantu MD elephone Encounter - Lisa Bahena - 06/04/2020 11:14 AM EDTShe believes her appointments/treatments for 06/05 and 06/06 are to be cancelled. She is having a colonoscopy and EGD on 06/[address] Cantu has stopped her other medications. Please cancel the appointmentsand advise the patient if this is not correct. documented in this encounterTelephone Encounter - Razia Steiner - 04/29/2020 11:37 AM EDTContacted patient, scheduled with Dr. Choe 07/10 @ 9:00 am. -Razia Bains elephone Encounter - Angelo Cantu - 04/25/2020 4:33 PM EDT Refer to endocrinology for hypothyroidism - [facility] next week Component Latest Ref Rng & Units 04/24/2020 04/25/2020 TSH 0.270 - 4.200 uU/mL 0.065 (L) Free T4 0.9 - 1.7 ng/dL 1.9 (H) Angelo Cantu MD documented in this encounterTelephone Encounter - Addie Aguilar Rn, RN - 05/12/2020 9:58 AM EDT Patient informed of Dr. Cantu's response, stated understanding. Patient is going to [facility] for evaluation. Recent records will be faxed over. elephone Encounter - Angelo Cantu - 05/12/2020 9:55 AM EDTHold acyclovir and she should go to the emergency room for evaluation of acute abdominal pain. Angelo Cantu MD elephone Encounter - dAdie Aguilar Rn, RN - 05/12/2020 9:44 AM EDTPatient called in crying stating she has been having constant 10/10 pain in the right side of her abdomen that started a couple of days after my treatment on April 25. Patient was unable to describe the pain. Patient stated the pain increases after taking acyclovir and sometimes a half hour after eating. Patient stated there are no alleviating factors. Patient denies fever, chills, SOB, N/V, back or shoulder pain, dysuria, hematuria, or blood in stool. Patient stated she is taking colace and has been having normal BM's without straining. Patient stated she does not have an appendix but still has a gallbladder. Patient stated she feels the acyclovir is causing the pain. Patient started acyclovir back in February and stated she had some occasional stomach issues in March but this month the pain has become more constant and severe. Patient is asking if she should continue acyclovir. Patient informed this nurse will speak to Dr. Cantu regarding the pain and call her back. Patient informed she might have to go to ED for evaluation of abdominal pain, she was agreeable to this. documented in this encounterTelephone Encounter - Rosi Love LPN - 05/15/2020 2:03 PM EDTSpoke with patient and information listed below given. Rosi Love LPN Telephone Encounter - Francisco J Garces III - 05/15/2020 1:12 PM EDTreduce levothyroxine from 88 to 5 mcg daily. Take on empty stomach at least 1 hour before or after other medications or food. recheck TSH in 2 mos. Prescription to local pharmacy. Francisco J Garces III MD elephone Encounter - Rocio Martinez LPN - 05/15/2020 10:03 AM EDTPt calling to see if message was addressed. Pt states she did not have labs done at hospital. Labs we re done here on 04/24 and 04/[address] Cantu reviewed at pt's appt. States he advised her her medication dosage is too high. States Dr Cantu told her that Dr garces could call him with any questions or to discuss results. Pt has Endo appt 07/10 in [place]. Pt states she has not taken any levothyroxine since Monbut did take a dose today. Pt uses [facility] Please call pt on home number whe addressed. Rocio Chacon Telephone Encounter - Francisco J Garces III - 05/15/2020 9:16 AM EDTStaff, please try to find the thyroid lab results from her recent hospitalization Francisco J Garces III, MD, FAAFP elephone Encounter - Rosi Love LPN - 05/14/2020 3:05 PM EDTPatient called and she just got out of the hospital and was told to contact her pcp that her thyroidmedication may need to be lowered. She reports her thyroid is out of wack. Please advise patient. She takes her medication in the AM. Rosi Love LPN documented in this encounterTelephone Encounter - Addie Aguilar (Rn)ARAMIS - 05/15/2020 2:40 PM EDTDISCHARGE CALL BACK Today's date: May 15, 2020 Notified of Pt discharge by: MD Notification Patient discharged on 05/14/2020 from [facility] to Home Primary Cancer Diagnosis: Lymphoma Admitting Diagnosis: Cholecystitis Discharge Summary/SBAR reviewed: Yes Handoff Discussed with Transitional Motor Coach Tour Operator: N/A If patient discharged to SNF/Rehab Facility, phone call completed to reinforce discharge instructions and follow up: N/A Call Disposition: Called patient and spoke with patient Patient identified by name and date of . YES Patient with symptom issues: No Pain: No=0 (pain 0 on a scale of 0-10). Is patient followed by Palliative Medicine? No Palliative Medicine follow up: N/A Any new barriers to care identified? No Any new referrals needed? No Social Work Follow-Up visit scheduled? No Does the patient need interventions no or same day appointment: No MEDICATION ADHERENCE Patient discharged with prescriptions? Yes, Oxycodone [Oxyir] 5 mg PO Q4H PRN PRN 3 Days #18 tab PRN Reason: Pain Score 4-5/10 Discharge prescriptions filled: Yes Patient understands when to take prescriptions: Yes, patient stated she has not needed any pain medications FOLLOW UP Patient scheduled for follow-up appointment within 5 business days of discharge? No, Other: patient will follow up with our office on 05/29 . Patient is scheduled to follow-up with surgeon on 05/20. Patient reminded of follow-up appointment with [facility] provider, Dr. Cantu on 05/29: Yes Discussed: Patient stated she is feeling well. Patient denies pain, bowels are a little more loose today. Discussed taking imodium if needed. PATIENT EDUCATION / REINFORCEMENT Patient verbalizes understanding of when to seek Medical Attention? YES Patient verbalizes understanding of after hours and weekend phone number? YES Addie Aguilar RN documented in this encounterTelephone Encounter - Addie Aguilar Rn, RN - 05/21/2020 2:[address] informed of Dr. Akhtar's response, stated understanding. elephone Encounter - Jarrell Akhtar - 05/21/2020 1:26 PM EDTYes, she should resume acyclovir. Jarrell Akhtar, Telephone Encounter - Addie Aguilar Rn, RN - 05/21/2020 11:[address] 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 X-ray from yesterday also shows Mild diffuseileus pattern noted. No evidence for small bowel obstruction.There is no demonstrated free abdominalair. Patient is asking if she should continue on with acyclovir. Dr. Cantu instructed patient to hold acyclovir last week because patient thought this was contributing to her abdominal pain, but the pain ended up being cholecystitis. Patient saw Dr. White yesterday for surgical follow up and he advised herto hold acyclovir until she speaks to Dr. Cantu. Patient stated [facility] is asking if patient should continue on acyclovir. elephone Encounter - Addie Aguilar Rn, RN - 05/20/2020 3:54 PM EDTCalled patient, no answer. Left message requesting a call back from patient. Dr. White's Summary: Plan I am going to obtain a CBC and a complete metabolic profile as well as a lipase. I do not believe her abdominal pain is related to my surgery whatsoever. This appears to be identical to what she had prior to surgery. Patient states that she has never had a colonoscopy or an upper endoscopy. I am going to defer this to Dr. Cha her oncology doctor I have told her that at the present time I do not want her to take her acyclovir until she goes intosee Dr. Chase. elephone Encounter - Addie Aguilar)ARAMIS - 05/20/2020 1:16 PM EDTCalled patient, no answer. Left message requesting a call back from patient. elephone Encounter - Delilah Brannon - 05/20/2020 9:31 AM EDTPatient called she is in a lot of pain she has apt w/ [place] today at 1:00 She said she did not take her Zovirax this morning because she is in so much pain. She wants to knowif she should take one tonight? She can be reached at [phone] Thank you Delilah Bains documented in this encounterTelephone Encounter - Dayna Michelle - 06/06/2020 3:28 PM EDT The following approved medication requests have been transmitted electronically. Signed Prescriptions Disp Refills Blood Pressure Monitor 1 Kit 0 Si Each once daily. Home blood pressure kit to monitor blood pressure daily Authorizing Provider: DAYNA MICHELLE, MSN ELECTRIC REPAIR SUPERVISOR.TRANSPORTATION PLANNING ENGINEER elephone Encounter - Shanika Redman LPN - 06/06/2020 10:25 AM EDTPatient calling asking for rx home blood pressure monitor to be sent to [facility] please, she has pulse ox at home only. Pending rx needs diagnosis. Please advise documented in this encounterTelephone Encounter - Erika Mac - 06/26/2020 1:09 PM EDTAppointment has been moved as requested below. Erika Hilliard Pss elephone Encounter - Addie Aguilar Rn, RN - 06/26/2020 12:22 PM EDTSpoke to patient, patient is taking omeprazole BID. Patient was taking Carafate four times a day started the day of her EGD and has completed the course of treatment. Per Dr. Cantu, please reschedule labs/OV from today to tomorrow. Labs (port) 8:30, OV at 9:00. Patientaware of appointment. elephone Encounter - Addie Aguilar Rn, RN - 06/26/2020 12:08 PM EDTPer medication list in Dr. White's note that was a draft and incomplete: Sucralfate [Carafate] 1 gm PO 4X/DAY #28 tab 06/16/20 [Rx Confirmed 06/25/20] omeprazole 40 mg capsule,delayed release 40 mg PO BID #48 cap 06/16/20 [Rx Confirmed 06/25/20] Pathology report printed and will be given to Dr. Cantu for review. elephone Encounter - Angelo Cantu - 06/26/2020 11:[address] White put her on Prilosec or Carafate? Check her labs if she can come in later this afternoon if not, then tomorrow would be fine. We are not to treat her for now. . Endoscopy report from Dr. White's office? Angelo Cantu MD elephone Encounter - Addie Aguilar Rn, RN - 06/26/2020 11:16 AM EDTTOXICITY CHECK SYMPTOM ASSESSMENT Headache: No Visual Changes: No Dizziness: No, slow positional changes to avoid dizziness Do you have any periods of confusion? No Mood changes: No Mouth or throat pain: Yes there was but theres none now. Appetite: no changes in appetite, appetite poor , there for awhile I couldn't eat any solid stuff Taste changes: No Nausea: No Vomiting: No Heartburn: No. Weight gain/loss: Yes 98 lbs 06/25/2020 Episodes of palpitations/chest discomfort/pressure/pain No Shortness of breath: Yes its hard to breathe when I do get up and walk around its just the same as its been but maybe a little bit worse. Patient denies SOB at rest. O2 98-100% Cough: No Diarrhea: no Constipation: she did have constipation after her scope but patient had a good BM today after takingmiralax/colace Bladder/Urinary Changes: None Pain: No, patient stated she had stomach pain earlier today but took tylenol and it resolved. Fever: No Chills: No Cold sensitivity: No Numbness/weakness: No Edema: No Skin changes: No Itching: No Yellowing of skin or eyes: No Musculoskeletal/joint changes/issues No, patient denies difficulty walking if she uses her walker. Patient does not feel comfortable walking without her walker or cane. Patient denies feeling unsteady on her feet. Bleeding issues: No Activity Level (0-100%): minimal. Patient was able to do laundry the other day and she tries to stay active there are times when I just can't. Do you need to take naps? No Spoke to patient. Patient was very emotional today because she was told she has ulcers after her EGDand its the worse stomach I've ever seen. Patient stated she was not able to come to her appointment today d/t difficulty getting to the car. Patient stated she took a shower, got dressed and ready for her appointment but felt tired and SOB after completing her morning ADL's and did not feel safe driving to her appointment today. Patient stated she feels better now that she has been resting. Patient stated she has a decreased appetite d/t ulcers and has SOB with exertion that its just the same asits been but maybe a little bit worse. Patient denies SOB at rest, O2 is 98-100%. Patient stated she is drinking around 2 bottles of water daily. Patient stated she can come to a later appointment today after her son gets off of work if Dr. Cantu would like to see her, but she cannot come until after 4pm. Patient stated she is able to come in tomorrow morning as well. Does the patient need interventions or same day appointment: Will discuss with Dr. Cantu. Reinforced CURRENT treatment education based on current and anticipated symptoms. Discussed port/line care and patient verbalizes understanding: Yes Patient instructed to contact office or after hours Hematology/Oncology fellow for: temperature ? 100.4; questions or concerns. Patient verbalized understanding of when to seek medical attention and after hours number protocol. Addie Aguilar RN elephone Encounter - Parvin Knight - 06/26/2020 10:08 AM EDTPatient calling in saying she doesn't feel well - she saw Dr. White yesterday 06/25 and was told she has ulcers in her stomach, patient says she is having difficulty breathing but that has been going on for awhile - she was scheduled for port and ov this morning but is having a hard time getting around - please call patient at [phone] signed by Parvin Bains at 06/26/2020 10:11 AM EDTdocumented in this encounterTelephone Encounter - Samara Combs - 06/27/2020 1:20 PM EDTSpoke with patient and scheduled as requested. Samara Bains elephone Encounter - Clarisse Hagen LPN - 06/27/2020 1:14 PM EDTAll information faxed to [facility] because that's where patient has chosen to go. PSR's- please call and schedule patient for BMP lab/port draw for Tuesday. Clarisse Hagen LPN elephone Encounter - Angelo Cantu - 06/27/2020 1:07 PM EDTPlease fax my note and labs to [facility]. Let them know that she will need potassium replacement IV & oral potassium chloride when she go home. Repeat BMP next week Angelo Cantu MD elephone Encounter - Clarisse Hagen LPN - 06/27/2020 1:[address] Cantu- patient was instructed to go to the local ED. Patient is choosing to go to [facility] ED. Lab r esults and note faxed to [facility] ED. Clarisse Hagen LPN elephone Encounter - Clarisse Hagen LPN - 06/27/2020 11:26 AM EDTPatient?s identity has been confirmed by name and birthdate: Yes Call received from [place] at 1127 AM to report a critical value for potassium with a result of 2.1. Dr Cantu was notified of the result at 1127AM. Clarisse Hagen LPN documented in this encounterTelephone Encounter - Clarisse Hagen LPN - 06/30/2020 9:42 AM EDTPatient notified and has been taking potassium four times a day. Patient will be in later for BMP. Clarisse Hagen LPN elephone Encounter - Clarisse Hagen LPN - 06/27/2020 1:20 PM EDTMessage left for patient to contact office. Clarisse Hagen LPN elephone Encounter - Angelo Cantu - 06/27/2020 1:16 PM EDT Patient's request for medication is as follows Signed Prescriptions Disp Refills potassium chloride ER (K-DUR, KLOR-CON) 10 mEq tablet 100 tablet 1 Sig: Take 1 tablet by mouth four times daily. MALIKA: No Authorizing Provider: ANGELO CANTU Order entered - please phone pharmacy and notify patient. Repeat BMP on Tuesday Angelo Cantu MD documented in this encounter UNRECOGNIZED CONTENT PROVIDED BELOW FOR UNRECOGNIZED SECTION INFORMATION SOURCE DATE CREATED AUTHOR AUTHOR'S ORGANIZATIO N 03/14/2018 [facility] ([place]) DATE CREATED AUTHOR AUTHOR'S ORGANIZATIO N 01/06/2019 [facility] UNRECOGNIZED CONTENT PROVIDED BELOW FOR UNRECOGNIZED SECTION Nursing Notes Clarisse Hagen LPN - 05/29/2020 10:20 AM EDTEst patient. Three week OV. Discuss recent labs, treatment tomorrow. Patient c/o ongoing weakness ever since hospital discharge 05/22/2020. Clarisse Hagen LPN documented in this encounter
== END | disposition home or self-care (01) ==
PROVIDERS: PCP Family Medicine; Referring Provider Internal Medicine Hematology & Oncology; Visit Provider Internal Medicine Hematology & Oncology
DX: C83.31 Diffuse large B-cell lymphoma, lymph nodes of head, face, and neck (principal)
CPT/HCPCS: 78815; A9552

== ENCOUNTER 2020-05-12 11:31 | Inpatient (IN) | payer MEDICARE, SELFPAY ==
[2019-03-07 14:10] VITALS: BMI 21.4
[2020-05-12] VITALS (9 sets, daily range): BP systolic 110–132; BP diastolic 60–73; PULSE 90–118; RESP 16–24; TEMP 36.5–36.9; O2SAT 97–100; BMI 20.2; BMI 19.2
--- NOTE | 2020-05-12 11:50 | US_ITS ---
STUDY: ABDOMINAL ULTRASOUND - RIGHT UPPER QUADRANT REASON FOR VISIT: Female, 79 years old RUQ PAIN TECHNIQUE: Ultrasound evaluation of the right upper quadrant was performed with real-time and static mccray-scale imaging. TECHNICAL QUALITY: Adequate. COMPARISON: None. FINDINGS: Liver: The liver measures 15.8 cm. There is normal echogenicity of the liver. The bile ducts are within normal limits. There is hepatic color flow. The direction of portal flow is hepatopetal. There is no demonstrated mass lesion. Gallbladder: Normal distended gallbladder. The gallbladder wall is mildly thickened and measures 5.0 mm. There is a positive sonographic Solis''s sign. There is no pericholecystic fluid. There is a solitary echogenic gallstone within the gallbladder. Common Bile Duct (C.B.D.): The common bile duct measures 3.0 mm. Pancreas: Normal size of the head, body and tail of the pancreas. There is normal echogenicity of the pancreas. There is no demonstrated pancreatic mass or cyst. Right Kidney: Normal size of the right kidney. The right kidney measures 9.8 cm x 4.4 cm x 3.9 cm. Normal renal cortex. The right cortex measures 1.2 cm. There is no demonstrated renal mass or cyst. There is no right hydronephrosis. US/Gallbladder IMPRESSION: Solitary small gallstone. Positive SOLIS sign. Mildly thickened gallbladder wall. Electronically Signed: Dakotah Garcia, at 13:36 EDT , Service support ,
--- NOTE | 2020-05-12 11:54 | ED.DCSUM_ITS ---
History of Present Illness Chief Complaint: Abd Pain Informant: Patient - Abdominal Pain/Flank Pain Onset: Weeks - 1 Context: Gradual Onset Timing: Intermittent, Lasts - hrs, Waxes and wanes Quality: Aching Location: - - right abd Current Severity: Moderate Maximum Severity: Severe Worsened by: Food - and seems worse after taking some of her pills Relieved by: Nothing - Nausea/Vomiting/Emesis GI Symptom: Nausea. Negative for: Vomiting - Diarrhea/Melena/Hematochezia GI Symptom: Negative for: Diarrhea, Melena, Hematochezia Associated Symptoms: Negative for: Dysuria, Frequency, Hematuria Narrative: Patient presenting with about 1-2 weeks of right-sided abdominal pain. No migration or radiation. Seems to be after she tries to eat, she has a decreased appetite and oral intake had not period of time as a result. She noticed this a couple days after her last chemotherapy treatment which was on 04/25/2020. She gets nauseated but no vomiting. Has a history of a tubal and a prior appendectomy but no other abdominal surgeries. 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 She states for years, since she has been getting chemotherapy, she has dyspnea after her treatments that last for a couple weeks. It is mostly dyspnea with exertion. 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 She denies any new swelling in her legs. No chest pains. No syncope or presyncope. No fevers, chills, myalgias, or cough. - Past Medical History (1) Chronic anemia Status: Chronic (2) Chronic leukopenia Status: Chronic (3) Diffuse large B-cell lymphoma of lymph nodes of head Status: Chronic (4) Hypothyroidism Status: Chronic Past Medical History - Allergies and Home Meds Allergies/Adverse Reactions: Allergies amoxicillin Allergy (Verified 05/12/20 11:32) Unknown atorvastatin Allergy (Verified 05/12/20 11:32) Unknown azithromycin Allergy (Verified 05/12/20 11:32) Diarrhea Iodinated Contrast Media [DYEE] Allergy (Verified 05/12/20 11:32) Anaphylaxis ketorolac Allergy (Verified 05/12/20 11:32) buring of eyes levofloxacin [From Levaquin] Allergy (Verified 05/12/20 11:32) muscle aches metronidazole Allergy (Verified 05/12/20 11:32) GI upset prednisone Allergy (Verified 05/12/20 11:32) cardiac arrest. Primary Care Physician: Francisco J Garces III, MD [Primary Care Provider] - Surgical History: appendectomy, - - Tubal ligation, lymph node biopsy, excisional biopsy of right orbital mass, port placement, nasal basal cell removal. Smoking Status: Never smoker - Family History Maternal Family History: Reports: - - She denies that her mother was very healthy in the past and her old age, no history of heart disease, diabetes or cancer. Paternal Family History: Reports: COPD - Father with history of emphysema, COPD with tob acco use concurrent history. Review of Systems General: Denies: Chills, Fever, Sweats Eyes: Denies: Visual changes - bilaterally, Diplopia ENT: Denies: Bilateral ear pain, Rhinorrhea, Sore throat Cardiovascular: Denies: Chest pain, Palpitations Respiratory: Reports: Dyspnea on exertion. Denies: Cough, Orthopnea Gastrointestinal: Reports: Abdominal pain, Nausea, - - Anorexia. Denies: Vomiting, Diarrhea, Melena, Hematochezia Genitourinary: Denies: Dysuria, Hematuria, Frequency Musculoskeletal: Denies: Back pain, Extremity Pain Skin: Denies: Rash, Wounds Neurological: Denies: Headache, Weakness, Numbness Physical Exam Vital Signs/Narrative: Vital Signs Temp Pulse Resp BP Pulse Ox 05/12/20 11:32 97.7 F L 116 H 24 H 116/69 98 Inital Vital Signs reviewed: Yes General: Well nourished, Well developed, No Acute Distress Head: Normocephalic, Atraumatic Eyes: Perrl, EOMI ENT: Moist mucous membranes, No rhinorrhea Neck: Supple, Nontender Cardiovascular: Regular rate, Regular rhythm, No murmurs Respiratory: No distress, CTA bilaterally, Chest nontender Abdomen: Soft, Nondistended, Normal bowel sounds, Tender - Right upper quadrant only with voluntary guarding; no other areas of abdominal tenderness. Negative for: Rebound tenderness, Pulsatile mass Back: Nontender, Normal Inspection. Negative for: CVA tenderness Extremities: Nontender, No edema. Negative for: Calf Tenderness Skin: Normal color, No rash, No Trauma Neurological: Alert, Oriented x3, Cranial nerves II-XII grossly intact, Normal Strength, Normal Sensation, Normal Gait Psychological: Normal affect, Normal Mood Diagnostic/Tx/Re-eval Impressions Gallbladder Ultrasound 05/12/20 11:50 IMPRESSION: Solitary small gallstone. Positive SOLIS sign. Mildly thickened gallbladder wall. Electronically Signed: Dakotah Garcia, at 13:36 EDT , Service support , 05/12/20 11:50 Gallbladder [US] Stat Laboratory Results 05/12/20 05/12/20 05/12/20 12:15 12:15 13:30 WBC 7.2 RBC 3.88 L Hgb 11.9 L Hct 37.1 MCV 95.6 MCH 30.7 MCHC 32.1 RDW Std Deviation 50.0 H RDW Coeff of Stacey 14.2 Plt Count 223 MPV 10.7 Immature Gran % (Auto) 0.400 Neut % (Auto) 79.8 H Lymph % (Auto) 7.3 L [place] % (Auto) 11.5 H Eos % (Auto) 0.3 Baso % (Auto) 0.7 Absolute Neuts (auto) 5.8 Absolute Lymphs (auto) 0.53 L Nucleated RBC % 0 Differential Comment COMMENT Sodium 139 Potassium 3.3 L Chloride 105 Carbon Dioxide 29.0 Anion Gap 5 BUN 6 L Creatinine 0.38 L Estim Creat Clear Calc 36.67 Est GFR (MDRD) Af Amer 209 Est GFR (MDRD) Non-Af 172 BUN/Creatinine Ratio 15.7 Glucose 131 H Calcium 8.7 Total Bilirubin 1.10 H AST 14 L ALT 14 Alkaline Phosphatase 95 Total Protein 6.1 L Albumin 3.0 L Globulin 3.1 Albumin/Globulin Ratio 1.0 Lipase 50 L Urine Color Yellow Urine Clarity Clear Urine pH 7.0 Ur Specific [place] 1.005 Urine Protein Negative Urine Glucose (UA) Normal Urine Ketones Negative Urine Occult Blood Negative Urine Nitrite Negative Urine Bilirubin Negative Urine Urobilinogen Normal Ur Leukocyte Esterase Negative Urine RBC 0 SEEN Urine WBC 0 SEEN Ur Squamous Epith Cells 0 SEEN Urine Bacteria 0 SEEN Urine Mucus 0 SEEN - Medical Decision Making Work-up consistent with acute cholecystitis. Her blood counts are all within normal limits, she is a little anemic but does not require transfusion at this time, and her liver enzymes are stable. She has mild hyperbilirubinemia but she has been higher than this in the past so this is not likely to be acute. There are no radiographic findings that require her to have emergency surgery. I discussed with Dr. White, he agrees with this and also with my opinion that the patient should be admitted and have medical clearance and surgical evaluation. Discussed that with Dr. Herron, her oncologist, who is aware. Will admit with hospitalist service. Of note, patient feels a lot better after a dose of morphine. She states she has no pain. But on reexamination, she still has a positive Solis sign. ED Disposition - Plan for ED Patient: Disposition: Acute Care Hospital [facility] Diagnosis: Calculus of gallbladder with cholecystitis, Diffuse large B-cell lymphoma of lymph nodes of head Referrals: Francisco J Garces III, MD [Primary Care Provider] -
[2020-05-12] MEDS: Ondansetron 4 MG/2 ML Vial IV (12:13)
[2020-05-12] MEDS: Morphine 2 MG/ML Syringe IV (12:14)
[2020-05-12] MEDS: 0.9% Normal Saline 1,000 ML 125 ML IV (12:15)
[2020-05-12 12:26] LABS: Absolute Lymphocyte Count 0.53 X10^3/uL (0.83-4.51); Absolute Neutrophil Count 5.8 X10^3/uL (2.0-7.7); Basophil# 0.05 X10^3/uL; Basophil% 0.7 % (0-1); Eosinophil# 0.02 X10^3/uL; Eosinophils% 0.3 % (0-5); Hematocrit 37.1 % (37-47); Hemoglobin 11.9 g/dL (12.0-15.0); Lymphocyte # 0.53 X10^3/ul (4.0); Lymphocyte % 7.3 % (19-41); Mean Corp Hgb Conc 32.1 g/dL (32-36); Mean Corpuscular Hgb 30.7 pg (27.0-32.0); Mean Corpuscular Volume 95.6 fL (81-99); Mean Platelet Vol. 10.7 fl (6.2-12.0); Monocyte# 0.83 X10^3/uL; Monocyte% 11.5 % (0-10); NRBC Flagged by Analyzer 0 % (0-5); Neutrophil # 5.78 X10^3/uL (2.7-7.7); Neutrophil % 79.8 % (47-70); POSITIVE DIFFERENTIAL YES; Platelet Count 223 K/mm3 (150-450); RBC Distribution Width CV 14.2 % (11.6-14.6); Red Blood Count 3.88 M/mm3 (4.2-5.4); White Blood Count 7.2 K/mm3 (4.4-11.0)
[2020-05-12 12:28] LABS: Differential Indicated SCAN CRITERIA MET
[2020-05-12 12:35] LABS: AST(SGOT) 14 U/L (15-37); Alanine Aminotransfer ALT/SGPT 14 U/L (13-56); Alkaline Phosphatase 95 U/L (45-117); Anion Gap 5 (5-15); BUN 6 mg/dL (7-18); BUN/Creat Ratio 15.7 RATIO (10-20); Calcium,Total 8.7 mg/dL (8.5-10.1); Chloride 105 mmol/L (98-107); Creatinine, Serum 0.38 mg/dL (0.55-1.02); EST Glomerular Filtration Rate 172 mL/min (>60); Est Glom Filt Rate - Afr Amer 209 mL/min (>60); Estimated Creatinine Clearance 36.67 ml/min; Globulin 3.1 g/dL (2.2-4.2); Glucose 131 mg/dL (74-106); Lipase 50 U/L (73-393); Potassium 3.3 mmol/L (3.5-5.1); Protein, Total 6.1 g/dL (6.4-8.2); Sodium Level 139 mmol/L (136-145)
[2020-05-12 13:41] LABS: Bacteria 0 SEEN /hpf (None Seen); Mucous, Urine 0 SEEN /hpf (<or=2+); Red Blood Cells-Urine 0 SEEN /hpf (0-5); Squamous Epithelial Cells - UA 0 SEEN /hpf (5-10); White Blood Cells 0 SEEN /hpf (0-5)
[2020-05-12 13:49] LABS: Color, Urine Yellow (Yellow); Glucose, Dipstick Normal (Normal); Ketone-Dipstick Negative (Negative); Leukocyte Esterase-Dipstick Negative /ul (Negative); Nitrite-Dipstick Negative (Negative); Occult Blood-Urine Negative /ul (Negative); Protein-Dipstick Negative (Negative); Specific Gravity, Urine 1.005 (1.002-1.030); Urine Bilirubin Dipstick Negative (Negative); Urine Clarity Clear (Clear); Urine Urobilinogen Normal (Normal)
--- NOTE | 2020-05-12 15:05 | NURSING ---
MED SURG INTRACTABLE ABD PAIN, ? CHOLECYSTITIS, VS BILIARY COLIC WHITE
--- NOTE | 2020-05-12 15:16 | PCM.HP.STD ---
Problem List (1) Calculus of gallbladder with cholecystitis Status: Acute (2) Diffuse large B-cell lymphoma of lymph nodes of head Status: Chronic (3) Chronic anemia Status: Chronic (4) Hypothyroidism Status: Chronic Qualifiers: Hypothyroidism type: unspecified Qualified Code(s): E03.9 - Hypothyroidism, unspecified History of Present Illness Date of Admission: 05/12/20 Chief Complaint: abd pain The patient is a 79 year old F with pmhx of terminal B cell lymphoma pt of Dr. Herron, hx hypothyroidism, who presented to the ER with c/o RUQ abd pain. This began between one and two weeks ago. She has had decreased appetite and difficulty eating due to pain. She has had some nausea, however she has had no vomiting. Bowels have been regular. She had worsening pain today and came to the ER. In the ER GB US shows + perez sign, small gallstone, thickened GB wall. She currently is undergoing chemo with Dr. Herron. She initially declined T cell therapy in February 2020 and was told she had six months to live, however she started a new chemo, last dose April 25, and now is unsure of her prognosis. She states she has had mets to the bone that went away but now has mets to the left axilla. She Is otherwise in her normal state of health. She denies recent illness/infection, no cough, SOB, fevers, chills. [] 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) Hypothyroidism (Chronic) Chronic anemia (Chronic) Chronic leukopenia (Chronic) Lymphoma (Chronic) Malignant pleural effusion (Chronic) Allergies amoxicillin Allergy (Verified 05/12/20 11:32) Unknown atorvastatin Allergy (Verified 05/12/20 11:32) Unknown azithromycin Allergy (Verified 05/12/20 11:32) Diarrhea Iodinated Contrast Media [DYEE] Allergy (Verified 05/12/20 11:32) Anaphylaxis ketorolac Allergy (Verified 05/12/20 11:32) buring of eyes levofloxacin [From Levaquin] Allergy (Verified 05/12/20 11:32) muscle aches metronidazole Allergy (Verified 05/12/20 11:32) GI upset prednisone Allergy (Verified 05/12/20 11:32) cardiac arrest. Home Medications: Ambulatory Orders Medication Instructions Recorded Levothyroxine [Synthroid] 88 mcg PO DAILY 05/20/17 Docusate Sodium [Colace] 100 mg PO DAILY PRN PRN 10/25/17 Acetaminophen [Tylenol Extra 500 - 1,000 mg PO Q8H 12/13/18 Strength] Famotidine 20 mg PO BID 12/13/18 Carvedilol 3.125 mg PO BID 03/07/19 Dextran 70/Hypromellose/Pf 1 ea OP Q4H PRN PRN 03/07/19 [Artificial Tears Drops] Magnesium Oxide/Magnesium 300 mg PO DAILY 03/07/19 [Magnesium 300 mg Capsule] Potassium 297 mg PO DAILY 03/07/19 Tamsulosin HCl [Flomax] 0.4 mg PO DAILY #90 cap 03/09/19 Surgical History: appendectomy, - - Tubal ligation, lymph node biopsy, excisional biopsy of right orbital mass, port placement, nasal basal cell removal. 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 Paternal History Items: COPD - Father with history of emphysema, COPD with tobacco use concurrent history. Review of Systems Constitutional: Denies: Chills, Fever, Weight Change HEENT: Denies: Head Aches, Sinus Congestion, Sinus Drainage Cardiovascular: Denies: Chest Pain, Heaviness, Palpitations, Syncope Respiratory: Denies: Cough, Shortness of Breath, Shortness of breath at rest, Sputum production, Wheezing Gastrointestinal: Reports: Abdominal Pain, Nausea. Denies: Diarrhea, Vomiting Genitourinary: Denies: Dysuria, Frequency, Urgency Musculoskeletal: Denies: Joint Pain, Joint Tenderness, Muscle pain Skin: Denies: Lesions, Rash, Wounds Neurological: Denies: Numbness, Tingling, Focal weakness Psychiatric: Denies: Anxiety, Depression, Homicidal Ideations, Suicidal Ideations Hematologic/ Lymphatic: Denies: Easy Bruising, Easy Bleeding VTE Information - Inpt Only VTE Present on Admission: No VTE Mechan Device Prophylaxis: SCD's VTE Pharm Prophylaxis ordered?: No Patient Problems: Active and Suspected Problems Calculus of gallbladder with cholecystitis (Acute) - Physical Exam Vitals/I&O's: Vital Signs Temp Pulse Resp BP Pulse Ox 98 F 90 18 118/60 99 05/12/20 15:08 05/12/20 15:08 05/12/20 15:08 05/12/20 15:08 05/12/20 15:08 Oxygen Delivery Method Room Air Weight: 111 lb Body Mass Index (BMI) 20.2 General: Alert, Oriented x3, Cooperative HEENT: Atraumatic, PERRLA, EOMI, Normocephalic Neck: Supple, No JVD, Negative Carotid Bruits Lungs: Clear to auscultation, Normal air movement Cardiovascular: Regular rate, No murmurs Abdomen: Bowel Sounds Present, Soft, Non Tender, Tender Extremities: No edema, Capillary Refill Less than 3 Seconds Skin: No rashes, No breakdown Musculoskeletal: No Tenderness to Palpation of Joints or Extremities Neurological: Cranial nerves II-XII grossly intact Psych/Mental Status: Normal Affect, Appropriate, Alert and oriented to time, place, person, mood and affect Laboratory Results 05/12/20 12:15: WBC 7.2, RBC 3.88 L, Hgb 11.9 L, Hct 37.1, MCV 95.6, MCH 30.7, MCHC 32.1, RDW Std Deviation 50.0 H, RDW Coeff of Stacey 14.2, Plt Count 223, MPV 10.7, Immature Gran % (Auto) 0.400, Neut % (Auto) 79.8 H, Lymph % (Auto) 7.3 L, [place] % (Auto) 11.5 H, Eos % (Auto) 0.3, Baso % (Auto) 0.7, Absolute Neuts (auto) 5.8, Absolute Lymphs (auto) 0.53 L, Nucleated RBC % 0, Differential Comment COMMENT 05/12/20 12:15: Sodium 139, Potassium 3.3 L, Chloride 105, Carbon Dioxide 29.0, Anion Gap 5, BUN 6 L, Creatinine 0.38 L, Estim Creat Clear Calc 36.67, Est GFR (MDRD) Af Amer 209, Est GFR (MDRD) Non-Af 172, BUN/Creatinine Ratio 15.7, Glucose 131 H, Calcium 8.7, Total Bilirubin 1.10 H, AST 14 L, ALT 14, Alkaline Phosphatase 95, Total Protein 6.1 L, Albumin 3.0 L, Globulin 3.1, Albumin/Globulin Ratio 1.0, Lipase 50 L 05/12/20 13:30: Urine Color Yellow, Urine Clarity Clear, Urine pH 7.0, Ur Specific [place] 1.005, Urine Protein Negative, Urine Glucose (UA) Normal, Urine Ketones Negative, Urine Occult Blood Negative, Urine Nitrite Negative, Urine Bilirubin Negative, Urine Urobilinogen Normal, Ur Leukocyte Esterase Negative, Urine RBC 0 SEEN, Urine WBC 0 SEEN, Ur Squamous Epith Cells 0 SEEN, Urine Bacteria 0 SEEN, Urine Mucus 0 SEEN Current Medications Sodium Chloride () 1,000 mls @ 125 mls/hr IV .Q8H [facility] Last Admin: 05/12/20 12:15 Dose: 125 mls/hr Documented by: Assessment/Plan All Active Problems Calculus of gallbladder with cholecystitis (Acute) Chemotherapy induced neutropenia (Acute) 1. Acute cholecystitis - per hx and + GB US. T bili 1.1 however this has been elevated in the past. Consult gen surgery. NPO. Provide supportive care with pain control, IV fluids, and electrolyte replacement. No fever/leukocytosis. 2. 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 previous mets to bone and currently states mets to left axilla. Pt has been told by oncology that her condition is terminal. Declined T cell therapy in February 2020 and told she had 6 months to live. 3. Hx Pancytopenia - improved. currently only mildly anemic. 4. Hypothyroidism - continue synthroid DVT ppx: SCDs This patient was seen by Rasheed Monahan PA-C under the supervision of Dr. Napier.
[2020-05-12] MEDS: 0.9% Normal Saline 1,000 ML 100 ML IV (16:56)
--- NOTE | 2020-05-12 17:22 | EKG12_ITS ---
Test Reason : AM EKG Blood Pressure : / mmHG Vent. Rate : 071 BPM Atrial Rate : 071 BPM P-R Int : 106 ms QRS Dur : 086 ms QT Int : 412 ms P-R-T Axes : 066 -58 067 degrees QTc Int : 447 ms Sinus rhythm with short [place] Left anterior fascicular block Abnormal ECG When compared with ECG of 07-MAR-2019 11:22, No significant change was found Confirmed by SENG RAMOS ([id number]), editor & co founder TONY MENG ([id number]) on 05/15/2020 9:11:39 AM Referred By: JULIETTE Confirmed By:SENG RAMOS
--- NOTE | 2020-05-12 17:47 | CON.PCM_ITS ---
Problem List (1) Calculus of gallbladder with cholecystitis Status: Acute Qualifiers: Cholecystitis acuity: acute and chronic Biliary obstruction: without biliary obstruction Qualified Code(s): K80.12 - Calculus of gallbladder with acute and chronic cholecystitis without obstruction Reason for Consult Date of Consultation: 05/12/20 History of Present Illness: Patient presenting with about 1-2 weeks of right-sided abdominal pain. No migration or radiation. Seems to be after she tries to eat, she has a decreased appetite and oral intake had not period of time as a result. She noticed this a couple days after her last chemotherapy treatment which was on 04/25/2020. She gets nauseated but no vomiting. Has a history of a tubal and a prior appendectomy but no other abdominal surgeries. 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 She states for years, since she has been getting chemotherapy, she has dyspnea after her treatments that last for a couple weeks. It is mostly dyspnea with exertion. 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 She denies any new swelling in her legs. No chest pains. No syncope or presyncope. No fevers, chills, myalgias, or cough. Patient states since getting up to the floor she has less pain while laying there. However it is monitor and storage bin tender when you touch her. Patient believes that this is new in onset she is been taking her oral chemotherapy agents for some time and really has not had this type of discomfort in the past. 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) Hypothyroidism (Chronic) Chronic anemia (Chronic) Chronic leukopenia (Chronic) Lymphoma (Chronic) Malignant pleural effusion (Chronic) Allergies amoxicillin Allergy (Verified 05/12/20 11:32) Unknown atorvastatin Allergy (Verified 05/12/20 11:32) Unknown Iodinated Contrast Media [DYEE] Allergy (Verified 05/12/20 11:32) Anaphylaxis prednisone Allergy (Verified 05/12/20 11:32) cardiac arrest. azithromycin Adverse Reaction (Verified 05/12/20 16:40) Diarrhea ketorolac Adverse Reaction (Verified 05/12/20 16:40) buring of eyes levofloxacin [From Levaquin] Adverse Reaction (Verified 05/12/20 16:40) muscle aches metronidazole Adverse Reaction (Verified 05/12/20 16:40) GI upset Home Medications: Ambulatory Orders Medication Instructions Recorded Levothyroxine [Synthroid] 88 mcg PO DAILY 05/20/17 Docusate Sodium [Colace] 100 mg PO DAILY PRN PRN 10/25/17 Acetaminophen [Tylenol Extra 500 - 1,000 mg PO Q8H PRN PRN 12/13/18 Strength] Famotidine 20 mg PO DAILY 12/13/18 Dextran 70/Hypromellose/Pf 1 ea OP Q4H PRN PRN 03/07/19 [Artificial Tears Drops] Potassium 297 mg PO DAILY 03/07/19 Allopurinol [Zyloprim] 300 mg PO UD 05/12/20 Lactobacillus Acidophilus 1 cap PO DAILY 05/12/20 [Probiotic] Loratadine [Claritin] 10 mg PO DAILY PRN PRN 05/12/20 Prochlorperazine Maleate 10 mg PO Q6H PRN PRN 05/12/20 [Compazine] Tamsulosin HCl [Flomax] 0.4 mg PO DAILY 05/12/20 Surgical History: appendectomy, - - Tubal ligation, lymph node biopsy, excisional biopsy of right orbital mass, port placement, nasal basal cell removal. 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 Paternal History Items: COPD - Father with history of emphysema, COPD with tobacco use concurrent history. Review of Systems Constitutional: Reports: Anorexia Cardiovascular: Denies: Chest Pain, Chest Pressure, Chest Tightness, Palpitations Respiratory: Reports: Shortness of Breath - She is short of breath when she is taking her chemotherapy agents Gastrointestinal: Reports: Abdominal Pain, Nausea. Denies: Vomiting Genitourinary: Denies: Dysuria, Frequency, Hematuria, Urgency Patient Problems: Active and Suspected Problems Calculus of gallbladder with cholecystitis (Acute) - Physical Exam Vitals/I&O's: Vital Signs Temp Pulse Resp BP Pulse Ox 98.1 F 118 H 16 110/72 100 05/12/20 16:21 05/12/20 16:21 05/12/20 16:21 05/12/20 16:21 05/12/20 16:21 Oxygen Delivery Method Room Air Weight: 105 lb Body Mass Index (BMI) 19.2 Intake and Output for Last 24 Hours 05/10/20 05/11/20 05/12/20 23:59 23:59 23:59 Intake Total 625 / 625 Balance 625 / 625 General: Alert, Oriented x3 Lungs: Clear to auscultation Cardiovascular: Regular rate, Regular Rhythm, No murmurs Abdomen: Tender - She is tender all along her right side. Particularly tender in the right upper quadrant but I cannot palpate her gallbladder. Extremities: No clubbing, No cyanosis, No edema Laboratory Results 05/12/20 12:15: WBC 7.2, RBC 3.88 L, Hgb 11.9 L, Hct 37.1, MCV 95.6, MCH 30.7, MCHC 32.1, RDW Std Deviation 50.0 H, RDW Coeff of Stacey 14.2, Plt Count 223, MPV 10.7, Immature Gran % (Auto) 0.400, Neut % (Auto) 79.8 H, Lymph % (Auto) 7.3 L, [place] % (Auto) 11.5 H, Eos % (Auto) 0.3, Baso % (Auto) 0.7, Absolute Neuts (auto) 5.8, Absolute Lymphs (auto) 0.53 L, Nucleated RBC % 0, Differential Comment COMMENT 05/12/20 12:15: Sodium 139, Potassium 3.3 L, Chloride 105, Carbon Dioxide 29.0, Anion Gap 5, BUN 6 L, Creatinine 0.38 L, Estim Creat Clear Calc 36.67, Est GFR (MDRD) Af Amer 209, Est GFR (MDRD) Non-Af 172, BUN/Creatinine Ratio 15.7, Glucose 131 H, Calcium 8.7, Total Bilirubin 1.10 H, AST 14 L, ALT 14, Alkaline Phosphatase 95, Total Protein 6.1 L, Albumin 3.0 L, Globulin 3.1, Albumin/Globulin Ratio 1.0, Lipase 50 L 05/12/20 13:30: Urine Color Yellow, Urine Clarity Clear, Urine pH 7.0, Ur Specific [place] 1.005, Urine Protein Negative, Urine Glucose (UA) Normal, Urine Ketones Negative, Urine Occult Blood Negative, Urine Nitrite Negative, Urine Bilirubin Negative, Urine Urobilinogen Normal, Ur Leukocyte Esterase Negative, Urine RBC 0 SEEN, Urine WBC 0 SEEN, Ur Squamous Epith Cells 0 SEEN, Urine Bacteria 0 SEEN, Urine Mucus 0 SEEN Current Medications Acetaminophen (Tylenol) 650 mg PO Q6H PRN PRN PRN Reason: Pain Score 1-10/Temp > 100.7 F Acyclovir (Zovirax) 400 mg PO BID [facility] Al Hydroxide/Mg Hydroxide (Mylanta Ii) 30 ml PO Q6H PRN PRN PRN Reason: Gastric Burning Albuterol Sulfate (Ventolin Aerosols) 2.5 mg INHALATION Q2H PRN PRN PRN Reason: Dyspnea, wheezing Carvedilol (Coreg) 3.125 mg PO BID [facility] Docusate Sodium (Colace) 100 mg PO DAILY PRN PRN PRN Reason: Constipation Famotidine (Pepcid) 20 mg PO DAILY [facility] Guaifenesin (Robitussin) 20 ml PO Q4H PRN PRN PRN Reason: COUGH Heparin Sodium (Beef Lung) () 50 units IV UD PRN PRN Reason: Port-a-Cath (VAD)Heparin Flush Hydralazine HCl (Apresoline Iv) 10 mg IV Q4H PRN PRN PRN Reason: SBP > 160 Sodium Chloride () 1,000 mls @ 100 mls/hr IV .Q10H [facility] Last Admin: 05/12/20 16:56 Dose: 100 mls/hr Documented by: Ceftriaxone Sodium 2 gm/ (Sodium Chloride) 50 mls @ 100 mls/hr IV Q24 [facility] Metronidazole (Flagyl) 500 mg in 100 mls @ 100 mls/hr IV Q8 [facility] Lactobacillus Acidophilus (Acidophilus) 1 tablet PO DAILY [facility] Levothyroxine Sodium (Synthroid) 88 mcg PO DAILY@0600 [facility] Loratadine (Claritin) 10 mg PO DAILY PRN PRN PRN Reason: ALLERGIES Magnesium Hydroxide (Milk Of Magnesia) 30 ml PO DAILY PRN PRN PRN Reason: Constipation Magnesium Oxide (Mag-Ox 400) 400 mg PO DAILY [facility] Melatonin (Melatonin) 3 mg PO QHS PRN PRN PRN Reason: INSOMNIA Morphine Sulfate () 4 mg IV Q3H PRN PRN PRN Reason: Pain Score 6-10/10 Ondansetron HCl (Zofran) 4 mg IV Q6H PRN PRN PRN Reason: NAUSEA/VOMITING Oxycodone HCl (Oxyir) 5 mg PO Q4H PRN PRN PRN Reason: Pain Score 4-5/10 Prochlorperazine Edisylate (Compazine Iv) 5 mg IV Q4H PRN PRN PRN Reason: Breakthrough nausea/vomiting Psyllium Hydrophilic Mucilloid (Metamucil) 1 packet PO DAILY PRN PRN PRN Reason: Constipation Senna/Docusate Sodium (Senokot-S, Gay-Colace) 2 tablet PO BID PRN PRN PRN Reason: Constipation Sodium Chloride (0.9% Nacl (Sterile) Posiflush) 10 - 40 ml IV UD PRN PRN Reason: Port access or dressing change Sodium Chloride () 10 - 40 ml IV UD PRN PRN Reason: Port-a-Cath (VAD) Flush Tamsulosin HCl (Flomax) 0.4 mg PO DAILY [facility] Throat Lozenges (Cepacol Sore Throat Lozenge) 1 lozenge MUCOUS MEM Q2H PRN PRN PRN Reason: SORE THROAT Assessment/Plan All Active Problems Calculus of gallbladder with cholecystitis (Acute) Chemotherapy induced neutropenia (Acute) Her tenderness is concerning for acute cholecystitis but she is also tender in the right pelvis area as well and right side of her abdomen lower than where her gallbladder is. I think would benefit us to obtain a CAT scan of her abdomen and pelvis with oral contrast and not IV contrast since she is allergic to it. We will also discuss with hospitalist obtaining a 2D echo on her if the CAT scan is negative hopefully I will be able to take her to surgery remove her gallbladder tomorrow. Office Visits / Consults: [id number] IP Consult L3
--- NOTE | 2020-05-12 17:58 | CT_ITS ---
STUDY: CT ABDOMEN AND PELVIS WITHOUT CONTRAST REASON FOR EXAM: Female, 79 years old. RT UPPER ABD PAIN X 1-2 WEEKS. Hx of lymphoma with last chemo 04/25/20. Hypothyroid and chronic anemia RADIATION DOSAGE (If Supplied By Facility): CTDIvol = ( 6.48 ) mGy, DLP = ( 288.30 ) mGycm TECHNIQUE: Transaxial images were obtained from the dome of the diaphragm to the symphysis pubis without oral contrast, and without intravenous contrast. Sagittal and coronal images were reconstructed. Individualized dose optimization techniques were used for this CT. COMPARISON: None. FINDINGS: There is minor interstitial thickening at the lung bases.. The visualized portions of the heart are within normal limits. Normal liver. There is a tiny calcified stone in the gallbladder without evidence for acute inflammatory changes.. Normal spleen. Normal pancreas. Normal bilateral adrenal glands. Tiny nonobstructing right renal calculus.. No evidence for hydronephrosis or ureteral calculus. No evidence for renal mass given limited unenhanced nature of the study There is thickening of the altman of stomach which may be consistent with nonspecific gastritis. Gastric carcinoma or lymphoma may have similar appearance.. Mild diffuse ileus pattern noted with fecal retention in the colon. No evidence for small bowel obstruction. No evidence for acute appendicitis. Atherosclerotic changes of the aorta without evidence for aneurysm. Normal inferior vena cava. Normal retroperitoneum. Normal urinary bladder. Small amount of free fluid in the pelvis. Normal abdominal wall. Normal osseous structures. CT/Abdomen/Pel W ORAL Cont Only IMPRESSION: Findings which may be consistent with nonspecific gastritis. Gastric carcinoma or lymphoma not excluded. Diffuse ileus pattern. No evidence for small bowel obstruction. Cholelithiasis without evidence for acute cholecystitis. Small amount of free fluid in the cul-de-sac Other findings as above Electronically Signed: Alvin Yi MD at 21:14 EDT , Service support ,
[2020-05-12] MEDS: 0.9% Saline Lock 10 ML Syringe IV (20:52)
[2020-05-12 20:53] LABS: Magnesium 1.8 mg/dL (1.6-2.6)
[2020-05-12] MEDS: Acyclovir 200 MG Capsule 400 MG PO (20:55)
[2020-05-12] MEDS: metroNIDAZOLE 500 MG/100 ML BAG 100 MG IV (20:55)
[2020-05-12] MEDS: Carvedilol 3.125 MG TABLET PO (20:55)
[2020-05-12] MEDS: Acetaminophen 325 MG Tablet 650 MG PO (23:35)
[2020-05-13] VITALS (13 sets, daily range): BP systolic 80–157; BP diastolic 51–89; PULSE 71–100; RESP 16–18; TEMP 36.1–36.8; O2SAT 94–100; BMI 19.2
[2020-05-13] MEDS: 0.9% Normal Saline 1,000 ML 100 ML IV ×2 (04:38→12:51)
[2020-05-13] MEDS: metroNIDAZOLE 500 MG/100 ML BAG 100 MG IV ×3 (05:55→21:57)
[2020-05-13] MEDS: Levothyroxine 88 MCG Tablet PO (05:55)
--- NOTE | 2020-05-13 05:55 | ECHOD_ITS ---
Reason For Study: PRE OP Procedure This was a 2D Doppler, Color Flow transthoracic echocardiogram. Myocardial strain analysis was performed in this exam to aid in the assessment of cardiac function. The exam was of adequate technical quality. Exam performed portable in patient room. Left Ventricle Normal LV size. Left ventricular systolic function is normal. The estimated ejection fraction is 55 %. The global longitudinal strain = -18 % (normal). There is evidence of diastolic dysfunction. No regional wall motion abnormalities noted. Right Ventricle Normal RV size. Normal systolic function. Atria The left atrium is mildly enlarged. Normal right atrium. No doppler evidence for ASD. Mitral Valve There is no mitral annular calcification. Moderate diffuse mitral valve thickening. Mild focal mitral valve calcification of the anterior leaflet. Mild mitral valve prolapse. Mild (1+) mitral valve insufficiency. Tricuspid Valve Normal tricuspid valve. Mild tricuspid valve insufficiency. Right ventricular systolic pressure estimated to be 36 mmHg. Aortic Valve Trisinus/trileaflet aortic valve. Mild diffuse aortic valve thickening. Pulmonic Valve The pulmonic valve is not well visualized. Great Vessels Normal sized aortic root. Pericardium/Pleural No pericardial effusion. MMode/2D Measurements & Calculations LVIDd: 4.3 cm IVSd: 1.0 cm Ao root diam: 3.5 cm LVIDs: 2.9 cm LVPWd: 1.0 cm RVDd: 3.7 cm FS: 32.3 % LAV(MOD-sp4): 57.3 ml LVAd ap4: 23.9 cm2 SV(MOD-sp4): 39.5 ml EDV(MOD-sp4): 67.7 ml EDV(sp4-el): 69.8 ml LVAs ap4: 14.3 cm2 ESV(MOD-sp4): 28.1 ml ESV(sp4-el): 28.4 ml EF(MOD-sp4): 58.4 % EF(sp4-el): 59.3 % SV(sp4-el): 41.4 ml LA A4 area: 19.1 cm2 LA dimension(2D): 4.1 cm RA A4 area: 13.9 cm2 Time Measurements MV dec time: 0.05 sec Doppler Measurements & Calculations MV E max felix: 119.3 cm/sec Lat Peak E' Felix: 6.6 cm/sec Med Peak E' Felix: 5.6 cm/sec MV A max felix: 157.5 cm/sec E/E' lat: 18.1 E/E' med: 21.2 MV E/A: 0.76 MV V2 max: 164.1 cm/sec Ao V2 max: 122.3 cm/sec LV V1 max: 94.6 cm/sec MV max P.8 mmHg Ao max P.0 mmHg LV V1 max P.6 mmHg MV V2 mean: 97.8 cm/sec MV mean P.3 mmHg MV V2 VTI: 40.8 cm PA V2 max: 64.8 cm/sec TR max felix: 286.3 cm/sec MV P1/2t-pr_phl: 59.0 msec TR max P.0 mmHg Interpretation Summary Left ventricular systolic function is normal. The estimated ejection fraction is 55 %. The global longitudinal strain = -18 % (normal). The left atrium is mildly enlarged. Moderate diffuse mitral valve thickening. Mild focal mitral valve calcification of the anterior leaflet. Mild mitral valve prolapse. Mild (1+) mitral valve insufficiency. Mild tricuspid valve insufficiency. Mild diffuse aortic valve thickening. Right ventricular systolic pressure estimated to be 36 mmHg. There is evidence of diastolic dysfunction. Ordering Physician: Rasheed Monahan Referring Physician: JANE FRAGOSO Performed By: Khadra Olea, SREEDHAR, RVT
[2020-05-13 06:38] LABS: ALB/GLOB Ratio 0.9 RATIO (0.9-2.4); AST(SGOT) 13 U/L (15-37); Alanine Aminotransfer ALT/SGPT 13 U/L (13-56); Albumin, Serum 2.6 g/dL (3.2-5.0); Alkaline Phosphatase 80 U/L (45-117); Anion Gap 3 (5-15); BUN 5 mg/dL (7-18); BUN/Creat Ratio 12.9 RATIO (10-20); Calcium,Total 8.2 mg/dL (8.5-10.1); Chloride 110 mmol/L (98-107); Creatinine, Serum 0.39 mg/dL (0.55-1.02); EST Glomerular Filtration Rate 169 mL/min (>60); Est Glom Filt Rate - Afr Amer 205 mL/min (>60); Estimated Creatinine Clearance 34.86 ml/min; Globulin 2.8 g/dL (2.2-4.2); Glucose 82 mg/dL (74-106); Potassium 3.6 mmol/L (3.5-5.1); Protein, Total 5.4 g/dL (6.4-8.2); Sodium Level 143 mmol/L (136-145)
[2020-05-13 07:00] LABS: Differential Comment MANUAL DIFF; Lymphocyte 13 % (19-41); Monocyte 3 % (0-10); Neutrophil-Band 1 % (0-5); Neutrophil-Segmented 83 % (47-70); Platelet Estimate ADEQUATE (ADEQ); Red Cell Morphology NORM C+C NORMAL (NORM C&C)
--- NOTE | 2020-05-13 08:17 | CON.PCM_ITS ---
Problem List (1) Diffuse large B-cell lymphoma of lymph nodes of head Status: Chronic (2) Calculus of gallbladder with cholecystitis Status: Acute Qualifiers: Cholecystitis acuity: acute and chronic Biliary obstruction: without bilia ry obstruction Qualified Code(s): K80.12 - Calculus of gallbladder with acute and chronic cholecystitis without obstruction - Consult Date of Consult: 05/13/[address] White regarding a patient with recurrent diffuse large B-cell lymphoma presenting with acute cholecystitis. My final recommendation will be communicated by electronic medical records. - Reason for Consult History of Present Illness Date of Admission: 05/12/20 Chief Complaint: abd pain The patient is a 79 year old F with pmhx of recurrent diffuse large B cell lymphoma. She also has a history of hypothyroidism, urinary retention and frequent UTI who presented to the ER with c/o RUQ abd pain. Symptoms began a week ago and she has had decreased appetite and difficulty eating due to abdominal pain. She has had some nausea, but no vomiting. Bowels have been regular, no diarrhea. She had worsening pain today and came to the ER. In the ER GB US shows + perez sign, small gallstone, thickened GB wall. She her last chemotherapy about 2 weeks ago. She is responding to treatment and no further plan for bone marrow transplant or CAR-T therapy at this time. She Is otherwise in her normal state of health. She has a resting tachycardia secondary to possible chemotherapy toxicity and mild emphysema. She does not smoke She denies recent illness/infection, no cough, SOB. Has no fever, chills or night sweats. 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) Hypothyroidism (Chronic) Chronic anemia (Chronic) History of marginal zone lymphoma (Chronic) Allergies amoxicillin Allergy (Verified 05/12/20 11:32) Unknown atorvastatin Allergy (Verified 05/12/20 11:32) Unknown azithromycin Allergy (Verified 05/12/20 11:32) Diarrhea Iodinated Contrast Media [DYEE] Allergy (Verified 05/12/20 11:32) Anaphylaxis ketorolac Allergy (Verified 05/12/20 11:32) buring of eyes levofloxacin [From Levaquin] Allergy (Verified 05/12/20 11:32) muscle aches metronidazole Allergy (Verified 05/12/20 11:32) GI upset prednisone Allergy (Verified 05/12/20 11:32) cardiac arrest. Home Medications: Ambulatory Orders Medication Instructions Recorded Levothyroxine [Synthroid] 88 mcg PO DAILY 05/20/17 Docusate Sodium [Colace] 100 mg PO DAILY PRN PRN 10/25/17 Acetaminophen [Tylenol Extra 500 - 1,000 mg PO Q8H 12/13/18 Strength] Famotidine 20 mg PO BID 12/13/18 Carvedilol 3.125 mg PO BID 03/07/19 Dextran 70/Hypromellose/Pf 1 ea OP Q4H PRN PRN 03/07/19 [Artificial Tears Drops] Magnesium Oxide/Magnesium 300 mg PO DAILY 03/07/19 [Magnesium 300 mg Capsule] Potassium 297 mg PO DAILY 03/07/19 Tamsulosin HCl [Flomax] 0.4 mg PO DAILY #90 cap 03/09/19 Surgical History: appendectomy, - - Tubal ligation, lymph node biopsy, excisional biopsy of right orbital mass, port placement, nasal basal cell removal. 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 Paternal History Items: COPD - Father with history of emphysema, COPD with tobacco use concurrent history. Review of Systems Constitutional: Denies: Chills, Fever, Weight Change HEENT: Denies: Head Aches, Sinus Congestion, Sinus Drainage Cardiovascular: Denies: Chest Pain, Heaviness, Palpitations, Syncope Respiratory: Denies: Cough, Shortness of Breath, Shortness of breath at rest, Sputum production, Wheezing Gastrointestinal: Reports: Abdominal Pain, Nausea. Denies: Diarrhea, Vomiting Genitourinary: Denies: Dysuria, Frequency, Urgency Musculoskeletal: Denies: Joint Pain, Joint Tenderness, Muscle pain Skin: Denies: Lesions, Rash, Wounds Neurological: Denies: Numbness, Tingling, Focal weakness Psychiatric: Denies: Anxiety, Depression, Homicidal Ideations, Suicidal Ideations Hematologic/ Lymphatic: Denies: Easy Bruising, Easy Bleeding Calculus of gallbladder with cholecystitis (Acute) - Physical Exam Vital Signs - 24 hr Temp Pulse Resp BP Pulse Ox 05/13/20 03:05 98.2 F 75 16 95/53 L 98 05/12/20 21:03 98.4 F 92 18 129/73 H 98 05/12/20 16:21 98.1 F 118 H 16 110/72 100 05/12/20 16:07 98 F 91 18 115/62 97 05/12/20 15:08 98 F 90 18 118/60 99 05/12/20 13:00 98 F 90 18 123/65 H 99 05/12/20 12:34 98 F 90 20 H 123/65 H 99 05/12/20 11:34 98 F 95 18 132/71 H 98 05/12/20 11:32 97.7 F L 116 H 24 H 116/69 98 05/12/20 11:31 97.7 F L 116 H 24 H 116/69 98 Oxygen Delivery Method Room Air Weight: 111 lb Body Mass Index (BMI) 20.2 General: Alert, Oriented x3, Cooperative HEENT: Atraumatic, PERRLA, EOMI, Normocephalic Neck: Supple, No JVD, Negative Carotid Bruits Lungs: Clear to auscultation, Normal air movement Cardiovascular: Regular rate, No murmurs Abdomen: Bowel Sounds Present, Soft, + Tenderness right upper quadrant Extremities: No edema, Capillary Refill Less than 3 Seconds Skin: No rashes, No breakdown Musculoskeletal: No Tenderness to Palpation of Joints or Extremities Neurological: Cranial nerves II-XII grossly intact Psych/Mental Status: Normal Affect, Appropriate, Alert and oriented to time, place, person, mood and affect Laboratory Results - last 24 hr 05/12/20 05/12/20 05/12/20 12:15 12:15 12:15 WBC 7.2 RBC 3.88 L Hgb 11.9 L Hct 37.1 MCV 95.6 MCH 30.7 MCHC 32.1 RDW Std Deviation 50.0 H RDW Coeff of Stacey 14.2 Plt Count 223 MPV 10.7 Immature Gran % (Auto) 0.400 Neut % (Auto) 79.8 H Lymph % (Auto) 7.[address] [facility] % (Auto) 11.5 H Eos % (Auto) 0.3 Baso % (Auto) 0.7 Absolute Neuts (auto) 5.8 Absolute Lymphs (auto) 0.53 L Total Counted Neutrophils % (Manual) Band Neutrophils % Lymphocytes % (Manual) Monocytes % (Manual) Nucleated RBC % 0 Differential Comment COMMENT Platelet Estimate RBC Morphology Sodium 139 Potassium 3.3 L Chloride 105 Carbon Dioxide 29.0 Anion Gap 5 BUN 6 L Creatinine 0.38 L Estim Creat Clear Calc 36.67 Est GFR (MDRD) Af Amer 209 Est GFR (MDRD) Non-Af 172 BUN/Creatinine Ratio 15.7 Glucose 131 H Calcium 8.7 Phosphorus 3.0 Magnesium 1.8 Total Bilirubin 1.10 H AST 14 L ALT 14 Alkaline Phosphatase 95 Total Protein 6.1 L Albumin 3.0 L Globulin 3.1 Albumin/Globulin Ratio 1.0 Lipase 50 L Urine Color Urine Clarity Urine pH Ur Specific [place] Urine Protein Urine Glucose (UA) Urine Ketones Urine Occult Blood Urine Nitrite Urine Bilirubin Urine Urobilinogen Ur Leukocyte Esterase Urine RBC Urine WBC Ur Squamous Epith Cells Urine Bacteria Urine Mucus 05/12/20 05/13/20 05/13/20 13:30 05:53 05:53 WBC RBC Hgb Hct MCV MCH MCHC RDW Std Deviation RDW Coeff of Stacey Plt Count MPV Immature Gran % (Auto) Neut % (Auto) Lymph % (Auto) [facility] % (Auto) Eos % (Auto) Baso % (Auto) Absolute Neuts (auto) Absolute Lymphs (auto) Total Counted 100 Neutrophils % (Manual) 83 H Band Neutrophils % 1 Lymphocytes % (Manual) 13 L Monocytes % (Manual) 3 Nucleated RBC % Differential Comment MANUAL DIFF Platelet Estimate ADEQUATE RBC Morphology NORM C+C Sodium 143 Potassium 3.6 Chloride 110 H Carbon Dioxide 30.0 Anion Gap 3 L BUN 5 L Creatinine 0.39 L Estim Creat Clear Calc 34.86 Est GFR (MDRD) Af Amer 205 Est GFR (MDRD) Non-Af 169 BUN/Creatinine Ratio 12.9 Glucose 82 Calcium 8.2 L Phosphorus Magnesium Total Bilirubin 1.00 AST 13 L ALT 13 Alkaline Phosphatase 80 Total Protein 5.4 L Albumin 2.6 L Globulin 2.8 Albumin/Globulin Ratio 0.9 Lipase Urine Color Yellow Urine Clarity Clear Urine pH 7.0 Ur Specific [place] 1.005 Urine Protein Negative Urine Glucose (UA) Normal Urine Ketones Negative Urine Occult Blood Negative Urine Nitrite Negative Urine Bilirubin Negative Urine Urobilinogen Normal Ur Leukocyte Esterase Negative Urine RBC 0 SEEN Urine WBC 0 SEEN Ur Squamous Epith Cells 0 SEEN Urine Bacteria 0 SEEN Urine Mucus 0 SEEN Assessment/Plan All Active Problems Calculus of gallbladder with cholecystitis (Acute) In summary, 79-year-old lady with history of marginal zone lymphoma and recurrent diffuse large B-cell lymphoma. She is responding to chemotherapy and clinically in complete remission. She presented with finding consistent with cholelithiasis and possible acute cholecystitis. Recommendations: -No contraindication for surgery. She had a recent 2D echocardiogram with normal ejection fraction. -Her count has recovered from last cycle chemotherapy -Repeat free T4 and TSH since her most recent free T4 was elevated and her thyroid medication may need to be changed -Cancel chemotherapy treatment for this Tuesday -Resume acyclovir and Flomax after surgery. -Follow-up with me in 2 weeks. cc: Dr. Mihaela Napier, Dr. Yoav White, Dr. Francisco J Garces III, Dr. Pop Herron
[2020-05-13 08:29] LABS: Absolute Lymphocyte Count 0.24 X10^3/uL (0.83-4.51); Absolute Neutrophil Count 2.4 X10^3/uL (2.0-7.7); Basophil# 0.07 X10^3/uL; Basophil% 2.1 % (0-1); Eosinophil# 0.14 X10^3/uL; Eosinophils% 4.1 % (0-5); Hematocrit 35.7 % (37-47); Hemoglobin 11.3 g/dL (12.0-15.0); Lymphocyte # 0.24 X10^3/ul (4.0); Lymphocyte % 7.1 % (19-41); Mean Corp Hgb Conc 31.7 g/dL (32-36); Mean Corpuscular Volume 98.1 fL (81-99); Mean Platelet Vol. 11.4 fl (6.2-12.0); Monocyte# 0.54 X10^3/uL; Monocyte% 15.9 % (0-10); NRBC Flagged by Analyzer 0 % (0-5); Neutrophil % 70.5 % (47-70); POSITIVE DIFFERENTIAL YES; Platelet Count 205 K/mm3 (150-450); RBC Distribution Width CV 14.3 % (11.6-14.6); RBC Distribution Width SD 51.4 fl (35.1-43.9); Red Blood Count 3.64 M/mm3 (4.2-5.4); White Blood Count 3.4 K/mm3 (4.4-11.0)
[2020-05-13 08:37] LABS: Differential Indicated SCAN CRITERIA MET
[2020-05-13] MEDS: Bupivacaine Mpf 0.5% 30 ML VIAL (10:40)
--- NOTE | 2020-05-13 11:11 | CASEMGMT ---
RN CM Note: Patient is in surgery, CM assessment deferred. Velia BSN RN ACM
--- NOTE | 2020-05-13 11:12 | OP.PCM_ITS ---
Problem List (1) Calculus of gallbladder with cholecystitis Status: Acute Qualifiers: Cholecystitis acuity: acute and chronic Biliary obstruction: without biliary obstruction Qualified Code(s): K80.12 - Calculus of gallbladder with acute and chronic cholecystitis without obstruction Report of Operation Date of Procedure: 05/13/20 Pre-Operative Diagnosis: Chronic cholecystitis with cholelithiasis Post-Operative Diagnosis: Same Surgery/Procedure Performed:: Laparoscopic cholecystectomy Type of Anesthesia:: General Anesthesiologist: Sharan Carrillo Specimen's removed: Gallbladder Estimated Blood Loss (mL): < 25 cc Description of Procedure: Patient was brought into the operating room. Placed in the supine position. Under excellent general trach intubation the abdomen was sterilely prepped and draped in usual fashion. Local was injected infraumbilically. Dissection was carried down to the fascia the fascia grasped with a [place]. Varies needle was placed inside the abdomen. The abdomen was insufflated 15 torr. A 10/12 trocar was placed difficulty. Subxiphoid #5 trocar was placed, inferior to this another #5 trocar was placed, laterally a #5 trocar was placed. All these under direct visualization without injury to underlying structures. Fundus of the gallbladder was grasped retracted cephalad direction the patient was placed in the head up and rotated to the left position. Use electrocautery took down significant amount of adhesions from the gallbladder itself. I came down dissected out the cystic duct placed hemoclips proximally and distally and ligated the duct identified the artery placed hemoclips proximally distally and ligated the artery. Posterior branch of the cystic artery was controlled with a hemo-lock clip as well. Electrocautery was used to deliver the gallbladder from the gallbladder bed I had excellent hemostasis. Placed a specimen specimen bag and delivered through the umbilical port without difficulty. The liver bed was slightly raw there was no active bleeding but I decided it was best to place some Enzo in the liver bed which was done without difficulty. The trochars were removed under direct visualization good pneumostasis was noted. Fascia the umbilical port was closed with a [id number] stitch of 0 Vicryl. Skin incisions were closed with subcuticular stitches of 4-0 Monocryl. Steri-Strips were applied. Sterile dressings were applied. The patient tolerated the procedure well. - Admit VTE Documentation VTE Present on Admission: No VTE Mechan Device Prophylaxis: SCD's VTE Pharm Prophylaxis ordered?: No Reason prophylaxis not ordered:: Treatment Not Indicated [id number]: [id number] Laparoscopic cholecystectomy
--- NOTE | 2020-05-13 13:00 | GALL_PTH ---
PATIENT: SHERI BLACKWELL LOC: MS3 U#:[id number] AGE/SX: 79/F ROOM: [facility] [place] RE05/12/[address]: Dr. Josef Carlisle DO : 1940 BED: 1 DIS: 05/14/2020 SPEC #: [id number] RECD: 05/13/20 13:54 STATUS: ERIS REGeni #: [id number] DORCAS: 05/13/20 13:[address]: Yoav White DEPT: SURGICAL PATHOLOGY RECD BY: Garland Badillo ENTERED: 05/14/20 09:32 SP TYPE: ASHUTOSH HEAD DR: MD Dr. Francisco J Talamantes III, MD Dr. Mark Tereletsky, DO Dr. Paul Masci, DO Tissues: Gallbladder, NOS Procedures: Surgery Specimen Level III HEADER OPERATION: Laparoscopic cholecystectomy PRE-OP DIAGNOSIS: Calculus of gallbladder with cholecystitis TISSUE SUBMITTED: Gallbladder and contents MICROSCOPIC DIAGNOSIS Gallbladder, cholecystectomy: Chronic cholecystitis with Rokitansky-Aschoff sinuses and cholelithiasis. AM:sunshine 05/15/20 MICROSCOPIC DESCRIPTION Slides are reviewed. GROSS DESCRIPTION Received is one container labeled with the patient's name and designated gallbladder and contents. The specimen consists of a gallbladder measuring 8 cm in length and up to 3.5 cm in diameter. The external surface is pink-rodriguez, smooth and glistening for the most part. Focally it is granular, hemorrhagic and contains cautery artifact. The gallbladder contains green-yellow mucoid bile and small minute black stones measuring 0.2 cm in greatest dimension. The mucosa is bile-stained and without any mass lesions. The gallbladder wall shows a focal thickened cyst area measuring 1.5 x 1 x 1 cm. The rest of the gallbladder wall measures 0.2 cm in thickness. Rn House Supervisor sections are submitted in two cassettes as follows: 1 - gallbladder and cystic duct, 2 - cystic area at the fundus, entirely submitted. / SJ:sunshine 05/14/20 TC:3 CPT: 13057
--- NOTE | 2020-05-13 13:01 | PN_ITS ---
Patient Problems: Active and Suspected Problems Calculus of gallbladder with cholecystitis (Acute) Reason for Visit: acute neela Subjective: Pt resting comfortably in bed post op. Mild abd pain. Still lethargic. Denies fever/chills/nausea/SOB. Vitals/I&O's: Vital Signs Temp Pulse Resp BP Pulse Ox 97.2 F L 90 16 125/75 H 100 05/13/20 12:41 05/13/20 12:41 05/13/20 12:41 05/13/20 12:41 05/13/20 12:41 Oxygen Flow Rate (L/min) 2 Oxygen Delivery Method Nasal Cannula Weight: 104 lb 15.993 oz Body Mass Index (BMI) 19.2 Intake and Output for Last 24 Hours 05/11/20 05/12/20 05/13/20 23:59 23:59 23:59 Intake Total 1123.34 / 1123.34 1580.99 / 1580.99 Output Total 375 / 375 300 / 300 Balance 748.34 / 748.34 1280.99 / 1280.99 General: Alert, Oriented x3, Cooperative, Lethargic, - - frail HEENT: Atraumatic, PERRLA, EOMI, Normocephalic Neck: Supple, No JVD, Negative Carotid Bruits Lungs: Clear to auscultation, Normal air movement Cardiovascular: Regular rate, No murmurs Abdomen: Bowel Sounds Present, Soft, Non Tender Extremities: No edema, Capillary Refill Less than 3 Seconds Skin: No rashes, No breakdown Musculoskeletal: No Tenderness to Palpation of Joints or Extremities Neurological: Cranial nerves II-XII grossly intact Psych/Mental Status: Normal Affect, Appropriate, Alert and oriented to time, place, person, mood and affect Laboratory Results 05/12/20 12:15: Phosphorus 3.0, Magnesium 1.8 05/12/20 13:30: Urine Color Yellow, Urine Clarity Clear, Urine pH 7.0, Ur Specific [place] 1.005, Urine Protein Negative, Urine Glucose (UA) Normal, Urine Ketones Negative, Urine Occult Blood Negative, Urine Nitrite Negative, Urine Bilirubin Negative, Urine Urobilinogen Normal, Ur Leukocyte Esterase Negative, Urine RBC 0 SEEN, Urine WBC 0 SEEN, Ur Squamous Epith Cells 0 SEEN, Urine Bacteria 0 SEEN, Urine Mucus 0 SEEN 05/13/20 05:53: WBC 3.4 L, RBC 3.64 L, Hgb 11.3 L, Hct 35.7 L, MCV 98.1, MCH 31.0, MCHC 31.7 L, RDW Std Deviation 51.4 H, RDW Coeff of Stacey 14.3, Plt Count 205, MPV 11.4, Immature Gran % (Auto) 0.300, Neut % (Auto) 70.5 H, Lymph % (Auto) 7.1 L, [place] % (Auto) 15.9 H, Eos % (Auto) 4.1, Baso % (Auto) 2.1 H, Absolute Neuts (auto) 2.4, Absolute Lymphs (auto) 0.24 L, Total Counted TELECOMMUNICATIONS MANAGER, N eutrophils % (Manual) 83 H, Band Neutrophils % 1, Lymphocytes % (Manual) 13 L, Monocytes % (Manual) 3, Nucleated RBC % 0, Differential Comment MANUAL DIFF, Diff Path Review January, Platelet Estimate ADEQUATE, RBC Morphology NORM C+C 05/13/20 05:53: Sodium 143, Potassium 3.6, Chloride 110 H, Carbon Dioxide 30.0, Anion Gap 3 L, BUN 5 L, Creatinine 0.39 L, Estim Creat Clear Calc 34.86, Est GFR (MDRD) Af Amer 205, Est GFR (MDRD) Non-Af 169, BUN/Creatinine Ratio 12.9, Glucose 82, Calcium 8.2 L, Total Bilirubin 1.00, AST 13 L, ALT 13, Alkaline Phosphatase 80, Total Protein 5.4 L, Albumin 2.6 L, Globulin 2.8, Albumin/Globulin Ratio 0.9 Current Medications Acetaminophen (Tylenol) 650 mg PO Q6H PRN PRN PRN Reason: Pain Score 1-10/Temp > 100.7 F Last Admin: 05/12/20 23:35 Dose: 650 mg Documented by: Acyclovir (Zovirax) 400 mg PO BID [facility] Last Admin: 05/12/20 20:55 Dose: 400 mg Documented by: Al Hydroxide/Mg Hydroxide (Mylanta Ii) 30 ml PO Q6H PRN PRN PRN Reason: Gastric Burning Albuterol Sulfate (Ventolin Aerosols) 2.5 mg INHALATION Q2H PRN PRN PRN Reason: Dyspnea, wheezing Carvedilol (Coreg) 3.125 mg PO BID [facility] Last Admin: 05/12/20 20:55 Dose: 3.125 mg Documented by: Docusate Sodium (Colace) 100 mg PO DAILY PRN PRN PRN Reason: Constipation Famotidine (Pepcid) 20 mg PO DAILY [facility] Guaifenesin (Robitussin) 20 ml PO Q4H PRN PRN PRN Reason: COUGH Heparin Sodium (Beef Lung) () 50 units IV UD PRN PRN Reason: Port-a-Cath (VAD)Heparin Flush Hydralazine HCl (Apresoline Iv) 10 mg IV Q4H PRN PRN PRN Reason: SBP > 160 Sodium Chloride () 1,000 mls @ 100 mls/hr IV .Q10H [facility] Last Infusion: 05/13/20 12:52 Dose: 0 mls/hr Documented by: Ceftriaxone Sodium 2 gm/ (Sodium Chloride) 50 mls @ 100 mls/hr IV Q24 [facility] Last Admin: 05/13/20 12:52 Dose: 100 mls/hr Documented by: Metronidazole (Flagyl) 500 mg in 100 mls @ 100 mls/hr IV Q8 [facility] Last Infusion: 05/13/20 06:55 Dose: Infused Documented by: Lactobacillus Acidophilus (Acidophilus) 1 tablet PO DAILY [facility] Levothyroxine Sodium (Synthroid) 88 mcg PO DAILY@0600 [facility] Last Admin: 05/13/20 05:55 Dose: 88 mcg Documented by: Loratadine (Claritin) 10 mg PO DAILY PRN PRN PRN Reason: ALLERGIES Magnesium Hydroxide (Milk Of Magnesia) 30 ml PO DAILY PRN PRN PRN Reason: Constipation Magnesium Oxide (Mag-Ox 400) 400 mg PO DAILY [facility] Melatonin (Melatonin) 3 mg PO QHS PRN PRN PRN Reason: INSOMNIA Morphine Sulfate () 4 mg IV Q3H PRN PRN PRN Reason: Pain Score 6-10/10 Ondansetron HCl (Zofran) 4 mg IV Q6H PRN PRN PRN Reason: NAUSEA/VOMITING Oxycodone HCl (Oxyir) 5 mg PO Q4H PRN PRN PRN Reason: Pain Score 4-5/10 Prochlorperazine Edisylate (Compazine Iv) 5 mg IV Q4H PRN PRN PRN Reason: Breakthrough nausea/vomiting Psyllium Hydrophilic Mucilloid (Metamucil) 1 packet PO DAILY PRN PRN PRN Reason: Constipation Senna/Docusate Sodium (Senokot-S, Gay-Colace) 2 tablet PO BID PRN PRN PRN Reason: Constipation Sodium Chloride (0.9% Nacl (Sterile) Posiflush) 10 - 40 ml IV UD PRN PRN Reason: Port access or dressing change Sodium Chloride () 10 - 40 ml IV UD PRN PRN Reason: Port-a-Cath (VAD) Flush Last Admin: 05/12/20 20:52 Dose: 20 ml Documented by: Tamsulosin HCl (Flomax) 0.4 mg PO DAILY [facility] Throat Lozenges (Cepacol Sore Throat Lozenge) 1 lozenge MUCOUS MEM Q2H PRN PRN PRN Reason: SORE THROAT STROKE Vital Signs/Narrative: Vital Signs Temp Pulse Resp BP Pulse Ox 05/13/20 12:41 97.2 F L 90 16 125/75 H 100 05/13/20 12:05 96.9 F L 94 16 114/58 L 100 05/13/20 12:00 95 16 97/51 L 100 05/13/20 11:50 88 16 90/53 L 100 05/13/20 11:44 94 16 90/53 L 94 05/13/20 11:30 98 16 80/59 L 95 05/13/20 11:25 97.0 F L 100 18 93/64 100 05/13/20 09:05 97.9 F 83 16 115/70 99 Medical Necessity - Tobacco Use Smoking Status: Never smoker Tobacco Use: Non-smoker Assessment/Plan All Active Problems Calculus of gallbladder with cholecystitis (Acute) Chemotherapy induced neutropenia (Acute) 1. Acute cholecystitis - s/p lap neela POD#[address] White. Doing well no acute issues at this time. Continue rocephin/flagyl, had periop clinda x1. t bili normal now. -Preop echo showed EF 55%, no regional wall abnormalities, 1+ MVI, RVSP 36 mmHg, diastolic dysfunction 2. 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 previous mets to bone and currently states mets to left axilla. Pt has been told by oncology that her condition is terminal. Declined T cell therapy in February 2020 and told she had 6 months to live. Oncology recommends checking thyroid studies, resumption of acyclovir and flomax, f/u 2 weeks. No chemo this tuesday. 3. Hx Pancytopenia - improved. currently only mildly anemic. Abs neuts ok. 4. Hypothyroidism - continue synthroid DVT ppx: SCDs This patient was seen by Rasheed Monahan PA-C under the supervision of Dr. Carlisle
--- NOTE | 2020-05-13 14:09 | CHAPLAIN ---
Type of Pastoral Visit _x__ Initial Visit ___ Follow-up Visit ___ On-call Visit ___ General Patient Visit ___ Spiritual Assessment ___ Family Conference ___ Bereavement ___ Rapid Response ___ Code Blue ___ Other (describe below) Pastoral Care Referral From _x__ Patient ___ Family ___ Nurse ___ Physician ___ Senior Safety Support Manager ___ Replanting Machine Operator ___ Other (describe below) Sacrament/Intervention _x__ Active listening ___ Anointing ___ Episcopalian ___ Bereavement ___ Communion _x__ Tran exploration ___ _x__ Life review _x__ Prayer ___ Reconciliation ___ Sacrament of Sick _x__ Supportive presence ___ Wedding ___ Other (describe below) Pastoral Comments
--- NOTE | 2020-05-13 14:34 | CASEMGMT ---
RN CM Assessment Note Intro role of CM to patient in room. She is returned from surgery, is drowsy, but awakened easily and is able to participate in assessment. Demographics and PCP verified. Patient does not have addresses for emergency contacts. Her is not listed as next of kin as pt prefers calls go to her son Saravanan. Pt states she is independent at home, but family assists with grocery shopping, laundry and cleaning. Patient plans to return home and will have family support. She is denying any needs at this time. Presentation: abdominal pain, decreased appetite,nausea. Diagnosis: +perez sign, gallstone, thickened GB wall. PMH: currently undergoing chemo- last treatment 2 weeks ago. PCP: Dr. Francisco J Garces III Specialists: Dr. Herron, oncologist Insurance: [facility] Preferred Pharmacy: [facility] Pres[facility] Benefit: yes LNOK: DaughterRamya, DPOA Living Arrangements: Lives independently @ home. Family is supportive and will be able to assist. Son does grocery shopping, and granddaughter helps with laundry and cleaning. Tranportation: self/family DME: shower chair, raised toilet seat, cane, walker, grab bars. No home oxygen. patient is on 2L post surgery. HHC: [facility] past SNF: none Patient DC Goals: Home DC Plan: Home on discharge. No needs identified @ this time. Contact CM for any concerns/needs that may arise. Velia BEARDEN RN ACM
[2020-05-13 14:38] LABS: T4 Free Direct 1.45 ng/dL (0.76-1.46); Thyroid Stim Hormone (TSH) 0.11 uIU/mL (0.358-3.74)
--- NOTE | 2020-05-13 14:42 | CASEMGMT ---
Social Work Note SW reviewed pt's chart and completed Palliative Care Referral. SW in to speak with pt. SW introduced self and role at [facility]. Pt is alert and orientated x3. SW educated pt on Palliative Care and provided pt with brochure. Pt denied wanting a referral at this time, agreeable to taking Palliative referral. Karine Godwin DRAGGER OUT, ABA THERAPIST
[2020-05-13] MEDS: Carvedilol 3.125 MG TABLET PO ×2 (14:43→21:58)
[2020-05-13] MEDS: Famotidine 20 MG Tablet PO (14:44)
[2020-05-13] MEDS: Tamsulosin HCl 0.4 MG Capsule PO (14:44)
[2020-05-13] MEDS: Magnesium Oxide 400 MG Tablet PO (14:44)
[2020-05-13] MEDS: Acyclovir 200 MG Capsule 400 MG PO ×2 (14:45→21:57)
[2020-05-13] MEDS: Glycerin/Hypromellose/PEG400 15 ml Bottle 1 DRP OPHTHALMIC (14:51)
[2020-05-14 00:41] VITALS: BMI 19.2
[2020-05-14] MEDS: 0.9% Normal Saline 1,000 ML 100 ML IV (00:42)
[2020-05-14 02:35] VITALS: BP 101/63; PULSE 77; RESP 17; TEMP 36.6; O2SAT 97
[2020-05-14 04:54] VITALS: BMI 19.2
[2020-05-14] MEDS: metroNIDAZOLE 500 MG/100 ML BAG 100 MG IV (05:40)
[2020-05-14] MEDS: Levothyroxine 88 MCG Tablet PO (05:40)
[2020-05-14 06:13] LABS: Absolute Lymphocyte Count 0.46 X10^3/uL (0.83-4.51); Absolute Neutrophil Count 6.7 X10^3/uL (2.0-7.7); Basophil# 0.04 X10^3/uL; Basophil% 0.5 % (0-1); Hematocrit 33.1 % (37-47); Hemoglobin 10.7 g/dL (12.0-15.0); Lymphocyte # 0.46 X10^3/ul (4.0); Lymphocyte % 5.7 % (19-41); Mean Corp Hgb Conc 32.3 g/dL (32-36); Mean Corpuscular Hgb 31.2 pg (27.0-32.0); Mean Corpuscular Volume 96.5 fL (81-99); Mean Platelet Vol. 10.8 fl (6.2-12.0); Monocyte# 0.84 X10^3/uL; Monocyte% 10.4 % (0-10); NRBC Flagged by Analyzer 0 % (0-5); Neutrophil # 6.69 X10^3/uL (2.7-7.7); POSITIVE DIFFERENTIAL YES; Platelet Count 198 K/mm3 (150-450); RBC Distribution Width CV 14.1 % (11.6-14.6); RBC Distribution Width SD 49.7 fl (35.1-43.9); Red Blood Count 3.43 M/mm3 (4.2-5.4); White Blood Count 8.1 K/mm3 (4.4-11.0)
[2020-05-14 06:16] LABS: Differential Indicated SCAN CRITERIA MET
[2020-05-14 06:40] LABS: Differential Comment SCANNED
[2020-05-14 06:41] LABS: ALB/GLOB Ratio 0.9 RATIO (0.9-2.4); AST(SGOT) 31 U/L (15-37); Alanine Aminotransfer ALT/SGPT 22 U/L (13-56); Albumin, Serum 2.4 g/dL (3.2-5.0); Alkaline Phosphatase 85 U/L (45-117); Anion Gap 6 (5-15); BUN 13 mg/dL (7-18); BUN/Creat Ratio 27.5 RATIO (10-20); Chloride 108 mmol/L (98-107); Creatinine, Serum 0.47 mg/dL (0.55-1.02); EST Glomerular Filtration Rate 135 mL/min (>60); Est Glom Filt Rate - Afr Amer 164 mL/min (>60); Estimated Creatinine Clearance 34.86 ml/min; Globulin 2.7 g/dL (2.2-4.2); Glucose 121 mg/dL (74-106); Potassium 3.7 mmol/L (3.5-5.1); Protein, Total 5.1 g/dL (6.4-8.2); Sodium Level 140 mmol/L (136-145)
[2020-05-14 08:32] VITALS: BMI 19.2
[2020-05-14 08:35] VITALS: BP 115/65; PULSE 90; RESP 16; TEMP 36.9; O2SAT 100
[2020-05-14] MEDS: Tamsulosin HCl 0.4 MG Capsule PO (09:09)
[2020-05-14] MEDS: Famotidine 20 MG Tablet PO (09:09)
[2020-05-14] MEDS: Magnesium Oxide 400 MG Tablet PO (09:09)
[2020-05-14] MEDS: Acyclovir 200 MG Capsule 400 MG PO (09:09)
[2020-05-14] MEDS: Carvedilol 3.125 MG TABLET PO (09:10)
--- NOTE | 2020-05-14 10:16 | PCM.PN.SRG ---
Patient Problems: Active and Suspected Problems Calculus of gallbladder with cholecystitis (Acute) Subjective: Patient is feeling much better. Complaining of only incisional pain Objective: Dressings are dry. - Physical Exam Vitals/I&O's: Vital Signs Temp Pulse Resp BP Pulse Ox 98.5 F 90 16 115/65 100 05/14/20 08:35 05/14/20 08:35 05/14/20 08:35 05/14/20 08:35 05/14/20 08:35 Oxygen Flow Rate (L/min) 2 Oxygen Delivery Method Room Air Weight: 104 lb 15.993 oz Body Mass Index (BMI) 19.2 Intake and Output for Last 24 Hours 05/12/20 05/13/20 05/14/20 23:59 23:59 23:59 Intake Total 1123.34 / 1123.34 3039.33 / 3039.33 1321.67 / 1321.67 Output Total 375 / 375 1300 / 1300 450 / 450 Balance 748.34 / 748.34 1739.33 / 1739.33 871.67 / 871.67 Laboratory Results 05/13/20 05:53: TSH 0.11 L, Free T4 1.45 05/14/20 05:56: WBC 8.1, RBC 3.43 L, Hgb 10.7 L, Hct 33.1 L, MCV 96.5, MCH 31.2, MCHC 32.3, RDW Std Deviation 49.7 H, RDW Coeff of Stacey 14.1, Plt Count 198, MPV 10.8, Immature Gran % (Auto) 0.400, Neut % (Auto) 83.0 H, Lymph % (Auto) 5.7 L, [place] % (Auto) 10.4 H, Eos % (Auto) 0.0, Baso % (Auto) 0.5, Absolute Neuts (auto) 6.7, Absolute Lymphs (auto) 0.46 L, Nucleated RBC % 0, Differential Comment SCANNED 05/14/20 05:56: Sodium 140, Potassium 3.7, Chloride 108 H, Carbon Dioxide 26.0, Anion Gap 6, BUN 13, Creatinine 0.47 L, Estim Creat Clear Calc 34.86, Est GFR (MDRD) Af Amer 164, Est GFR (MDRD) Non-Af 135, BUN/Creatinine Ratio 27.5 H, Glucose 121 H, Calcium 8.0 L, Total Bilirubin 0.50, AST 31, ALT 22, Alkaline Phosphatase 85, Total Protein 5.1 L, Albumin 2.4 L, Globulin 2.7, Albumin/Globulin Ratio 0.9 Current Medications Acetaminophen (Tylenol) 650 mg PO Q6H PRN PRN PRN Reason: Pain Score 1-10/Temp > 100.7 F Last Admin: 05/12/20 23:35 Dose: 650 mg Documented by: Acyclovir (Zovirax) 400 mg PO BID [facility] Last Admin: 05/14/20 09:09 Dose: 400 mg Documented by: Al Hydroxide/Mg Hydroxide (Mylanta Ii) 30 ml PO Q6H PRN PRN PRN Reason: Gastric Burning Albuterol Sulfate (Ventolin Aerosols) 2.5 mg INHALATION Q2H PRN PRN PRN Reason: Dyspnea, wheezing Carvedilol (Coreg) 3.125 mg PO BID [facility] Last Admin: 05/14/20 09:10 Dose: 3.125 mg Documented by: Docusate Sodium (Colace) 100 mg PO DAILY PRN PRN PRN Reason: Constipation Famotidine (Pepcid) 20 mg PO DAILY [facility] Last Admin: 05/14/20 09:09 Dose: 20 mg Documented by: Guaifenesin (Robitussin) 20 ml PO Q4H PRN PRN PRN Reason: COUGH Heparin Sodium (Beef Lung) () 50 units IV UD PRN PRN Reason: Port-a-Cath (VAD)Heparin Flush Hydralazine HCl (Apresoline Iv) 10 mg IV Q4H PRN PRN PRN Reason: SBP > 160 Sodium Chloride () 1,000 mls @ 100 mls/hr IV .Q10H [facility] Last Infusion: 05/14/20 09:40 Dose: 100 mls/hr Documented by: Ceftriaxone Sodium 2 gm/ (Sodium Chloride) 50 mls @ 100 mls/hr IV Q24 [facility] Last Infusion: 05/14/20 09:40 Dose: Infused Documented by: Metronidazole (Flagyl) 500 mg in 100 mls @ 100 mls/hr IV Q8 [facility] Last Infusion: 05/14/20 06:40 Dose: Infused Documented by: Lactobacillus Acidophilus (Acidophilus) 1 tablet PO DAILY [facility] Last Admin: 05/14/20 09:09 Dose: 1 tablet Documented by: Levothyroxine Sodium (Synthroid) 88 mcg PO DAILY@0600 [facility] Last Admin: 05/14/20 05:40 Dose: 88 mcg Documented by: Loratadine (Claritin) 10 mg PO DAILY PRN PRN PRN Reason: ALLERGIES Magnesium Hydroxide (Milk Of Magnesia) 30 ml PO DAILY PRN PRN PRN Reason: Constipation Magnesium Oxide (Mag-Ox 400) 400 mg PO DAILY [facility] Last Admin: 05/14/20 09:09 Dose: 400 mg Documented by: Melatonin (Melatonin) 3 mg PO QHS PRN PRN PRN Reason: INSOMNIA Morphine Sulfate () 4 mg IV Q3H PRN PRN PRN Reason: Pain Score 6-10/10 Nutritional Formula (Lactose Free) (Ensure Enlive) 120 ml PO 4X/DAY [facility] Last Admin: 05/14/20 09:10 Dose: 120 ml Documented by: Ondansetron HCl (Zofran) 4 mg IV Q6H PRN PRN PRN Reason: NAUSEA/VOMITING Oxycodone HCl (Oxyir) 5 mg PO Q4H PRN PRN PRN Reason: Pain Score 4-5/10 Prochlorperazine Edisylate (Compazine Iv) 5 mg IV Q4H PRN PRN PRN Reason: Breakthrough nausea/vomiting Psyllium Hydrophilic Mucilloid (Metamucil) 1 packet PO DAILY PRN PRN PRN Reason: Constipation Senna/Docusate Sodium (Senokot-S, Gay-Colace) 2 tablet PO BID PRN PRN PRN Reason: Constipation Sodium Chloride (0.9% Nacl (Sterile) Posiflush) 10 - 40 ml IV UD PRN PRN Reason: Port access or dressing change Sodium Chloride () 10 - 40 ml IV UD PRN PRN Reason: Port-a-Cath (VAD) Flush Last Admin: 05/12/20 20:52 Dose: 20 ml Documented by: Tamsulosin HCl (Flomax) 0.4 mg PO DAILY [facility] Last Admin: 05/14/20 09:09 Dose: 0.4 mg Documented by: Throat Lozenges (Cepacol Sore Throat Lozenge) 1 lozenge MUCOUS MEM Q2H PRN PRN PRN Reason: SORE THROAT Medical Necessity - Tobacco Use Smoking Status: Never smoker Tobacco Use: Non-smoker Assessment/Plan All Active Problems Calculus of gallbladder with cholecystitis (Acute) Chemotherapy induced neutropenia (Acute) Okay to discharge from my standpoint
--- NOTE | 2020-05-14 10:17 | DCINST_ITS ---
Discharge Diet: Light diet - advance as tolerated Discharge Activity: May Not Drive - for 2-3 days or while taking narcotic pain medications., - - Do not drive, work heavy equipment or sign legal documents for 24 hours. May shower in (days): 1 - with the bandage in place. Additional Activity Instructions:: Pain medication may cause nausea. You should typically eat light foods as you take your pain medications. Pain medication may also cause constipation. If this is a problem for you, please discuss with your doctor. Call your doctor if your incision/area has: Continuous Slow Oozing, Sudden Increased Bleeding, Increased Pain/ Swelling, Increased Redness, Foul Smelling Discharge Call your doctor if you observe: Fever of 101 or Higher Suture Line Care: Avoid Pulling/Pushing, Avoid Pinching/Bending Additional Dressing/Incision Instructions:: Leave operative bandaids on for 2 days. When you remove dressing, leave Steri-Strips on until your follow-up appointment, or until the Steri-Strips fall off on their own. Allergies/Adverse Reactions: Allergies amoxicillin Allergy (Verified 05/12/20 11:32) Unknown atorvastatin Allergy (Verified 05/12/20 11:32) Unknown Iodinated Contrast Media [DYEE] Allergy (Verified 05/12/20 11:32) Anaphylaxis prednisone Allergy (Verified 05/12/20 11:32) cardiac arrest. azithromycin Adverse Reaction (Verified 05/12/20 16:40) Diarrhea ketorolac Adverse Reaction (Verified 05/12/20 16:40) buring of eyes levofloxacin [From Levaquin] Adverse Reaction (Verified 05/12/20 16:40) muscle aches metronidazole Adverse Reaction (Verified 05/12/20 16:40) GI upset Medications to take at Discharge Levothyroxine [Synthroid] 88 mcg PO DAILY 05/20/17 Docusate Sodium [Colace] 100 mg PO DAILY PRN PRN 10/25/17 Acetaminophen [Tylenol Extra Strength] 500 - 1,000 mg PO Q8H PRN PRN 12/13/18 Famotidine 20 mg PO DAILY 12/13/18 Dextran 70/Hypromellose/Pf [Artificial Tears Drops] 1 ea OP Q4H PRN PRN 03/07/19 Potassium 297 mg PO DAILY 03/07/19 Allopurinol [Zyloprim] 300 mg PO UD 08/24/20 Lactobacillus Acidophilus [Probiotic] 1 cap PO DAILY 05/12/20 Loratadine [Claritin] 10 mg PO DAILY PRN PRN 05/12/20 Prochlorperazine Maleate [Compazine] 10 mg PO Q6H PRN PRN 05/12/20 Tamsulosin HCl [Flomax] 0.4 mg PO DAILY 05/12/20 Primary Care Physician: Francisco J Garces III, MD [Primary Care Provider] - Test Results: Test results from this visit will be discussed in further detail at your follow- up appointment, if applicable. Please Follow Up With: Yoav White MD - Please call [phone] to schedule an appointment. When: 7 days after your surgery.
--- NOTE | 2020-05-14 11:05 | PCM.PN.BLA ---
Progress Note Hematology oncology progress note: Patient is well after laparoscopic cholecystectomy POD#1 Minimal abdomenal pain, no nausea or vomiting. Tolerating diet. No fever or chills. Vital Signs Temp Pulse Resp BP Pulse Ox 05/14/20 08:35 98.5 F 90 16 115/65 100 05/14/20 02:35 97.8 F 77 17 101/63 97 Laboratory Results 05/13/20 05:53: TSH 0.11 L, Free T4 1.45 05/14/20 05:56: WBC 8.1, RBC 3.43 L, Hgb 10.7 L, Hct 33.1 L, MCV 96.5, MCH 31.2, MCHC 32.3, RDW Std Deviation 49.7 H, RDW Coeff of Stacey 14.1, Plt Count 198, MPV 10.8, Immature Gran % (Auto) 0.400, Neut % (Auto) 83.0 H, Lymph % (Auto) 5.7 L, [place] % (Auto) 10.4 H, Eos % (Auto) 0.0, Baso % (Auto) 0.5, Absolute Neuts (auto) 6.7, Absolute Lymphs (auto) 0.46 L, Nucleated RBC % 0, Differential Comment SCANNED 05/14/20 05:56: Sodium 140, Potassium 3.7, Chloride 108 H, Carbon Dioxide 26.0, Anion Gap 6, BUN 13, Creatinine 0.47 L, Estim Creat Clear Calc 34.86, Est GFR (MDRD) Af Amer 164, Est GFR (MDRD) Non-Af 135, BUN/Creatinine Ratio 27.5 H, Glucose 121 H, Calcium 8.0 L, Total Bilirubin 0.50, AST 31, ALT 22, Alkaline Phosphatase 85, Total Protein 5.1 L, Albumin 2.4 L, Globulin 2.7, Albumin/Globulin Ratio 0.9 Assessment/Plan: 1) 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 White for postoperative care -Continue acyclovir and Flomax after discharge. -Follow-up with me in 2 weeks and resume chemotherapy treatment if stable CC; Dr. Francisco J Garces,III, Dr. Yoav White, Dr. Lord Gopal STROKE Vital Signs/Narrative: Vital Signs Temp Pulse Resp BP Pulse Ox 05/14/20 08:35 98.5 F 90 16 115/65 100
--- NOTE | 2020-05-14 11:27 | PHA.DC.MR ---
Pharmacy Service has performed discharge medication reconciliation for this patient. The patient's discharge medication list was reviewed for discrepancies and discrepancies were resolved. Home Medications Levothyroxine [Synthroid] 88 mcg PO DAILY 05/20/17 Docusate Sodium [Colace] 100 mg PO DAILY PRN PRN 10/25/17 Acetaminophen [Tylenol Extra Strength] 500 - 1,000 mg PO Q8H PRN PRN 12/13/18 Famotidine 20 mg PO DAILY 12/13/18 Dextran 70/Hypromellose/Pf [Artificial Tears Drops] 1 ea OP Q4H PRN PRN 03/07/19 Potassium 297 mg PO DAILY 03/07/19 Allopurinol [Zyloprim] 300 mg PO UD 05/12/20 Lactobacillus Acidophilus [Probiotic] 1 cap PO DAILY 05/12/20 Loratadine [Claritin] 10 mg PO DAILY PRN PRN 05/12/20 Prochlorperazine Maleate [Compazine] 10 mg PO Q6H PRN PRN 05/12/20 Tamsulosin HCl [Flomax] 0.4 mg PO DAILY 05/12/20
--- NOTE | 2020-05-14 11:44 | DCINST_ITS ---
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 May shower in (days): 1 - with the bandage in place. Additional Activity Instructions:: Pain medication may cause nausea. You should typically eat light foods as you take your pain medications. Pain medication may also cause constipation. If this is a problem for you, please discuss with your doctor. Call your doctor if your incision/area has: Continuous Slow Oozing, Sudden Increased Bleeding, Increased Pain/ Swelling, Increased Redness, Foul Smelling Discharge Call your doctor if you observe: Fever of 101 or Higher Suture Line Care: Avoid Pulling/Pushing, Avoid Pinching/Bending Additional Dressing/Incision Instructions:: Leave operative bandaids on for 2 days. When you remove dressing, leave Steri-Strips on until your follow-up appointment, or until the Steri-Strips fall off on their own. Allergies/Adverse Reactions: Allergies amoxicillin Allergy (Verified 05/12/20 11:32) Unknown atorvastatin Allergy (Verified 05/12/20 11:32) Unknown Iodinated Contrast Media [DYEE] Allergy (Verified 05/12/20 11:32) Anaphylaxis prednisone Allergy (Verified 05/12/20 11:32) cardiac arrest. azithromycin Adverse Reaction (Verified 05/12/20 16:40) Diarrhea ketorolac Adverse Reaction (Verified 05/12/20 16:40) buring of eyes levofloxacin [From Levaquin] Adverse Reaction (Verified 05/12/20 16:40) muscle aches metronidazole Adverse Reaction (Verified 05/12/20 16:40) GI upset Medications to take at Discharge Levothyroxine [Synthroid] 88 mcg PO DAILY 05/20/17 Docusate Sodium [Colace] 100 mg PO DAILY PRN PRN 10/25/17 Acetaminophen [Tylenol Extra Strength] 500 - 1,000 mg PO Q8H PRN PRN 12/13/18 Famotidine 20 mg PO DAILY 12/13/18 Dextran 70/Hypromellose/Pf [Artificial Tears Drops] 1 ea OP Q4H PRN PRN 03/07/19 Potassium 297 mg PO DAILY 03/07/19 Allopurinol [Zyloprim] 300 mg PO UD 05/12/20 Lactobacillus Acidophilus [Probiotic] 1 cap PO DAILY 05/12/20 Loratadine [Claritin] 10 mg PO DAILY PRN PRN 05/12/20 Prochlorperazine Maleate [Compazine] 10 mg PO Q6H PRN PRN 05/12/20 Tamsulosin HCl [Flomax] 0.4 mg PO DAILY 05/12/20 Oxycodone [Oxyir] 5 mg PO Q4H PRN PRN 3 Days #18 tablet 05/14/20 The following prescriptions were given: Oxycodone [Oxyir] 5 mg PO Q4H PRN PRN 3 Days #18 tablet PRN Reason: Pain Score 4-5/10 Transmission Status: Sent to [facility]30 Primary Care Physician: Francisco J Garces III, MD [Primary Care Provider] - Please follow up with your Primary Care Physician in: 1-2 weeks Test Results: Test results from this visit will be discussed in further detail at your follow- up appointment, if applicable. Please Follow Up With: Yoav White MD - Please call [phone] to schedule an appointment. When: 7 days after your surgery. Proposed Discharge Date: 05/14/20
[2020-05-14 12:10] VITALS: BMI 19.2
[2020-05-14 13:55] LABS: Pathologist Review Reviewed
--- NOTE | 2020-05-14 14:50 | DS.PCM_ITS ---
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 Positive SILVA sign. Mildly thickened gallbladder wall. CT/Abdomen/Pel W ORAL Cont Only IMPRESSION: Findings which may be consistent with nonspecific gastritis. Gastric carcinoma or lymphoma not excluded. Diffuse ileus pattern. No evidence for small bowel obstruction. Cholelithiasis without evidence for acute cholecystitis. Small amount of free fluid in the cul-de-sac Other findings as above 2D TTE: Interpretation Summary Left ventricular systolic function is normal. The estimated ejection fraction is 55 %. The global longitudinal strain = -18 % (normal). The left atrium is mildly enlarged. Moderate diffuse mitral valve thickening. Mild focal mitral valve calcification of the anterior leaflet. Mild mitral valve prolapse. Mild (1+) mitral valve insufficiency. Mild tricuspid valve insufficiency. Mild diffuse aortic valve thickening. Right ventricular systolic pressure estimated to be 36 mmHg. There is evidence of diastolic dysfunction. Operations: cholecystecomy Procedures: None Summary of Care Provided: Hospital course: The patient is a 79 year old F with pmhx notable for terminal diffuse b cell lymphoma who presented to the ER with RUQ abd pain. RUQ US demonstrated solitary small gallstone, + silva sign, mildly thickened GB wall. She was felt to have acute cholecystitis. She was admitted to the Med surg floor and gen surgery was consulted. Oncology was also consulted. CT abdomen was obtained and showed nonspecific gastritis., Gastric carcinoma or lymphoma not excluded, diffuse ileus pattern, no obstruction, cholelithiasis, fluid in the cul-de-sac. She had an echo the following morning showed EF of 55% normal LV systolic function, RVSP 36 mmHg, diastolic dysfunction. She was taken to the OR the day after admission. She tolerated the laparoscopic cholecystectomy well. The following day she was discharged home. She will need to follow-up with general surgery in 1 week, oncology as directed, and with her PCP in 1 to 2 weeks. Oncology plans to hold chemo until follow-up. This patient was seen by Rasheed Monahan PA-C under the supervision of Doctor Orestes. [] - Physical Exam Vitals/I&O's: Vital Signs Temp Pulse Resp BP Pulse Ox 98.5 F 90 16 115/65 100 05/14/20 08:35 05/14/20 08:35 05/14/20 08:35 05/14/20 08:35 05/14/20 08:35 Oxygen Flow Rate (L/min) 2 Oxygen Delivery Method Room Air Weight: 104 lb 15.993 oz Body Mass Index (BMI) 19.2 Intake and Output for Last 24 Hours 05/12/20 05/13/20 05/14/20 23:59 23:59 23:59 Intake Total 1123.34 / 1123.34 3039.33 / 3039.33 1566.67 / 1566.67 Output Total 375 / 375 1300 / 1300 450 / 450 Balance 748.34 / 748.34 1739.33 / 1739.33 1116.67 / 1116.67 General: Alert, Oriented x3, Cooperative HEENT: Atraumatic, PERRLA, EOMI, Normocephalic Neck: Supple, No JVD, Negative Carotid Bruits Lungs: Clear to auscultation, Normal air movement Cardiovascular: Regular rate, No murmurs Abdomen: Bowel Sounds Present, Soft, Non Tender Extremities: No edema, Capillary Refill Less than 3 Seconds Skin: No rashes, No breakdown Musculoskeletal: No Tenderness to Palpation of Joints or Extremities Neurological: Cranial nerves II-XII grossly intact Psych/Mental Status: Normal Affect, Appropriate, Alert and oriented to time, place, person, mood and affect Laboratory Results 05/13/20 05:53: Diff Path Review Reviewed 05/14/20 05:56: WBC 8.1, RBC 3.43 L, Hgb 10.7 L, Hct 33.1 L, MCV 96.5, MCH 31.2, MCHC 32.3, RDW Std Deviation 49.7 H, RDW Coeff of Stacey 14.1, Plt Count 198, MPV 10.8, Immature Gran % (Auto) 0.400, Neut % (Auto) 83.0 H, Lymph % (Auto) 5.7 L, [place] % (Auto) 10.4 H, Eos % (Auto) 0.0, Baso % (Auto) 0.5, Absolute Neuts (auto) 6.7, Absolute Lymphs (auto) 0.46 L, Nucleated RBC % 0, Differential Comment SCANNED 05/14/20 05:56: Sodium 140, Potassium 3.7, Chloride 108 H, Carbon Dioxide 26.0, Anion Gap 6, BUN 13, Creatinine 0.47 L, Estim Creat Clear Calc 34.86, Est GFR (MDRD) Af Amer 164, Est GFR (MDRD) Non-Af 135, BUN/Creatinine Ratio 27.5 H, Glucose 121 H, Calcium 8.0 L, Total Bilirubin 0.50, AST 31, ALT 22, Alkaline Phosphatase 85, Total Protein 5.1 L, Albumin 2.4 L, Globulin 2.7, Albumin/Globulin Ratio 0.9 Discharge Diet: Light diet - advance as tolerated Discharge Activity: May Not Drive - for 2-3 days or while taking narcotic pain medications., - - Do not drive, work heavy equipment or sign legal documents for 24 hours. May shower in (days): 1 - with the bandage in place. Additional Activity Instructions:: Pain medication may cause nausea. You should typically eat light foods as you take your pain medications. Pain medication may also cause constipation. If this is a problem for you, please discuss with your doctor. Call your doctor if your incision/area has: Continuous Slow Oozing, Sudden Increased Bleeding, Increased Pain/ Swelling, Increased Redness, Foul Smelling Discharge Call your doctor if you observe: Fever of 101 or Higher Suture Line Care: Avoid Pulling/Pushing, Avoid Pinching/Bending Additional Dressing/Incision Instructions:: Leave operative bandaids on for 2 days. When you remove dressing, leave Steri-Strips on until your follow-up appointment, or until the Steri-Strips fall off on their own. Home Medications: Medications to take at Discharge Levothyroxine [Synthroid] 88 mcg PO DAILY 05/20/17 Docusate Sodium [Colace] 100 mg PO DAILY PRN PRN 10/25/17 Acetaminophen [Tylenol Extra Strength] 500 - 1,000 mg PO Q8H PRN PRN 12/13/18 Famotidine 20 mg PO DAILY 12/13/18 Dextran 70/Hypromellose/Pf [Artificial Tears Drops] 1 ea OP Q4H PRN PRN 03/07/19 Potassium 297 mg PO DAILY 03/07/19 Allopurinol [Zyloprim] 300 mg PO UD 05/12/20 Lactobacillus Acidophilus [Probiotic] 1 cap PO DAILY 05/12/20 Loratadine [Claritin] 10 mg PO DAILY PRN PRN 05/12/20 Prochlorperazine Maleate [Compazine] 10 mg PO Q6H PRN PRN 05/12/20 Tamsulosin HCl [Flomax] 0.4 mg PO DAILY 05/12/20 Oxycodone [Oxyir] 5 mg PO Q4H PRN PRN 3 Days #18 tab 05/14/20 Following Prescriptions Were Given to Patient: Oxycodone [Oxyir] 5 mg PO Q4H PRN PRN 3 Days #18 tab PRN Reason: Pain Score 4-5/10 Transmission Status: Received by [facility] Primary Care Physician: Francisco J Garces III, MD [Primary Care Provider] - Please follow up with your Primary Care Physician in: 1-2 weeks Please Follow Up With: Yoav White MD - Please call [phone] to schedule an appointment. When: 7 days after your surgery. Please Follow Up With: Pop Herron MD When: as directed Disposition: Home Minutes spent on discharge:: 35 Patient Condition:: Stable Medical Necessity - Tobacco Use Smoking Status: Never smoker Tobacco Use: Non-smoker Meaningful Use Info Meaningful Use Diagnoses (Choose all that apply): None applicable
--- NOTE | 2020-05-15 14:45 | CASEMGMT ---
Addendum entered by Karine Suazo 05/15/20 15:03: Patient return called. Patient states she is doing much better. Patient had no question or concerns regarding discharge instructions. Patient was able to fill prescriptions without any issues. Patient states she has follow-up appts scheduled. Original Note: ARAMIS DELEON Discharge Follow-up Phone Call: MILA: 10 Strata: 3 Call Date: 05/15/2020 Discharge Date: 05/14/2020 Time of Call: 1445 Duration: 1 min Admitting Diagnosis: Intractable abdominal pain, cholecystitis vs biliary RN ADRIENNE attempted to complete follow-up phone call after recent hospitalization. No answer, voice message left with return contact information.
== END 2020-05-14 13:23 | disposition home or self-care (01) | DRG 417 ==
LOC: ED 14:39 → MS3 05-13 06:37
PROVIDERS: Physician Assistant; Surgery; Admitting Provider Family Medicine; Emergency Provider Emergency Medicine; PCP Family Medicine; Visit Provider Internal Medicine
PROC: 0FT44ZZ Resection of Gallbladder, Percutaneous Endoscopic Approach (ICD-10-PCS; principal; 2020-05-13 12:40)
DX: K80.12 Calculus of gallbladder with acute and chronic cholecystitis without obstruction (principal); E43 Unspecified severe protein-calorie malnutrition; C83.31 Diffuse large B-cell lymphoma, lymph nodes of head, face, and neck; C83.32 Diffuse large B-cell lymphoma, intrathoracic lymph nodes; C83.34 Diffuse large B-cell lymphoma, lymph nodes of axilla and upper limb; C79.51 Secondary malignant neoplasm of bone; Z68.1 Body mass index [BMI] 19.9 or less, adult; D64.81 Anemia due to antineoplastic chemotherapy; D69.59 Other secondary thrombocytopenia; E03.9 Hypothyroidism, unspecified; K21.9 Gastro-esophageal reflux disease without esophagitis; R33.9 Retention of urine, unspecified; D70.1 Agranulocytosis secondary to cancer chemotherapy; T45.1X5A Adverse effect of antineoplastic and immunosuppressive drugs, initial encounter; K58.9 Irritable bowel syndrome, unspecified; Z79.890 Hormone replacement therapy; Z87.440 Personal history of urinary (tract) infections; Z79.899 Other long term (current) drug therapy
CPT/HCPCS: 36415; 74176; 76705; 80053; 81001; 83690; 83735; 84100; 84439; 84443; 85025; 88304; 93005; 93306; 97116; 97162; 97166; 97530; 99251; 99283; J7030; A4216; G0463; J0696; J2405

== ENCOUNTER → 2020-05-20 13:54 | Outpatient (CLI) | payer MEDICARE, SELFPAY ==
[2020-05-12 16:21] VITALS: BMI 19.2
[2020-05-20 14:17] LABS: Absolute Lymphocyte Count 0.31 X10^3/uL (0.83-4.51); Absolute Neutrophil Count 6.9 X10^3/uL (2.0-7.7); Basophil# 0.03 X10^3/uL; Basophil% 0.4 % (0-1); Eosinophil# 0.07 X10^3/uL; Eosinophils% 0.9 % (0-5); Hematocrit 41.7 % (37-47); Hemoglobin 13.4 g/dL (12.0-15.0); Lymphocyte # 0.31 X10^3/ul (4.0); Lymphocyte % 3.9 % (19-41); Mean Corp Hgb Conc 32.1 g/dL (32-36); Mean Corpuscular Hgb 31.1 pg (27.0-32.0); Mean Corpuscular Volume 96.8 fL (81-99); Mean Platelet Vol. 10.8 fl (6.2-12.0); Monocyte# 0.66 X10^3/uL; Monocyte% 8.3 % (0-10); NRBC Flagged by Analyzer 0 % (0-5); Neutrophil # 6.88 X10^3/uL (2.7-7.7); Neutrophil % 85.9 % (47-70); POSITIVE DIFFERENTIAL YES; Platelet Count 262 K/mm3 (150-450); RBC Distribution Width SD 50.1 fl (35.1-43.9); Red Blood Count 4.31 M/mm3 (4.2-5.4)
[2020-05-20 14:19] LABS: Differential Indicated SCAN CRITERIA MET
[2020-05-20 14:39] LABS: ALB/GLOB Ratio 0.9 RATIO (0.9-2.4); AST(SGOT) 15 U/L (15-37); Alanine Aminotransfer ALT/SGPT 15 U/L (13-56); Albumin, Serum 3.2 g/dL (3.2-5.0); Alkaline Phosphatase 100 U/L (45-117); Anion Gap 7 (5-15); BUN 5 mg/dL (7-18); BUN/Creat Ratio 9.9 RATIO (10-20); Calcium,Total 9.1 mg/dL (8.5-10.1); Chloride 101 mmol/L (98-107); EST Glomerular Filtration Rate 126 mL/min (>60); Est Glom Filt Rate - Afr Amer 152 mL/min (>60); Globulin 3.7 g/dL (2.2-4.2); Glucose 134 mg/dL (74-106); Lipase 51 U/L (73-393); Potassium 2.5 mmol/L (3.5-5.1); Protein, Total 6.9 g/dL (6.4-8.2); Sodium Level 139 mmol/L (136-145)
== END ==
PROVIDERS: PCP Family Medicine; Referring Provider Surgery; Visit Provider Surgery
DX: R10.9 Unspecified abdominal pain (principal)
CPT/HCPCS: 36415; 80053; 83690; 85025

== ENCOUNTER 2020-05-20 15:40 | Observation (INO) | payer MEDICARE, SELFPAY ==
[2020-05-12 16:21] VITALS: BMI 19.2
[2020-05-20 15:41] VITALS: BP 115/80; PULSE 116; RESP 28; TEMP 36.8; O2SAT 98
--- NOTE | 2020-05-20 16:14 | EKG12_ITS ---
Test Reason : ABN LABS Blood Pressure : / mmHG Vent. Rate : 098 BPM Atrial Rate : 098 BPM P-R Int : 110 ms QRS Dur : 088 ms QT Int : 400 ms P-R-T Axes : 067 -50 061 degrees QTc Int : 510 ms Sinus rhythm with short [place] with occasional Premature ventricular complexes Possible Left atrial enlargement Left anterior fascicular block Prolonged QT Abnormal ECG Confirmed by ANA PAULA TIJERINA, IRIS ([id number]), legal editor CHESTER MAO ([id number]) on 05/22/2020 10:54:00 AM Referred By: PASQUALE Confirmed By:IRIS GOSS MD
--- NOTE | 2020-05-20 16:17 | ED.VISSUMM ---
- ER Visit Summary Date of Service: 05/20/20 Chief Complaint: Abnormal labs History of Present Illness: The patient is a 79 F presenting due to abnormal labs. Patient states she has been feeling generally weak and fatigued. She has had a decreased appetite and has not been able to eat for the past several days. She has nausea with no vomiting. She has loose stools, denies diarrhea. Denies blood in her stool. She has shortness of breath with no cough. She denies fever. Denies chest pain. Denies urinary complaints. She had her gallbladder removed May [address] White. She saw him in the office today. Her last chemotherapy for lymphoma was mid April. Next chemotherapy is due May 29. She has left lower quadrant pain which she states has been persistent over the past several weeks. She states she typically gets this after her chemotherapy treatments. She had this pain before her surgery as well. Physical Examination: Vitals are stable. Patient is afebrile. Alert no acute distress. HEENT exam dry mucous membranes Neck is supple. Lungs are clear and equal bilaterally. Heart is regular and tachycardic Abdomen is soft left lower quadrant tenderness with no guarding or rebound, incisions clean dry and intact Extremities are unremarkable. Skin is warm and dry. No focal neurologic deficit. Remainder of exam is unremarkable. Emergency Department Course and Treatment: Patient was given IV fluids, Zofran. CBC, chemistries show potassium 2.5, glucose 134. Mag and phosphorus are normal. EKG is sinus rhythm rate of 98 with no acute ischemic changes. Chest x-ray shows no acute process. Patient was given KCl IV. Discussed with the hospitalist for observation. Disposition: Observation Impression: Hypokalemia This note was generated with [employer] dictation software. It may contain incorrect words, spelling, and punctuation that were not noted in review of the chart prior to signing ED Disposition - Plan for ED Patient: Referrals: Francisco J Garces III, MD [Primary Care Provider] -
--- NOTE | 2020-05-20 16:30 | RAD_ITS ---
STUDY: X-RAY CHEST REASON FOR EXAM: Female, 79 years old. LOW POTASSIUM, ABDOMINAL PAIN, GALLBLADDER REMOVED LAST WEEK. LAST CHEMO WAS 3 WEEKS AGO TECHNIQUE: Single frontal view of the chest. COMPARISON: 03/08/2019. FINDINGS: Indwelling catheter with distal tip at the cavoatrial junction. Cardiac silhouette unremarkable. Pulmonary vascularity unremarkable. Aorta atherosclerosis. No focal airspace opacities. Hyperexpanded lungs. No pleural effusions. Upper abdomen unremarkable. Osseous structures intact. No pneumothorax. RAD/Chest 1 View (Portable) IMPRESSION: No acute cardiopulmonary process identified. Hyperexpanded lungs may indicate element of COPD. Electronically Signed: Thang Camacho, at 17:38 EDT Tel , Service support ,
[2020-05-20] MEDS: Ondansetron 4 MG/2 ML Vial IV (16:44)
[2020-05-20] MEDS: Potassium Chloride 10mEq/100mL 10 MEQ/100 ML IV.SOLN. 100 MEQ IV BOLUS ×4 (16:45→20:38)
[2020-05-20] MEDS: 0.9 % NaCl (Sterile) Posiflush 10 mL IV (16:45)
[2020-05-20] MEDS: 0.9% Normal Saline 1,000 ML 1000 ML IV (16:45)
[2020-05-20 16:49] VITALS: BP 138/82; PULSE 106; RESP 20; O2SAT 100
[2020-05-20 17:01] LABS: Magnesium 1.9 mg/dL (1.6-2.6); Phosphorus 2.9 mg/dL (2.5-4.9)
--- NOTE | 2020-05-20 17:50 | NURSING ---
MED SURG JOPPERI HYPOKALEMIA
--- NOTE | 2020-05-20 18:18 | HP.PCM_ITS ---
Problem List (1) Hypokalemia Status: Acute (2) Calculus of gallbladder with cholecystitis Status: Resolved Qualifiers: (3) Urinary retention Status: Chronic (4) Diffuse large B-cell lymphoma of lymph nodes of head Status: Chronic (5) Hypothyroidism Status: Chronic Qualifiers: (6) Chronic anemia Status: Chronic (7) Chronic leukopenia Status: Chronic (8) Chemotherapy induced neutropenia Status: Acute (9) Lymphoma Status: Chronic Qualifiers: (10) Malignant pleural effusion Status: Chronic History of Present Illness Date of Admission: 05/20/20 Chief Complaint: abnormal labs The patient is a 79 year old F who was sent in for abnormal labs. On 13 May, patient underwent a laparoscopic cholecystectomy. Since then, patient has just been having nausea. No vomiting. Patient states that she is just not eating much and stopped taking her potassium pills because she just was not feeling well. Had some lab work today that showed a potassium of 2.9. Presented to the emergency room where her magnesium was at 1.9. Patient received and is receiving 40 mEq of IV potassium. The hospitalist was contacted for admission because of the patient's nausea and her hypokalemia. 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 azithromycin Adverse Reaction (Verified 05/20/20 13:27) Diarrhea ketorolac Adverse Reaction (Verified 05/20/20 13:27) buring of eyes levofloxacin [From Levaquin] Adverse Reaction (Verified 05/20/20 13:27) muscle aches metronidazole Adverse Reaction (Verified 05/20/20 13:27) GI upset Home Medications: Ambulatory Orders Medication Instructions Recorded Docusate Sodium [Colace] 100 mg PO DAILY PRN PRN 10/25/17 Acetaminophen [Tylenol Extra 500 - 1,000 mg PO Q8H PRN PRN 12/13/18 Strength] Famotidine 20 mg PO DAILY 12/13/18 Dextran 70/Hypromellose/Pf 1 ea OP Q4H PRN PRN 03/07/19 [Artificial Tears Drops] Allopurinol [Zyloprim] 300 mg PO UD 05/12/20 Acyclovir 400 mg PO BID 05/20/20 Levothyroxine Sodium [Synthroid] 50 mcg PO DAILY 05/20/20 Ondansetron [Zofran] 8 mg PO DAILY PRN PRN 05/20/20 Tamsulosin HCl 0.4 mg PO DAILY 05/20/20 Surgical History: appendectomy, - - Tubal ligation, lymph node biopsy, excisional biopsy of right orbital mass, port placement, nasal basal cell removal. Psychiatric History: No pertinent psych hx [employer] History: No pertinent [employer] history Smoking Status: Never smoker - *Family History Maternal History Items: - - She denies that her mother was very healthy in the past and her old age, no history of heart disease, diabetes or cancer. Paternal History Items: COPD - Father with history of emphysema, COPD with tobacco use concurrent history. Review of Systems Constitutional: Reports: Anorexia, Malaise. Denies: Chills, Fever, Night Sweats, Weakness Eyes: Denies: Double vision HEENT: Denies: Head Aches, Sinus Congestion, Sinus Drainage Cardiovascular: Denies: Chest Pain, Palpitations Respiratory: Denies: Cough, Shortness of breath at rest, Sputum production Gastrointestinal: Reports: Abdominal Pain - Left lower quadrant but was present prior to her laparoscopic cholecystectomy, Nausea, - - Has been noting dark stools since her gallbladder was removed. Denies: Vomiting Genitourinary: Denies: Dysuria Musculoskeletal: Denies: Joint Pain, Joint Tenderness Skin: Denies: Rash, Wounds Neurological: Denies: Numbness, Tingling, Focal weakness Psychiatric: Denies: Anxiety, Depression, Homicidal Ideations, Suicidal Ideations Hematologic/ Lymphatic: Denies: Easy Bruising, Easy Bleeding, Hx of blood clot Comment: All review of systems were negative except as mentioned above in the history of present illness and the other review of systems. VTE Information - Inpt Only VTE Present on Admission: No VTE Mechan Device Prophylaxis: None VTE Pharm Prophylaxis ordered?: No Reason prophylaxis not ordered:: Treatment Not Indicated Patient Problems: Active and Suspected Problems Hypokalemia (Acute) - Physical Exam Vitals/I&O's: Vital Signs Temp Pulse Resp BP Pulse Ox 36.8 C 106 H 20 H 138/82 H 100 05/20/20 15:41 05/20/20 16:49 05/20/20 16:49 05/20/20 16:49 05/20/20 16:49 Oxygen Delivery Method Room Air Weight: 49.6 kg Body Mass Index (BMI) 20.0 Intake and Output for Last 24 Hours 05/18/20 05/19/20 05/20/20 23:59 23:59 23:59 Intake Total 100 / 100 Balance 100 / 100 General: Alert, Cooperative, No apparent distress HEENT: Atraumatic, Normocephalic Oral: Moist Mucosa, No Gingival or Mucosal Lesions/ Ulcerations Neck: No Nodes, Thyroid Normal Size and Texture Lungs: Clear to auscultation, Normal air movement, No rhonchi, No wheeze, No rales Cardiovascular: Regular rate, Regular Rhythm, Normal S1, Normal S2 Abdomen: Bowel Sounds Present, Soft, Non Tender, Non-Distended, No Hepato- splenomegaly Extremities: No edema, No Calf Tenderness Skin: No rashes, No breakdown Psych/Mental Status: Appropriate, Flat Affect Laboratory Results 05/20/20 16:34: Phosphorus 2.9, Magnesium 1.9 Current Medications Heparin Sodium (Beef Lung) () 50 units IV UD PRN PRN Reason: Port-a-Cath (VAD)Heparin Flush Potassium Chloride () 10 meq in 100 mls @ 100 mls/hr IV BOLUS Q1H NAOMY Stop: 05/20/20 20:29 Last Admin: 05/20/20 17:53 Dose: 100 mls/hr Documented by: Sodium Chloride () 10 - 40 ml IV UD PRN PRN Reason: Port-a-Cath (VAD) Flush Sodium Chloride (0.9% Nacl (Sterile) Posiflush) 10 - 40 ml IV UD PRN PRN Reason: Port access or dressing change Assessment/Plan All Active Problems Calculus of gallbladder with cholecystitis (Resolved) Hypokalemia (Acute) Chemotherapy induced neutropenia (Acute) 1. Hypokalemia: Due to poor oral intake but also after voluntarily stopped taking her potassium pills at home. Will continue to replace potassium and reevaluate. 2. Intractable nausea: No overt vomiting, however. Will check an abdominal x- ray as it was noted that the patient had an ileus on her CAT scan from last month. We will see if there is any ongoing issue pertaining to that. As needed Zofran and Compazine. Additionally will start patient on pantoprazole 40 mg twice daily for now. Will hold off on her famotidine for now. 3. Dark stool: Unclear if patient is having melena or not. Hemoglobin is if anything increased. Check Hemoccult. 4. Status post cholecystectomy: Does not appear to be any acute issues pertaining to that at this time but will follow-up the x-rays. If there does appear to be some postoperative complications, then consider consulting general surgery. Patient is complaining of left lower quadrant abdominal pain which would not seem to have any correlation with her recent cholecystectomy. 5. VTE prophylaxis: Not indicated as patient is observation status. OBSV E&M: [id number] Initial observation care L3
[2020-05-20 18:25] VITALS: BP 135/66; PULSE 97; RESP 16; TEMP 37.1; O2SAT 99
[2020-05-20 18:29] VITALS: BMI 19.8
--- NOTE | 2020-05-20 18:45 | RAD_ITS ---
STUDY: X-RAY - ABDOMEN/PELVIS REASON FOR EXAM: Female, 79 years old. LLQ pain, acute cholecystitis TECHNIQUE: KUB COMPARISON: None. FINDINGS: Normal visualized lung bases. Mild diffuse ileus pattern noted. No evidence for small bowel obstruction. There is no demonstrated free abdominal air. The visualized liver, spleen and kidneys are grossly normal in size and morphology. Postsurgical changes of the right hip. Severe degenerative changes of the left RAD/Abdomen Single View IMPRESSION: Diffuse nonspecific ileus. Electronically Signed: Alvin Yi MD at 19:24 EDT , Service support ,
[2020-05-20 18:59] LABS: Bacteria 0 SEEN /hpf (None Seen); Mucous, Urine 0 SEEN /hpf (<or=2+); Red Blood Cells-Urine 0 SEEN /hpf (0-5)
[2020-05-20 19:01] LABS: Color, Urine Yellow (Yellow); Glucose, Dipstick Normal (Normal); Leukocyte Esterase-Dipstick Negative /ul (Negative); Nitrite-Dipstick Negative (Negative); Occult Blood-Urine Negative /ul (Negative); Protein-Dipstick 15 mg/dl (Negative); Specific Gravity, Urine 1.015 (1.002-1.030); Urine Bilirubin Dipstick Negative (Negative); Urine Clarity Clear (Clear); Urine Urobilinogen Normal (Normal); Urine pH 6.5 (5.0 - 8.0)
[2020-05-20 19:13] LABS: Ketone-Dipstick 150 mg/dl (Negative)
[2020-05-20 19:15] LABS: Calcium Oxalate Crystals Ur RARE /hpf (<or=2+); Squamous Epithelial Cells - UA 0-5 SEEN /hpf (5-10); White Blood Cells 0-5 SEEN /hpf (0-5)
[2020-05-20 19:16] LABS: Hyaline Cast 0-5 SEEN /lpf (0-5)
[2020-05-20] MEDS: proCHLORPERazine 10 MG/2 ML Vial 5 MG IV (21:15)
[2020-05-20] MEDS: Pantoprazole Sodium 40 MG Tablet PO (21:20)
[2020-05-20 23:28] VITALS: BP 127/73; PULSE 103; RESP 20; TEMP 37.2; O2SAT 100
--- NOTE | 2020-05-21 00:36 | PCM.PN.BLA ---
Progress Note X-ray shows ileus. Hold all p.o. medications. Change p.o. medication to IV medication as much as possible. STROKE Vital Signs/Narrative: Vital Signs Temp Pulse Resp BP Pulse Ox 05/20/20 23:28 99 F 103 H 20 H 127/73 H 100
[2020-05-21] MEDS: 0.9% Saline Lock 10 ML Syringe IV ×3 (05:23→16:03)
[2020-05-21 05:25] VITALS: BP 102/63; PULSE 88; RESP 16; TEMP 36.9; O2SAT 97
[2020-05-21 06:30] LABS: Anion Gap 4 (5-15); BUN 4 mg/dL (7-18); BUN/Creat Ratio 11.9 RATIO (10-20); Calcium,Total 8.3 mg/dL (8.5-10.1); Chloride 106 mmol/L (98-107); Creatinine, Serum 0.34 mg/dL (0.55-1.02); EST Glomerular Filtration Rate 200 mL/min (>60); Est Glom Filt Rate - Afr Amer 242 mL/min (>60); Estimated Creatinine Clearance 35.99 ml/min; Glucose 88 mg/dL (74-106); Potassium 3.8 mmol/L (3.5-5.1); Sodium Level 138 mmol/L (136-145)
--- NOTE | 2020-05-21 08:23 | PN_ITS ---
Patient Problems: Active and Suspected Problems Hypokalemia (Acute) Vitals/I&O's: Vital Signs Temp Pulse Resp BP Pulse Ox 98.5 F 88 16 102/63 97 05/21/20 05:25 05/21/20 05:25 05/21/20 05:25 05/21/20 05:25 05/21/20 05:25 Oxygen Delivery Method Room Air Weight: 49.169 kg Body Mass Index (BMI) 19.8 Intake and Output for Last 24 Hours 05/19/20 05/20/20 05/21/20 23:59 23:59 23:59 Intake Total 1450 / 1450 1000 / 1000 Output Total 100 / 100 700 / 700 Balance 1350 / 1350 300 / 300 Laboratory Results 05/20/20 16:34: Phosphorus 2.9, Magnesium 1.9 05/20/20 18:40: Urine Color Yellow, Urine Clarity Clear, Urine pH 6.5, Ur Specific [place] 1.015, Urine Protein 15 H, Urine Glucose (UA) Normal, Urine Ketones 150 H, Urine Occult Blood Negative, Urine Nitrite Negative, Urine Bilirubin Negative, Urine Urobilinogen Normal, Ur Leukocyte Esterase Negative, Urine RBC 0 SEEN, Urine WBC 0-5 SEEN, Ur Squamous Epith Cells 0-5 SEEN, Calcium Oxalate Crystal RARE, Urine Bacteria 0 SEEN, Hyaline Casts 0-5 SEEN, Urine Mucus 0 SEEN 05/21/20 05:24: Sodium 138, Potassium 3.8, Chloride 106, Carbon Dioxide 28.0, Anion Gap 4 L, BUN 4 L, Creatinine 0.34 L, Estim Creat Clear Calc 35.99, Est GFR (MDRD) Af Amer 242, Est GFR (MDRD) Non-Af 200, BUN/Creatinine Ratio 11.9, Glucose 88, Calcium 8.3 L Current Medications Acetaminophen (Tylenol) 1,000 mg PO Q8H PRN PRN PRN Reason: Pain or Fever Docusate Sodium (Colace) 100 mg PO DAILY PRN PRN PRN Reason: Constipation Pantoprazole Sodium 40 mg/ (Sodium Chloride) 110 mls @ 330 mls/hr IV Q12 NAOMY Acyclovir Sodium 500 mg/ (Dextrose) 260 mls @ 260 mls/hr IV Q8 NAOMY Last Admin: 05/21/20 05:28 Dose: Not Given Documented by: Sodium Chloride () 250 mls @ 15 mls/hr IV .[id number] PRN PRN Reason: Saline Flush Sodium Chloride () 250 mls @ 15 mls/hr IV .[id number] PRN PRN Reason: Additional IVPB Infusion Ondansetron HCl (Zofran) 4 mg IV Q8H PRN PRN PRN Reason: NAUSEA/VOMITING Prochlorperazine Edisylate (Compazine Iv) 5 mg IV Q4H PRN PRN PRN Reason: Breakthrough nausea/vomiting Last Admin: 05/20/20 21:15 Dose: 5 mg Documented by: Sodium Chloride () 10 - 40 ml IV UD PRN PRN Reason: SALINE FLUSH Last Admin: 05/21/20 05:23 Dose: 10 ml Documented by: STROKE Vital Signs/Narrative: Vital Signs Temp Pulse Resp BP Pulse Ox 05/21/20 05:25 98.5 F 88 16 102/63 97 Medical Necessity - Tobacco Use Smoking Status: Never smoker Assessment/Plan All Active Problems Calculus of gallbladder with cholecystitis (Resolved) Hypokalemia (Acute) Chemotherapy induced neutropenia (Acute) Inpatient E&M: 15170 Subs Hosp L2
[2020-05-21 08:25] VITALS: BP 127/66; PULSE 99; RESP 16; TEMP 37.4; O2SAT 96
[2020-05-21 08:37] LABS: Magnesium 1.8 mg/dL (1.6-2.6)
--- NOTE | 2020-05-21 12:13 | DCINST_ITS ---
- Discharge Diagnoses Current Active Problems: Current Active and Chronic Problems Hypokalemia (Acute) Reason(s) for Visit for Discharge Instructions: Abnormal labs You will use the following diet at home:: Regular Your food should be the consistency of: Regular Your liquids should be the consistency of: Regular/Thin Discharge Activity: Return to Normal Activity Additional Instructions: Continue to keep yourself hydrated. Continue with your antinausea medicines. Continue to remain active. Follow-up with your primary care doctor within 2 weeks as well as your surgeon Dr. White as scheduled. You would need repeat blood work to be done within 1 week with your primary care doctor to follow-up on your kidney function. Allergies/Adverse Reactions: Allergies amoxicillin Allergy (Verified 05/20/20 13:27) Unknown atorvastatin Allergy (Verified 05/20/20 13:27) Unknown Iodinated Contrast Media [DYEE] Allergy (Verified 05/20/20 13:27) Anaphylaxis prednisone Allergy (Verified 05/20/20 13:27) cardiac arrest. azithromycin Adverse Reaction (Verified 05/20/20 13:27) Diarrhea ketorolac Adverse Reaction (Verified 05/20/20 13:27) buring of eyes levofloxacin [From Levaquin] Adverse Reaction (Verified 05/20/20 13:27) muscle aches metronidazole Adverse Reaction (Verified 05/20/20 13:27) GI upset Medications to take at Discharge Docusate Sodium [Colace] 100 mg PO DAILY PRN PRN 10/25/17 Acetaminophen [Tylenol Extra Strength] 500 - 1,000 mg PO Q8H PRN PRN 12/13/18 Famotidine 20 mg PO DAILY 12/13/18 Dextran 70/Hypromellose/Pf [Artificial Tears Drops] 1 ea OP Q4H PRN PRN 03/07/19 Allopurinol [Zyloprim] 300 mg PO UD 05/12/20 Acyclovir 400 mg PO BID 05/20/20 Levothyroxine Sodium [Synthroid] 50 mcg PO DAILY 05/20/20 Ondansetron [Zofran] 8 mg PO DAILY PRN PRN 05/20/20 Tamsulosin HCl 0.4 mg PO DAILY 05/20/20 Primary Care Physician: Francisco J Garces III, MD [Primary Care Provider] - Please follow up with your Primary Care Physician in: Within 2 weeks Test Results: Test results from this visit will be discussed in further detail at your follow- up appointment, if applicable. Please Follow Up With: Yoav White MD When: as scheduled Please Follow Up With: Pop Herron MD When: as scheduled Proposed Discharge Date: 05/21/20
--- NOTE | 2020-05-21 12:17 | DS.PCM_ITS ---
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 Hyperexpanded lungs may indicate element of COPD. Electronically Signed: Thang Camacho at 17:38 EDT Tel , Service support , KUB X-Ray 05/20/20 18:45 IMPRESSION: Diffuse nonspecific ileus. Electronically Signed: Alvin Yi MD at 19:24 EDT , Service support , Procedures: None Summary of Care Provided: The patient is a 79 year old F with PMHx of diffuse B cell lymphoma, hypothyroidism who recently was discharged on 05/13/20, who was admitted with abnormal blood work showing hypokalemia and hypomagnesemia. She also had nausea and KUB showed ileus. Patient was admitted, electrolytes replaced. Her ileus was managed conservatively with improvement. Patient was advised to continue to keep yourself hydrated. She will follow-up with general surgery, primary care doctor and with her oncologist as scheduled. Elevated a clear liquid diet and advancement in her diet to full liquid diet. She recommended to stay on a full liquid diet for a day or 2 before advancing her diet on. Subjective: On the day of discharge, patient was seen and examined. Patient had passes gas. Abdominal distension and discomfort is much reduced. Objective: Physical exam: General: Alert, Cooperative, No apparent distress HEENT: Atraumatic, Normocephalic Oral: Moist Mucosa, No Gingival or Mucosal Lesions/ Ulcerations Neck: No Nodes, Thyroid Normal Size and Texture Lungs: Clear to auscultation, Normal air movement, No rhonchi, No wheeze, No rales Cardiovascular: Regular rate, Regular Rhythm, Normal S1, Normal S2 Abdomen: Bowel Sounds Present, Soft, Non Tender, Non-Distended, No Hepato- splenomegaly Extremities: No edema, No Calf Tenderness Skin: No rashes, No breakdown Psych/Mental Status: Appropriate, Flat Affect - Physical Exam Vitals/I&O's: Vital Signs Temp Pulse Resp BP Pulse Ox 99.3 F H 99 16 127/66 H 96 05/21/20 08:25 05/21/20 08:25 05/21/20 08:25 05/21/20 08:25 05/21/20 08:25 Oxygen Delivery Method Room Air Weight: 49.169 kg Body Mass Index (BMI) 19.8 Intake and Output for Last 24 Hours 05/19/20 05/20/20 05/21/20 23:59 23:59 23:59 Intake Total 1450 / 1450 1000 / 1000 Output Total 100 / 100 700 / 700 Balance 1350 / 1350 300 / 300 Laboratory Results 05/20/20 16:34: Phosphorus 2.9, Magnesium 1.9 05/20/20 18:40: Urine Color Yellow, Urine Clarity Clear, Urine pH 6.5, Ur Specific [place] 1.015, Urine Protein 15 H, Urine Glucose (UA) Normal, Urine Ketones 150 H, Urine Occult Blood Negative, Urine Nitrite Negative, Urine Bilirubin Negative, Urine Urobilinogen Normal, Ur Leukocyte Esterase Negative, Urine RBC 0 SEEN, Urine WBC 0-5 SEEN, Ur Squamous Epith Cells 0-5 SEEN, Calcium Oxalate Crystal RARE, Urine Bacteria 0 SEEN, Hyaline Casts 0-5 SEEN, Urine Mucus 0 SEEN 05/21/20 05:24: Sodium 138, Potassium 3.8, Chloride 106, Carbon Dioxide 28.0, An ion Gap 4 L, BUN 4 L, Creatinine 0.34 L, Estim Creat Clear Calc 35.99, Est GFR (MDRD) Af Amer 242, Est GFR (MDRD) Non-Af 200, BUN/Creatinine Ratio 11.9, Glucose 88, Calcium 8.3 L 05/21/20 05:24: Magnesium 1.8 Current Medications Acetaminophen (Tylenol) 1,000 mg PO Q8H PRN PRN PRN Reason: Pain or Fever Acyclovir (Zovirax) 400 mg PO BID [facility] Docusate Sodium (Colace) 100 mg PO DAILY PRN PRN PRN Reason: Constipation Famotidine (Pepcid) 20 mg PO DAILY NAOMY Pantoprazole Sodium 40 mg/ (Sodium Chloride) 110 mls @ 330 mls/hr IV Q12 NAOMY Last Admin: 05/21/20 08:27 Dose: 330 mls/hr Documented by: Sodium Chloride () 250 mls @ 15 mls/hr IV .[id number] PRN PRN Reason: Saline Flush Sodium Chloride () 250 mls @ 15 mls/hr IV .[id number] PRN PRN Reason: Additional IVPB Infusion Magnesium Sulfate 2 gm/ Sodium (Chloride) 104 mls @ 52 mls/hr IV X1 ONE Stop: 05/21/20 14:12 Ondansetron HCl (Zofran) 4 mg IV Q8H PRN PRN PRN Reason: NAUSEA/VOMITING Ondansetron HCl (Zofran) 8 mg PO DAILY PRN PRN PRN Reason: NAUSEA Prochlorperazine Edisylate (Compazine Iv) 5 mg IV Q4H PRN PRN PRN Reason: Breakthrough nausea/vomiting Last Admin: 05/20/20 21:15 Dose: 5 mg Documented by: Sodium Chloride () 10 - 40 ml IV UD PRN PRN Reason: SALINE FLUSH Last Admin: 05/21/20 05:23 Dose: 10 ml Documented by: Discharge Diet: No Restrictions Discharge Activity: Return to Normal Activity Home Medications: Medications to take at Discharge Docusate Sodium [Colace] 100 mg PO DAILY PRN PRN 10/25/17 Acetaminophen [Tylenol Extra Strength] 500 - 1,000 mg PO Q8H PRN PRN 12/13/18 Famotidine 20 mg PO DAILY 12/13/18 Dextran 70/Hypromellose/Pf [Artificial Tears Drops] 1 ea OP Q4H PRN PRN 03/07/19 Allopurinol [Zyloprim] 300 mg PO UD 05/12/20 Acyclovir 400 mg PO BID 05/20/20 Levothyroxine Sodium [Synthroid] 50 mcg PO DAILY 05/20/20 Ondansetron [Zofran] 8 mg PO DAILY PRN PRN 05/20/20 Tamsulosin HCl 0.4 mg PO DAILY 05/20/20 Primary Care Physician: Francisco J Garces III, MD [Primary Care Provider] - Please follow up with your Primary Care Physician in: Within 2 weeks Please Follow Up With: Yoav White MD When: as scheduled Please Follow Up With: Pop Herron MD When: as scheduled Disposition: Home Minutes spent on discharge:: 35 Patient Condition:: Stable Medical Necessity - Tobacco Use Smoking Status: Never smoker Tobacco Use: Non-smoker Meaningful Use Info Meaningful Use Diagnoses (Choose all that apply): None applicable OBSV E&M: 87718 Observation care discharge
--- NOTE | 2020-05-21 12:28 | NT.THERAPY_ITS ---
Nutrition Therapy Report - History Nutrition Services has been consulted to:: Manage nutrient details of diet order Current diet / nutrition support order:: NPO - Anthropometric Measurements Height:: 5 ft 2 in Weight:: 49.169 kg Body Mass Index (BMI):: 19.8 - Relevant Labs Relevant Labs:: Anion Gap 4 (5-15) L 05/21/20 05:24 BUN 4 mg/dL (7-18) L 05/21/20 05:24 Creatinine 0.34 mg/dL (0.55-1.02) L 05/21/20 05:24 Calcium 8.3 mg/dL (8.5-10.1) L 05/21/20 05:24 - Assessment Food / Nutrition-Related History:: Pt reports poor intake x 5 days since 05/16 d/t nausea w/o vomiting. Able to tolerate some soup & jello at home. Still consuming 2 bottles ensure per day during that time. Typically consumes 5-6 small meals/day w/ 2 bottles ensure/day. States notes some wt loss w/ UBW 111#; CBW 108.4#, wt hx per EMR 03/07/19 124.6#, 16.2#/13% x 14 months (non- significant). +NFPE: severe temporal scooping/depression, severe orbital bone depression/hollow look, severe clavicle bone protrusion/depression, moderate interosseous muscle depression. X-ray revealed pt w/ ileus. Pt states last chemo tx April 25; has had chemo on hold since. Still experiencing nausea w/o vomiting at this time. Notes looser stools. - Nutrition Diagnosis Problem / Etiology / Signs & Symptoms (PES):: Severe malnutrition in the context of chronic illness r/t inadequate oral intake and increased nutrient needs as pt undergoing ongoing chemo for tx of lymphoma aeb </=50% energy intake compared to estimated energy for >/= 5 days, NPO status, severe loss of muscle and subcutaneous fat. Evidence of Malnutrition Exists:: Yes Severe PCM:: Chronic Illness - Nutrition Intervention Nutrition Prescription:: Estimated Nutrient Needs: 2204-2620 calories, 60-70 grams protein. - Food / Nutrient Delivery Interventions Nutrition support ordered as / adjusted to:: Rec NEERAJ Regular. Will provide 1 bottle Ensure Enlive w/ L&D and magic cup/ensure pudding w/ b-fast. Will fortify pt meals. Nutrition education provided?: No - MNT Monitoring Further MNT monitoring and evaluation required?: Yes MNT Follow-up in:: 3-5 days
[2020-05-21 12:30] VITALS: BMI 19.8
--- NOTE | 2020-05-21 15:51 | CHAPLAIN ---
Type of Pastoral Visit _x__ Initial Visit ___ Follow-up Visit ___ On-call Visit ___ General Patient Visit ___ Spiritual Assessment ___ Family Conference ___ Bereavement ___ Rapid Response ___ Code Blue ___ Other (describe below) Pastoral Care Referral From _x__ Patient ___ Family ___ Nurse ___ Physician ___ Hydraulic Elevator Constructor ___ Sand Mixer Machine ___ Other (describe below) Sacrament/Intervention _x__ Active listening ___ Anointing ___ Scientology ___ Bereavement ___ Communion ___ Tran exploration ___ ___ Life review _x__ Prayer ___ Reconciliation ___ Sacrament of Sick _x__ Supportive presence ___ Wedding ___ Other (describe below) Pastoral Comments first attempt patient was on phone; second attempt pt and her son were in room; pt states that she was on phone with DR office and trying to get information on what is plan of care; pt indicates that she has several doctors; pt is talkative; pt has strong belief system and family available; pt welcomes visits and prayer for spiritual support
[2020-05-21 16:35] VITALS: BP 120/72; PULSE 98; RESP 16; TEMP 37.3; O2SAT 98
== END 2020-05-21 16:40 | disposition home or self-care (01) ==
LOC: ED 16:41 → MS3 23:25
PROVIDERS: Emergency Provider Emergency Medicine; PCP Family Medicine; Visit Provider Internal Medicine
DX: E87.6 Hypokalemia (principal); K56.7 Ileus, unspecified; E43 Unspecified severe protein-calorie malnutrition; Z68.1 Body mass index [BMI] 19.9 or less, adult; C83.31 Diffuse large B-cell lymphoma, lymph nodes of head, face, and neck; E03.9 Hypothyroidism, unspecified; J91.0 Malignant pleural effusion; R10.9 Unspecified abdominal pain; R33.9 Retention of urine, unspecified; Z79.899 Other long term (current) drug therapy; Z90.49 Acquired absence of other specified parts of digestive tract
CPT/HCPCS: 36415; 36591; 71045; 74018; 80048; 80053; 81001; 83690; 83735; 84100; 85025; 93005; 96361; 96365; 96375; 97802; 99218; 99284; J7030; A4216; G0378; J2405

== ENCOUNTER 2020-06-16 09:03 | Day surgery (SDC) | payer MEDICARE, SELFPAY ==
--- NOTE | 2020-06-03 10:43 | HP_ITS ---
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 azithromycin Adverse Reaction (Verified 06/02/20 14:43) Diarrhea ketorolac Adverse Reaction (Verified 06/02/20 14:43) buring of eyes levofloxacin [From Levaquin] Adverse Reaction (Verified 06/02/20 14:43) muscle aches metronidazole Adverse Reaction (Verified 06/02/20 14:43) GI upset Medications Docusate Sodium [Colace] 100 mg PO DAILY PRN PRN 10/25/17 [History Confirmed 06/02/20] Acetaminophen [Tylenol Extra Strength] 500 - 1,000 mg PO Q8H PRN PRN 12/13/18 [History Confirmed 06/02/20] Famotidine 20 mg PO DAILY 12/13/18 [History Confirmed 06/02/20] Dextran 70/Hypromellose/Pf [Artificial Tears Drops] 1 ea OP Q4H PRN PRN 03/07/19 [History Confirmed 06/02/20] Allopurinol [Zyloprim] 300 mg PO UD 05/12/20 [History Confirmed 06/02/20] Acyclovir 400 mg PO BID 05/20/20 [History Confirmed 06/02/20] Levothyroxine Sodium [Synthroid] 50 mcg PO DAILY 05/20/20 [History Confirmed 06/02/20] Ondansetron [Zofran] 8 mg PO DAILY PRN PRN 05/20/20 [History Confirmed 06/02/20] Tamsulosin HCl 0.4 mg PO DAILY 05/20/20 [History Confirmed 06/02/20] Date _ Yoav White MD
[2020-06-16] VITALS (9 sets, daily range): BP systolic 100–122; BP diastolic 60–71; PULSE 73–121; RESP 16; TEMP 36.3–36.8; O2SAT 96–100; BMI 18.6
--- NOTE | 2020-06-16 09:20 | EKG12_ITS ---
Test Reason : PRE OP Blood Pressure : / mmHG Vent. Rate : 105 BPM Atrial Rate : 105 BPM P-R Int : 112 ms QRS Dur : 090 ms QT Int : 374 ms P-R-T Axes : 082 -54 078 degrees QTc Int : 494 ms Sinus tachycardia with frequent Premature ventricular complexes Left anterior fascicular block Nonspecific ST and T wave abnormality Abnormal ECG When compared with ECG of 20-MAY-2020 16:23, No significant change was found Confirmed by ANA PAULA TIJERINA, IRIS ([id number]), photograph editor CHESTER MAO ([id number]) on 06/17/2020 12:57:58 PM Referred By: Francisco J Garces Confirmed By:IRIS GOSS MD
[2020-06-16] MEDS: Lactated Ringers 1,000 ML 100 ML IV (09:33)
--- NOTE | 2020-06-16 09:38 | PCM.HP.BLA ---
History and Physical Date of Admission: 06/16/20 [facility] [address] [place] [address] OFFICE VISIT Date of Service: 06/02/20 MR#: [id number] Acct: [id number] Name: SHERI BLACKWELL Rep #: [id number] : 1940 Provider: Dr. Yoav White MD Age/Sex: 79/F Location: [facility] Status: Signed Intake Vital Signs 06/03/20 BMI 19.8 Intake Visit Reasons: Change in Bowel Habits/Jerri 05/13 Chief Complaint: change in bowel Release Specialist Required: No Is patient in pain?: No Allergies amoxicillin Allergy (Verified 06/03/20 10:18) Unknown atorvastatin Allergy (Verified 06/03/20 10:18) Unknown Iodinated Contrast Media [DYEE] Allergy (Verified 06/03/20 10:18) Anaphylaxis prednisone Allergy (Verified 06/03/20 10:18) cardiac arrest. azithromycin Adverse Reaction (Verified 06/03/20 10:18) Diarrhea ketorolac Adverse Reaction (Verified 06/03/20 10:18) buring of eyes levofloxacin [From Levaquin] Adverse Reaction (Verified 06/03/20 10:18) muscle aches metronidazole Adverse Reaction (Verified 06/03/20 10:18) GI upset Medications Docusate Sodium [Colace] 100 mg PO DAILY PRN PRN 10/25/17 [History Confirmed 06/02/20] Acetaminophen [Tylenol Extra Strength] 500 - 1,000 mg PO Q8H PRN PRN 12/13/18 [History Confirmed 06/02/20] Famotidine 20 mg PO DAILY 12/13/18 [History Confirmed 06/02/20] Dextran 70/Hypromellose/Pf [Artificial Tears Drops] 1 ea OP Q4H PRN PRN 03/07/19 [History Confirmed 06/02/20] Allopurinol [Zyloprim] 300 mg PO UD 05/12/20 [History Confirmed 06/02/20] Acyclovir 400 mg PO BID 05/20/20 [History Confirmed 06/02/20] Levothyroxine Sodium [Synthroid] 50 mcg PO DAILY 05/20/20 [History Confirmed 06/02/20] Ondansetron [Zofran] 8 mg PO DAILY PRN PRN 05/20/20 [History Confirmed 06/02/20] Tamsulosin HCl 0.4 mg PO DAILY 05/20/20 [History Confirmed 06/02/20] Is last menstrual period known: No Post menopausal: Yes Patient : No PFSH Medical History Calculus of gallbladder with cholecystitis (Resolved) Hypokalemia (Acute) Urinary retention (Chronic) 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 Yoav White MD) Smoking Status: Never smoker HPI HPI HPI: SHERI BLACKWELL, is a 79 F who presents to the office today for HPI HPI Surgical H&P: Yes HPI: SHERI BLACKWELL, is a 79 F who presents to the office today for Patient status post a laparoscopic cholecystectomy completed [facility] on 05/13/2050. She presented to the emergency department with acute onset of right upper quadrant abdominal pain imaging and work-up showed pericholecystic fluid and stone in her gallbladder. Pathology report came back as chronic cholecystitis with cholelithiasis with no other pathology noted. Patient states that initially after surgery she was doing fine went home however she is developed nausea and lower abdominal pain left and right identical to the pain that she has when she is on her chemotherapy. She states that her urine is lightly the yellow and she is having stool production she just cannot eat very much whatsoever. She is never had any endoscopies and is still complaining of bilateral lower abdominal pain and difficulty with any p.o. intake. ROS General General: Yes fatigue; no weight change, appetite, colon cancer, breast cancer or weakness HEENT HEENT: No difficulty swallowing, eye injury, eye surgery, swollen glands or hoarseness Endo Endocrine: Yes thyroid disease; no diabetes mellitus, thyroid cancer, Hair loss, heat intolerance or cold intolerance Cardio Cardiovascular: Yes high blood pressure; no murmur, pacemaker, heart disease, atrial fibrillation, heart attack, heart stent, palpitations, shortness of breat with exertion or chest pain Psych Psychiatric: No depression, anxiety or hearing voices Resp Respiratory: No shortness of breath, No sleep apnea, No cough, No COPD, No asthma, No emphysema, No wheezing Gastro Gastrointestinal: Yes abdominal pain, No nausea or vomiting, No diarrhea, No constipation, No blood in stool, No acid reflux, No hemorrhoids, No ulcers, No gallbladder problem, No black,tarry stools [place] Hematologic: No blood thinners, No blood disorders, No bleeding, Yes anemia, No blood clots Neuro Neurologic: No weakness Exam Const General: no acute distress, well developed, well hydrated Orientation: oriented to person, oriented to place, oriented to time [facility] Head: normocephalic, atraumatic Ears: external ears normal Mouth: moist mucous membranes Eyes Sclera: sclerae normal Pupils: normal by confrontation Neck Neck: no lymphadenopathy noted Neck mass: No Thyroid: thyroid normal, symmetrical Chest Chest palpation & inspection: normal inspection of the chest Resp Effort & Inspection: normal respiratory effort Auscultation: clear to auscultation bilaterally Percussion: percussion normal Cardio Rate: regular rate Rhythm: regular rhythm Heart Sounds: no murmurs GI Palpation: soft, no hepatosplenomegaly, no masses, nontender Rectal Exam: other Other: Rectal exam deferred. Patient has no rebound guarding or peritoneal signs identified. Extrem General: normal to inspection, no clubbing, cyanosis or edema Assessment & Plan Problems 1. Nausea R11.0 2. Weight loss R63.4 3. Lower abdominal pain R10.30 4. Diffuse large B-cell lymphoma of lymph nodes of head C83.31 Plan I have discussed the above with the patient. I have offered the patient colonoscopy As well as an EGD for evaluation. I have explained the risks/benefits of the procedure and described the procedure. I have discussed the risks with the patient, including but not limited to: infection, bleeding, perforation of the GI tract requiring emergency surgery, inability to complete the procedure, injury to any internal organs, complications of anesthesia, etc. - the patient understands and agrees to proceed. I have answered all the patient's questions to the patient's satisfaction and the patient has no further questions. The patient has been given instructions for the colon cleansing preparation. We will be doing random colon biopsies Coding Level of Care Code Global Post Op Diagnoses Nausea R11.0 Weight loss R63.4 Lower abdominal pain R10.30 Diffuse large B-cell lymphoma of lymph nodes of head C83.31 COVID (Procedure Consent) Procedure Criteria Procedure Criteria: Yes Elective The surgeon/proceduralist and patient have discussed in detail the risk of exposure to and/or potential harm posed by the COVID-19 virus with having a surgery/procedure at this time versus the risk of? delaying the surgery/procedure. It is not possible to know either the risk of delaying the surgery or procedure or chance of getting an infection with perfect accuracy, but a joint decision was made between the patient and the surgeon/proceduralist ?to proceed at this time with the scheduled surgery/procedure as indicated on the consent form. 06/03/20 1043 <Electronically signed by Yoav White MD> Date Yoav White MD Cosigner Signature: Date (if applicable) CC: Dr. Francisco J Garces III, MD; Dr. Pop Herron MD ~ I have re-examined the patient. There are no clinical changes since date of exam.
--- NOTE | 2020-06-16 09:45 | IMM_PTH ---
PATIENT: SHERI BLACKWELL LOC: EN U#:[id number] AGE/SX: 79/F ROOM: RE06/16/[address]: Dr. Yoav White MD : 1940 BED: DIS: 06/16/2020 SPEC #: [id number] RECD: 06/16/20 14:33 STATUS: ERIS REQ #: [id number] DORCAS: 06/16/20 09:[address]: Yoav White DEPT: IMMUNOHISTOCHEMISTRY RECD BY: Lois Brooks ENTERED: 06/16/20 14:33 SP TYPE: IMMUNO OTHR DR: Dr. Francisco J Garces III, MD Tissues: B - Stomach, NOS A - Duodenum, NOS C - Stomach, NOS Procedures: CD138 (initial) H Pylori (initial) CD20 (add) CD3 (add) CD45 (add) CD5 (add) CD79A (add) CK20 (add) CK7 (add) MPO (add) P53 (add) Pankeratin (add) PHYSICIAN & [address] [address] SPECIMEN INFORMATION: Tissue Source: A - Duodenum biopsy, B - Antrum biopsy, C - Gastric ulcer biopsy Clinical Info: Nausea, weight loss, abdomen pain Specimen Number: [id number] A-C CPT code: 22617 x3, 89347 x11 METHODOLOGY: Deparaffinized sections of prefer/formalin-fixed tissue or PAP/DQ stained slides are incubated with monoclonal/polyclonal antibodies/oligonucleotide probes. Localization is made via biotin free immunoperoxidase method. Appropriate controls are performed and reacted as expected. Results on target cell population are indicated in the following table: RESULTS: ANTIBODY / CLONE RESULT Block A CD3 (PS1) positive CD5 (SP10) positive CD20 (L26) negative CD45 (RP2/18) positive CD79a (11E3) negative CD138 (B-A38) negative Block B H Pylori (polyclonal) negative Block C P53 (DO-7) negative AE1-3 (AE1/AE3/PCK26) negative CK20 (KS20.8) negative CK7 (OV-TL12/30) negative CD45 (RP2/18) positive CD138 (B-A38) negative MPO (polyclonal) positive These tests were developed and their performance characteristics determined by [facility]. They may not have been cleared or approved by the U.S. Food and Drug Administration. The FDA has determined that such clearance or approval is not necessary. INTERPRETATION: A. Duodenum biopsy: Benign lymphoid aggregate. B. Antrum biopsy: Negative for Helicobacter pylori organisms. C. Gastric ulcer biopsy: No evidence of malignancy. AM:sunshine 06/18/20
--- NOTE | 2020-06-16 09:45 | COLBX_PTH ---
PATIENT: SHERI BLACKWELL LOC: EN U#:[id number] AGE/SX: 79/F ROOM: RE06/16/[address]: Dr. Yoav White MD : 1940 BED: DIS: 06/16/2020 SPEC #: [id number] RECD: 06/16/20 12:04 STATUS: ERIS MISTI #: [id number] DORCAS: 06/16/20 09:[address]: Yoav White DEPT: SURGICAL PATHOLOGY RECD BY: Apple Parker ENTERED: 06/16/20 13:46 SP TYPE: COLON BX OT DR: Dr. Francisco J Garces III, MD Tissues: A - Duodenum, NOS B - Gastric mucous membrane C - Gastric mucous membrane D - COLON BIOPSY Procedures: Surgery Specimen Level IV HEADER OPERATION: [place]oscopy[place] [place] DIAGNOSIS: Nausea, weight loss, abdomen pain TISSUE SUBMITTED: A - Duodenum biopsy, B - Antrum biopsy for histo and H. pylori, C - Gastric ulcer biopsy, D - Random colonic biopsy MICROSCOPIC DIAGNOSIS A. Duodenum, biopsy: Benign lymphoid aggregates. See comment. B. Gastric antrum, biopsy: Mild chronic gastritis. See comment. C. Gastric ulcer, biopsy: Mucosal ulceration with associated acute and chronic inflammation and granulation. Fibrinopurulent material. See comment. D. Colon, random biopsy: Mild melanosis coli. AM:sunshine 06/17/20 COMMENT A. Immunohistochemistry ([id number]) supports the above diagnosis. B. The results of immunohistochemistry for Helicobacter pylori will be reported separately ([id number]). C. Immunohistochemistry ([id number]) supports the above diagnosis. MICROSCOPIC DESCRIPTION Slides are reviewed. GROSS DESCRIPTION A - Received in fixative is one container labeled with the patient's name and designated duodenum biopsy. The specimen consists of one irregular fragment of light rodriguez soft tissue that measures 0.3 x 0.3 x 0.1 cm. The specimen is totally submitted in one cassette. B - Received in fixative is one container labeled with the patient's name and designated antrum biopsy. The specimen consists of one irregular fragment of light rodriguez soft tissue that measures 0.3 x 0.2 x 0.1 cm. The specimen is totally submitted in one cassette. C - Received in fixative is one container labeled with the patient's name and designated gastric ulcer biopsy. The specimen consists of two irregular fragments of light rodriguez soft tissue that in aggregate measure 0.6 x 0.6 x 0.2 cm. The specimen is totally submitted in one cassette. D - Received in fixative is one container labeled with the patient's name and designated random colon biopsy. The specimen consists of multiple irregular fragments of light rodriguez soft tissue that in aggregate measure 2 x 1 x 0.1 cm. The specimen is totally submitted in one cassette. / AM:rg 06/16/20 TC:2 CPT: 09412 x4
--- NOTE | 2020-06-16 10:37 | OP.CCLET_ITS ---
06/16/2020 Francisco J Garces Iii [address] [place] [address] Re : Upper GI endoscopy procedure for Morena Robin Dear Dr. Garces This procedure was performed on Tuesday, June 16, 2020. My impressions and recommendations are as follows: Impressions : - Normal esophagus. - Non-bleeding gastric ulcers with no stigmata of bleeding. Biopsied. - Erythematous mucosa in the prepyloric region of the stomach. Biopsied. - Normal examined duodenum. Biopsied. Recommendations : - Await pathology results. - Repeat upper endoscopy in 4 months to evaluate the response to therapy. - Return to my office in 1 week. - Continue present medications. My findings are described in the full procedure note, which is enclosed. If I can be of further assistance, please feel free to contact me at Doctor phone number(s): , Fax: [phone], Work: . Sincerely, MD Yoav Garcia MD 06/16/2020 10:36:51 AM This report has been signed electronically.
--- NOTE | 2020-06-16 10:37 | OP.EGD_ITS ---
Patient Name: Morena Robin Procedure Date: 06/16/2020 9:44 AM Date of : 1940 Age: 79 Procedure: Upper GI endoscopy Indications: Lower abdominal pain, Diffuse large B cell lymphoma, Nausea, Weight loss Providers: Yoav White MD Referring MD: Francisco J Garces Iii Medicines: See the Anesthesia note for documentation of the administered medications Patient Profile: This is a 79 year old female. Refer to note in patient chart for documentation of history and physical. Complications: No immediate complications. Procedure: Pre-Anesthesia Assessment: - Prior to the procedure, a History and Physical was performed, and patient medications and allergies were reviewed. The patient's tolerance of previous anesthesia was also reviewed. The risks and benefits of the procedure and the sedation options and risks were discussed with the patient. All questions were answered, and informed consent was obtained. Prior Anticoagulants: The patient has taken no previous anticoagulant or antiplatelet agents. ASA Grade Assessment: III - A patient with severe systemic disease. After reviewing the risks and benefits, the patient was deemed in satisfactory condition to undergo the procedure. After obtaining informed consent, the endoscope was passed under direct vision. Throughout the procedure, the patient's blood pressure, pulse, and oxygen saturations were monitored continuously. The gastroscope was introduced through the mouth, and advanced to the second part of duodenum. The upper GI endoscopy was accomplished without difficulty. The patient tolerated the procedure well. Scope In: 10:03:33 AM Scope Out: 10:08:46 AM Total Procedure Duration Time 0 hours 5 minutes 13 seconds Findings: The examined esophagus was normal. Many non-bleeding cratered gastric ulcers with no stigmata of bleeding were found in the gastric fundus. The largest lesion was 20 mm in largest dimension. Biopsies were taken with a cold forceps for histology. Diffuse moderately erythematous mucosa without bleeding was found in the prepyloric region of the stomach. Biopsies were taken with a cold forceps for Helicobacter pylori testing. The examined duodenum was normal. Biopsies for histology were taken with a cold forceps for evaluation of celiac disease. Impression: - Normal esophagus. - Non-bleeding gastric ulcers with no stigmata of bleeding. Biopsied. - Erythematous mucosa in the prepyloric region of the stomach. Biopsied. - Normal examined duodenum. Biopsied. Recommendation: - Await pathology results. - Repeat upper endoscopy in 4 months to evaluate the response to therapy. - Return to my office in 1 week. - Continue present medications. Procedure Code(s): --- Professional --- 28879, Esophagogastroduodenoscopy, flexible, transoral; with biopsy, single or multiple Diagnosis Code(s): --- Professional --- K25.9, Gastric ulcer, unspecified as acute or chronic, without hemorrhage or perforation K31.89, Other diseases of stomach and duodenum R10.30, Lower abdominal pain, unspecified C83.30, Diffuse large B-cell lymphoma, unspecified site R11.0, Nausea R63.4, Abnormal weight loss CPT copyright 2017 [employer]. All rights reserved. The codes documented in this report are preliminary and upon retail cashier review may be revised to meet current compliance requirements. MD Yoav Garcia MD 06/16/2020 10:36:51 AM This report has been signed electronically. Number of Addenda: 0 Note Initiated On: 06/16/2020 9:44 AM
--- NOTE | 2020-06-16 10:40 | OP.COLON_ITS ---
Patient Name: Morena Robin Procedure Date: 06/16/2020 10:09 AM Date of : 1940 Age: 79 Procedure: Colonoscopy Indications: Lower abdominal pain, Diffuse large B cell lymphoma, Weight loss Providers: Yoav White MD Referring MD: Francisco J Garces Iii Medicines: See the Anesthesia note for documentation of the administered medications Patient Profile: This is a 79 year old female. Refer to note in patient chart for documentation of history and physical. Last Colonoscopy: date unknown. Unable to locate last colonoscopy report. Complications: No immediate complications. Procedure: Pre-Anesthesia Assessment: - Prior to the procedure, a History and Physical was performed, and patient medications and allergies were reviewed. The patient's tolerance of previous anesthesia was also reviewed. The risks and benefits of the procedure and the sedation options and risks were discussed with the patient. All questions were answered, and informed consent was obtained. Prior Anticoagulants: The patient has taken no previous anticoagulant or antiplatelet agents. ASA Grade Assessment: III - A patient with severe systemic disease. After reviewing the risks and benefits, the patient was deemed in satisfactory condition to undergo the procedure. After I obtained informed consent, the scope was passed under direct vision. Throughout the procedure, the patient's blood pressure, pulse, and oxygen saturations were monitored continuously. The colonoscope was introduced through the anus and advanced to the cecum, identified by appendiceal orifice and ileocecal valve. The colonoscopy was performed without difficulty. The patient tolerated the procedure well. The quality of the bowel preparation was good. Scope In: 10:10:52 AM Scope Withdrawal Time 0 hours 7 minutes 22 seconds Scope Out: 10:29:41 AM Total Procedure Duration Time 0 hours 18 minutes 49 seconds Findings: The entire examined colon appeared normal. Impression: - The entire examined colon is normal. Biopsied. - Normal mucosa in the entire examined colon. Biopsied. Recommendation: - Discharge patient to home. - Resume previous diet. - Continue present medications. - Await pathology results. - Repeat colonoscopy (date not yet determined) for surveillance. - Return to my office in 1 week. Procedure Code(s): --- Professional --- 27577, Colonoscopy, flexible; diagnostic, including collection of specimen(s) by brushing or washing, when performed (separate procedure) Diagnosis Code(s): --- Professional --- R10.30, Lower abdominal pain, unspecified C83.30, Diffuse large B-cell lymphoma, unspecified site R63.4, Abnormal weight loss CPT copyright 2017 [employer]. All rights reserved. The codes documented in this report are preliminary and upon data coder operator review may be revised to meet current compliance requirements. MD Yoav Garcia MD 06/16/2020 10:40:25 AM This report has been signed electronically. Number of Addenda: 0 Note Initiated On: 06/16/2020 10:09 AM
--- NOTE | 2020-06-16 10:40 | OP.CCLET_ITS ---
06/16/2020 Francisco J Garces I[address] [place] [address] Re : Colonoscopy procedure for Morena Sharda Dear Dr. Garces This procedure was performed on Tuesday, June 16, 2020. My impressions and recommendations are as follows: Impressions : - The entire examined colon is normal. Biopsied. - Normal mucosa in the entire examined colon. Biopsied. Recommendations : - Discharge patient to home. - Resume previous diet. - Continue present medications. - Await pathology results. - Repeat colonoscopy (date not yet determined) for surveillance. - Return to my office in 1 week. My findings are described in the full procedure note, which is enclosed. If I can be of further assistance, please feel free to contact me at Doctor phone number(s): , Fax: [phone], Work: . Sincerely, MD Yoav Garcia MD 06/16/2020 10:40:25 AM This report has been signed electronically.
== END 2020-06-16 12:17 | disposition home or self-care (01) ==
LOC: EN 09:04 → AC 09:04
PROVIDERS: Anesthesiology; PCP Family Medicine; Referring Provider Family Medicine; Visit Provider Surgery
PROC: 0DJD8ZZ Inspection of Lower Intestinal Tract, Via Natural or Artificial Opening Endoscopic (ICD-10-PCS; CPT 45378; principal; 2020-06-16 09:40)
DX: K25.9 Gastric ulcer, unspecified as acute or chronic, without hemorrhage or perforation (principal); K29.50 Unspecified chronic gastritis without bleeding; K63.89 Other specified diseases of intestine; C83.31 Diffuse large B-cell lymphoma, lymph nodes of head, face, and neck; E03.9 Hypothyroidism, unspecified; D70.1 Agranulocytosis secondary to cancer chemotherapy; T45.1X5A Adverse effect of antineoplastic and immunosuppressive drugs, initial encounter; K21.9 Gastro-esophageal reflux disease without esophagitis; E78.00 Pure hypercholesterolemia, unspecified; Z79.899 Other long term (current) drug therapy; Z11.59 Encounter for screening for other viral diseases
CPT/HCPCS: 43239; 45380; 87635; 88305; 88341; 88342; 93005; J7120; A4216; U0003

== ENCOUNTER 2020-06-27 13:25 | Emergency (ER) | payer MEDICARE, SELFPAY ==
[2020-06-16 09:28] VITALS: BMI 18.6
[2020-06-27 13:26] VITALS: BP 100/59; PULSE 112; RESP 20; TEMP 36.3; O2SAT 97; BMI 17.9
--- NOTE | 2020-06-27 13:40 | EKG12_ITS ---
Test Reason : ABD LABS Blood Pressure : / mmHG Vent. Rate : 098 BPM Atrial Rate : 098 BPM P-R Int : 108 ms QRS Dur : 090 ms QT Int : 382 ms P-R-T Axes : 076 -49 079 degrees QTc Int : 487 ms Sinus rhythm with short CA with occasional Premature ventricular complexes Left anterior fascicular block Non-specific ST & T wave changes Abnormal ECG Confirmed by CAROL TIJERINA, SERGE ([id number]), research editor CHESTER MAO ([id number]) on 07/02/2020 11:19:11 AM Referred By: CRISTIN Confirmed By:DONYA MEDINA MD
--- NOTE | 2020-06-27 14:03 | ED.DCSUM_ITS ---
- ER Visit Summary Date of Service: 06/27/20 Chief Complaint: Abnormal labs History of Present Illness: The patient is a 79 F who presents with low potassium that was noticed today. Patient had outpatient labs drawn by Dr. Cha today. Patient was told to come to the emergency department because her potass ium was low. Her potassium was 2.1 this morning. Sodium and chloride were normal. Anion gap was normal. Patient also had a CBC drawn which was normal. Patient admits to some shortness of breath. Patient states this is chronic for her. Patient also admits to some intermittent low back pain. Patient has a history of B-cell lymphoma but her last chemotherapy was 2 months ago. Physical Examination: Vital signs are stable except for tachycardia of 112. Patient is afebrile. Patient is in no acute distress. Oral mucosa is pink and moist. Neck is supple. Trachea is midline. There is no JVD. Heart was regular rate and rhythm. Lungs are clear and equal bilaterally. Abdomen is soft. Bowel sounds are normal. There is minimal tenderness in the epigastric area. There is no rebound or guarding noted. Cranial nerves II through XII are intact. There are no focal motor or sensory deficits noted. Test Results: EKG showed normal sinus rhythm with a short NV interval and occasional PVC with a rate of 98. There are no acute ST or T wave changes. Emergency Department Course and Treatment: Patient was given IV and oral potassium here. Patient metabolic profile was obtained after the patient was given potassium. Potassium level was 2.8. Patient is feeling better on reevaluation. Patient was given a prescription for potassium for the next 5 days. Patient was instructed to follow-up with her primary care physician and oncologist as scheduled. Patient understood and was agreeable with the plan. All questions were answered. Disposition: Discharge home Impression: 1. Hypokalemia This note was generated with [employer] dictation software. It may contain incorrect words, spelling, and punctuation that were not noted in review of the chart prior to signing ED Disposition - Plan for ED Patient: Disposition: Home or Assisted Living Diagnosis: Hypokalemia Instructions: ED Potassium Deficiency Prescriptions: Potassium Chloride [K-Dur] 10 meq PO DAILY #5 tab Prescription Printed Referrals: Francisco J Garces III, MD [Primary Care Provider] - 3-5 Days Pop Herron MD [STAFF PHYSICIAN] - 3-5 Days
[2020-06-27] MEDS: Potassium Chloride 10mEq/100mL 10 MEQ/100 ML IV.SOLN. 100 MEQ IV BOLUS ×2 (14:24→15:20)
[2020-06-27 14:38] VITALS: BMI 17.9
[2020-06-27 16:07] VITALS: BP 115/70; PULSE 89; RESP 20
[2020-06-27 16:34] VITALS: BP 116/72; PULSE 89; RESP 20
[2020-06-27 18:15] LABS: Anion Gap 5 (5-15); BUN 8 mg/dL (7-18); BUN/Creat Ratio 22.5 RATIO (10-20); Calcium,Total 8.7 mg/dL (8.5-10.1); Chloride 102 mmol/L (98-107); Creatinine, Serum 0.36 mg/dL (0.55-1.02); EST Glomerular Filtration Rate 187 mL/min (>60); Est Glom Filt Rate - Afr Amer 227 mL/min (>60); Estimated Creatinine Clearance 32.54 ml/min; Glucose 87 mg/dL (74-106); Potassium 2.8 mmol/L (3.5-5.1); Sodium Level 143 mmol/L (136-145)
[2020-06-27 18:32] VITALS: BP 114/70; PULSE 93; RESP 24; O2SAT 100
== END 2020-06-27 19:15 | disposition home or self-care (01) ==
PROVIDERS: Emergency Provider Emergency Medicine; PCP Family Medicine
DX: E87.6 Hypokalemia (principal); C85.10 Unspecified B-cell lymphoma, unspecified site
CPT/HCPCS: 36591; 80048; 84484; 93005; 96365; 96366; 99284; A4216

== ENCOUNTER → 2020-07-05 | Outpatient (CLI) | payer MEDICARE, SELFPAY ==
[2020-06-27 13:26] VITALS: BMI 17.9
--- NOTE | 2020-07-05 10:00 | PET_ITS ---
EXAMINATION: FDG PET-CT INDICATIONS: A 79-year-old female with history of lymphoma presenting for restaging examination. COMPARISON EXAMINATION: None available INDEX LESION SIZE LUGANO SCORE SUV INTERPRETATION Right axilla (n=1) 7.0 x 11.3-mm (frame 160) 5 3.5 Fulfills quantitative criteria for viable neoplasm Abdominal-pelvic retroperitoneum and mesentery, right inguinal soft tissue densities 26.8 x 19.6-mm (largest) (frame 60) 5 14.7 (max) Fulfills quantitative criteria for viable neoplasm Axial skeletal structures, left proximal femur 5 10.1 (max) Fulfills quantitative criteria for viable neoplasm Proximal to distal gastric body, diffuse 5 If applicable 6.9 (max) May warrant further investigation with direct visualization if clinically indicated TECHNIQUE: Following the intravenous administration of 12.07 mCi of F-18 deoxyglucose via the right wrist, multiplanar image acquisitions of the neck, chest, abdomen and pelvis to level of mid thigh, obtained at one hour post radiopharmaceutical administration contemporaneously interpreted with the current CT of the neck, chest, abdomen and pelvis, to level of mid thigh, dated 07/05/2020 via coregistration reveals: BLOOD GLUCOSE LEVEL:?? 118 mg/dl?HEIGHT:?61 inches?WEIGHT: 92 lbs. FINDINGS: 1. There is an increase in GLUCOSE uptake defined in the right axilla in several nodular presentations, generating a calculated maximal standard uptake value of 3.5. The Lugano Deauville score is 5. The maximal axial diameter of the largest, most conspicuous metabolic, morphologic abnormality on review of CT of the chest dated 07/05/2020 is 7.0-mm (transverse) x 11.3-mm (AP). 2. Multifocal increased FDG distribution is noted in the mid-lower abdominal retroperitoneum, bilateral hemipelvis, right inguinal lymph node distributions and left upper abdomen retrocrural in location. The calculated maximal standard uptake value is 14.7. The Lugano Deauville score is 5. The maximal axial diameter of the largest individual metabolic, morphologic abnormality on review of CT of the abdomen and pelvis dated 07/05/2020 is 26.8-mm (transverse) x 19.6-mm (AP). 3. Multiple foci of increased radiopharmaceutical concentration are manifest within the axial skeletal structures to include several right upper lateral ribs, eighth-tenth thoracic vertebrae, right sacral ala, the left proximal femur, as well as additionally in the left proximal femur, right lower anterior chest wall-rib generating a calculated maximal standard uptake value of 10.1. The Lugano Deauville score is 5. 4. Enhanced radiopharmaceutical extends from the proximal to distal gastric body inclusive of the greater and lesser curvature. The calculated maximal standard uptake value is 6.9. Diffuse involvement precludes assessment of the morphologic parameters. 5. Normal physiologic distribution of the radiopharmaceutical is apparent in the hepatic (2.2) and splenic parenchyma, both renal units, bladder and visualized intestinal tract. Pertinent CT findings are as follows: CHEST: There is atherosclerotic calcification defined in the thoracic aorta without evidence of dilatation-aneurysm formation. Coronary arterial calcification is observed. Puja-cath placement is noted. Subcentimeter left and additional right axillary soft tissue densities demonstrate no evidence of quantitatively significant increased FDG distribution. The linear density defined in the left upper anterior lung-left upper lobe reveals no evidence of discernible quantitatively significant enhanced fluorine labeled glucose uptake. ABDOMEN AND PELVIS: Calcification is defined in the right kidney. There is atherosclerotic calcification defined in the abdominal aorta without evidence of dilatation-aneurysm formation. Pelvic arterial calcification is visualized. Additional right and visualized left axillary soft tissue densities are ametabolic. Calcification is noted in the bilateral lower hemipelvis, adnexal regions without evidence of increased tracer uptake. SKELETAL: Degenerative changes are noted in the cervical, thoracic and lumbar spine. PET/PET/CT Tumor Base -Thigh Subs IMPRESSION: 1. ABNORMAL EXAMINATION INDICATIVE OF MALIGNANT VIABLE NEOPLASM. 2. Increased glucose concentration observed in the right axilla, abdominal retroperitoneum, bilateral hemipelvis and right inguinal regions fulfill qualitative-visual criteria for viable neoplasm. (Cheson et al, Journal of Clinical Oncology 32:3059, 2014). 3. Facilitated tracer uptake observed in the axial skeletal structures and left proximal femur fulfill quantitative criteria for viable osseous neoplasm. (Mellissa et al, Clinical Nuclear Medicine, 29:161, 2004). 4. The increase in tracer distribution extending from the proximal to distal gastric body may warrant further investigation with direct visualization secondary to the quantitative degree of uptake if not previously obtained. Electronic Signature Kris Loya D.O. Accurate Quantification of SUVs for this report are calculated using the exclusive [employer]. Electronically Signed: Kris Loya DO at 22:54 EDT Tel , Service support ,
== END | disposition home or self-care (01) ==
PROVIDERS: PCP Internal Medicine; Referring Provider Internal Medicine Hematology & Oncology; Visit Provider Internal Medicine Hematology & Oncology
DX: C83.31 Diffuse large B-cell lymphoma, lymph nodes of head, face, and neck (principal)
CPT/HCPCS: 78815; A9552

== ENCOUNTER 2020-07-25 21:50 | Inpatient (IN) | payer MEDICARE, SELFPAY ==
[2020-07-25 21:54] VITALS: BP 116/74; PULSE 106; RESP 21; TEMP 36.6; O2SAT 97; BMI 16.2
--- NOTE | 2020-07-25 22:07 | EKG12_ITS ---
Test Reason : CP Blood Pressure : / mmHG Vent. Rate : 096 BPM Atrial Rate : 096 BPM P-R Int : 114 ms QRS Dur : 086 ms QT Int : 388 ms P-R-T Axes : 067 -58 078 degrees QTc Int : 490 ms Sinus rhythm with occasional Premature ventricular complexes Possible Left atrial enlargement Left axis deviation Anterior infarct , age undetermined Abnormal ECG Confirmed by MICHAEL TIJERINA, DONY ([id number]), city editor TONY MENG ([id number]) on 07/28/2020 2:14:50 PM Referred By: Mihaela Napier Confirmed By:DONY RODRIGUEZ MD
--- NOTE | 2020-07-25 22:09 | ED.DCSUM_ITS ---
- ER Visit Summary Date of Service: 07/25/20 Chief Complaint: Chest pain History of Present Illness: The patient is a 79 F who presents with chest pain that has been waxing waning over the past couple days. Patient states she had outpatient labs drawn at her oncology visit today. Son states that her potas sium was 2.2. Son states that she has symptoms of chest pain when her potassium gets low. Patient denies any shortness of breath. Patient admits to nausea but denies any vomiting. Patient denies any cough or fever. Patient denies any palpitations. Patient states nothing makes it better or worse. Patient states the pain is dull. Patient states the pain is localized to the left chest. Patient denies any cardiac risk factors. Patient does have a history of lymphoma. Physical Examination: Vital signs are stable. Patient is afebrile. Patient is in no acute distress. Oral mucosa is pink and moist. Neck is supple. Trachea is midline. There is no JVD noted. Heart was regular rate and rhythm. Lungs are clear and equal bilaterally. Abdomen is soft. Bowel sounds are normal. There is no tenderness. There is no rebound or guarding noted. Skin is warm dry. Cranial nerves II through XII are intact. There are no focal motor or sensory deficits noted. Extremities are intact. There is no calf tenderness or edema. Test Results: EKG shows a normal sinus rhythm with a rate of 96. There is an occasional PVC noted. There are no acute ST or T wave changes. This is unchanged compared to previous EKG dated 06/27/2020. CBC shows a mild anemia with hemoglobin of 11.0 and hematocrit 34.1. White blood cell count was 4.0. Basic metabolic profile showed a potassium of 2.3. Magnesium was low at 1.3. Phosphorus was normal. Troponin was normal at 0.021. Portable chest x-ray was obtained. There is no acute cardiopulmonary process. This was interpreted by the radiologist and reviewed by myself. Emergency Department Course and Treatment: Patient was given aspirin. Patient was given oral and IV potassium. Patient is feeling somewhat better on reevaluation. Case was discussed with the hospitalist, Dr. Napier. She will admit the patient to her service. Patient understood and was agreeable with the plan. All questions were answered. Disposition: Admit to hospital Impression: Hypokalemia This note was generated with Dragon dictation software. It may contain incorrect words, spelling, and punctuation that were not noted in review of the chart prior to signing ED Disposition - Plan for ED Patient: Disposition: Acute Care Hospital [facility] Diagnosis: Hypokalemia
--- NOTE | 2020-07-25 22:47 | RAD_ITS ---
STUDY: X-RAY CHEST REASON FOR EXAM: Female, 79 years old. CHEST PAIN INTERMITTENT PAST SEVERAL DAYS, B CELL LYMPHOMA WITH METS. TECHNIQUE: 1 view COMPARISON: Prior portable chest of 05/20/2020 FINDINGS: Left subclavian Port-A-Cath ends in the distal superior vena cava. The lung ramos remain well expanded and clear without new consolidation or focal atelectasis. There is no demonstrated pleural abnormality. Normal size heart. Normal mediastinum and odalys. Normal visualized pulmonary arteries. There is atherosclerotic calcification of the aortic arch with tortuosity. Demineralized osseous structures. Osteoarthritic changes of the left shoulder status post rotator cuff repair and a probable old humeral neck fracture deformity. There is no demonstrated abnormality of the visualized soft tissue structures of the upper abdomen. RAD/Chest 1 View (Portable) IMPRESSION: No acute cardiopulmonary findings or changes. Negative for new consolidation, focal atelectasis or pleural effusion. Normal cardiac size. Port-A-Cath terminates in the distal superior vena cava unchanged from prior examination. Electronically Signed: Leti Carpenter MD at 23:01 EST , Service support ,
[2020-07-25 22:56] LABS: Absolute Lymphocyte Count 0.12 X10^3/uL (0.83-4.51); Absolute Neutrophil Count 3.7 X10^3/uL (2.0-7.7); Hematocrit 34.1 % (37-47); Lymphocyte # 0.12 X10^3/ul (4.0); Mean Corp Hgb Conc 32.3 g/dL (32-36); Mean Corpuscular Hgb 29.3 pg (27.0-32.0); Mean Corpuscular Volume 90.9 fL (81-99); Mean Platelet Vol. 10.6 fl (6.2-12.0); Monocyte# 0.09 X10^3/uL; Monocyte% 2.3 % (0-10); NRBC Flagged by Analyzer 0 % (0-5); Neutrophil # 3.74 X10^3/uL (2.7-7.7); Neutrophil % 93.9 % (47-70); POSITIVE DIFFERENTIAL YES; Platelet Count 271 K/mm3 (150-450); RBC Distribution Width CV 17.1 % (11.6-14.6); RBC Distribution Width SD 57.1 fl (35.1-43.9); Red Blood Count 3.75 M/mm3 (4.2-5.4)
[2020-07-25 22:58] LABS: Differential Indicated SCAN CRITERIA MET
[2020-07-25 23:01] LABS: International Normalized Ratio 1.1; Prothrombin Time (Protime)PT. 13.3 SECONDS (11.7-14.9)
[2020-07-25 23:02] LABS: Partial Thromboplast Time 65.1 Seconds (24.1-36.2)
[2020-07-25 23:26] VITALS: BP 90/65; PULSE 96; RESP 16; O2SAT 98
[2020-07-25 23:36] LABS: Anion Gap 12 (5-15); BUN 10 mg/dL (7-18); BUN/Creat Ratio 34.8 RATIO (10-20); Calcium,Total 8.7 mg/dL (8.5-10.1); Chloride 94 mmol/L (98-107); Creatinine, Serum 0.29 mg/dL (0.55-1.02); EST Glomerular Filtration Rate 240 mL/min (>60); Est Glom Filt Rate - Afr Amer 291 mL/min (>60); Estimated Creatinine Clearance 33.45 ml/min; Glucose 140 mg/dL (74-106); Magnesium 1.3 mg/dL (1.6-2.6); Phosphorus 2.6 mg/dL (2.5-4.9); Potassium 2.3 mmol/L (3.5-5.1); Sodium Level 139 mmol/L (136-145)
[2020-07-25 23:51] LABS: Anisocytosis 1+; Hypochromasia 1+; Platelet Estimate ADEQUATE (ADEQ)
--- NOTE | 2020-07-25 23:53 | PCM.HP.STD ---
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 (4) Hypothyroidism Status: Chronic Qualifiers: Hypothyroidism type: unspecified (5) Chronic anemia Status: Chronic (6) Chronic leukopenia Status: Chronic (7) Severe protein-calorie malnutrition Status: Chronic History of Present Illness Date of Admission: 07/25/20 Chief Complaint: Abnormal labs The patient is a 79 y/o F w/ PMHx: OA, GERD, Hx Urinary Retention, Hx Stage IV Follicular Lymphoma previously treated with CHOP x6 in 1997, 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 Herron with progressive decline with planned transition to Hospice with planned 07/26/20 home evaluation per discussion with patient who presents to the [facility] ED on 07/25/[address] Herron office referral secondary to electrolyte disturbances with potassium noted to be 2.2 per their office and patient complaint of generalized ongoing chest discomfort, waxing and waning, midsternal, aching/dull in nature, rated initially 5-6 out of 10 in severity, mid and left chest in location. Upon evaluation patient notes discomfort is improving, rated 3 out of 10 in severity. Work-up in the ED included T 98, heart rate 106, BP 116/74, respiratory rate 21, 97% on room air, CBC with WC 4, hemoglobin cold platelet 271 with noted lymphopenia, coags with PTT 65.1 otherwise not marked appearing, BMP with potassium 2.3, chloride 94, carbon oxide 33, BUN/creatinine 10/0.29, glucose 140, phosphorus 2.6, magnesium 1.3, troponin 0 0.021, chest x-ray with no acute cardiopulmonary findings, Port-A-Cath present with termination the distal superior vena cava unchanged from prior, EKG with sinus rhythm with occasional PVC unchanged from prior. In the ED patient ministered Tylenol, aspirin 324 mg p.o. x1, potassium chloride oral 40 mg p.o. x1 as well as 20 mill equivalent IV. 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 (Chronic) Hypothyroidism (Chronic) Chronic anemia (Chronic) Chronic leukopenia (Chronic) Lymphoma (Chronic) Malignant pleural effusion (Chronic) Medical History: Medical History (Last Updated 06/25/20 @ 14:58 by Bushra Carney) Calculus of gallbladder with cholecystitis (Resolved) K80.10 Hypokalemia (Acute) E87.6 Urinary retention (Chronic) R33.9 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 azithromycin Adverse Reaction (Verified 07/25/20 21:58) Diarrhea ketorolac Adverse Reaction (Verified 07/25/20 21:58) buring of eyes levofloxacin [From Levaquin] Adverse Reaction (Verified 07/25/20 21:58) muscle aches metronidazole Adverse Reaction (Verified 07/25/20 21:58) GI upset Home Medications: Ambulatory Orders Medication Instructions Recorded Docusate Sodium [Colace] 100 mg PO DAILY PRN PRN 10/25/17 Acetaminophen [Tylenol Extra 500 - 1,000 mg PO Q8H PRN PRN 12/13/18 Strength] Dextran 70/Hypromellose/Pf 1 ea OP Q4H PRN PRN 03/07/19 [Artificial Tears Drops] Levothyroxine Sodium [Synthroid] 50 mcg PO DAILY 05/20/20 Multivit-Min/Folic Acid/Oit522 2 ea PO DAILY 06/09/20 [Alive Women's Gummy Vitamins] Omeprazole 40 mg PO BID 10/09/20 Potassium Chloride [K-Dur] 10 meq PO DAILY #5 tab 06/27/20 Dexamethasone [Decadron] 1 tab PO BID 07/25/20 Haloperidol 1 mg PO DAILY 07/25/20 Ondansetron [Zofran] 8 mg PO Q8H PRN PRN 07/25/20 Surgical History: Surgical History (Last Updated 06/25/20 @ 14:57 by Bushra Carney) History of colonoscopy Onset Date: ~06/16/20 Z98.890 History of esophagogastroduodenoscopy (EGD) Onset Date: ~06/16/20 Z98.890 S/P laparoscopic cholecystectomy Z90.49 Surgical History: appendectomy, - - Tubal ligation, lymph node biopsy, excisional biopsy of right orbital mass, port placement, nasal basal cell removal. 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 Paternal History Items: COPD - Father with a history of significant emphysema with tobacco use history. Review of Systems Constitutional: Reports: Anorexia, Malaise, Weakness, Fatigue. Denies: Chills, Fever, Weight Change HEENT: Denies: Head Aches, Sinus Congestion, Sinus Drainage Cardiovascular: Reports: Chest Pain. Denies: Chest Pressure, Chest Tightness, Light Headedness, Orthopnea, Palpitations, Syncope Respiratory: Denies: Cough, Shortness of Breath, Shortness of breath at rest, Shortness of breath upon exertion, Sputum production Gastrointestinal: Reports: Nausea. Denies: Abdominal Pain, Vomiting Genitourinary: Denies: Dysuria Musculoskeletal: Reports: Back Pain, Joint Pain, Muscle pain. Denies: Joint Tenderness Skin: Denies: Rash, Wounds Neurological: Denies: Numbness, Tingling, Focal weakness Psychiatric: Reports: Anxiety, Depression. Denies: Homicidal Ideations, Suicidal Ideations Hematologic/ Lymphatic: Reports: Anemia, Easy Bruising, Easy Bleeding VTE Information - Inpt Only VTE Present on Admission: No VTE Mechan Device Prophylaxis: SCD's VTE Pharm Prophylaxis ordered?: Yes Patient Problems: Active and Suspected Problems (Last Updated 06/25/20 @ 14:58 by Bushra Carney) Chest pain (Acute) Hypokalemia (Acute) Subjective: Seated upright in the ED bed, fatigued, no acute distress. Objective: Physical Examination: General: awake, alert, oriented x 3 and cooperative, seated upright in the ED bed, fatigued appearing, no acute distress. Skin: normal color, turgor, no icterus, cyanosis. HEENT: AT/NC, EOMI, PERRLA, mildly dry MM, no carotid bruits or JVD noted. Lungs: CTA bilaterally, moderate effort, moderate decrease BL bases, no rales, ronchi or wheezing. Heart: Regular rate and rhythm; no gallop, rub audible, port in place. Abdomen: soft, cachectic, evidence of muscle and fat loss, ND, normal BS, no HSM. Extremities: no cyanosis, clubbing, or edema, very obvious muscle wasting. Neurological: patient awake, alert, oriented x 3; cognitive function intact; pupils equally reactive to light and accomodation; cranial nerves II-XII grossly normal, moving all 4 extremities, no focal deficits, strength moderately to severely globally decreased secondary to acute presentation and underlying comorbidities. Psychiatric: affect appears mildly fatigued, no acute evidence of depressive or anxiety feelings. - Physical Exam Vitals/I&O's: Vital Signs Temp Pulse Resp BP Pulse Ox 98 F 96 16 90/65 98 07/25/20 21:54 07/25/20 23:26 07/25/20 23:26 07/25/20 23:26 07/25/20 23:26 Oxygen Delivery Method Room Air Weight: 100 lb 12.02 oz Body Mass Index (BMI) 16.2 Laboratory Results 07/25/20 22:40: Sodium 139, Potassium 2.3 L*, Chloride 94 L, Carbon Dioxide 33.0 H, Anion Gap 12, BUN 10, Creatinine 0.29 L, Estim Creat Clear Calc 33.45, Est GFR (MDRD) Af Amer 291, Est GFR (MDRD) Non-Af 240, BUN/Creatinine Ratio 34.8 H, Glucose 140 H, Calcium 8.7, Phosphorus 2.6, Magnesium 1.3 L, Troponin I 0.021 07/25/20 22:40: WBC 4.0 L, RBC 3.75 L, Hgb 11.0 L, Hct 34.1 L, MCV 90.9, MCH 29.3, MCHC 32.3, RDW Std Deviation 57.1 H, RDW Coeff of Stacey 17.1 H, Plt Count 271, MPV 10.6, Immature Gran % (Auto) 0.800, Neut % (Auto) 93.9 H, Lymph % (Auto) 3.0 L, Hall % (Auto) 2.3, Eos % (Auto) 0.0, Baso % (Auto) 0.0, Absolute Neuts (auto) 3.7, Absolute Lymphs (auto) 0.12 L, Nucleated RBC % 0, Differential Comment , Diff Path Review January, Platelet Estimate ADEQUATE, Hypochromasia 1+, Anisocytosis 1+ 07/25/20 22:40: PT 13.3, INR 1.1, APTT 65.1 H Current Medications Potassium Chloride () 10 meq in 100 mls @ 100 mls/hr IV BOLUS Q1H NAOMY Stop: 07/26/20 01:44 Assessment/Plan All Active Problems (Last Updated 06/25/20 @ 14:58 by Bushra Carney) Chest pain (Acute) Hypokalemia (Acute) Calculus of gallbladder with cholecystitis (Resolved) Hypokalemia (Acute) Chemotherapy induced neutropenia (Acute) The patient is a 79 y/o F w/ PMHx: OA, GERD, Hx Urinary Retention, Hx Stage IV Follicular Lymphoma previously treated with CHOP x6 in 1997, 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 Herron with progressive decline with planned transition to Hospice with planned 07/26/20 home evaluation per discussion with patient who presents to the [facility] ED on 07/25/[address] Herron office referral secondary to electrolyte disturbances and chest pain. 1. Chest Pain: Suspect associated with patient electrolyte disturbance and metastatic cancer. EKG in ED sinus rhythm with no acute evidence of ischemia, CXR w/ no acute cardiopulmonary findings, initial trop normal x1. Will admit to PCU, place on a monitored bed to assure no acute myocardial infarction with serial cardiac enzymes and EKGs. Magnesium 1.3 with supplementation being administered. Potassium 2.3 upon repeat ED assessment, oral and IV supplementation administered, will trend and give additional as needed. ASA, NG, morphine. 2. Hypokalemia: Admission K+ 2.3, magnesium level 1.3 with IV supplementation being administered as noted, both oral and IV potassium supplementation given, repeat level in AM with further regimen as needed. 3. Hypomagnesium: Magnesium 1.3, will supplement aggressively with IV regimen especially given significant hypokalemia. 4. Stage II Diffuse B-cell Lymphoma: Patient w/ lymphoma of the neck and upper mediastinum with prior clinical remission after 1 cycle of chemotherapy however recurrent, declined T-cell therapy, previously transition to new chemotherapy, following with Dr. Cha, recent discussions frankly with oncology with planned discontinuation of therapy and hospice transition. Magnesium and phosphorus levels per ED with significantly low magnesium, will supplement IV. We will continue patient Decadron regimen. 5. Chronic Leukopenia: Admission WBC 1.0, previously on Neulasta, currently plan transition to hospice plan repeat CBC in a.m. 6. Chronic Anemia, Normocytic: Admission hemoglobin 11, baseline prior 8-9, continue to trend, previously 6 with chemotherapy which has been discontinued with planned hospice transition as noted. 7. Chronic Thrombocytopenia: Previously associate with chemotherapy, admission platelet count 271, not undergoing current chemotherapy, repeat CBC in AM. 8. Hx Stage IV Follicular Lymphoma: Patient previously treated with CHOP x 6 in 1997. 9. Hypothyroidism: Continue home synthroid regimen. 10. Malnutrition, Protein Calorie, Severe: Significant BMI decrease even from prior, obvious muscle and fat loss/wasting, nutrition consulted. 11. GERD: Continue home PPI. 12. DVT Prophylaxis: SCDs, lovenox. 13. CODE status: Patient's daughter previously her healthcare power of family law attorney now transition to her son, living will in place, previously patient DNR CCA, no intubation however with recent planned hospice transition CODE STATUS altered per reviewed with patient. Again, discussed CODE status at length including difference between FULL code, DNR-CCA and DNR-CC status. Following discussions about the differences in these status, confirmed DNR-CC status but amenable to current evaluation. Advanced Care Planning Face to Face Time: 16 minutes. Inpatient E&M: 20782 Init Hosp L3 Procedures: 34930 Advncd Care Plan 30 Min
[2020-07-25] MEDS: Potassium Chloride 10mEq/100mL 10 MEQ/100 ML IV.SOLN. 100 MEQ IV BOLUS (23:56)
[2020-07-26] VITALS (10 sets, daily range): BP systolic 94–115; BP diastolic 50–66; PULSE 76–106; RESP 16–20; TEMP 36.6; O2SAT 98–100; BMI 16.9
[2020-07-26] MEDS: Acetaminophen 500 MG Tablet 1000 MG PO (00:36)
[2020-07-26] MEDS: Potassium Chloride 10mEq/100mL 10 MEQ/100 ML IV.SOLN. 100 MEQ IV BOLUS (00:59)
[2020-07-26] MEDS: 0.9% Normal Saline 1,000 ML 100 ML IV ×2 (01:35→11:07)
[2020-07-26] MEDS: Magnesium Sulfate 4gm/100mL 4 GM/100 ML IV.SOLN. IV (01:35)
[2020-07-26] MEDS: Levothyroxine 50 MCG Tablet PO (03:47)
--- NOTE | 2020-07-26 05:43 | EKG12_ITS ---
Test Reason : AM EKG Blood Pressure : / mmHG Vent. Rate : 074 BPM Atrial Rate : 074 BPM P-R Int : 122 ms QRS Dur : 094 ms QT Int : 454 ms P-R-T Axes : -79 -54 075 degrees QTc Int : 503 ms Unusual P axis and short [place], probable junctional rhythm Left anterior fascicular block Prolonged QT Abnormal ECG When compared with ECG of 26-JUL-2020 05:43, MANUAL COMPARISON REQUIRED, DATA IS UNCONFIRMED Confirmed by ANA PAULA TIJERINA, IRIS ([id number]), editor department [place] ([id number]) on 07/29/2020 11:05:36 AM Referred By: Mihaela Napier Confirmed By:IRIS GOSS MD
--- NOTE | 2020-07-26 05:55 | EKG12_ITS ---
Test Reason : AM EKG Blood Pressure : / mmHG Vent. Rate : 074 BPM Atrial Rate : 074 BPM P-R Int : 122 ms QRS Dur : 092 ms QT Int : 446 ms P-R-T Axes : -75 -53 075 degrees QTc Int : 495 ms Unusual P axis and short [place], probable junctional rhythm Left anterior fascicular block Prolonged QT Abnormal ECG When compared with ECG of 25-JUL-2020 22:08, MANUAL COMPARISON REQUIRED, DATA IS UNCONFIRMED Confirmed by ANA PAULA TIJERINA, IRIS ([id number]), assistant film editor [place]O ([id number]) on 07/29/2020 11:03:04 AM Referred By: Mihaela Napier Confirmed By:IRIS GOSS MD
[2020-07-26 05:56] LABS: Absolute Lymphocyte Count 0.14 X10^3/uL (0.83-4.51); Absolute Neutrophil Count 3.6 X10^3/uL (2.0-7.7); Hematocrit 30.1 % (37-47); Hemoglobin 9.9 g/dL (12.0-15.0); Lymphocyte # 0.14 X10^3/ul (4.0); Lymphocyte % 3.4 % (19-41); Mean Corp Hgb Conc 32.9 g/dL (32-36); Mean Corpuscular Hgb 29.9 pg (27.0-32.0); Mean Corpuscular Volume 90.9 fL (81-99); Mean Platelet Vol. 10.6 fl (6.2-12.0); Monocyte# 0.36 X10^3/uL; Monocyte% 8.8 % (0-10); NRBC Flagged by Analyzer 0 % (0-5); Neutrophil # 3.56 X10^3/uL (2.7-7.7); Neutrophil % 86.8 % (47-70); POSITIVE DIFFERENTIAL YES; Platelet Count 226 K/mm3 (150-450); RBC Distribution Width CV 17.4 % (11.6-14.6); RBC Distribution Width SD 57.9 fl (35.1-43.9); Red Blood Count 3.31 M/mm3 (4.2-5.4); White Blood Count 4.1 K/mm3 (4.4-11.0)
[2020-07-26 05:59] LABS: Differential Indicated SCAN CRITERIA MET
[2020-07-26 06:19] LABS: Anisocytosis 1+; Hypochromasia 1+; Ovalocyte RARE; Platelet Estimate ADEQUATE (ADEQ)
[2020-07-26 06:27] LABS: ALB/GLOB Ratio 0.8 RATIO (0.9-2.4); AST(SGOT) 18 U/L (15-37); Alanine Aminotransfer ALT/SGPT 13 U/L (13-56); Alkaline Phosphatase 81 U/L (45-117); Anion Gap 10 (5-15); BUN 8 mg/dL (7-18); BUN/Creat Ratio 33.9 RATIO (10-20); Calcium,Total 8.1 mg/dL (8.5-10.1); Chloride 99 mmol/L (98-107); Creatinine, Serum 0.24 mg/dL (0.55-1.02); EST Glomerular Filtration Rate 301 mL/min (>60); Est Glom Filt Rate - Afr Amer 364 mL/min (>60); Estimated Creatinine Clearance 30.74 ml/min; Globulin 2.4 g/dL (2.2-4.2); Glucose 104 mg/dL (74-106); Magnesium 2.6 mg/dL (1.6-2.6); Potassium 3.2 mmol/L (3.5-5.1); Protein, Total 4.4 g/dL (6.4-8.2); Sodium Level 140 mmol/L (136-145)
[2020-07-26] MEDS: Acetaminophen 325 MG Tablet 650 MG PO (07:48)
[2020-07-26] MEDS: Glycerin/Hypromellose/PEG400 15 ml Bottle 1 DRP EACH EYE (07:48)
[2020-07-26] MEDS: dexAMETHasone 4 MG Tablet PO ×2 (07:49→17:15)
[2020-07-26] MEDS: Aspirin E.C. 81 MG Tablet PO (07:49)
--- NOTE | 2020-07-26 07:59 | PCM.PN.HOSP ---
Patient Problems: Active and Suspected Problems (Last Updated 06/25/20 @ 14:58 by Bushra Carney) Chest pain (Acute) Hypokalemia (Acute) Reason for Visit: Chest pain Hypokalemia Hypomagnesemia Subjective: Patient is a 79-year-old lady with history of stage II diffuse B-cell lymphoma involving the neck and upper mediastinum admitted with chest pain and electrolyte abnormalities Objective: GENERAL: Frail looking HEENT: Atraumatic; EYES; Anicteric, Normal Conjunctiva NECK; supple, normal thyroid, RESPIRATORY: Diminished to auscultation CARDIOVASCULAR: Regular S1 S2, GI: soft, normoactive bowel sounds, : No Renal angle tenderness; EXTREMITIES: No edema, no clubbing, MUSCULOSKELETAL: no muscle waisting NEURO: Awake; no lateralizing signs. SKIN: No Rash PSYCH; Flat affect Vitals/I&O's: Vital Signs Temp Pulse Resp BP Pulse Ox 97.8 F 76 16 94/50 L 99 07/26/20 03:45 07/26/20 03:51 07/26/20 03:45 07/26/20 03:45 07/26/20 03:45 Oxygen Delivery Method Room Air Weight: 42 kg Body Mass Index (BMI) 16.9 Intake and Output for Last 24 Hours 07/24/20 07/25/20 07/26/20 23:59 23:59 23:59 Intake Total 815.41 / 815.41 Balance 815.41 / 815.41 Laboratory Results 07/25/20 22:40: Sodium 139, Potassium 2.3 L*, Chloride 94 L, Carbon Dioxide 33.0 H, Anion Gap 12, BUN 10, Creatinine 0.29 L, Estim Creat Clear Calc 33.45, Est GFR (MDRD) Af Amer 291, Est GFR (MDRD) Non-Af 240, BUN/Creatinine Ratio 34.8 H, Glucose 140 H, Calcium 8.7, Phosphorus 2.6, Magnesium 1.3 L, Troponin I 0.021 07/25/20 22:40: WBC 4.0 L, RBC 3.75 L, Hgb 11.0 L, Hct 34.1 L, MCV 90.9, MCH 29.3, MCHC 32.3, RDW Std Deviation 57.1 H, RDW Coeff of Stacey 17.1 H, Plt Count 271, MPV 10.6, Immature Gran % (Auto) 0.800, Neut % (Auto) 93.9 H, Lymph % (Auto) 3.0 L, [place] % (Auto) 2.3, Eos % (Auto) 0.0, Baso % (Auto) 0.0, Absolute Neuts (auto) 3.7, Absolute Lymphs (auto) 0.12 L, Nucleated RBC % 0, Differential Comment , Diff Path Review May blaze, Platelet Estimate ADEQUATE, Hypochromasia 1+, Anisocytosis 1+ 07/25/20 22:40: PT 13.3, INR 1.1, APTT 65.1 H 07/26/20 01:37: Troponin I 0.028 07/26/20 05:27: WBC 4.1 L, RBC 3.31 L, Hgb 9.9 L, Hct 30.1 L, MCV 90.9, MCH 29.9, MCHC 32.9, RDW Std Deviation 57.9 H, RDW Coeff of Stacey 17.4 H, Plt Count 226, MPV 10.6, Immature Gran % (Auto) 1.000 H, Neut % (Auto) 86.8 H, Lymph % (Auto) 3.4 L, [place] % (Auto) 8.8, Eos % (Auto) 0.0, Baso % (Auto) 0.0, Absolute Neuts (auto) 3.6, Absolute Lymphs (auto) 0.14 L, Nucleated RBC % 0, Differential Comment COMMENT, Diff Path Review May blaze, Platelet Estimate ADEQUATE, Hypochromasia 1+, Anisocytosis 1+, Ovalocytes RARE 07/26/20 05:27: Sodium 140, Potassium 3.2 L, Chloride 99, Carbon Dioxide 31.0, Anion Gap 10, BUN 8, Creatinine 0.24 L, Estim Creat Clear Calc 30.74, Est GFR (MDRD) Af Amer 364, Est GFR (MDRD) Non-Af 301, BUN/Creatinine Ratio 33.9 H, Glucose 104, Calcium 8.1 L, Magnesium 2.6, Total Bilirubin 0.90, AST 18, ALT 13, Alkaline Phosphatase 81, Total Protein 4.4 L, Albumin 2.0 L, Globulin 2.4, Albumin/Globulin Ratio 0.8 L 07/26/20 05:27: Troponin I 0.027 Current Medications Acetaminophen (Acetaminophen 325 Mg Tablet) 650 mg PO Q6H PRN PRN PRN Reason: Pain Score 1-10/Temp > 100.7 F Last Admin: 07/26/20 07:48 Dose: 650 mg Documented by: Al Hydroxide/Mg Hydroxide (Mag Hydrox/Al Hydrox/Simeth 30 Ml Udc) 30 ml PO Q6H PRN PRN PRN Reason: Gastric Burning Albuterol Sulfate (Albuterol 2.5 Mg/3 Ml Vial.Neb.) 2.5 mg INHALATION Q2H PRN PRN PRN Reason: Dyspnea, wheezing Aspirin (Aspirin E.C. 81 Mg Tablet) 81 mg PO DAILY@0800 [facility] Last Admin: 07/26/20 07:49 Dose: 81 mg Documented by: Dexamethasone (Dexamethasone 4 Mg Tablet) 4 mg PO BIDCM [facility] Last Admin: 07/26/20 07:49 Dose: 4 mg Documented by: Enoxaparin Sodium (Enoxaparin 40 Mg/0.4 Ml Syringe) 40 mg SC DAILY [facility] Guaifenesin (Guaifenesin 10 Ml Udc (200mg/10ml)) 20 ml PO Q4H PRN PRN PRN Reason: COUGH Haloperidol (Haloperidol 1 Mg Tablet) 1 mg PO DAILY [facility] Hydralazine HCl (Hydralazine 20 Mg/Ml Vial) 10 mg IV Q4H PRN PRN PRN Reason: SBP > 160 Sodium Chloride () 1,000 mls @ 100 mls/hr IV .Q10H [facility] Last Admin: 07/26/20 01:35 Dose: 100 mls/hr Documented by: Sodium Chloride () 250 mls @ 15 mls/hr IV .[id number] PRN PRN Reason: Saline Flush Sodium Chloride () 250 mls @ 15 mls/hr IV .[id number] PRN PRN Reason: Additional IVPB Infusion Levothyroxine Sodium (Levothyroxine 50 Mcg Tablet) 50 mcg PO DAILY@0600 [facility] Last Admin: 07/26/20 03:47 Dose: 50 mcg Documented by: Magnesium Hydroxide (Magnesium Hydroxide 30 Ml Udc) 30 ml PO DAILY PRN PRN PRN Reason: Constipation Melatonin (Melatonin 3 Mg Tablet) 3 mg PO QHS PRN PRN PRN Reason: INSOMNIA Morphine Sulfate (Morphine 2 Mg/Ml Syringe) 2 mg IV Q3H PRN PRN PRN Reason: Pain Score 6-10 Nitroglycerin (Nitroglycerin (Inpatient Use) 0.4 Mg Tab.Subl) 0.4 mg SUBLINGUAL Q5M PRN PRN Reason: CARDIAC/CHEST PAIN Ondansetron HCl (Ondansetron 4 Mg/2 Ml Vial) 4 mg IV Q8H PRN PRN PRN Reason: NAUSEA/VOMITING Oxycodone HCl (Oxycodone 5 Mg Tablet) 5 mg PO Q4H PRN PRN PRN Reason: Pain Score 4-5 Pantoprazole Sodium (Pantoprazole Sodium 40 Mg Tablet) 40 mg PO BID NAOMY Prochlorperazine Edisylate (Prochlorperazine 10 Mg/2 Ml Vial) 5 mg IV Q4H PRN PRN PRN Reason: Breakthrough Nausea/Vomiting Psyllium Hydrophilic Mucilloid (Psyllium 1 Packet) 1 packet PO DAILY PRN PRN PRN Reason: Constipation Senna/Docusate Sodium (Senna/Docusate Sodium 1 Tablet) 2 tablet PO BID PRN PRN PRN Reason: Constipation Sodium Chloride (0.9% Saline Lock 10 Ml Syringe) 10 - 40 ml IV UD PRN PRN Reason: SALINE FLUSH Throat Lozenges (Benzocaine/Menthol 1 Lozenge) 1 lozenge MUCOUS MEM Q2H PRN PRN PRN Reason: SORE THROAT Medical Necessity - Tobacco Use Smoking Status: Never smoker Tobacco Use: Non-smoker Assessment/Plan All Active Problems (Last Updated 06/25/20 @ 14:58 by Bushra Carney) Chest pain (Acute) Hypokalemia (Acute) Calculus of gallbladder with cholecystitis (Resolved) Hypokalemia (Acute) Chemotherapy induced neutropenia (Acute) Patient is a 79-year-old lady with history of 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 Chest pain ?Placed on a monitored bed HI has never been ruled out with serial cardiac enzymes plan is to treat symptomatically 2. Hypokalemia ?Corrected per protocol 3. Hypomagnesemia -corrected per protocol with serial monitoring 4. Stage II diffuse B-cell lymphoma involving the neck and upper mediastinum -Patient is managed by Dr. Herron as outpatient decisions regarding hospice apparently initiated as outpatient 5. Pancytopenia - Secondary to patient's underlying malignancy. Monitoring with daily CBC 6. Hypothyroidism - Patient is on levothyroxine home dose continued 7. Severe protein calorie malnutrition -evidenced by low BMI of 16, muscle wasting and decreased energy level consult placed to dietitian 8. GERD ?On PPI 9. DVT prophylaxis ?Lovenox Inpatient E&M: 44179 Subs Hosp L2
[2020-07-26] MEDS: Pantoprazole Sodium 40 MG Tablet PO (09:52)
[2020-07-26] MEDS: Enoxaparin 40 MG/0.4 ML Syringe SC (09:53)
--- NOTE | 2020-07-26 11:36 | PCM.NTREPORT ---
Nutrition Therapy Report - History Nutrition Services has been consulted to:: Manage nutrient details of diet order Current diet / nutrition support order:: Regular general - Anthropometric Measurements Height:: 5 ft 2 in Weight:: 42 kg Body Mass Index (BMI):: 16.9 - Relevant Labs Relevant Labs:: WBC 4.1 K/mm3 (4.4-11.0) L 07/26/20 05:27 RBC 3.31 M/mm3 (4.2-5.4) L 07/26/20 05:27 Hgb 9.9 g/dL (12.0-15.0) L 07/26/20 05:27 Hct 30.1 % (37-47) L 07/26/20 05:27 RDW Std Deviation 57.9 fl (35.1-43.9) H 07/26/20 05:27 RDW Coeff of Stacey 17.4 % (11.6-14.6) H 07/26/20 05:27 Immature Gran % (Auto) 1.000 % (0.0-0.9) H 07/26/20 05:27 Neut % (Auto) 86.8 % (47-70) H 07/26/20 05:27 Lymph % (Auto) 3.4 % (19-41) L 07/26/20 05:27 Absolute Lymphs (auto) 0.14 X10^3/uL (0.83-4.51) L 07/26/20 05:27 APTT 65.1 Seconds (24.1-36.2) H 07/25/20 22:40 Potassium 3.2 mmol/L (3.5-5.1) L 07/26/20 05:27 Chloride 94 mmol/L (98-107) L 07/25/20 22:40 Carbon Dioxide 33.0 mmol/L (21.0-32.0) H 07/25/20 22:40 Creatinine 0.24 mg/dL (0.55-1.02) L 07/26/20 05:27 BUN/Creatinine Ratio 33.9 RATIO (10-20) H 07/26/20 05:27 Glucose 140 mg/dL (74-106) H 07/25/20 22:40 Calcium 8.1 mg/dL (8.5-10.1) L 07/26/20 05:27 Magnesium 1.3 mg/dL (1.6-2.6) L 07/25/20 22:40 Total Protein 4.4 g/dL (6.4-8.2) L 07/26/20 05:27 Albumin 2.0 g/dL (3.2-5.0) L 07/26/20 05:27 Albumin/Globulin Ratio 0.8 RATIO (0.9-2.4) L 07/26/20 05:27 - Assessment Food / Nutrition-Related History:: Pt states she is on a regular diet at home - po intake has been poor. UBW: 63.503 kg - wt loss of 33.9% x 1yr d/t cancer w/ mets. Pt w/ severe fat/muscle loss. Pt states tries to drink po supplements at home - prefers ensure clear. Only wants liquids for lunch and helped pt to order. [ End ] - Nutrition Diagnosis Problem / Etiology / Signs & Symptoms (PES):: Pt with severe malnutrition r/t cancer w/ mets aeb severe fat/muscle loss, <75% po intake x >1 mo, and 33.9% wt loss x 1 yr. [ End ] Evidence of Malnutrition Exists:: Yes Severe PCM:: Chronic Illness - Nutrition Intervention Nutrition Prescription:: [id number] shanika / 60-70 gm pro / day - Food / Nutrient Delivery Interventions Summary of nutrition intervention:: Will provide ensure clear and fruit ice w/ meals for increased nutrition if consumed. Will order ensure clear w/ medpass x 4x/day. [ End ] - MNT Monitoring Further MNT monitoring and evaluation required?: Yes MNT Follow-up in:: 3-5 days - please call RD/LD if questions [phone]
[2020-07-26 13:22] LABS: Anion Gap 9 (5-15); BUN 8 mg/dL (7-18); BUN/Creat Ratio 20.4 RATIO (10-20); Calcium,Total 8.7 mg/dL (8.5-10.1); Chloride 103 mmol/L (98-107); Creatinine, Serum 0.39 mg/dL (0.55-1.02); EST Glomerular Filtration Rate 167 mL/min (>60); Est Glom Filt Rate - Afr Amer 202 mL/min (>60); Estimated Creatinine Clearance 30.74 ml/min; Glucose 158 mg/dL (74-106); Magnesium 2.1 mg/dL (1.6-2.6); Potassium 2.7 mmol/L (3.5-5.1); Sodium Level 139 mmol/L (136-145)
--- NOTE | 2020-07-26 13:34 | CM.UR ---
Spoke with son on telephone as he had called in with questions. States that currently patient and her daughter are estranged but daughter is listed as HCPOA. States patient want's to change that. States they tried to reconcile when she came home but daughter just kept yelling at patient. He feels that contributed to the patients chest pain. States he spoke with his mom early this am and she would like to return home under hospice. States that she is very weak and will need to go via cot d/t inability for her to walk and get into the home. Explained that I will be meeting with his mom shortly and I will discuss his concerns with her. He verbalized appreciation. Mavis Berumen RN, CCM.
--- NOTE | 2020-07-26 14:24 | CM.UR ---
RN CM Assessment Note Intro role of CM to patient in room. She is resting quietly in bed. Patient is able and willing to complete assessment at this time. Demographics and PCP verified. Patient does not have addresses for emergency contacts. States her son lives in a mobile home on their property so walking distance. States that she doesn't know the house number but it is same street. Her is not listed as next of kin as pt prefers calls go to her son Saravanan. When I spoke with son, he mentioned that his dad is same age as patient. Patient states family assists with grocery shopping, laundry and cleaning. Patient plans to return home with hospice. Hospice was already arranged to be started today. She is denying any needs at this time. Patient becomes tearful about dying yet she does not want to be resuscitated or go through a lot. States that her son doesn't want her to . Explained that when I talked to him early he seemed to be respectful of her wishes and plans to bring her home with hospice. Presentation: Chest pain Diagnosis: hypokalemia PCP: Dr. Francisco J Garces III Specialists: Dr. Herron, oncologist Insurance: [facility] Preferred Pharmacy: [facility] Prescription Benefit: yes LNOK: Son, Genesis Robin Jr (Goes by Saravanan) Living Arrangements: Lives independentlyt at home with . Family is supportive and will be able to assist. Tranportation: self/family DME: shower chair, raised toilet seat, cane, walker, grab bars. HHC: [facility] past SNF: none Patient DC Goals: Home with hospice DC Plan: Home with hospice. No needs identified @ this time. Contact CM for any concerns/needs that may arise. Mavis Berumen RN, CCM.
[2020-07-26 17:39] LABS: Potassium 3.2 mmol/L (3.5-5.1)
--- NOTE | 2020-07-26 18:02 | DCINST_ITS ---
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 azithromycin Adverse Reaction (Verified 07/25/20 21:58) Diarrhea ketorolac Adverse Reaction (Verified 07/25/20 21:58) buring of eyes levofloxacin [From Levaquin] Adverse Reaction (Verified 07/25/20 21:58) muscle aches metronidazole Adverse Reaction (Verified 07/25/20 21:58) GI upset Medications to take at Discharge Docusate Sodium [Colace] 100 mg PO DAILY PRN PRN 10/25/17 Acetaminophen [Tylenol Extra Strength] 500 - 1,000 mg PO Q8H PRN PRN 12/13/18 Dextran 70/Hypromellose/Pf [Artificial Tears Drops] 1 ea OP Q4H PRN PRN 03/07/19 Levothyroxine Sodium [Synthroid] 50 mcg PO DAILY 05/20/20 Multivit-Min/Folic Acid/[id number] [Alive Women's Gummy Vitamins] 2 ea PO DAILY 05/21 10/08 Omeprazole 40 mg PO BID 06/27/20 Dexamethasone [Decadron] 1 tab PO BID 07/25/20 Haloperidol 1 mg PO DAILY 07/25/20 Ondansetron [Zofran] 8 mg PO Q8H PRN PRN 07/25/20 Magnesium Oxide [Mag-Oxide Magnesium] 200 mg PO BID #60 tab 07/26/20 Potassium Chloride [K-Dur] 40 meq PO BIDCM #120 tab 07/26/20 The following prescriptions were given: Potassium Chloride [K-Dur] 40 meq PO BIDCM #120 tab Transmission Status: Pending to [facility] #30 Magnesium Oxide [Mag-Oxide Magnesium] 200 mg PO BID #60 tab Transmission Status: Pending to [facility] #30 Primary Care Physician: Francisco J Garces III, MD [Primary Care Provider] - Test Results: Test results from this visit will be discussed in further detail at your follow- up appointment, if applicable. Proposed Discharge Date: 07/26/20
--- NOTE | 2020-07-26 18:05 | PCM.DC.SUM ---
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 Chest pain ?Placed on a monitored bed [place] has never been ruled out with serial cardiac enzymes plan is to treat symptomatically 2. Hypokalemia ?Corrected per protocol 3. Hypomagnesemia -corrected per protocol with serial monitoring 4. Stage II diffuse B-cell lymphoma involving the neck and upper mediastinum -Patient is managed by Dr. Herron as outpatient decisions regarding hospice apparently initiated as outpatient 5. Pancytopenia - Secondary to patient's underlying malignancy. Monitoring with daily CBC 6. Hypothyroidism - Patient is on levothyroxine home dose continued 7. Severe protein calorie malnutrition -evidenced by low BMI of 16, muscle wasting and decreased energy level consult placed to dietitian 8. GERD ?On PPI 9. DVT prophylaxis ?Lovenox Patient Problems: Active and Suspected Problems (Last Updated 06/25/20 @ 14:58 by Bushra Carney) Chest pain (Acute) Hypokalemia (Acute) - Physical Exam Vitals/I&O's: Vital Signs Temp Pulse Resp BP Pulse Ox 97.8 F 88 16 115/65 100 07/26/20 15:45 07/26/20 15:45 07/26/20 15:45 07/26/20 15:45 07/26/20 15:45 Oxygen Delivery Method Room Air Weight: 42 kg Body Mass Index (BMI) 16.9 Intake and Output for Last 24 Hours 07/24/20 07/25/20 07/26/20 23:59 23:59 23:59 Intake Total 2328.74 / 2328.74 Balance 2328.74 / 2328.74 General: Alert HEENT: Atraumatic Musculoskeletal: Cachexia, Muscle Wasting Psych/Mental Status: Normal Affect Laboratory Results 07/25/20 22:40: Sodium 139, Potassium 2.3 L*, Chloride 94 L, Carbon Dioxide 33.0 H, Anion Gap 12, BUN 10, Creatinine 0.29 L, Estim Creat Clear Calc 33.45, Est GFR (MDRD) Af Amer 291, Est GFR (MDRD) Non-Af 240, BUN/Creatinine Ratio 34.8 H, Glucose 140 H, Calcium 8.7, Phosphorus 2.6, Magnesium 1.3 L, Troponin I 0.021 07/25/20 22:40: WBC 4.0 L, RBC 3.75 L, Hgb 11.0 L, Hct 34.1 L, MCV 90.9, MCH 29.3, MCHC 32.3, RDW Std Deviation 57.1 H, RDW Coeff of Stacey 17.1 H, Plt Count 271, MPV 10.6, Immature Gran % (Auto) 0.800, Neut % (Auto) 93.9 H, Lymph % (Auto) 3.0 L, Duchesne % (Auto) 2.3, Eos % (Auto) 0.0, Baso % (Auto) 0.0, Absolute Neuts (auto) 3.7, Absolute Lymphs (auto) 0.12 L, Nucleated RBC % 0, Differential Comment , Diff Path Review May blaze, Platelet Estimate ADEQUATE, Hypochromasia 1+, Anisocytosis 1+ 07/25/20 22:40: PT 13.3, INR 1.1, APTT 65.1 H 07/26/20 01:37: Troponin I 0.028 07/26/20 05:27: WBC 4.1 L, RBC 3.31 L, Hgb 9.9 L, Hct 30.1 L, MCV 90.9, MCH 29.9, MCHC 32.9, RDW Std Deviation 57.9 H, RDW Coeff of Stacey 17.4 H, Plt Count 226, MPV 10.6, Immature Gran % (Auto) 1.000 H, Neut % (Auto) 86.8 H, Lymph % (Auto) 3.4 L, Duchesne % (Auto) 8.8, Eos % (Auto) 0.0, Baso % (Auto) 0.0, Absolute Neuts (auto) 3.6, Absolute Lymphs (auto) 0.14 L, Nucleated RBC % 0, Differential Comment COMMENT, Diff Path Review May foll, Platelet Estimate ADEQUATE, Hypochromasia 1+, Anisocytosis 1+, Ovalocytes RARE 07/26/20 05:27: Sodium 140, Potassium 3.2 L, Chloride 99, Carbon Dioxide 31.0, Anion Gap 10, BUN 8, Creatinine 0.24 L, Estim Creat Clear Calc 30.74, Est GFR (MDRD) Af Amer 364, Est GFR (MDRD) Non-Af 301, BUN/Creatinine Ratio 33.9 H, Glucose 104, Calcium 8.1 L, Magnesium 2.6, Total Bilirubin 0.90, AST 18, ALT 13, Alkaline Phosphatase 81, Total Protein 4.4 L, Albumin 2.0 L, Globulin 2.4, Albumin/Globulin Ratio 0.8 L 07/26/20 05:27: Troponin I 0.027 07/26/20 12:30: Sodium 139, Potassium 2.7 L*, Chloride 103, Carbon Dioxide 27.0, Anion Gap 9, BUN 8, Creatinine 0.39 L, Estim Creat Clear Calc 30.74, Est GFR (MDRD) Af Amer 202, Est GFR (MDRD) Non-Af 167, BUN/Creatinine Ratio 20.4 H, Glucose 158 H, Calcium 8.7, Magnesium 2.1 07/26/20 17:07: Potassium 3.2 L Current Medications Acetaminophen (Acetaminophen 325 Mg Tablet) 650 mg PO Q6H PRN PRN PRN Reason: Pain Score 1-10/Temp > 100.7 F Last Admin: 07/26/20 07:48 Dose: 650 mg Documented by: Al Hydroxide/Mg Hydroxide (Mag Hydrox/Al Hydrox/Simeth 30 Ml Udc) 30 ml PO Q6H PRN PRN PRN Reason: Gastric Burning Albuterol Sulfate (Albuterol 2.5 Mg/3 Ml Vial.Neb.) 2.5 mg INHALATION Q2H PRN PRN PRN Reason: Dyspnea, wheezing Aspirin (Aspirin E.C. 81 Mg Tablet) 81 mg PO DAILY@0800 [facility] Last Admin: 07/26/20 07:49 Dose: 81 mg Documented by: Dexamethasone (Dexamethasone 4 Mg Tablet) 4 mg PO BIDCM [facility] Last Admin: 07/26/20 17:15 Dose: 4 mg Documented by: Enoxaparin Sodium (Enoxaparin 40 Mg/0.4 Ml Syringe) 40 mg SC DAILY [facility] Last Admin: 07/26/20 09:53 Dose: 40 mg Documented by: Guaifenesin (Guaifenesin 10 Ml Udc (200mg/10ml)) 20 ml PO Q4H PRN PRN PRN Reason: COUGH Haloperidol (Haloperidol 1 Mg Tablet) 1 mg PO DAILY [facility] Last Admin: 07/26/20 09:53 Dose: Not Given Documented by: Hydralazine HCl (Hydralazine 20 Mg/Ml Vial) 10 mg IV Q4H PRN PRN PRN Reason: SBP > 160 Sodium Chloride () 1,000 mls @ 100 mls/hr IV .Q10H [facility] Last Admin: 07/26/20 11:07 Dose: 100 mls/hr Documented by: Sodium Chloride () 250 mls @ 15 mls/hr IV .[id number] PRN PRN Reason: Saline Flush Sodium Chloride () 250 mls @ 15 mls/hr IV .[id number] PRN PRN Reason: Additional IVPB Infusion Levothyroxine Sodium (Levothyroxine 50 Mcg Tablet) 50 mcg PO DAILY@0600 [facility] Last Admin: 07/26/20 03:47 Dose: 50 mcg Documented by: Magnesium Chloride (Magnesium Chloride 64 Mg Delay Rel.Tablet) 128 mg PO DAILY [facility] Magnesium Hydroxide (Magnesium Hydroxide 30 Ml Udc) 30 ml PO DAILY PRN PRN PRN Reason: Constipation Melatonin (Melatonin 3 Mg Tablet) 3 mg PO QHS PRN PRN PRN Reason: INSOMNIA Morphine Sulfate (Morphine 2 Mg/Ml Syringe) 2 mg IV Q3H PRN PRN PRN Reason: Pain Score 6-10 Nitroglycerin (Nitroglycerin (Inpatient Use) 0.4 Mg Tab.Subl) 0.4 mg SUBLINGUAL Q5M PRN PRN Reason: CARDIAC/CHEST PAIN Nutritional Formula (Lactose Free) (Ensure Clear 120 Ml Liquid) 120 ml PO 4X/DAY [facility] Last Admin: 07/26/20 17:16 Dose: Not Given Documented by: Ondansetron HCl (Ondansetron 4 Mg/2 Ml Vial) 4 mg IV Q8H PRN PRN PRN Reason: NAUSEA/VOMITING Oxycodone HCl (Oxycodone 5 Mg Tablet) 5 mg PO Q4H PRN PRN PRN Reason: Pain Score 4-5 Pantoprazole Sodium (Pantoprazole Sodium 40 Mg Tablet) 40 mg PO BID [facility] Last Admin: 07/26/20 09:52 Dose: 40 mg Documented by: Potassium Chloride (Potassium Chloride 20 Meq Tablet) [facility] Last Admin: 07/26/20 17:15 Dose: 20 meq Documented by: Prochlorperazine Edisylate (Prochlorperazine 10 Mg/2 Ml Vial) 5 mg IV Q4H PRN PRN PRN Reason: Breakthrough Nausea/Vomiting Psyllium Hydrophilic Mucilloid (Psyllium 1 Packet) 1 packet PO DAILY PRN PRN PRN Reason: Constipation Senna/Docusate Sodium (Senna/Docusate Sodium 1 Tablet) 2 tablet PO BID PRN PRN PRN Reason: Constipation Sodium Chloride (0.9% Saline Lock 10 Ml Syringe) 10 - 40 ml IV UD PRN PRN Reason: SALINE FLUSH Throat Lozenges (Benzocaine/Menthol 1 Lozenge) 1 lozenge MUCOUS MEM Q2H PRN PRN PRN Reason: SORE THROAT Discharge Diet: No Restrictions Discharge Activity: Return to Normal Activity Home Medications: Medications to take at Discharge Docusate Sodium [Colace] 100 mg PO DAILY PRN PRN 10/25/17 Acetaminophen [Tylenol Extra Strength] 500 - 1,000 mg PO Q8H PRN PRN 12/13/18 Dextran 70/Hypromellose/Pf [Artificial Tears Drops] 1 ea OP Q4H PRN PRN 03/07/19 Levothyroxine Sodium [Synthroid] 50 mcg PO DAILY 05/20/20 Multivit-Min/Folic Acid/[id number] [Alive Women's Gummy Vitamins] 2 ea PO DAILY 06/09/20 Omeprazole 40 mg PO BID 06/27/20 Dexamethasone [Decadron] 1 tab PO BID 07/25/20 Haloperidol 1 mg PO DAILY 07/25/20 Ondansetron [Zofran] 8 mg PO Q8H PRN PRN 07/25/20 Magnesium Oxide [Mag-Oxide Magnesium] 200 mg PO BID #60 tab 07/26/20 Potassium Chloride [K-Dur] 40 meq PO BIDCM #120 tab 07/26/20 Following Prescriptions Were Given to Patient: Potassium Chloride [K-Dur] 40 meq PO BIDCM #120 tab Transmission Status: Pending to [email or web address] #30 Magnesium Oxide [Mag-Oxide Magnesium] 200 mg PO BID #60 tab Transmission Status: Pending to [email or web address] #30 Primary Care Physician: Francisco J Garces III, MD [Primary Care Provider] - Disposition: Home Minutes spent on discharge:: 35 Patient Condition:: Stable Medical Necessity - Tobacco Use Smoking Status: Never smoker Tobacco Use: Non-smoker Meaningful Use Info Meaningful Use Diagnoses (Choose all that apply): None applicable Inpatient E&M: 81982 Disch Hosp
[2020-07-29 09:43] LABS: Pathologist Review Reviewed
[2020-07-29 09:58] LABS: Pathologist Review Reviewed
== END 2020-07-26 18:54 | disposition home or self-care (01) | DRG 640 ==
LOC: ED 22:50 → PCU 07-26 00:19
PROVIDERS: Admitting Provider Family Medicine; Emergency Provider Emergency Medicine; PCP Internal Medicine; Referring Provider Family Medicine; Visit Provider Internal Medicine
DX: E87.6 Hypokalemia (principal); E43 Unspecified severe protein-calorie malnutrition; C83.31 Diffuse large B-cell lymphoma, lymph nodes of head, face, and neck; Z68.1 Body mass index [BMI] 19.9 or less, adult; D61.818 Other pancytopenia; E83.42 Hypomagnesemia; D69.6 Thrombocytopenia, unspecified; R07.9 Chest pain, unspecified; E03.9 Hypothyroidism, unspecified; K21.9 Gastro-esophageal reflux disease without esophagitis; Z66 Do not resuscitate
CPT/HCPCS: 36415; 36591; 71045; 80048; 80053; 83735; 84100; 84132; 84484; 85025; 85610; 85730; 93005; 97802; 99285; J7030; J7040; A4216